=== PATIENT | male | born 1940 | race Caucasian/White ===

== ENCOUNTER 2020-08-18 16:13 | Emergency (ER) | payer MEDICARE ==
--- NOTE | 2020-08-18 16:29 | ERPHSYRPT ---
- History of Present Illness Time Seen by Provider: 08/18/20 16:29 Source: patient Exam Limitations: no limitations Physician History: This is a 79-year-old white male who has a history of hypothyroidism and hypertension as well as chronic venous stasis disease of his bilateral lower extremities. He is here because he has been unable to get his legs rewrapped the last couple days. He has an appointment tomorrow at his usual clinic to get his legs wrapped. He states that he is here because he just wants his legs wrapped to get him till tomorrow. He has no new aches or pains in the area. He has had no fevers or chills. Nothing has changed. Timing/Duration: day(s) (2) Severity: moderate Associated Symptoms: denies symptoms Allergies/Adverse Reactions: No Known Drug Allergies Allergy (Verified 08/18/20 16:28) Hx Tetanus, Diphtheria Vaccination/Date Given: No (PT UNSURE) Hx Influenza Vaccination/Date Given: No Hx Pneumococcal Vaccination/Date Given: No Travel Risk - International Travel Have you traveled outside of the country in past 3 weeks: No - Coronavirus Screening Are you exhibiting any of the following symptoms?: No Close contact with a COVID-19 positive Pt in past 14-21 Days: No - Review of Systems Constitutional: No Symptoms Eyes: No Symptoms Ears, Nose, & Throat: No Symptoms Respiratory: No Symptoms Cardiac: No Symptoms Abdominal/Gastrointestinal: No Symptoms Genitourinary Symptoms: No Symptoms Musculoskeletal: No Symptoms Skin: Other (Chronic venous stasis disease bilateral lower extremities) Neurological: No Symptoms Psychological: No Symptoms Endocrine: No Symptoms Hematologic/Lymphatic: No Symptoms Immunological/Allergic: No Symptoms All Other Systems: Reviewed and Negative - Past Medical History Pertinent Past Medical History: Yes Neurological History: No Pertinent History ENT History: No Pertinent History Cardiac History: Hypertension Respiratory History: No Pertinent History Endocrine Medical History: Hypothyroidism Musculoskeletal History: Osteoarthritis GI Medical History: No Pertinent History History: No Pertinent History Psycho-Social History: No Pertinent History Male Reproductive Disorders: No Pertinent History Other Medical History: DEPRESSION - Past Surgical History Past Surgical History: No - Social History Smoking Status: Never smoker Exposure to second hand smoke: No Drug Use: none Patient Lives Alone: No - Nursing Vital Signs Nursing Vital Signs: Initial Vital Signs Temperature 98.4 F 08/18/20 16:14 Pulse Rate 90 08/18/20 16:14 Respiratory Rate 18 08/18/20 16:14 Blood Pressure 139/70 08/18/20 16:14 O2 Sat by Pulse Oximetry 98 08/18/20 16:14 Pain Scale Pain Intensity 0 - Physical Exam General Appearance: no apparent distress, alert Eye Exam: PERRL/EOMI, eyes nml inspection Ears, Nose, Throat Exam: normal ENT inspection, moist mucous membranes Neck Exam: normal inspection, non-tender, supple, full range of motion Respiratory Exam: normal breath sounds, lungs clear, airway intact, No chest tenderness, No respiratory distress Cardiovascular Exam: regular rate/rhythm, normal heart sounds, normal peripheral pulses Gastrointestinal/Abdomen Exam: soft, normal bowel sounds, No tenderness Rectal Exam: not done Back Exam: normal inspection, normal range of motion, No CVA tenderness, No vertebral tenderness Extremity Exam: normal range of motion, pelvis stable, other (Patient has bilateral lower extremity chronic venous stasis disease. His left lower extremity seems a little more red than the right side. There is weeping from the sites bilaterally. 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, no rmal mood/affect, nml cerebellar function, nml station & gait, sensation nml Skin Exam: other (See above) Lymphatic Exam: No adenopathy SpO2 Interpretation: normal O2 Delivery: Room Air - Course Nursing assessment & vital signs reviewed: Yes - Progress Progress: unchanged Counseled pt/family regarding: diagnosis, need for follow-up - Departure Departure Disposition: Home Clinical Impression: Left leg cellulitis, Venous stasis dermatitis of both lower extremities Condition: Stable Critical Care Time: No Referrals: JERICHO BERNABE [Primary Care Provider] - Additional Instructions: keep legs elevated above level of heart. follow up with your clinic tomorrow to formally wrap your legs Prescriptions: Levofloxacin [Levaquin 500 MG Tablet] 500 mg PO DAILY #7 tablet
[2020-08-18 16:45] VITALS: BP 139/70
[2020-08-18] MEDS ORDERED: Rocephin 1000 MG INJ IM ONE (17:46)
[2020-08-18] MEDS ORDERED: Rocephin 1000 MG INJ ONE (17:52)
[2020-08-18 17:57] VITALS: PULSE 86; O2SAT 99
== END 2020-08-18 18:26 | disposition home or self-care (01) ==
LOC: ED 16:13
DX: L03.116 Cellulitis of left lower limb (principal); I87.8 Other specified disorders of veins; I87.2 Venous insufficiency (chronic) (peripheral); I10 Essential (primary) hypertension; E03.9 Hypothyroidism, unspecified
CPT/HCPCS: 96372; 99284; J0696

== ENCOUNTER 2021-01-06 19:11 | Emergency (ER) | payer MEDICARE ==
[2021-01-06 19:32] VITALS: PULSE 96; O2SAT 97
[2021-01-06 20:13] LABS: BASOPHIL % 0.4 % (0.0-0.4); Basophil (Absolute #) 0.03 (0-0.4); Eosinophil % 5.7 % (0.00-5.0); Eosinophil (Absolute #) 0.47 (0-0.5); Lymphocyte (Absolute #) 2.07 (1.0-4.6); Lymphocytes % 25.3 % (24.0-44.0); Mean Corpuscular Hemoglobin 28.7 pg (26-32); Mean Corpuscular Hgb Concent. 31.3 g/dl (32-36); Mean Platelet Volume 9.8 fl (7.5-11.0); Monocyte (Absolute #) 0.62 (0.0-1.3); Monocytes % 7.6 % (0.0-12.0); Platelet Count 236 K/mm3 (150-450); Red Blood Count 5.22 M/mm3 (4.1-5.6); Red Cell Distribution Width 14.4 % (11.5-14.0); White Blood Count 8.2 K/mm3 (4.0-10.5)
[2021-01-06 20:26] LABS: ALBUMIN 4.2 g/dL (3.5-5.0); ALKALINE PHOSPHATASE 84 U/L (38-126); BLOOD UREA NITROGEN 11 mg/dL (9-20); CHLORIDE 102 mmol/L (98-107); Calcium 9.1 mg/dL (8.4-10.2); Carbon Dioxide 27 mmol/L (22-30); EST GLOMERULAR FILTRATION RATE > 60.0 ML/MIN; Glucose 112 mg/dL (74-106); SGOT/AST 31 U/L (17-59); SGPT/ALT 22 U/L (0-50); SODIUM 140 mmol/L (137-145); Total Protein 7.5 g/dL (6.3-8.2)
[2021-01-06] MEDS ORDERED: Rocephin 1000 MG INJ IM ONE (20:28)
--- NOTE | 2021-01-06 20:28 | ERPHSYRPT ---
- History of Present Illness Time Seen by Provider: 01/06/21 19:35 Source: patient Patient Subjective Stated Complaint: pt here for left lower leg cellulitis, it is chronic for him Triage Nursing Assessment: pt alert, resp easy , face mask in , skin w/d/p. has reddness and swelling to lower left leg, Physician History: Patient is a 80-year-old white male with chronic cellulitis and stasis dermatitis of both lower extremities. He is well-known to the ER and is followed by his PCP as well. He presents tonight with his legs prewrapped and expressing a desire to be started on antibiotics. Timing/Duration: today Quality: itchy Severity: moderate Location: extremities Possible Causes: other (Stasis dermatitis chronic cellulitis) Associated Symptoms: rash Allergies/Adverse Reactions: No Known Drug Allergies Allergy (Verified 01/06/21 19:32) Hx Tetanus, Diphtheria Vaccination/Date Given: No (PT UNSURE) Hx Influenza Vaccination/Date Given: No Hx Pneumococcal Vaccination/Date Given: No Immunizations Up to Date: Yes Travel Risk - International Travel Have you traveled outside of the country in past 3 weeks: No - Coronavirus Screening Close contact with a COVID-19 positive Pt in past 14-21 Days: No - Vaccine Status Have you recieved a Covid-19 vaccination: No - Review of Systems Constitutional: No Fever, No Chills Eyes: No Symptoms Ears, Nose, & Throat: No Symptoms Respiratory: No Cough, No Dyspnea Cardiac: No Chest Pain, No Edema, No Syncope Abdominal/Gastrointestinal: No Abdominal Pain, No Nausea, No Vomiting, No Diarrhea Genitourinary Symptoms: No Dysuria Musculoskeletal: No Back Pain, No Neck Pain Skin: Cellulitis, Pruritis, Dryness, No Rash Neurological: No Dizziness, No Focal Weakness, No Sensory Changes Psychological: No Symptoms Endocrine: No Symptoms All Other Systems: Reviewed and Negative - Past Medical History Pertinent Past Medical History: Yes Neurological History: No Pertinent History ENT History: No Pertinent History Cardiac History: Hypertension, Peripheral Vascular Disease Respiratory History: No Pertinent History Endocrine Medical History: Hypothyroidism Musculoskeletal History: Osteoarthritis GI Medical History: No Pertinent History History: No Pertinent History Psycho-Social History: No Pertinent History Male Reproductive Disorders: No Pertinent History Other Medical History: 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 HX OF DEPRESSION - Past Surgical History Past Surgical History: No - Social History Smoking Status: Never smoker Exposure to second hand smoke: No Drug Use: none Patient Lives Alone: No - Nursing Vital Signs Nursing Vital Signs: Initial Vital Signs Temperature 97.2 F 01/06/21 19:28 Pulse Rate 96 H 01/06/21 19:28 Respiratory Rate 20 01/06/21 19:28 O2 Sat by Pulse Oximetry 97 01/06/21 19:28 Pain Scale Pain Intensity 0 - Physical Exam General Appearance: no apparent distress, alert Eye Exam: PERRL/EOMI, eyes nml inspection Ears, Nose, Throat Exam: normal ENT inspection, pharynx normal, moist mucous membranes Neck Exam: normal inspection, non-tender, supple, full range of motion Respiratory Exam: normal breath sounds, lungs clear, No respiratory distress Cardiovascular Exam: regular rate/rhythm, normal heart sounds Gastrointestinal/Abdomen Exam: soft, mass, No tenderness Back Exam: normal inspection, normal range of motion, No CVA tenderness, No vertebral tenderness Extremity Exam: normal range of motion, other (Both lower legs have been wrapped previously we would not remove those tonight) Neurologic Exam: alert, oriented x 3, cooperative, normal mood/affect, sensation nml, No motor deficits Skin Exam: normal color, warm, dry SpO2: 97 - Course Nursing assessment & vital signs reviewed: Yes Ordered Tests: Active Orders 24 hr Category Date Time Status BLOOD CULTURE Stat Lab 01/06/21 20:05 Received CBC W DIFF Stat Lab 01/06/21 20:00 Received CMP Stat Lab 01/06/21 20:00 Received - Progress Progress: unchanged - Departure Departure Disposition: Home Clinical Impression: Cellulitis, Venous stasis dermatitis of both lower extremities Condition: Stable Critical Care Time: No Referrals: JERICHO RODRIGUEZ [Primary Care Provider] - Prescriptions: Levofloxacin [Levaquin 500 MG Tablet] 500 mg PO DAILY #7 tablet
[2021-01-06] MEDS ORDERED: Rocephin 1000 MG INJ ONE (20:37)
[2021-01-06] MEDS ORDERED: XYLOCAINE 1% HCL 20 ML MDV IJ ONE (20:37)
== END 2021-01-06 20:59 | disposition home or self-care (01) ==
LOC: ED 19:11
DX: L03.116 Cellulitis of left lower limb (principal); L03.115 Cellulitis of right lower limb; I87.2 Venous insufficiency (chronic) (peripheral)
CPT/HCPCS: 36415; 80053; 85025; 87040; 96372; 99284; J0696

== ENCOUNTER 2021-01-15 14:20 | Emergency (ER) | payer MEDICARE ==
--- NOTE | 2021-01-15 14:40 | ERPHSYRPT ---
- History of Present Illness Time Seen by Provider: 01/15/21 14:36 Source: patient Exam Limitations: no limitations Physician History: Patient is 80-year-old male with significant past medical history of bilateral chronic venous stasis has been undergoing treatment by wound care center at [facility]. Patient started noticing more and more clear discharge from his both feet so he got concerned and he came to the emergency room. He denies any other symptoms including fever chills pain in the leg. Patient also denies any purulent discharge from the legs. Timing/Duration: week(s) Associated Symptoms: denies symptoms Allergies/Adverse Reactions: No Known Drug Allergies Allergy (Verified 01/06/21 19:32) Hx Tetanus, Diphtheria Vaccination/Date Given: No (PT UNSURE) Hx Influenza Vaccination/Date Given: No Hx Pneumococcal Vaccination/Date Given: No Travel Risk - Vaccine Status Have you recieved a Covid-19 vaccination: No - Review of Systems Constitutional: No Symptoms Eyes: No Symptoms Ears, Nose, & Throat: No Symptoms Respiratory: No Symptoms Cardiac: No Symptoms Abdominal/Gastrointestinal: No Symptoms Genitourinary Symptoms: No Symptoms Musculoskeletal: No Symptoms Skin: Cellulitis Neurological: No Symptoms Psychological: No Symptoms Endocrine: No Symptoms - Past Medical History Pertinent Past Medical History: Yes Neurological History: No Pertinent History ENT History: No Pertinent History Cardiac History: Hypertension, Peripheral Vascular Disease Respiratory History: No Pertinent History Endocrine Medical History: Hypothyroidism Musculoskeletal History: Osteoarthritis GI Medical History: No Pertinent History History: No Pertinent History Psycho-Social History: No Pertinent History Male Reproductive Disorders: No Pertinent History Other Medical History: 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 HX OF DEPRESSION - Past Surgical History Past Surgical History: No - Social History Smoking Status: Never smoker Exposure to second hand smoke: No Drug Use: none Patient Lives Alone: No - Nursing Vital Signs Nursing Vital Signs: Initial Vital Signs Temperature 99.7 F 01/15/21 14:33 Pulse Rate 101 H 01/15/21 14:33 Respiratory Rate 18 01/15/21 14:33 Blood Pressure 150/69 01/15/21 14:33 O2 Sat by Pulse Oximetry 96 01/15/21 14:33 Pain Scale Pain Intensity 4 - Physical Exam General Appearance: no apparent distress, alert Eye Exam: PERRL/EOMI, eyes nml inspection Ears, Nose, Throat Exam: normal ENT inspection, TMs normal, pharynx normal, moist mucous membranes Neck Exam: normal inspection, non-tender, supple, full range of motion Respiratory Exam: normal breath sounds, lungs clear, No respiratory distress Cardiovascular Exam: regular rate/rhythm, normal heart sounds, normal peripheral pulses Gastrointestinal/Abdomen Exam: soft, normal bowel sounds, No tenderness, No mass Back Exam: normal inspection, normal range of motion, No CVA tenderness, No vertebral tenderness Extremity Exam: normal inspection, normal range of motion, pelvis stable, inflammation, swelling, other (chronic venous stasis both lower extrimities) Neurologic Exam: alert, oriented x 3, cooperative, normal mood/affect, nml cerebellar function, nml station & gait, sensation nml, No motor deficits Skin Exam: normal color, warm, dry, No rash Lymphatic Exam: No adenopathy SpO2: 96 - Course Nursing assessment & vital signs reviewed: Yes Ordered Tests: Active Orders 24 hr Category Date Time Status Wound Care STAT Care 01/15/21 14:35 Active - Progress Progress: unchanged Progress Note: 01/15/21 14:38 Wound dressing discussed with the patient. Patient is advised to follow-up with wound care as an outpatient. Counseled pt/family regarding: diagnosis, need for follow-up - Departure Departure Disposition: Home Clinical Impression: Venous stasis dermatitis of both lower extremities Condition: Stable Critical Care Time: No Referrals: JERICHO RODRIGUEZ [Primary Care Provider] - Follow Up with PCP/3 days Instructions: Wound Care (DC) Additional Instructions: Discharge/Care Plan AWILDA RIVERA was seen on 01/15/21 in the Emergency Room. The patient was counseled regarding Diagnosis,Lab results, Imaging studies, need for follow up and when to return to the Emergency Room. Prescriptions given: Discharge Note I have spoken with the patient and/or caregivers. I have explained the patient's condition, diagnosis and treatment plan based on the information available to me at this time. I have answered the patient's and/or caregiver's questions and addressed any concerns. The patient and/or caregivers have as good understanding of the patient's diagnosis, condition and treatment plan as can be expected at this point. The vital signs have been stable. The patient's condition is stable and appropriate for discharge from the emergency department. The patient will pursue further outpatient evaluation with the primary care physician or other designated or consulting physician as outlined in the discharge instructions. The patient and/or caregivers are agreeable to this plan of care and follow-up instructions have been explained in detail. The patient and/or caregivers have received these instruction. The patient/and or caregivers are aware that any significant change in condition or worsening of symptoms should prompt an immediate return to this or the closest emergency department or call 911. AWILDA RIVERA was seen on 01/15/21 n the Emergency Room. At that time you were treated for an emergent condition, during your visit Laboratory, Radiology and/or other procedures may have been ordered. It is very important that you follow-up with your Primary Care Physician JERICHO RODRIGUEZ within the next 24-48 hours to review your Emergency Room visit and the final results of testing that was ordered. Some test results such as Urine Cultures, Blood Cultures, and other cultures if ordered will not be finalized for 24-48 hours. If you do not have a Primary Care Provider please call the medical records department at [phone] ext [phone] to obtain a copy of your results or you may sign into our patient portal to obtain these results by visiting us @ [email or web address] and completing the following steps: 1. Click on the Patient Portal link 2. Click the Patient Self Enrollment Link to complete the enrollment form and entering your 3. Once the enrollment form is completed you will receive an email with a temporary ID and password at the email address you provided. 4. Next choose a user name and password. Your user name must be at least 4 characters long and your password must be at least 4 characters long. 5. Choose a security question from the list and provide your answer to the question. If you already have signed into the Health Portal you may access your Health Care Information 22/10 by the following steps: 1. Login to our website @ [email or web address] 2. Enter your original user name and password. FAQS The [facility] Health Portal is an online tool that contains your Lab Results, Radiology Reports, Visit History, Discharge Instructions and Health Summary Lab and Radiology Results will not be available for 72 hours on the portal. The Portal is a secure site, passwords are encryted and URLs are re-written so they cannot be copied and pasted. You and authorized family members are the only ones who can access your Portal. Also there is a timeout feature that protects your information if you leave the Portal page open. If you have technical difficulty please use the Contact Us link on the page this will allow you to submit any questions you have regarding the Portal or you may contact the Medical Record Department at [phone] ext [phone].
[2021-01-15 15:05] VITALS: BP 134/62; PULSE 90; O2SAT 98
== END 2021-01-15 15:11 | disposition home or self-care (01) ==
LOC: ED 14:20
DX: I87.8 Other specified disorders of veins (principal); L30.9 Dermatitis, unspecified; I73.9 Peripheral vascular disease, unspecified
CPT/HCPCS: 99283

== ENCOUNTER 2021-03-19 17:43 | Emergency (ER) | payer MEDICARE ==
[2021-03-19] MEDS ORDERED: Sodium Chloride 0.9% 1000 ML 1,000 ML ONE (18:46)
[2021-03-19] MEDS: Sodium Chloride 0.9% 1000 ML 1,000 ML IV SCH (18:46)
[2021-03-19 19:14] LABS: INR 1.08 (0.8-3.0); PROTIME 12.7 SECONDS (9.4-12.5)
[2021-03-19 19:16] LABS: Appearance SLIGHTLY CLOUDY (CLEAR); Bilirubin NEGATIVE (NEGATIVE); Blood MODERATE Ery/ul (0-5); Glucose NEGATIVE (NEGATIVE); Ketones TRACE (NEGATIVE); Leukocyte Esterase NEGATIVE (NEGATIVE); Mucus SLIGHT /HPF (NEGATIVE); Nitrite NEGATIVE (NEGATIVE); Protein,Urine Dip 100 (Negative); RBC 0-2 /HPF (0-2); Specific Gravity 1.021 (1.005-1.025); Urobilinogen 4 mg/dL (0-1); WBC 0-2 /HPF (0-5)
[2021-03-19 19:17] LABS: Absolute Neutrophil Ct (ANC) 3.78 (1.4-6.9); Basophil (Absolute #) 0 (0-0.4); Eosinophil (Absolute #) 0 (0-0.5); Hematocrit 46.4 % (42-50); Hemoglobin 14.6 gm/dl (12.5-18.0); Lymphocyte (Absolute #) 0.91 (1.0-4.6); Lymphocytes % 17.5 % (24.0-44.0); Mean Cell Volume 89.6 fl (78-100); Mean Corpuscular Hemoglobin 28.2 pg (26-32); Mean Corpuscular Hgb Concent. 31.5 g/dl (32-36); Mean Platelet Volume 10.2 fl (7.5-11.0); Monocytes % 9.6 % (0.0-12.0); Neutrophil % 72.9 % (36.0-66.0); Platelet Count 214 K/mm3 (150-450); Red Blood Count 5.18 M/mm3 (4.1-5.6); Red Cell Distribution Width 14.8 % (11.5-14.0); White Blood Count 5.2 K/mm3 (4.0-10.5)
[2021-03-19 19:27] LABS: ALBUMIN 3.8 g/dL (3.5-5.0); ALKALINE PHOSPHATASE 75 U/L (38-126); AMYLASE 64 U/L (30-110); ANION GAP 9.9 MEQ/L (5-15); BLOOD UREA NITROGEN 14 mg/dL (9-20); CHLORIDE 98 mmol/L (98-107); Calcium 8.4 mg/dL (8.4-10.2); Carbon Dioxide 30 mmol/L (22-30); Creatinine 1 0.78 mg/dL (0.66-1.25); EST GLOMERULAR FILTRATION RATE > 60.0 ML/MIN; Glucose 101 mg/dL (74-106); LIPASE 118 U/L (23-300); Potassium 4.4 mmol/L (3.5-5.1); SGOT/AST 325 U/L (17-59); SGPT/ALT 92 U/L (0-50); SODIUM 133 mmol/L (137-145); Total Protein 6.9 g/dL (6.3-8.2)
[2021-03-19 19:33] LABS: Amphetamine,Urine NEGATIVE (NEGATIVE); Barbiturate,Urine NEGATIVE (NEGATIVE); Benzodiazepine,Urine NEGATIVE (NEGATIVE); Cocaine,Urine NEGATIVE (NEGATIVE); Methadone,Urine NEGATIVE (NEGATIVE); Opiate,Urine NEGATIVE (NEGATIVE); PCP,Urine NEGATIVE (NEGATIVE); THC,Urine NEGATIVE (NEGATIVE)
--- NOTE | 2021-03-19 20:03 | ERPHSYRPT ---
- History of Present Illness Time Seen by Provider: 03/19/21 18:35 Source: patient, family Exam Limitations: no limitations Patient Subjective Stated Complaint: Pt states that he went to get off the couch and he just slid right down to the floor with no injury and his daughter brought him here to be checked out Triage Nursing Assessment: Pt brought to the ER by his daughter, hypertensive, denies pain, denies injury, denies LOC, pulses normal, skin n/w/d, doesn't appear to be in any distress Physician History: Patient is a 80-year-old male who slipped off the couch yesterday and was able unable to get off the floor for 3 hours until some help arrived. He denies any pain or injury his daughter did send a note saying that he has been recently more confused he has been weak and a poor appetite. Occurred: yesterday Reason for Fall: slipped Injuries/Pain Location: no injury Loss of Consciousness: no loss of consciousness Severity of Pain-Max: none Severity of Pain-Current: none Associated Symptoms (Fall): denies symptoms Allergies/Adverse Reactions: No Known Drug Allergies Allergy (Verified 03/19/21 18:32) Home Medications: Furosemide 20 mg [Lasix 20 mg] 20 mg PO DAILY 03/19/21 [History] Potassium Chloride 20 meq PO DAILY 03/19/21 [History] Hx Tetanus, Diphtheria Vaccination/Date Given: No (PT UNSURE) Hx Influenza Vaccination/Date Given: No Hx Pneumococcal Vaccination/Date Given: No Travel Risk - International Travel Have you traveled outside of the country in past 3 weeks: No - Coronavirus Screening Are you exhibiting any of the following symptoms?: No Close contact with a COVID-19 positive Pt in past 14-21 Days: No - Vaccine Status Have you recieved a Covid-19 vaccination: No - Review of Systems Constitutional: No Fever, No Chills Eyes: No Symptoms Ears, Nose, & Throat: No Symptoms Respiratory: No Cough, No Dyspnea Cardiac: No Chest Pain, No Edema, No Syncope Abdominal/Gastrointestinal: No Abdominal Pain, No Nausea, No Vomiting, No Diarrhea Genitourinary Symptoms: No Dysuria Musculoskeletal: No Back Pain, No Neck Pain Skin: No Rash Neurological: No Dizziness, No Focal Weakness, No Sensory Changes Psychological: No Symptoms Endocrine: No Symptoms All Other Systems: Reviewed and Negative - Past Medical History Pertinent Past Medical History: Yes Neurological History: No Pertinent History ENT History: No Pertinent History Cardiac History: Hypertension, Peripheral Vascular Disease Respiratory History: No Pertinent History Endocrine Medical History: Hypothyroidism Musculoskeletal History: Osteoarthritis GI Medical History: No Pertinent History History: No Pertinent History Psycho-Social History: No Pertinent History Male Reproductive Disorders: No Pertinent History Other Medical History: 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 HX OF DEPRESSION - Past Surgical History Past Surgical History: No - Social History Smoking Status: Never smoker Exposure to second hand smoke: No Drug Use: none Patient Lives Alone: No - Nursing Vital Signs Nursing Vital Signs: Initial Vital Signs Temperature 99.2 F 03/19/21 18:24 Pulse Rate 88 03/19/21 18:24 Blood Pressure 146/72 03/19/21 18:24 O2 Sat by Pulse Oximetry 98 03/19/21 18:24 Pain Scale Pain Intensity 0 - [place] Coma Score Best Eye Response ([place]): (4) open spontaneously Best Verbal Response ([place]): (5) oriented Best Motor Response ([place]): (6) obeys commands [place] Total: 15 - Physical Exam General Appearance: no apparent distress, alert Head Injury: no evidence of injury Eye Exam: PERRL/EOMI ENT Exam: airway nml Neck Exam: normal inspection, No tenderness Respiratory/Chest Exam: normal breath sounds, No chest tenderness, No respiratory distress Cardiovascular Exam: normal heart sounds, regular rate/rhythm Gastrointestinal Exam: soft, No tenderness, No distention, No guarding, No ecchymosis Back Exam: normal inspection, No vertebral tenderness Extremity Exam: normal inspection, normal range of motion, pelvis stable, No deformities Neurologic Exam: alert, oriented x 3, cooperative, sensation nml, No motor deficits Skin Exam: normal color, warm, dry SpO2: 98 - Course Nursing assessment & vital signs reviewed: Yes EKG Interpreted by Me: RATE (92), Sinus Rhythm, Right [place] Deviation, NORMAL QRS, Non-specific ST Changes - CT Exams Abdomen CT Interpretation: Other (Patient refused a CT scan) Ordered Tests: Active Orders 24 hr Category Date Time Status EKG-ER Only STAT Care 03/19/21 18:32 Active IV Insertion STAT Care 03/19/21 18:32 Active ABDOMEN AND PELVIS W/0 CONTRAS [CT] Stat Exams 03/19/21 18:33 Ordered CHEST 1 VIEW (PORTABLE) Stat Exams 03/19/21 18:33 Ordered HEAD WITHOUT CONTRAST [CT] Stat Exams 03/19/21 18:35 Ordered AMYLASE Stat Lab 03/19/21 18:45 Completed BLOOD CULTURE Stat Lab 03/19/21 18:45 Received CBC W DIFF Stat Lab 03/19/21 18:45 Completed CK (IN-HOUSE) [CK-Creatinine Phosphokinase] Stat Lab 03/19/21 18:35 Received CMP Stat Lab 03/19/21 18:45 Completed CULTURE,URINE Stat Lab 03/19/21 18:58 Received LIPASE Stat Lab 03/19/21 18:45 Completed Lactic Acid Stat Lab 03/19/21 18:32 Ordered PROTIME WITH INR Stat Lab 03/19/21 18:45 Completed TROPONIN Q3H Lab 03/19/21 18:35 Received TROPONIN Q3H Lab 03/19/21 21:45 Ordered TROPONIN Q3H Lab 03/20/21 00:45 Ordered TROPONIN Q3H Lab 03/20/21 03:45 Ordered TROPONIN Q3H Lab 03/20/21 06:45 Ordered UA W/RFX UR CULTURE Stat Lab 03/19/21 18:58 Completed Urine Triage Profile Stat Lab 03/19/21 18:58 Completed Medication Summary Generic Name Dose Route Start Last Admin Trade Name Freq PRN Reason Stop Dose Admin Sodium Chloride 1,000 mls @ 100 mls/hr 03/19/21 18:45 03/19/21 18:46 Sodium Chloride 0.9% 1000 Ml IV 04/18/21 18:44 100 mls/hr .Q10H MIKE Administration Lab/Rad Data: Laboratory Result Diagrams 03/19/21 18:45 03/19/21 18:45 Laboratory Results 03/19/21 03/19/21 03/19/21 Range/Units 18:58 18:58 18:45 WBC (4.0-10.5) K/mm3 RBC (4.1-5.6) M/mm3 Hgb (12.5-18.0) gm/dl Hct (42-50) % MCV (78-100) fl MCH (26-32) pg MCHC (32-36) g/dl RDW (11.5-14.0) % Plt Count (150-450) K/mm3 MPV (7.5-11.0) fl Gran % (36.0-66.0) % Eos # (Auto) (0-0.5) Absolute Lymphs (auto) (1.0-4.6) Absolute Monos (auto) (0.0-1.3) Lymphocytes % (24.0-44.0) % Monocytes % (0.0-12.0) % Eosinophils % (0.00-5.0) % Basophils % (0.0-0.4) % Absolute Granulocytes (1.4-6.9) Basophils # (0-0.4) PT 12.7 H (9.4-12.5) SECONDS INR 1.08 (0.8-3.0) Sodium (137-145) mmol/L Potassium (3.5-5.1) mmol/L Chloride (98-107) mmol/L Carbon Dioxide (22-30) mmol/L Anion Gap (5-15) MEQ/L BUN (9-20) mg/dL Creatinine (0.66-1.25) mg/dL Estimated GFR ML/MIN Glucose (74-106) mg/dL Calcium (8.4-10.2) mg/dL Total Bilirubin (0.2-1.3) mg/dL AST (17-59) U/L ALT (0-50) U/L Alkaline Phosphatase (38-126) U/L Serum Total Protein (6.3-8.2) g/dL Albumin (3.5-5.0) g/dL Amylase (30-110) U/L Lipase (23-300) U/L Urine Color YELLOW (YELLOW) Urine Appearance SLIGHTLY CLOUDY (CLEAR) Urine pH 5.0 (5-6) Ur Specific [place] 1.021 (1.005-1.025) Urine Protein 100 (Negative) Urine Ketones TRACE (NEGATIVE) Urine Blood MODERATE (0-5) Rene/ul Urine Nitrite NEGATIVE (NEGATIVE) Urine Bilirubin NEGATIVE (NEGATIVE) Urine Urobilinogen 4 (0-1) mg/dL Ur Leukocyte Esterase NEGATIVE (NEGATIVE) Urine WBC (Auto) 0-2 (0-5) /HPF Urine RBC (Auto) 0-2 (0-2) /HPF U Epithel Cells (Auto) NONE (FEW) /HPF Urine Bacteria (Auto) NONE (NEGATIVE) /HPF Urine Mucus (Auto) SLIGHT (NEGATIVE) /HPF Urine Culture Reflexed YES (NO) Urine Glucose NEGATIVE (NEGATIVE) mg/dL Urine Opiates Level NEGATIVE (NEGATIVE) Ur Methadone NEGATIVE (NEGATIVE) Urine Barbiturates NEGATIVE (NEGATIVE) Ur Phencyclidine (PCP) NEGATIVE (NEGATIVE) Urine Amphetamine NEGATIVE (NEGATIVE) U Benzodiazepine Level NEGATIVE (NEGATIVE) Urine Cocaine NEGATIVE (NEGATIVE) Urine Marijuana (THC) NEGATIVE (NEGATIVE) 03/19/21 03/19/21 Range/Units 18:45 18:45 WBC 5.2 (4.0-10.5) K/mm3 RBC 5.18 (4.1-5.6) M/mm3 Hgb 14.6 (12.5-18.0) gm/dl Hct 46.4 (42-50) % MCV 89.6 (78-100) fl MCH 28.2 (26-32) pg MCHC 31.5 L (32-36) g/dl RDW 14.8 H (11.5-14.0) % Plt Count 214 (150-450) K/mm3 MPV 10.2 (7.5-11.0) fl Gran % 72.9 H (36.0-66.0) % Eos # (Auto) 0 (0-0.5) Absolute Lymphs (auto) 0.91 L (1.0-4.6) Absolute Monos (auto) 0.50 (0.0-1.3) Lymphocytes % 17.5 L (24.0-44.0) % Monocytes % 9.6 (0.0-12.0) % Eosinophils % 0.0 (0.00-5.0) % Basophils % 0.0 (0.0-0.4) % Absolute Granulocytes 3.78 (1.4-6.9) Basophils # 0 (0-0.4) PT (9.4-12.5) SECONDS INR (0.8-3.0) Sodium 133 L (137-145) mmol/L Potassium 4.4 (3.5-5.1) mmol/L Chloride 98 (98-107) mmol/L Carbon Dioxide 30 (22-30) mmol/L Anion Gap 9.9 (5-15) MEQ/L BUN 14 (9-20) mg/dL Creatinine 0.78 (0.66-1.25) mg/dL Estimated GFR > 60.0 ML/MIN Glucose 101 (74-106) mg/dL Calcium 8.4 (8.4-10.2) mg/dL Total Bilirubin 1.10 (0.2-1.3) mg/dL AST 325 H (17-59) U/L ALT 92 H (0-50) U/L Alkaline Phosphatase 75 (38-126) U/L Serum Total Protein 6.9 (6.3-8.2) g/dL Albumin 3.8 (3.5-5.0) g/dL Amylase 64 (30-110) U/L Lipase 118 (23-300) U/L Urine Color (YELLOW) Urine Appearance (CLEAR) Urine pH (5-6) Ur Specific [place] (1.005-1.025) Urine Protein (Negative) Urine Ketones (NEGATIVE) Urine Blood (0-5) Rene/ul Urine Nitrite (NEGATIVE) Urine Bilirubin (NEGATIVE) Urine Urobilinogen (0-1) mg/dL Ur Leukocyte Esterase (NEGATIVE) Urine WBC (Auto) (0-5) /HPF Urine RBC (Auto) (0-2) /HPF U Epithel Cells (Auto) (FEW) /HPF Urine Bacteria (Auto) (NEGATIVE) /HPF Urine Mucus (Auto) (NEGATIVE) /HPF Urine Culture Reflexed (NO) Urine Glucose (NEGATIVE) mg/dL Urine Opiates Level (NEGATIVE) Ur Methadone (NEGATIVE) Urine Barbiturates (NEGATIVE) Ur Phencyclidine (PCP) (NEGATIVE) Urine Amphetamine (NEGATIVE) U Benzodiazepine Level (NEGATIVE) Urine Cocaine (NEGATIVE) Urine Marijuana (THC) (NEGATIVE) - Progress Progress: improved - Departure Departure Disposition: Home Clinical Impression: Fall Condition: Stable Critical Care Time: No Referrals: JERICHO RODRIGUEZ [Primary Care Provider] - Follow up/PCP as directed Instructions: Preventing Falls
[2021-03-19 20:06] VITALS: BP 146/78; PULSE 78; O2SAT 97
--- NOTE | 2021-03-20 09:04 | XRAY ---
Indication: Loss of appetite. Acute mental status change. Comparison: July 25, 2014. Portable chest demonstrates new moderate diffuse bilateral air space disease without consolidation/large effusion. Heart not enlarged. Bony thorax intact again with mild osteopenia and degenerative changes.
== END 2021-03-19 20:26 | disposition home or self-care (01) ==
LOC: ED 17:43
DX: R53.1 Weakness (principal); W08.XXXA Fall from other furniture, initial encounter; Y92.009 Unspecified place in unspecified non-institutional (private) residence as the place of occurrence of the external cause; I10 Essential (primary) hypertension; I73.9 Peripheral vascular disease, unspecified; I87.8 Other specified disorders of veins
CPT/HCPCS: 36415; 71045; 80053; 80307; 81001; 82150; 82550; 83605; 83690; 84484; 85025; 85610; 87040; 87086; 93005; 99284

== ENCOUNTER 2021-03-21 18:27 | Inpatient (IN) | payer MEDICARE ==
[2021-03-21] MEDS ORDERED: TYLENOL 325 MG PO ONE (19:06)
[2021-03-21] MEDS ORDERED: TYLENOL 325 MG ONE (19:22)
[2021-03-21] MEDS: Sodium Chloride 0.9% 1000 ML 1,000 ML IV SCH (19:23)
--- NOTE | 2021-03-21 19:23 | ERPHSYRPT ---
- History of Present Illness Time Seen by Provider: 03/21/21 18:37 Source: patient Exam Limitations: no limitations Patient Subjective Stated Complaint: Pt states "I am washing my legs and I am trying to clean them.". Pt daughter stated "He is not eating much and he is fa lling." Triage Nursing Assessment: Pt presented alert and oriented X 3, skin wpd Pt lower legs are red and hot to touch. Pt has CSM X 4. Pt skin warm to touch. PT answering all questions appropriately. Physician History: 80-year-old male with multiple medical problems with bilateral lower extremity stasis ulcers, recently taken off of antibiotics presented in the ER with chief complaint of generalized weakness fatigue and tiredness. Daughter reports he refuses to eat or drink and has not been as active as usual. He is having a downhill course for the last 2 weeks which is worsening for the last couple of days. On presentation he had a fever but denies any chest pain, palpitations or shortness of breath. No abdominal pain nausea or vomiting. Daughter also reports he is getting easily confused over little things. He does have increase discharge from right leg yellow color. Denies any focal weakness. Patient is answering all questions appropriately and does not seem to be confused or altered at all. Timing/Duration: week(s), constant, gradual onset, worse Severity: moderate Modifying Factors: Improves With: nothing Associated Symptoms: fever, loss of appetite, malaise, weakness Allergies/Adverse Reactions: No Known Drug Allergies Allergy (Verified 03/19/21 18:32) Home Medications: Furosemide 20 mg [Lasix 20 mg] 20 mg PO DAILY 03/19/21 [History] Potassium Chloride 20 meq PO DAILY 03/19/21 [History] Hx Tetanus, Diphtheria Vaccination/Date Given: No (PT UNSURE) Hx Influenza Vaccination/Date Given: No Hx Pneumococcal Vaccination/Date Given: No Immunizations Up to Date: Yes Travel Risk - International Travel Have you traveled outside of the country in past 3 weeks: No - Coronavirus Screening Are you exhibiting any of the following symptoms?: No Close contact with a COVID-19 positive Pt in past 14-21 Days: No - Vaccine Status Have you recieved a Covid-19 vaccination: No - Review of Systems Constitutional: Fever, Fatigue, Weakness Eyes: No Symptoms Ears, Nose, & Throat: No Symptoms Respiratory: No Symptoms Cardiac: No Symptoms Abdominal/Gastrointestinal: No Symptoms Genitourinary Symptoms: No Symptoms Musculoskeletal: Arthralgias Skin: Rash Neurological: No Symptoms Endocrine: No Symptoms Hematologic/Lymphatic: No Symptoms Immunological/Allergic: No Symptoms - Past Medical History Pertinent Past Medical History: Yes Neurological History: No Pertinent History ENT History: No Pertinent History Cardiac History: Hypertension, Peripheral Vascular Disease Respiratory History: No Pertinent History Endocrine Medical History: Hypothyroidism Musculoskeletal History: Osteoarthritis GI Medical History: No Pertinent History History: No Pertinent History Psycho-Social History: No Pertinent History Male Reproductive Disorders: No Pertinent History Other Medical History: 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 HX OF DEPRESSION - Past Surgical History Past Surgical History: No - Social History Smoking Status: Never smoker Exposure to second hand smoke: No Drug Use: none Patient Lives Alone: No - Nursing Vital Signs Nursing Vital Signs: Initial Vital Signs Temperature 101.0 F 03/21/21 18:53 Pulse Rate 84 03/21/21 18:53 Respiratory Rate 20 03/21/21 18:53 Blood Pressure 137/72 03/21/21 18:53 O2 Sat by Pulse Oximetry 97 03/21/21 18:53 Pain Scale Pain Intensity 0 - Physical Exam General Appearance: no apparent distress, alert, anxiety Eye Exam: PERRL/EOMI, eyes nml inspection Ears, Nose, Throat Exam: normal ENT inspection, TMs normal, pharyngeal erythema Neck Exam: normal inspection, supple, full range of motion Respiratory Exam: normal breath sounds, lungs clear Cardiovascular Exam: regular rate/rhythm, normal heart sounds Gastrointestinal/Abdomen Exam: soft, normal bowel sounds, No tenderness Back Exam: normal inspection, normal range of motion, CVA tenderness Extremity Exam: other (Bilateral lower extremity venous stasis ulceration with yellowish discharge especially in the right side.) Neurologic Exam: alert, oriented x 3, cooperative, step down nurse II-XII nml as tested, sensation nml, No motor deficits Skin Exam: normal color SpO2 Interpretation: normal SpO2: 97 O2 Delivery: Room Air - Course EKG Interpreted by Me: RATE (82), Sinus Rhythm, Right [place] Deviation, NORMAL INTERVALS, Non-specific ST Changes Ordered Tests: Active Orders 24 hr Category Date Time Status IV Insertion STAT Care 03/21/21 19:06 Active CHEST 1 VIEW (PORTABLE) Stat Exams 03/21/21 19:39 Taken BLOOD CULTURE Stat Lab 03/21/21 20:10 Received CBC W DIFF Stat Lab 03/21/21 20:10 Completed CMP Stat Lab 03/21/21 20:10 Completed CULTURE,URINE Stat Lab 03/21/21 19:58 Received Lactic Acid Stat Lab 03/21/21 19:06 Completed UA W/RFX UR CULTURE Stat Lab 03/21/21 19:58 Completed Transfer Order Routine Transfer 03/21/21 Ordered Medication Summary Generic Name Dose Route Start Last Admin Trade Name Freq PRN Reason Stop Dose Admin Sodium Chloride 1,000 mls @ 100 mls/hr 03/21/21 19:15 03/21/21 19:23 Sodium Chloride 0.9% 1000 Ml IV 04/20/21 19:14 100 mls/hr .Q10H MIKE Administration Remdesivir 200 mg/ Sodium 250 mls @ 125 mls/hr 03/21/21 23:30 Chloride IV 03/22/21 01:29 ONCE ONE Discontinued Medications Generic Name Dose Route Start Last Admin Trade Name Valerie PRN Reason Stop Dose Admin Acetaminophen 975 mg 03/21/21 19:06 03/21/21 19:23 Acetaminophen 325 Mg Tablet PO 03/21/21 19:07 975 mg STAT ONE Administration Acetaminophen Confirm 03/21/21 19:22 Acetaminophen 325 Mg Tablet Administered 03/21/21 19:23 Dose 975 mg .ROUTE .STK-MED ONE Dexamethasone Sodium Phosphate 6 mg 03/21/21 23:30 03/21/21 23:34 Dexamethasone Sod Phosphate 10 Mg/Ml IV 03/21/21 23:31 6 mg STAT ONE Administration Dexamethasone Sodium Phosphate Confirm 03/21/21 23:31 Dexamethasone Sod Phosphate 10 Mg/Ml Administered 03/21/21 23:32 Dose 10 mg .ROUTE .STK-MED ONE Clindamycin HCl/Dextrose 900 mg in 50 mls @ 100 mls/hr 03/21/21 21:50 03/21/21 22:24 Clindamycin-D5w 900 Mg/50 Ml IV 03/21/21 22:19 Infused STAT STA Infusion Clindamycin HCl/Dextrose Confirm 03/21/21 21:52 Clindamycin-D5w 900 Mg/50 Ml Administered 03/21/21 21:53 Dose 900 mg in 50 mls @ ud IV .STK-MED ONE Lab/Rad Data: Laboratory Result Diagrams 03/21/21 20:10 03/21/21 20:10 Laboratory Results 03/21/21 03/21/21 03/21/21 Range/Units 22:19 20:10 20:10 WBC 5.9 (4.0-10.5) K/mm3 RBC 4.97 (4.1-5.6) M/mm3 Hgb 14.1 (12.5-18.0) gm/dl Hct 44.2 (42-50) % MCV 88.9 (78-100) fl MCH 28.4 (26-32) pg MCHC 31.9 L (32-36) g/dl RDW 14.9 H (11.5-14.0) % Plt Count 178 (150-450) K/mm3 MPV 9.9 (7.5-11.0) fl Gran % 72.7 H (36.0-66.0) % Eos # (Auto) 0 (0-0.5) Absolute Lymphs (auto) 1.21 (1.0-4.6) Absolute Monos (auto) 0.40 (0.0-1.3) Lymphocytes % 20.5 L (24.0-44.0) % Monocytes % 6.8 (0.0-12.0) % Eosinophils % 0.0 (0.00-5.0) % Basophils % 0.0 (0.0-0.4) % Absolute Granulocytes 4.29 (1.4-6.9) Basophils # 0 (0-0.4) Sodium 131 L (137-145) mmol/L Potassium 4.2 (3.5-5.1) mmol/L Chloride 96 L (98-107) mmol/L Carbon Dioxide 29 (22-30) mmol/L Anion Gap 11.3 (5-15) MEQ/L BUN 16 (9-20) mg/dL Creatinine 0.77 (0.66-1.25) mg/dL Estimated GFR > 60.0 ML/MIN Glucose 101 (74-106) mg/dL Lactic Acid (0.4-2.0) Calcium 8.0 L (8.4-10.2) mg/dL Total Bilirubin 1.20 (0.2-1.3) mg/dL AST 277 H (17-59) U/L ALT 98 H (0-50) U/L Alkaline Phosphatase 72 (38-126) U/L Serum Total Protein 6.9 (6.3-8.2) g/dL Albumin 3.5 (3.5-5.0) g/dL Urine Color (YELLOW) Urine Appearance (CLEAR) Urine pH (5-6) Ur Specific [place] (1.005-1.025) Urine Protein (Negative) Urine Ketones (NEGATIVE) Urine Blood (0-5) Rene/ul Urine Nitrite (NEGATIVE) Urine Bilirubin (NEGATIVE) Urine Urobilinogen (0-1) mg/dL Ur Leukocyte Esterase (NEGATIVE) Urine WBC (Auto) (0-5) /HPF Urine RBC (Auto) (0-2) /HPF Urine Mucus (Auto) (NEGATIVE) /HPF Urine Culture Reflexed (NO) Urine Glucose (NEGATIVE) mg/dL Influenza Type A Ag NEGATIVE (NEGATIVE) Influenza Type B Ag NEGATIVE (NEGATIVE) RSV (PCR) NEGATIVE (Negative) SARS-CoV-2 (PCR) POSITIVE A (NEGATIVE) 03/21/21 03/21/21 Range/Units 19:58 19:06 WBC (4.0-10.5) K/mm3 RBC (4.1-5.6) M/mm3 Hgb (12.5-18.0) gm/dl Hct (42-50) % MCV (78-100) fl MCH (26-32) pg MCHC (32-36) g/dl RDW (11.5-14.0) % Plt Count (150-450) K/mm3 MPV (7.5-11.0) fl Gran % (36.0-66.0) % Eos # (Auto) (0-0.5) Absolute Lymphs (auto) (1.0-4.6) Absolute Monos (auto) (0.0-1.3) Lymphocytes % (24.0-44.0) % Monocytes % (0.0-12.0) % Eosinophils % (0.00-5.0) % Basophils % (0.0-0.4) % Absolute Granulocytes (1.4-6.9) Basophils # (0-0.4) Sodium (137-145) mmol/L Potassium (3.5-5.1) mmol/L Chloride (98-107) mmol/L Carbon Dioxide (22-30) mmol/L Anion Gap (5-15) MEQ/L BUN (9-20) mg/dL Creatinine (0.66-1.25) mg/dL Estimated GFR ML/MIN Glucose (74-106) mg/dL Lactic Acid 1.2 (0.4-2.0) Calcium (8.4-10.2) mg/dL Total Bilirubin (0.2-1.3) mg/dL AST (17-59) U/L ALT (0-50) U/L Alkaline Phosphatase (38-126) U/L Serum Total Protein (6.3-8.2) g/dL Albumin (3.5-5.0) g/dL Urine Color MARIO (YELLOW) Urine Appearance SLIGHTLY CLOUDY (CLEAR) Urine pH 5.0 (5-6) Ur Specific [place] 1.019 (1.005-1.025) Urine Protein 100 (Negative) Urine Ketones SMALL (NEGATIVE) Urine Blood MODERATE (0-5) Rene/ul Urine Nitrite NEGATIVE (NEGATIVE) Urine Bilirubin NEGATIVE (NEGATIVE) Urine Urobilinogen 4 (0-1) mg/dL Ur Leukocyte Esterase NEGATIVE (NEGATIVE) Urine WBC (Auto) 3-5 (0-5) /HPF Urine RBC (Auto) NONE (0-2) /HPF Urine Mucus (Auto) SLIGHT (NEGATIVE) /HPF Urine Culture Reflexed YES (NO) Urine Glucose NEGATIVE (NEGATIVE) mg/dL Influenza Type A Ag (NEGATIVE) Influenza Type B Ag (NEGATIVE) RSV (PCR) (Negative) SARS-CoV-2 (PCR) (NEGATIVE) - Progress Progress: improved, re-examined Progress Note: 03/21/21 22:26 80-year-old is evaluated for fever, generalized weakness/decreased oral intake and some confusion. Patient is given Tylenol and fluid bolus, on reevaluation feeling better. Has normal white count, chest x-ray reviewed by me did not reveal any obvious infiltrative process. Chemistry profile showed normal lactate and improvement in liver functions as compared to 1 done 2 days ago. No UTI. I believe his fever is either viral or is coming from right leg cellulitis. Started on clindamycin. Discussed with Dr. Dietrich, reviewed history, work-up and agreed with admission. 03/22/21 00:04 Patient COVID-19 result is positive. Discussed with Dr. De La Fuente, patient has admitted. Given dose of Decadron and remdesivir as well. Discussed with : Kevin Will see patient in: hospital (observation) Counseled pt/family regarding: lab results, diagnosis, rad results - Departure Departure Disposition: Observation Clinical Impression: Lower extremity cellulitis, Venous stasis dermatitis of both lower extremities Condition: Stable Critical Care Time: No Referrals: JERICHO RODRIGUEZ [Primary Care Provider] - Follow up/PCP as directed
[2021-03-21 20:21] LABS: Absolute Neutrophil Ct (ANC) 4.29 (1.4-6.9); Basophil (Absolute #) 0 (0-0.4); Eosinophil (Absolute #) 0 (0-0.5); Hematocrit 44.2 % (42-50); Hemoglobin 14.1 gm/dl (12.5-18.0); Lymphocyte (Absolute #) 1.21 (1.0-4.6); Lymphocytes % 20.5 % (24.0-44.0); Mean Cell Volume 88.9 fl (78-100); Mean Corpuscular Hemoglobin 28.4 pg (26-32); Mean Corpuscular Hgb Concent. 31.9 g/dl (32-36); Mean Platelet Volume 9.9 fl (7.5-11.0); Monocytes % 6.8 % (0.0-12.0); Neutrophil % 72.7 % (36.0-66.0); Platelet Count 178 K/mm3 (150-450); Red Blood Count 4.97 M/mm3 (4.1-5.6); Red Cell Distribution Width 14.9 % (11.5-14.0); White Blood Count 5.9 K/mm3 (4.0-10.5)
[2021-03-21 20:36] LABS: ALBUMIN 3.5 g/dL (3.5-5.0); ALKALINE PHOSPHATASE 72 U/L (38-126); ANION GAP 11.3 MEQ/L (5-15); BLOOD UREA NITROGEN 16 mg/dL (9-20); CHLORIDE 96 mmol/L (98-107); Carbon Dioxide 29 mmol/L (22-30); Creatinine 1 0.77 mg/dL (0.66-1.25); EST GLOMERULAR FILTRATION RATE > 60.0 ML/MIN; Glucose 101 mg/dL (74-106); Potassium 4.2 mmol/L (3.5-5.1); SGOT/AST 277 U/L (17-59); SGPT/ALT 98 U/L (0-50); SODIUM 131 mmol/L (137-145); Total Protein 6.9 g/dL (6.3-8.2)
[2021-03-21 20:46] LABS: Appearance SLIGHTLY CLOUDY (CLEAR); Bilirubin NEGATIVE (NEGATIVE); Blood MODERATE Ery/ul (0-5); Glucose NEGATIVE (NEGATIVE); Ketones SMALL (NEGATIVE); Leukocyte Esterase NEGATIVE (NEGATIVE); Mucus SLIGHT /HPF (NEGATIVE); Nitrite NEGATIVE (NEGATIVE); Protein,Urine Dip 100 (Negative); Specific Gravity 1.019 (1.005-1.025); Urobilinogen 4 mg/dL (0-1)
[2021-03-21] MEDS ORDERED: CLINDAMYCIN-D5W 900 MG/50 ML*** 900 MG/50 ML BAG IV STA (21:50)
[2021-03-21] MEDS ORDERED: CLINDAMYCIN-D5W 900 MG/50 ML*** 900 MG/50 ML BAG IV ONE (21:52)
[2021-03-21 23:03] LABS: INFLUENZA A NEGATIVE (NEGATIVE); INFLUENZA B NEGATIVE (NEGATIVE); RESPIRATORY SYNCTIAL VIRUS NEGATIVE (Negative)
[2021-03-21 23:10] LABS: SARS-CoV-2 Xpert Express POSITIVE (NEGATIVE)
[2021-03-21] MEDS ORDERED: REMDESIVIR 200 MG in Sodium Chloride 0.9% 250 ML 250 ML IV ONE (23:30)
[2021-03-21] MEDS ORDERED: DECADRON 10MG INJ. IV ONE (23:30)
[2021-03-21] MEDS ORDERED: DECADRON 10MG INJ. ONE (23:31)
[2021-03-22] MEDS: Sodium Chloride 0.9% 1000 ML 1,000 ML IV SCH ×2 (05:34→14:57)
--- NOTE | 2021-03-22 08:59 | XRAY ---
Indication: Cough. Comparison: March 19, 2021. Portable chest unchanged again demonstrating moderate diffuse bilateral airspace disease without consolidation/large effusion. Heart not enlarged. No new cardiopulmonary abnormalities.
[2021-03-22] MEDS ORDERED: PROTONIX 40 MG IV IV ONE ×2 (11:23→11:34)
[2021-03-22] MEDS ORDERED: CLINDAMYCIN-D5W 600 MG/50 ML*** 600 MG/50 ML BAG IV ONE (11:24)
[2021-03-22] MEDS ORDERED: CLINDAMYCIN-D5W 600 MG/50 ML*** 600 MG/50 ML BAG IV STA (11:32)
[2021-03-22] MEDS ORDERED: PROTONIX 40 MG IV IV SCH (12:27)
[2021-03-22] MEDS ORDERED: Zofran 4 MG/2 ML VIAL IV PRN (12:27)
[2021-03-22] MEDS ORDERED: DUONEB 0.5-3 MG/3 ml Neb IH PRN (12:27)
[2021-03-22] MEDS ORDERED: TYLENOL 325 MG PO PRN (12:27)
[2021-03-22] MEDS ORDERED: Ativan 1 MG PO PRN (13:02)
[2021-03-22] MEDS ORDERED: TYLENOL EXTRA STRENGTH 500 MG PO PRN (13:02)
[2021-03-22] MEDS ORDERED: HYDROCODONE-CHLORPHEN ER SUSP PO PRN (13:02)
[2021-03-22 14:16] LABS: Hematocrit 49.1 % (42-50); Hemoglobin 15.5 gm/dl (12.5-18.0); Mean Cell Volume 88.9 fl (78-100); Mean Corpuscular Hemoglobin 28.1 pg (26-32); Mean Corpuscular Hgb Concent. 31.6 g/dl (32-36); Mean Platelet Volume 10.2 fl (7.5-11.0); Platelet Count 190 K/mm3 (150-450); Red Blood Count 5.52 M/mm3 (4.1-5.6); Red Cell Distribution Width 14.9 % (11.5-14.0); White Blood Count 7.8 K/mm3 (4.0-10.5)
[2021-03-22 14:49] LABS: ALBUMIN 3.4 g/dL (3.5-5.0); ALKALINE PHOSPHATASE 66 U/L (38-126); ANION GAP 9.5 MEQ/L (5-15); BLOOD UREA NITROGEN 17 mg/dL (9-20); CHLORIDE 103 mmol/L (98-107); Calcium 8.2 mg/dL (8.4-10.2); Carbon Dioxide 27 mmol/L (22-30); Creatinine 1 0.66 mg/dL (0.66-1.25); EST GLOMERULAR FILTRATION RATE > 60.0 ML/MIN; Glucose 99 mg/dL (74-106); NT PRO BNP 416 pg/mL (0-1800); Potassium 4.4 mmol/L (3.5-5.1); SGOT/AST 215 U/L (17-59); SGPT/ALT 91 U/L (0-50); SODIUM 135 mmol/L (137-145)
[2021-03-22] MEDS: DECADRON 10MG INJ. IV SCH (14:55)
[2021-03-22] MEDS: LASIX 20 MG PO SCH (14:55)
[2021-03-22] MEDS: Klor Con 10 MEQ PO SCH (14:55)
[2021-03-22] MEDS: OLUMIANT PO SCH (14:55)
[2021-03-22] MEDS: SYNTHROID 50 MCG PO SCH (14:55)
[2021-03-22] MEDS: ENOXAPARIN SODIUM SQ SCH (14:56)
[2021-03-22 15:25] LABS: ANION GAP 9.5 MEQ/L (5-15); BLOOD UREA NITROGEN 17 mg/dL (9-20); CHLORIDE 103 mmol/L (98-107); Calcium 8.3 mg/dL (8.4-10.2); Carbon Dioxide 29 mmol/L (22-30); Creatinine 1 0.65 mg/dL (0.66-1.25); EST GLOMERULAR FILTRATION RATE > 60.0 ML/MIN; Glucose 96 mg/dL (74-106); PREALBUMIN 7.52 mg/dL (17.6-36.0); SODIUM 138 mmol/L (137-145)
[2021-03-22] MEDS: CLINDAMYCIN-D5W 600 MG/50 ML*** 600 MG/50 ML BAG IV SCH (21:26)
[2021-03-22] MEDS: REMDESIVIR 100 MG in Sodium Chloride 0.9% 100 ML BAG 100 ML IV SCH (21:26)
[2021-03-23] MEDS: CLINDAMYCIN-D5W 600 MG/50 ML*** 600 MG/50 ML BAG IV SCH ×3 (05:50→21:01)
[2021-03-23 06:15] LABS: Absolute Neutrophil Ct (ANC) 6.11 (1.4-6.9); Basophil (Absolute #) 0 (0-0.4); Eosinophil (Absolute #) 0 (0-0.5); Hemoglobin 14.4 gm/dl (12.5-18.0); Lymphocyte (Absolute #) 1.41 (1.0-4.6); Lymphocytes % 17.5 % (24.0-44.0); Mean Cell Volume 89.8 fl (78-100); Mean Corpuscular Hemoglobin 28.1 pg (26-32); Mean Corpuscular Hgb Concent. 31.3 g/dl (32-36); Mean Platelet Volume 10.8 fl (7.5-11.0); Monocyte (Absolute #) 0.54 (0.0-1.3); Monocytes % 6.7 % (0.0-12.0); Neutrophil % 75.8 % (36.0-66.0); Platelet Count 201 K/mm3 (150-450); Red Blood Count 5.12 M/mm3 (4.1-5.6); White Blood Count 8.1 K/mm3 (4.0-10.5)
[2021-03-23 06:26] LABS: ALKALINE PHOSPHATASE 70 U/L (38-126); ANION GAP 10.1 MEQ/L (5-15); BLOOD UREA NITROGEN 16 mg/dL (9-20); CHLORIDE 100 mmol/L (98-107); Calcium 8.2 mg/dL (8.4-10.2); Carbon Dioxide 30 mmol/L (22-30); Creatinine 1 0.71 mg/dL (0.66-1.25); EST GLOMERULAR FILTRATION RATE > 60.0 ML/MIN; Glucose 100 mg/dL (74-106); Potassium 4.7 mmol/L (3.5-5.1); SGOT/AST 163 U/L (17-59); SGPT/ALT 83 U/L (0-50); SODIUM 136 mmol/L (137-145)
--- NOTE | 2021-03-23 08:00 | HP ---
AMENDED REPORT: CHIEF COMPLAINT: Aching all over, shortness of breath, feeling like he is passing out, not eating, confusion, frequent falls. HISTORY OF PRESENT ILLNESS: The patient is a 80-year-old white male who does live by himself but his daughter lives close by him and sees him daily. He said he is normally pretty active but recently he is falling over especially when he leans over to clean his feet. He does have some vascular damage to his feet. He denies any real shortness of breath. He has not been eating, drinking or active and a little more confused over the last two weeks. He denies any chest pain. He has had a fever. Confusion has been a big problem, which is new. When I talked to him, he had actually been in the emergency room overnight waiting for a bed to open. He is appropriate, pleasant and not confused as far as general conversation. He did test positive for COVID. He is a nonsmoker. He has history of peripheral edema and heart failure. He is also worried about chronic dermatitis. He has chronic stasis dermatitis of the legs whether that needs antibiotics or not. He said he has had no fever, chills or coughing. Maybe a little short of breath, he stated. His bowel movements are normal. He is not eating very much. His daughter states he is refusing to eat or drink. Not been active. He states he has had a downhill course for two weeks but worse over the last 48 hours before going to the emergency room. He is much more confused than normal. TRAVEL RISK: No out of state travel. CORONAVIRUS SCREENING: COVID vaccine: None. Close contact: Not that they know of. MEDICATIONS: Lasix 20 q.d. for edema, potassium 20 mEq q.d., KCL 20 q.d. ALLERGIES: NKDA. PAST MEDICAL HISTORY: Hypertension. Hypothyroidism. Some arthritis of knees and shoulders. Chronic stasis ulcers. Peripheral stasis dermatitis. SOCIAL HISTORY: . Daughter apparently lives with him or right next to him. REVIEW OF SYSTEMS: CONSTITUTIONAL: Fatigue, weakness. He had a fever approximately a day or two. He has just been very weak and unstable on his feet. HEENT: The patient said he can taste food. No loss of taste or sense of smell. RESPIRATORY: No shortness of breath or cough. CARDIAC: No history of myocardial infarction or heart failure. On Lasix for peripheral edema. Denies increasing shortness of breath. No chest pain. Denies heart attacks. He has had some hypertension for several years. ABDOMEN: No nausea and vomiting. He states he just does not have an appetite. He said he is not active, working so he is not hungry. ENDOCRINE: Hypothyroidism. MUSCULOSKELETAL: Arthritis of the knees, shoulders. : No problems urinating. PSYCH: No history of depression, anxiety, confusion until recently. Weak. The family said he is confused. EXTREMITIES: Legs weak. The patient has become weak and is falling which is unusual. Chronic venous stasis ulcers, recurring ulcers, none are open at the present time. He uses compressive dressings. PHYSICAL EXAMINATION: I saw him in the emergency room in the morning. He was alert, orientated, very pleasant. He talked rather rambling, a little disorientated to time. He did sleep all night in the emergency room. VITAL SIGNS: Temperature last night was 101F, pulse 80, respirations 20, blood pressure 137/72. O2 saturation on pulse ox room air 97%. GENERAL APPEARANCE: The patient appears his stated age. No distress. He is alert, pleasant and may be a little anxious. HEENT: Slightly hard of heaing. Pupils equal and reactive to light. NECK: Supple without adenopathy. CHEST: Few crackles. CVS: Regular rate. No murmurs or gallops. ABDOMEN: Soft. No masses or organomegaly. EXTREMITIES: Bilateral lower diffuse sharee-colored changes, chronic rosacea-type things or stasis dermatitis with a little bit of yellow discharge on the right side. NEUROLOGIC: He is alert, orientated at 0300 hours this morning. Just occasionally will say something that does not quite sound right. LAB DATA AND TESTS: EKG nonspecific ST-changes. Lab work: White count 5.9, hemoglobin 14. Electrolytes showed sodium slightly low at 131, potassium 4.2, calcium 8.0, total bilirubin was normal. Liver enzymes normal. ALT 98. COVID test was positive. Chest x-ray moderate diffuse bilateral airspace disease without consolidation. Heart not enlarged. Nothing new from past EKG's. Influenza tests were negative. Urine test was essentially normal. IMPRESSION: The patient is a 80 -year-old white male now with fever, confusion, unable to walk due to gait instability which is new. There may be some acute worsening of his chronic stasis. The patient tested positive. He has some venous stasis ulcers. His blood work is showing normal. He is too weak to walk without help. By history, he has been somewhat confused and not eating. PLAN: The patient was started on Clindamycin for his peripheral stasis dermatitis which does not look very bad. The patient will be started on the usual COVID medications including Remdesivir, anticoagulation, probably not the antibodies since there is no hypoxia. We will try to get him to eat and prednisone should help that. He is on some Clindamycin for his venous stasis ulcers. PROGNOSIS: His prognosis is felt to be pretty good.
[2021-03-23] MEDS: ENOXAPARIN SODIUM SQ SCH (08:57)
[2021-03-23] MEDS: OLUMIANT PO SCH (08:58)
[2021-03-23] MEDS: SYNTHROID 50 MCG PO SCH (08:58)
[2021-03-23] MEDS: LASIX 20 MG PO SCH (08:58)
[2021-03-23] MEDS: Klor Con 10 MEQ PO SCH (08:58)
[2021-03-23] MEDS: Ativan 2 MG/1 ML VIAL IV PRN ×2 (08:58→14:43)
[2021-03-23] MEDS: DECADRON 10MG INJ. IV SCH (09:45)
[2021-03-23] MEDS ORDERED: NON-FORMULARY ITEM (Potassium Chloride [Potassium Chloride] 20 MEQ Tab.Er.Prt) PO SCH (10:00)
[2021-03-23] MEDS: PROTONIX 40 MG IV IV SCH (11:38)
[2021-03-23] MEDS: Sodium Chloride 0.9% 1000 ML 1,000 ML IV SCH (18:47)
[2021-03-23] MEDS: REMDESIVIR 100 MG in Sodium Chloride 0.9% 100 ML BAG 100 ML IV SCH (22:04)
[2021-03-24] MEDS: Ativan 2 MG/1 ML VIAL IV PRN (02:45)
[2021-03-24] MEDS: CLINDAMYCIN-D5W 600 MG/50 ML*** 600 MG/50 ML BAG IV SCH ×3 (05:27→21:16)
[2021-03-24] MEDS: DECADRON 10MG INJ. IV SCH (09:49)
[2021-03-24] MEDS: OLUMIANT PO SCH (09:51)
[2021-03-24] MEDS: PROTONIX 40 MG IV IV SCH (09:51)
[2021-03-24] MEDS: Klor Con 10 MEQ PO SCH (09:51)
[2021-03-24] MEDS: SYNTHROID 50 MCG PO SCH (09:52)
[2021-03-24] MEDS: ENOXAPARIN SODIUM SQ SCH (09:52)
[2021-03-24] MEDS: LASIX 20 MG PO SCH (09:52)
--- NOTE | 2021-03-24 10:54 | XRAY ---
Indication: Covid 19 pneumonia. Comparison: March 21, 2021. Portable chest again demonstrates moderate diffuse bilateral airspace disease with minimal clearing in both mid to lower lung almaguer. Heart not enlarged. No new cardiopulmonary abnormalities.
[2021-03-24] MEDS: REMDESIVIR 100 MG in Sodium Chloride 0.9% 100 ML BAG 100 ML IV SCH (21:51)
[2021-03-25] MEDS: CLINDAMYCIN-D5W 600 MG/50 ML*** 600 MG/50 ML BAG IV SCH ×3 (05:02→22:24)
[2021-03-25] MEDS: SYNTHROID 50 MCG PO SCH (09:13)
[2021-03-25] MEDS: Klor Con 10 MEQ PO SCH (09:13)
[2021-03-25] MEDS: DECADRON 10MG INJ. IV SCH (09:13)
[2021-03-25] MEDS: PROTONIX 40 MG IV IV SCH (09:13)
[2021-03-25] MEDS: LASIX 20 MG PO SCH (09:13)
[2021-03-25] MEDS: ENOXAPARIN SODIUM SQ SCH (09:13)
[2021-03-25] MEDS: OLUMIANT PO SCH (09:13)
[2021-03-25] MEDS ORDERED: Sodium Chloride 0.9% 1000 ML 1,000 ML ONE (21:45)
[2021-03-25] MEDS ORDERED: Sodium Chloride 0.9% 1000 ML 1,000 ML IV SCH (22:15)
[2021-03-25] MEDS: REMDESIVIR 100 MG in Sodium Chloride 0.9% 100 ML BAG 100 ML IV SCH (22:55)
[2021-03-26] MEDS: CLINDAMYCIN-D5W 600 MG/50 ML*** 600 MG/50 ML BAG IV SCH ×3 (06:03→22:02)
[2021-03-26 06:49] LABS: Hematocrit 46.7 % (42-50); Mean Cell Volume 87.1 fl (78-100); Mean Corpuscular Hgb Concent. 32.1 g/dl (32-36); Mean Platelet Volume 10.8 fl (7.5-11.0); Platelet Count 267 K/mm3 (150-450); Red Blood Count 5.36 M/mm3 (4.1-5.6); Red Cell Distribution Width 14.5 % (11.5-14.0); White Blood Count 12.6 K/mm3 (4.0-10.5)
[2021-03-26 07:05] LABS: ALBUMIN 3.4 g/dL (3.5-5.0); ALKALINE PHOSPHATASE 88 U/L (38-126); ANION GAP 11.4 MEQ/L (5-15); BLOOD UREA NITROGEN 16 mg/dL (9-20); CHLORIDE 98 mmol/L (98-107); Calcium 8.4 mg/dL (8.4-10.2); Carbon Dioxide 30 mmol/L (22-30); Creatinine 1 0.76 mg/dL (0.66-1.25); EST GLOMERULAR FILTRATION RATE > 60.0 ML/MIN; Glucose 111 mg/dL (74-106); Potassium 3.8 mmol/L (3.5-5.1); SGOT/AST 68 U/L (17-59); SGPT/ALT 67 U/L (0-50); SODIUM 135 mmol/L (137-145)
[2021-03-26] MEDS: DECADRON 10MG INJ. IV SCH (09:36)
[2021-03-26] MEDS: OLUMIANT PO SCH (09:37)
[2021-03-26] MEDS: Klor Con 10 MEQ PO SCH (09:37)
[2021-03-26] MEDS: LASIX 20 MG PO SCH (09:37)
[2021-03-26] MEDS: ENOXAPARIN SODIUM SQ SCH (09:37)
[2021-03-26] MEDS: SYNTHROID 50 MCG PO SCH (09:38)
[2021-03-26] MEDS: Bactroban OINTMENT TP SCH (09:38)
[2021-03-26] MEDS: PROTONIX 40 MG IV IV SCH (09:38)
[2021-03-26] MEDS: Ativan 2 MG/1 ML VIAL IV PRN ×2 (17:49→22:02)
[2021-03-26] MEDS ORDERED: Phenergan 25 MG INJ ONE (19:45)
[2021-03-26] MEDS ORDERED: Sodium Chloride 0.9% 100 ML BAG 100 ML ONE (19:45)
[2021-03-26] MEDS ORDERED: Sodium Chloride 0.9% 500 ML 500 ML IV ONE (19:47)
[2021-03-26] MEDS: Phenergan 25 MG INJ*** 25 MG in Sodium Chloride 0.9% 100 ML BAG 100 ML IV PRN (20:00)
[2021-03-26] MEDS: Sodium Chloride 0.9% 500 ML 500 ML IV SCH (20:16)
[2021-03-26] MEDS ORDERED: Lasix 20 MG/2 ML IV ONE (21:00)
[2021-03-27] MEDS: CLINDAMYCIN-D5W 600 MG/50 ML*** 600 MG/50 ML BAG IV SCH ×3 (06:18→22:09)
[2021-03-27 07:03] LABS: Hematocrit 48.6 % (42-50); Hemoglobin 15.2 gm/dl (12.5-18.0); Mean Cell Volume 89.2 fl (78-100); Mean Corpuscular Hemoglobin 27.9 pg (26-32); Mean Corpuscular Hgb Concent. 31.3 g/dl (32-36); Mean Platelet Volume 10.7 fl (7.5-11.0); Platelet Count 256 K/mm3 (150-450); Red Blood Count 5.45 M/mm3 (4.1-5.6); Red Cell Distribution Width 14.7 % (11.5-14.0); White Blood Count 13.8 K/mm3 (4.0-10.5)
[2021-03-27 07:24] LABS: ALBUMIN 2.9 g/dL (3.5-5.0); ALKALINE PHOSPHATASE 94 U/L (38-126); ANION GAP 14.9 MEQ/L (5-15); BLOOD UREA NITROGEN 20 mg/dL (9-20); CHLORIDE 99 mmol/L (98-107); Calcium 8.2 mg/dL (8.4-10.2); Carbon Dioxide 28 mmol/L (22-30); Creatinine 1 0.64 mg/dL (0.66-1.25); EST GLOMERULAR FILTRATION RATE > 60.0 ML/MIN; Glucose 107 mg/dL (74-106); Potassium 4.2 mmol/L (3.5-5.1); SGOT/AST 55 U/L (17-59); SGPT/ALT 53 U/L (0-50); SODIUM 138 mmol/L (137-145); Total Protein 6.5 g/dL (6.3-8.2)
[2021-03-27] MEDS: Phenergan 25 MG INJ*** 25 MG in Sodium Chloride 0.9% 100 ML BAG 100 ML IV PRN ×4 (08:30→22:10)
[2021-03-27] MEDS ORDERED: ENOXAPARIN SODIUM SQ SCH (10:00)
[2021-03-27] MEDS: Klor Con 10 MEQ PO SCH (11:11)
[2021-03-27] MEDS: OLUMIANT PO SCH (11:11)
[2021-03-27] MEDS: LASIX 20 MG PO SCH (11:11)
[2021-03-27] MEDS: ENOXAPARIN SODIUM SQ SCH ×2 (11:14→11:40)
[2021-03-27] MEDS: DECADRON 10MG INJ. IV SCH (11:15)
[2021-03-27] MEDS: PROTONIX 40 MG IV IV SCH (11:15)
[2021-03-27] MEDS: SYNTHROID 50 MCG PO SCH (11:41)
--- NOTE | 2021-03-27 12:06 | PROG NOTE ---
DATE: 03/26/2021 HISTORY: The patient states he feels fine. He is going to take a little nap here at 10 o'clock. He is in no distress. He is using high flow at 80% rebreather to keep his oxygen up in the high 80's. Blood pressure is fine, not coughing. He is starting to eat a little bit better. PHYSICAL EXAMINATION: CHEST: Few crackles. CVS: Heart sounds are regular. ABDOMEN: Soft. No tenderness. EXTREMITIES: Normal. LAB DATA AND TESTS: The D-dimer is 3119. He is fairly anticoagulated. Chest x-ray showed bilateral pneumonia. White count on 03/26/2021 was 12.6. Today, his hemoglobin is normal. His D-dimer again was 3,000 today. IMPRESSION: Bilateral COVID pneumonia. No signs of heart failure. Stable but not much improved. PLAN: Continue with oxygen and all of the COVID drugs. Medicines at home are Synthroid, Lasix, potassium which he will continue those. PROGNOSIS: Fair.
--- NOTE | 2021-03-27 13:11 | XRAY ---
Indication: Covid 19 pneumonia. Comparison: March 24, 2021. Portable chest again demonstrates moderate diffuse bilateral airspace disease with new bibasilar consolidations, left greater than right. Heart not enlarged.
[2021-03-27] MEDS: Bactroban OINTMENT TP SCH (14:13)
[2021-03-27] MEDS: Ativan 2 MG/1 ML VIAL IV PRN (20:31)
[2021-03-28] MEDS: Phenergan 25 MG INJ*** 25 MG in Sodium Chloride 0.9% 100 ML BAG 100 ML IV PRN (04:31)
[2021-03-28] MEDS: CLINDAMYCIN-D5W 600 MG/50 ML*** 600 MG/50 ML BAG IV SCH ×3 (05:20→20:32)
[2021-03-28] MEDS: Ativan 2 MG/1 ML VIAL IV PRN (05:20)
[2021-03-28 08:16] LABS: A-aADO2 616; ABG POTASSIUM 3.6 (3.5-5.1); ARTERIAL BLD GAS O2 SATURATION 94.5 % (95-100); ARTERIAL BLOOD GAS BASE EXCESS 5.1 (-2.0-2.0); ARTERIAL BLOOD GAS FIO2 100 %; ARTERIAL BLOOD GAS PCO2 27 mmHg (35-45); ARTERIAL BLOOD GAS PO2 63 mmHg (75-100); CARBOXYHEMOGLOBIN 0.6 % THgb (0.0-6.9); HCO3- 25.9 (22-28); HGB O2 SAT 92.8 g/dF (94-100); Methhemoglobin 1.2 % (1.4-1.5)
[2021-03-28 08:17] LABS: ARTERIAL BLD GAS TIDAL VOLUME 550 cc; ARTERIAL BLOOD GAS VENT MODE AVAPS; ARTERIAL BLOOD GAS VENT RATE 16 /MIN; ARTERIAL BLOOD GAS pH 7.59 (7.35-7.45)
[2021-03-28 08:18] LABS: ABG SITE LEFT RADIAL
[2021-03-28] MEDS ORDERED: SUBLIMAZE 100 MCG/2 ML ONE (08:46)
[2021-03-28] MEDS ORDERED: SUBLIMAZE 100 MCG/2 ML IV PRN (08:54)
[2021-03-28] MEDS ORDERED: VERSED 5 MG/5 ML IV ONE (08:55)
[2021-03-28] MEDS ORDERED: MORPHINE SULFATE 4 MG INJ ONE (08:56)
[2021-03-28] MEDS ORDERED: Quelicin Fliptop 200 MG/10 ML IV ONE (09:00)
[2021-03-28] MEDS: Versed 50 MG/ 10 Ml MDV*** 50 MG in Sodium Chloride 0.9% 250 ML 240 ML IV PRN (09:16)
[2021-03-28] MEDS ORDERED: Nimbex 20MG/10 Ml Vial (HIGH RISK MED) IV SCH (09:20)
--- NOTE | 2021-03-28 09:32 | XRAY ---
Indication: Endotracheal and NG tube placement. Comparison: One day earlier Portable chest demonstrates new endotracheal tube tip 4 cm above antoine and new NG tube tip in antral stomach. Remaining chest again demonstrates moderate diffuse bilateral consolidating/nonconsolidating airspace disease grossly unchanged. Heart not enlarged. No new cardiopulmonary abnormalities.
[2021-03-28 10:35] LABS: A-aADO2 466; ABG HEMOGLOBIN 15.6; ABG POTASSIUM 3.6 (3.5-5.1); ABG SITE LEFT RADIAL; ARTERIAL BLD GAS O2 SATURATION 99.4 % (95-100); ARTERIAL BLD GAS TIDAL VOLUME 550 cc; ARTERIAL BLOOD GAS BASE EXCESS 3.6 (-2.0-2.0); ARTERIAL BLOOD GAS FIO2 100 %; ARTERIAL BLOOD GAS PCO2 59 mmHg (35-45); ARTERIAL BLOOD GAS PO2 173 mmHg (75-100); ARTERIAL BLOOD GAS VENT MODE A/C; ARTERIAL BLOOD GAS VENT RATE 16 /MIN; ARTERIAL BLOOD GAS pH 7.33 (7.35-7.45); CARBOXYHEMOGLOBIN 0.6 % THgb (0.0-6.9); HCO3- 31.1 (22-28); HGB O2 SAT 97.9 g/dF (94-100); Methhemoglobin 0.9 % (1.4-1.5)
[2021-03-28] MEDS: Bactroban OINTMENT TP SCH (11:59)
[2021-03-28] MEDS: ENOXAPARIN SODIUM SQ SCH (12:08)
[2021-03-28] MEDS: PROTONIX 40 MG IV IV SCH (12:08)
[2021-03-28] MEDS: DECADRON 10MG INJ. IV SCH (12:08)
--- NOTE | 2021-03-28 12:41 | PROG NOTE ---
DATE: 03/28/2021 HISTORY: Today, unfortunately his respiratory rates were going up to 60 and could not maintain his O2 saturations. He was intubated without problem about 0830 hours this morning. Presently he resting. He is paralyzed on pain medicine. His heart rate has gone down, seems to be in very peaceful state. At 0500 hours this morning his pulse was 137, respirations 36 and things just got worse. His O2 is 94 on 100% oxygen and high flow. His blood gas with pH 7.59 before his intubation pCO2 of 27, pO2 of 63. Chest x-ray from today shows tubes in the correct place and bilateral moderate diffuse airspace disease with bibasilar consolidations typical for COVID. IMPRESSION: The patient has severe bilateral COVID pneumonia, intubated. PROGNOSIS: Guarded.
[2021-03-28 13:45] LABS: Hematocrit 50.2 % (42-50); Hemoglobin 15.5 gm/dl (12.5-18.0); Mean Cell Volume 90.8 fl (78-100); Mean Corpuscular Hgb Concent. 30.9 g/dl (32-36); Mean Platelet Volume 10.6 fl (7.5-11.0); Platelet Count 299 K/mm3 (150-450); Red Blood Count 5.53 M/mm3 (4.1-5.6); Red Cell Distribution Width 15.2 % (11.5-14.0); White Blood Count 10.4 K/mm3 (4.0-10.5)
[2021-03-28 14:04] LABS: ALBUMIN 3.1 g/dL (3.5-5.0); ALKALINE PHOSPHATASE 95 U/L (38-126); ANION GAP 11.6 MEQ/L (5-15); BLOOD UREA NITROGEN 28 mg/dL (9-20); CHLORIDE 102 mmol/L (98-107); Calcium 8.3 mg/dL (8.4-10.2); Carbon Dioxide 34 mmol/L (22-30); Creatinine 1 1.02 mg/dL (0.66-1.25); EST GLOMERULAR FILTRATION RATE > 60.0 ML/MIN; Glucose 131 mg/dL (74-106); Potassium 4.1 mmol/L (3.5-5.1); SGOT/AST 39 U/L (17-59); SGPT/ALT 45 U/L (0-50); SODIUM 143 mmol/L (137-145); Total Protein 7.1 g/dL (6.3-8.2)
[2021-03-28] MEDS: Nimbex 200MG/20 Ml MDV (HIGH RISK MED)** 200 MG in Dextrose 5%/Water IV Soln. 250 ML 18... IV SCH ×2 (15:00→20:33)
[2021-03-28] MEDS: SUBLIMAZE 1000 Mcg/ 20 Ml*** 1,500 MCG in Sodium Chloride 0.9% 150 ML 120 ML IV SCH (15:01)
[2021-03-28 15:31] LABS: Lymphocytes 7 % (24-44); Monocyte 1 % (0.0-12.0); Neutrophils 92 % (36.-66.); Total Cells Counted 100
[2021-03-28 15:32] LABS: ANISOCYTOSIS 1+; Platelet Estimate NORMAL (NORMAL)
[2021-03-28] MEDS: Lubrifresh P.M. 3.5 gm Ointment OP SCH (20:35)
[2021-03-28] MEDS: PERIDEX MM SCH (20:35)
[2021-03-29] MEDS: SUBLIMAZE 1000 Mcg/ 20 Ml*** 1,500 MCG in Sodium Chloride 0.9% 150 ML 120 ML IV SCH ×2 (00:49→17:45)
[2021-03-29 05:16] LABS: A-aADO2 344; ABG HEMOGLOBIN 15.5; ARTERIAL BLD GAS O2 SATURATION 99.9 % (95-100); ARTERIAL BLD GAS TIDAL VOLUME 550 cc; ARTERIAL BLOOD GAS BASE EXCESS 5.2 (-2.0-2.0); ARTERIAL BLOOD GAS FIO2 80 %; ARTERIAL BLOOD GAS PCO2 52 mmHg (35-45); ARTERIAL BLOOD GAS PEEP 10 cmH2O; ARTERIAL BLOOD GAS PO2 161 mmHg (75-100); ARTERIAL BLOOD GAS VENT MODE AC; ARTERIAL BLOOD GAS VENT RATE 16 /MIN; ARTERIAL BLOOD GAS pH 7.39 (7.35-7.45); CARBOXYHEMOGLOBIN 0.9 % THgb (0.0-6.9); HCO3- 31.5 (22-28); HGB O2 SAT 98.1 g/dF (94-100)
[2021-03-29 05:17] LABS: ABG SITE RIGHT RADIAL; ALLEN TEST OK? YES
[2021-03-29] MEDS: CLINDAMYCIN-D5W 600 MG/50 ML*** 600 MG/50 ML BAG IV SCH (05:37)
[2021-03-29 06:21] LABS: Hematocrit 46.7 % (42-50); Hemoglobin 14.3 gm/dl (12.5-18.0); Mean Cell Volume 92.7 fl (78-100); Mean Corpuscular Hemoglobin 28.4 pg (26-32); Mean Corpuscular Hgb Concent. 30.6 g/dl (32-36); Mean Platelet Volume 10.7 fl (7.5-11.0); Platelet Count 278 K/mm3 (150-450); Red Blood Count 5.04 M/mm3 (4.1-5.6); Red Cell Distribution Width 15.4 % (11.5-14.0); White Blood Count 8.9 K/mm3 (4.0-10.5)
[2021-03-29 06:47] LABS: ALBUMIN 2.8 g/dL (3.5-5.0); ALKALINE PHOSPHATASE 81 U/L (38-126); ANION GAP 8.3 MEQ/L (5-15); BLOOD UREA NITROGEN 35 mg/dL (9-20); CHLORIDE 106 mmol/L (98-107); Calcium 8.1 mg/dL (8.4-10.2); Carbon Dioxide 31 mmol/L (22-30); Creatinine 1 0.67 mg/dL (0.66-1.25); Direct Bilirubin 0.4 mg/dL (0.0-0.4); EST GLOMERULAR FILTRATION RATE > 60.0 ML/MIN; Glucose 131 mg/dL (74-106); Potassium 4.1 mmol/L (3.5-5.1); SGOT/AST 32 U/L (17-59); SGPT/ALT 36 U/L (0-50); SODIUM 141 mmol/L (137-145); Total Protein 6.6 g/dL (6.3-8.2)
[2021-03-29] MEDS: Sodium Chloride 0.9% 1000 ML 1,000 ML IV SCH ×2 (07:19→08:49)
[2021-03-29] MEDS: Sodium Chloride 0.9% 500 ML 500 ML IV SCH (07:50)
--- NOTE | 2021-03-29 08:40 | XRAY ---
Indication: Covid 19 pneumonia. Comparison: March 28, 2021. Portable chest demonstrates NG tube withdrawal with tip now 7 cm above antoine. Stable NG tube tip in antral stomach. Lungs again demonstrates moderate diffuse bilateral airspace disease with moderate clearing, especially both lower lobes. Heart not enlarged. Remaining chest unremarkable.
[2021-03-29] MEDS: Versed 50 MG/ 10 Ml MDV*** 50 MG in Sodium Chloride 0.9% 250 ML 240 ML IV PRN (08:49)
[2021-03-29] MEDS: Bactroban OINTMENT TP SCH (09:01)
[2021-03-29] MEDS: DECADRON 10MG INJ. IV SCH (09:01)
[2021-03-29] MEDS: PERIDEX MM SCH ×2 (09:02→21:46)
[2021-03-29] MEDS: Lubrifresh P.M. 3.5 gm Ointment OP SCH ×2 (09:02→21:46)
[2021-03-29] MEDS: ENOXAPARIN SODIUM SQ SCH (09:02)
[2021-03-29] MEDS: PROTONIX 40 MG IV IV SCH (09:02)
[2021-03-29] MEDS: Nimbex 200MG/20 Ml MDV (HIGH RISK MED)** 200 MG in Dextrose 5%/Water IV Soln. 250 ML 18... IV SCH ×2 (09:09→22:28)
[2021-03-29] MEDS: LEVOFLOXACIN 750MG/150ML D5W 750 MG/150 ML BAG IV SCH (09:36)
[2021-03-30 04:42] LABS: A-aADO2 194; ABG HEMOGLOBIN 15.1; ABG POTASSIUM 4.1 (3.5-5.1); ARTERIAL BLD GAS TIDAL VOLUME 550 cc; ARTERIAL BLOOD GAS BASE EXCESS 7.8 (-2.0-2.0); ARTERIAL BLOOD GAS FIO2 60 %; ARTERIAL BLOOD GAS PCO2 49 mmHg (35-45); ARTERIAL BLOOD GAS PO2 173 mmHg (75-100); ARTERIAL BLOOD GAS VENT MODE A/C; ARTERIAL BLOOD GAS pH 7.44 (7.35-7.45); CARBOXYHEMOGLOBIN 2.8 % THgb (0.0-6.9); HCO3- 33.3 (22-28); HGB O2 SAT 95.3 g/dF (94-100)
[2021-03-30 04:43] LABS: ABG SITE RIGHT RADIAL
[2021-03-30] MEDS: Sodium Chloride 0.9% 1000 ML 1,000 ML IV SCH (05:30)
[2021-03-30 05:35] LABS: Hemoglobin 14.2 gm/dl (12.5-18.0); Mean Cell Volume 93.6 fl (78-100); Mean Corpuscular Hemoglobin 28.3 pg (26-32); Mean Corpuscular Hgb Concent. 30.2 g/dl (32-36); Platelet Count 292 K/mm3 (150-450); Red Blood Count 5.02 M/mm3 (4.1-5.6); Red Cell Distribution Width 15.4 % (11.5-14.0); White Blood Count 9.3 K/mm3 (4.0-10.5)
[2021-03-30 05:54] LABS: ALBUMIN 2.8 g/dL (3.5-5.0); ALKALINE PHOSPHATASE 83 U/L (38-126); ANION GAP 6.7 MEQ/L (5-15); BLOOD UREA NITROGEN 31 mg/dL (9-20); CHLORIDE 107 mmol/L (98-107); Calcium 8.3 mg/dL (8.4-10.2); Carbon Dioxide 32 mmol/L (22-30); Creatinine 1 0.78 mg/dL (0.66-1.25); Direct Bilirubin 0.4 mg/dL (0.0-0.4); EST GLOMERULAR FILTRATION RATE > 60.0 ML/MIN; Glucose 115 mg/dL (74-106); Potassium 4.1 mmol/L (3.5-5.1); SGOT/AST 31 U/L (17-59); SGPT/ALT 32 U/L (0-50); SODIUM 142 mmol/L (137-145); Total Protein 6.5 g/dL (6.3-8.2)
--- NOTE | 2021-03-30 08:28 | CONS ---
CONSULT DATE: 03/29/2021 HISTORY: Daren Urbano is a 80-year-old male who has been admitted with acute severe hypoxic respiratory failure. The patient is 80 years old and apparently lives by himself being helped by his daughter. He has been having some balance issues with falls in the recent past. He was also getting progressively more confused and was brought to the emergency room where he tested positive for COVID-19. The patient was being treated on medical floor where he desaturated significantly and required intubation. Since intubation yesterday, his blood gases have shown significant improvement. His FIO2 has been weaned down to 60% with a PEEP of 10. He remains on Fentanyl at 1 mcg/kg per minute, Versed at 2 mg an hour and paralytic Nimbex at 3 mcg/kg per minute. PAST MEDICAL HISTORY: Positive for history of hypertension, hypothyroidism, arthritis, chronic stasis ulcers of lower extremities. PAST SURGICAL HISTORY: No recent surgery. PERSONAL AND SOCIAL HISTORY: As above. MEDICATIONS: Home and current medications are reviewed. ALLERGIES: NKDA. PHYSICAL EXAMINATION: This is an elderly male who is intubated, sedated, chemically paralyzed. Vital signs noted. HEENT: Normocephalic. Oral exam limited. NECK: Supple. CVS: First and second heart sounds are normal, regular, rhythmic. RESPIRATORY: Shows diminished breath sounds, crackles are heard. ABDOMEN: Soft. EXTREMITIES: Trace edema is noted. : Hinojosa catheter is in place. LABORATORY DATA AND TESTS: White count 8.9, hemoglobin 14.3, hematocrit 46, PLT 278,000. D-dimer 6209. Sodium 141, potassium 4.1, chloride 106, bicarb 31, BUN 35, creatinine 0.6. The pH 7.39, pCO2 52, pO2 161 on assist control rate of 16, tidal volume 550, FIO2 80% and PEEP 10. FIO2 has been reduced down to 60%. Chest x-ray reviewed. ASSESSMENT: This is a 80-year-old male admitted with: 1) Acute severe hypoxic respiratory failure. 2) COVID-19 infection with viral pneumonia. 3) History of peripheral vascular disease. 4) Hypertension. 5) Hypothyroidism. RECOMMENDATIONS: 1) The patient's gas exchange appears to have improved since intubation. 2) Continue present therapy, will attempt to wean him down to 50% before discontinuing paralytics and reducing PEEP. 3) Current COVID guidelines are being followed by Dr. Barboza. Further recommendations pending clinical and gas exchange improvement. PROGNOSIS: Remains guarded. Thank you for allowing me to participate in the care of this patient.
--- NOTE | 2021-03-30 08:42 | XRAY ---
Indication: Covid 19 pneumonia. Comparison: One day earlier. Portable chest unchanged again demonstrating moderate diffuse bilateral airspace disease, endotracheal tube tip 7 cm above antoine, and NG tube tip in stomach. Heart not enlarged. No new cardiopulmonary abnormalities.
[2021-03-30] MEDS: Bactroban OINTMENT TP SCH (08:50)
[2021-03-30] MEDS: DECADRON 10MG INJ. IV SCH (08:51)
[2021-03-30] MEDS: ENOXAPARIN SODIUM SQ SCH (08:51)
[2021-03-30] MEDS: PROTONIX 40 MG IV IV SCH (08:51)
[2021-03-30] MEDS: Lubrifresh P.M. 3.5 gm Ointment OP SCH ×2 (08:51→21:04)
[2021-03-30] MEDS: PERIDEX MM SCH ×2 (08:51→21:04)
[2021-03-30] MEDS: Versed 50 MG/ 10 Ml MDV*** 50 MG in Sodium Chloride 0.9% 250 ML 240 ML IV PRN ×2 (09:11→23:15)
[2021-03-30] MEDS: LEVOFLOXACIN 750MG/150ML D5W 750 MG/150 ML BAG IV SCH (09:21)
[2021-03-30] MEDS: Nimbex 200MG/20 Ml MDV (HIGH RISK MED)** 200 MG in Dextrose 5%/Water IV Soln. 250 ML 18... IV SCH (11:17)
[2021-03-30] MEDS: SUBLIMAZE 1000 Mcg/ 20 Ml*** 1,500 MCG in Sodium Chloride 0.9% 150 ML 120 ML IV SCH (11:18)
--- NOTE | 2021-03-30 13:55 | PROG NOTE ---
DATE: 03/30/2021 Events noted. HISTORY: The patient remains sedated lightly paralyzed on mechanical ventilator. Significant gas exchange improvement has been noted. FIO2 reduced to 50%. Saturating 98%. PHYSICAL EXAMINATION: Vital signs noted. HEENT: Normocephalic. Oral exam limited. NECK: Supple. CVS: First and second heart sounds are normal, regular, rhythmic. RESPIRATORY: Shows diminished breath sounds, posterior crackles. ABDOMEN: Soft. EXTREMITIES: No edema is noted. LABORATORY DATA AND TESTS: Assist control 16, tidal volume of 5 and FIO2 60%, PEEP of 10. The pH is 7.44, pCO2 49, pO2 173. FIO2 was reduced down to 50%, PEEP was reduced down to 8 cm of water. Other labs reviewed. BUN 31, creatinine 0.7. White count 9.3. Chest x-ray noted. ASSESSMENT: This is a 80-year-old male admitted with: 1) Acute severe hypoxic respiratory failure with improved oxygenation. 2) COVID-19 with viral pneumonia. 3) History of hypertension. 4) Hypothyroidism. 5) Peripheral vascular disease. RECOMMENDATIONS: 1) The patient has shown significant gas exchange improvement. 2) FIO2 has been reduced to 50% with PEEP down to 8. 3) Will rest on vent today, will reduce sedation followed by CPAP, blood pressure support, weaning trial tomorrow. Discussed with respiratory therapy and nursing staff.
[2021-03-31] MEDS: SUBLIMAZE 1000 Mcg/ 20 Ml*** 1,500 MCG in Sodium Chloride 0.9% 150 ML 120 ML IV SCH (00:48)
[2021-03-31 05:01] LABS: A-aADO2 139; ABG HEMOGLOBIN 14.1; ABG POTASSIUM 3.7 (3.5-5.1); ABG SITE RIGHT BRACHIAL; ARTERIAL BLD GAS O2 SATURATION 98.4 % (95-100); ARTERIAL BLD GAS TIDAL VOLUME 550 cc; ARTERIAL BLOOD GAS BASE EXCESS 9.2 (-2.0-2.0); ARTERIAL BLOOD GAS FIO2 40 %; ARTERIAL BLOOD GAS PCO2 43 mmHg (35-45); ARTERIAL BLOOD GAS PO2 92 mmHg (75-100); ARTERIAL BLOOD GAS VENT MODE A/C; CARBOXYHEMOGLOBIN 3.9 % THgb (0.0-6.9); HCO3- 33.5 (22-28); HGB O2 SAT 93.5 g/dF (94-100); Methhemoglobin 1.1 % (1.4-1.5)
[2021-03-31 05:31] LABS: Hematocrit 45.8 % (42-50); Hemoglobin 13.5 gm/dl (12.5-18.0); Mean Cell Volume 94.4 fl (78-100); Mean Corpuscular Hemoglobin 27.8 pg (26-32); Mean Corpuscular Hgb Concent. 29.5 g/dl (32-36); Mean Platelet Volume 10.9 fl (7.5-11.0); Platelet Count 270 K/mm3 (150-450); Red Blood Count 4.85 M/mm3 (4.1-5.6); Red Cell Distribution Width 15.4 % (11.5-14.0); White Blood Count 7.5 K/mm3 (4.0-10.5)
[2021-03-31 05:59] LABS: ALBUMIN 2.7 g/dL (3.5-5.0); ALKALINE PHOSPHATASE 86 U/L (38-126); ANION GAP 6.8 MEQ/L (5-15); BLOOD UREA NITROGEN 28 mg/dL (9-20); CHLORIDE 109 mmol/L (98-107); Calcium 8.1 mg/dL (8.4-10.2); Carbon Dioxide 31 mmol/L (22-30); Creatinine 1 0.59 mg/dL (0.66-1.25); Direct Bilirubin 0.8 mg/dL (0.0-0.4); EST GLOMERULAR FILTRATION RATE > 60.0 ML/MIN; Glucose 98 mg/dL (74-106); Potassium 3.8 mmol/L (3.5-5.1); SGOT/AST 67 U/L (17-59); SGPT/ALT 45 U/L (0-50); SODIUM 144 mmol/L (137-145); Total Protein 6.4 g/dL (6.3-8.2)
--- NOTE | 2021-03-31 08:40 | XRAY ---
Indication: Covid 19 pneumonia. Comparison: One day earlier. Portable chest demonstrates diffuse bilateral airspace disease again greatest in both lung bases grossly unchanged. Heart not enlarged for AP portable technique. No new cardiopulmonary abnormalities. Stable endotracheal and NG tubes.
[2021-03-31] MEDS: DUONEB 0.5-3 MG/3 ml Neb IH PRN (10:00)
[2021-03-31] MEDS ORDERED: DUONEB 0.5-3 MG/3 ml Neb IH ONE (10:10)
[2021-03-31] MEDS: PERIDEX MM SCH (10:37)
[2021-03-31] MEDS: ENOXAPARIN SODIUM SQ SCH (10:37)
[2021-03-31] MEDS: DECADRON 10MG INJ. IV SCH (10:37)
[2021-03-31] MEDS: PROTONIX 40 MG IV IV SCH (10:37)
[2021-03-31] MEDS: LEVOFLOXACIN 750MG/150ML D5W 750 MG/150 ML BAG IV SCH (10:39)
[2021-03-31] MEDS: Lubrifresh P.M. 3.5 gm Ointment OP SCH (10:40)
[2021-03-31] MEDS: Bactroban OINTMENT TP SCH (11:10)
[2021-03-31 13:10] LABS: A-aADO2 200; ABG HEMOGLOBIN 16.1; ABG POTASSIUM 3.9 (3.5-5.1); ABG SITE LEFT RADIAL; ART BLD GAS PRESSURE SUPPORT 10; ARTERIAL BLD GAS O2 SATURATION 94.4 % (95-100); ARTERIAL BLOOD GAS BASE EXCESS 13.6 (-2.0-2.0); ARTERIAL BLOOD GAS FIO2 45 %; ARTERIAL BLOOD GAS PCO2 47 mmHg (35-45); ARTERIAL BLOOD GAS PO2 62 mmHg (75-100); ARTERIAL BLOOD GAS VENT MODE CPAP; ARTERIAL BLOOD GAS pH 7.52 (7.35-7.45); HCO3- 38.4 (22-28); HGB O2 SAT 92.5 g/dF (94-100)
[2021-03-31] MEDS: Ativan 2 MG/1 ML VIAL IV PRN (22:56)
[2021-04-01] MEDS: Sodium Chloride 0.9% 1000 ML 1,000 ML IV SCH (02:00)
[2021-04-01] MEDS: Ativan 2 MG/1 ML VIAL IV PRN ×5 (04:12→21:05)
[2021-04-01 06:48] LABS: Hematocrit 49.1 % (42-50); Hemoglobin 14.8 gm/dl (12.5-18.0); Mean Corpuscular Hgb Concent. 30.1 g/dl (32-36); Mean Platelet Volume 11.5 fl (7.5-11.0); Platelet Count 247 K/mm3 (150-450); Red Blood Count 5.28 M/mm3 (4.1-5.6); White Blood Count 9.5 K/mm3 (4.0-10.5)
[2021-04-01 07:19] LABS: ALBUMIN 2.6 g/dL (3.5-5.0); ALKALINE PHOSPHATASE 95 U/L (38-126); ANION GAP 9.5 MEQ/L (5-15); BLOOD UREA NITROGEN 16 mg/dL (9-20); CHLORIDE 111 mmol/L (98-107); Calcium 8.3 mg/dL (8.4-10.2); Carbon Dioxide 29 mmol/L (22-30); Creatinine 1 0.47 mg/dL (0.66-1.25); Direct Bilirubin 1.4 mg/dL (0.0-0.4); EST GLOMERULAR FILTRATION RATE > 60.0 ML/MIN; Glucose 106 mg/dL (74-106); SGOT/AST 81 U/L (17-59); SGPT/ALT 63 U/L (0-50); SODIUM 146 mmol/L (137-145); Total Protein 6.3 g/dL (6.3-8.2)
[2021-04-01] MEDS: Bactroban OINTMENT TP SCH (08:37)
[2021-04-01] MEDS: DECADRON 10MG INJ. IV SCH (08:37)
[2021-04-01] MEDS: LEVOFLOXACIN 750MG/150ML D5W 750 MG/150 ML BAG IV SCH (08:37)
[2021-04-01] MEDS: ENOXAPARIN SODIUM SQ SCH (08:37)
[2021-04-01] MEDS: PROTONIX 40 MG IV IV SCH (08:38)
[2021-04-01] MEDS: Phenergan 25 MG INJ*** 25 MG in Sodium Chloride 0.9% 100 ML BAG 100 ML IV PRN ×2 (10:42→17:30)
[2021-04-01 13:44] LABS: A-aADO2 399; ABG HEMOGLOBIN 14.7; ABG POTASSIUM 3.7 (3.5-5.1); ARTERIAL BLD GAS O2 SATURATION 90.7 % (95-100); ARTERIAL BLOOD GAS BASE EXCESS 10.4 (-2.0-2.0); ARTERIAL BLOOD GAS FIO2 70 %; ARTERIAL BLOOD GAS PCO2 35 mmHg (35-45); ARTERIAL BLOOD GAS PO2 56 mmHg (75-100); CARBOXYHEMOGLOBIN 1.7 % THgb (0.0-6.9); HCO3- 32.8 (22-28); HGB O2 SAT 88.2 g/dF (94-100)
[2021-04-01 13:45] LABS: ABG SITE RIGHT BRACHIAL; ARTERIAL BLOOD GAS pH 7.58 (7.35-7.45)
[2021-04-02] MEDS: Phenergan 25 MG INJ*** 25 MG in Sodium Chloride 0.9% 100 ML BAG 100 ML IV PRN (01:48)
[2021-04-02] MEDS: Ativan 2 MG/1 ML VIAL IV PRN (05:10)
[2021-04-02 07:01] LABS: Hematocrit 49.5 % (42-50); Hemoglobin 15.3 gm/dl (12.5-18.0); Mean Cell Volume 90.8 fl (78-100); Mean Corpuscular Hemoglobin 28.1 pg (26-32); Mean Corpuscular Hgb Concent. 30.9 g/dl (32-36); Mean Platelet Volume 10.2 fl (7.5-11.0); Platelet Count 277 K/mm3 (150-450); Red Blood Count 5.45 M/mm3 (4.1-5.6); Red Cell Distribution Width 15.5 % (11.5-14.0); White Blood Count 9.1 K/mm3 (4.0-10.5)
[2021-04-02 07:31] LABS: ALBUMIN 2.9 g/dL (3.5-5.0); ALKALINE PHOSPHATASE 100 U/L (38-126); BLOOD UREA NITROGEN 18 mg/dL (9-20); CHLORIDE 114 mmol/L (98-107); Calcium 8.3 mg/dL (8.4-10.2); Carbon Dioxide 27 mmol/L (22-30); Creatinine 1 0.66 mg/dL (0.66-1.25); Direct Bilirubin 1.5 mg/dL (0.0-0.4); EST GLOMERULAR FILTRATION RATE > 60.0 ML/MIN; Glucose 107 mg/dL (74-106); Potassium 3.5 mmol/L (3.5-5.1); SGOT/AST 68 U/L (17-59); SGPT/ALT 70 U/L (0-50); SODIUM 147 mmol/L (137-145)
[2021-04-02] MEDS ORDERED: Romazicon 0.5 MG/5 ML Injection IV PRN (08:54)
[2021-04-02] MEDS: Bactroban OINTMENT TP SCH (09:21)
[2021-04-02] MEDS: PROTONIX 40 MG IV IV SCH (09:21)
[2021-04-02] MEDS: ENOXAPARIN SODIUM SQ SCH (09:21)
[2021-04-02] MEDS: DECADRON 10MG INJ. IV SCH (09:21)
[2021-04-02] MEDS: LEVOFLOXACIN 750MG/150ML D5W 750 MG/150 ML BAG IV SCH (09:22)
[2021-04-02] MEDS: Ativan 20 MG/10 ML MDV*** 40 MG in D5w 100ML Mini Bag 100 ML 80 ML IV PRN (09:30)
[2021-04-02] MEDS: Sodium Chloride 0.9% 1000 ML 1,000 ML IV SCH (12:35)
[2021-04-02 12:59] LABS: A-aADO2 531; ABG POTASSIUM 3.8 (3.5-5.1); ARTERIAL BLD GAS O2 SATURATION 99.6 % (95-100); ARTERIAL BLD GAS TIDAL VOLUME 600 cc; ARTERIAL BLOOD GAS BASE EXCESS 10.5 (-2.0-2.0); ARTERIAL BLOOD GAS FIO2 100 %; ARTERIAL BLOOD GAS PCO2 41 mmHg (35-45); ARTERIAL BLOOD GAS PO2 131 mmHg (75-100); ARTERIAL BLOOD GAS VENT MODE BiPAP; ARTERIAL BLOOD GAS pH 7.53 (7.35-7.45); CARBOXYHEMOGLOBIN 0.8 % THgb (0.0-6.9); HCO3- 34.3 (22-28); HGB O2 SAT 97.7 g/dF (94-100); Methhemoglobin 1.1 % (1.4-1.5)
[2021-04-02 13:00] LABS: ABG SITE RIGHT BRACHIAL
[2021-04-02] MEDS ORDERED: SUBLIMAZE 100 MCG/2 ML IV STA (14:30)
[2021-04-02] MEDS ORDERED: Ativan 2 MG/1 ML VIAL IV STA (14:30)
[2021-04-02] MEDS ORDERED: Quelicin Fliptop 200 MG/10 ML IV STA (14:30)
[2021-04-02] MEDS ORDERED: Nimbex 20MG/10 Ml Vial (HIGH RISK MED) IV ONE (14:35)
[2021-04-02] MEDS ORDERED: Ativan 2 MG/1 ML VIAL IV ONE (14:40)
[2021-04-02] MEDS: Nimbex 200MG/20 Ml MDV (HIGH RISK MED)** 200 MG in Dextrose 5%/Water IV Soln. 250 ML 18... IV SCH (15:00)
[2021-04-02 15:18] LABS: A-aADO2 577; ABG HEMOGLOBIN 14.5; ABG POTASSIUM 3.9 (3.5-5.1); ARTERIAL BLD GAS O2 SATURATION 96.7 % (95-100); ARTERIAL BLD GAS TIDAL VOLUME 600 cc; ARTERIAL BLOOD GAS BASE EXCESS 8.6 (-2.0-2.0); ARTERIAL BLOOD GAS FIO2 100 %; ARTERIAL BLOOD GAS PCO2 46 mmHg (35-45); ARTERIAL BLOOD GAS PO2 79 mmHg (75-100); ARTERIAL BLOOD GAS VENT MODE A/C; ARTERIAL BLOOD GAS pH 7.47 (7.35-7.45); CARBOXYHEMOGLOBIN 0.7 % THgb (0.0-6.9); HCO3- 33.5 (22-28); Methhemoglobin 1.1 % (1.4-1.5)
[2021-04-02 15:19] LABS: ABG SITE RIGHT RADIAL
[2021-04-02] MEDS: SUBLIMAZE 1000 Mcg/ 20 Ml*** 1,500 MCG in Sodium Chloride 0.9% 150 ML 120 ML IV SCH (15:38)
[2021-04-02] MEDS: LEVOPHED 4 MG/4 ML 4,000 MCG in Dextrose 5%/Water IV Soln. 500 ML 500 ML IV PRN (18:00)
--- NOTE | 2021-04-02 19:34 | XRAY ---
Indication: Covid 19 pneumonia. Comparison: March 31, 2021. Portable chest again demonstrates moderate diffuse bilateral airspace disease, slightly worsened in both lower lungs. Stable NG tube tip 6 cm above antoine, NG tube tip in stomach, and multiple overlying monitoring leads. Heart not enlarged. No new cardiopulmonary abnormalities. Comment: Preliminary interpretation made by [facility]. No critical discrepancy.
[2021-04-03] MEDS: Sodium Chloride 0.9% 1000 ML 1,000 ML IV SCH (00:56)
[2021-04-03] MEDS: LEVOPHED 4 MG/4 ML 4,000 MCG in Dextrose 5%/Water IV Soln. 500 ML 500 ML IV PRN ×3 (02:46→21:24)
[2021-04-03 04:29] LABS: Hematocrit 46.1 % (42-50); Hemoglobin 13.8 gm/dl (12.5-18.0); Mean Cell Volume 94.3 fl (78-100); Mean Corpuscular Hemoglobin 28.2 pg (26-32); Mean Corpuscular Hgb Concent. 29.9 g/dl (32-36); Mean Platelet Volume 10.5 fl (7.5-11.0); Platelet Count 302 K/mm3 (150-450); Red Blood Count 4.89 M/mm3 (4.1-5.6); Red Cell Distribution Width 15.9 % (11.5-14.0); White Blood Count 10.8 K/mm3 (4.0-10.5)
[2021-04-03 04:34] LABS: A-aADO2 501; ABG HEMOGLOBIN 14.2; ABG POTASSIUM 3.6 (3.5-5.1); ARTERIAL BLD GAS O2 SATURATION 99.9 % (95-100); ARTERIAL BLD GAS TIDAL VOLUME 600 cc; ARTERIAL BLOOD GAS FIO2 100 %; ARTERIAL BLOOD GAS PCO2 42 mmHg (35-45); ARTERIAL BLOOD GAS PO2 160 mmHg (75-100); ARTERIAL BLOOD GAS VENT MODE A/C; ARTERIAL BLOOD GAS pH 7.48 (7.35-7.45); CARBOXYHEMOGLOBIN 3.8 % THgb (0.0-6.9); HCO3- 31.3 (22-28); HGB O2 SAT 94.9 g/dF (94-100); Methhemoglobin 1.2 % (1.4-1.5)
[2021-04-03 04:35] LABS: ABG SITE LEFT RADIAL
[2021-04-03 04:46] LABS: ALBUMIN 2.6 g/dL (3.5-5.0); ALKALINE PHOSPHATASE 85 U/L (38-126); ANION GAP 5.1 MEQ/L (5-15); BLOOD UREA NITROGEN 22 mg/dL (9-20); CHLORIDE 112 mmol/L (98-107); Carbon Dioxide 31 mmol/L (22-30); Creatinine 1 0.76 mg/dL (0.66-1.25); Direct Bilirubin 0.9 mg/dL (0.0-0.4); EST GLOMERULAR FILTRATION RATE > 60.0 ML/MIN; Glucose 144 mg/dL (74-106); Potassium 3.6 mmol/L (3.5-5.1); SGOT/AST 44 U/L (17-59); SGPT/ALT 49 U/L (0-50); SODIUM 145 mmol/L (137-145); Total Protein 6.4 g/dL (6.3-8.2)
[2021-04-03] MEDS: PROTONIX 40 MG IV IV SCH (09:33)
[2021-04-03] MEDS: Bactroban OINTMENT TP SCH (09:33)
[2021-04-03] MEDS: ENOXAPARIN SODIUM SQ SCH (09:33)
[2021-04-03] MEDS: LEVOFLOXACIN 750MG/150ML D5W 750 MG/150 ML BAG IV SCH (09:33)
[2021-04-03] MEDS: DECADRON 10MG INJ. IV SCH (09:34)
[2021-04-03] MEDS: Ativan 20 MG/10 ML MDV*** 40 MG in D5w 100ML Mini Bag 100 ML 80 ML IV PRN (11:20)
--- NOTE | 2021-04-03 13:01 | PROG NOTE ---
DATE: 04/02/2021 HISTORY: The patient is on BiPAP. His O2 dropped into the 60's and we had to put the BiPAP on with mask. It was kind of touch and go whether we would have to intubate him but now he is holding O2 at 90% in BiPAP. He has minimal response to pain. He does get agitated and pulls at the mask. Using Ativan and Phenergan infusions to control that activity and I will probably switch him over to Ativan drip. PHYSICAL EXAMINATION: CHEST: Crackles bilateral. CVS: Tachycardic 120. LAB DATA AND TESTS: His hemoglobin is 15, white count 9. D-dimer is elevated to 2200. Creatinine 0.47. Electrolytes: Sodium 147, potassium 4, calcium a little bit low at 8.3. Chest x-ray yesterday showed diffuse bilateral airspace disease grossly unchanged. No new cardiopulmonary abnormalities. IMPRESSION: The patient has severe COVID pneumonia probably needs to be placed on the ventilator during the day. At least 50% chance, as he has gotten worse since he was switched off. However, he did stay off the vent for a good 48 hours. He is 80 years old. PROGNOSIS: Guarded.
[2021-04-03] MEDS: SUBLIMAZE 1000 Mcg/ 20 Ml*** 1,500 MCG in Sodium Chloride 0.9% 150 ML 120 ML IV SCH (22:53)
[2021-04-03] MEDS: Nimbex 200MG/20 Ml MDV (HIGH RISK MED)** 200 MG in Dextrose 5%/Water IV Soln. 250 ML 18... IV SCH (22:53)
[2021-04-04] MEDS: LEVOPHED 4 MG/4 ML 4,000 MCG in Dextrose 5%/Water IV Soln. 500 ML 500 ML IV PRN ×2 (05:18→14:06)
[2021-04-04] MEDS: DECADRON 10MG INJ. IV SCH (09:01)
[2021-04-04] MEDS: PROTONIX 40 MG IV IV SCH (09:01)
[2021-04-04] MEDS: Sodium Chloride 0.9% 1000 ML 1,000 ML IV SCH (09:02)
[2021-04-04] MEDS: ENOXAPARIN SODIUM SQ SCH (09:02)
[2021-04-04] MEDS: Bactroban OINTMENT TP SCH (09:02)
[2021-04-04] MEDS: LEVOFLOXACIN 750MG/150ML D5W 750 MG/150 ML BAG IV SCH (09:04)
[2021-04-04 09:53] LABS: A-aADO2 268; ABG POTASSIUM 3.8 (3.5-5.1); ARTERIAL BLD GAS TIDAL VOLUME 600 cc; ARTERIAL BLOOD GAS BASE EXCESS 11.2 (-2.0-2.0); ARTERIAL BLOOD GAS FIO2 60 %; ARTERIAL BLOOD GAS PCO2 42 mmHg (35-45); ARTERIAL BLOOD GAS PO2 107 mmHg (75-100); ARTERIAL BLOOD GAS VENT MODE A/C; ARTERIAL BLOOD GAS pH 7.53 (7.35-7.45); CARBOXYHEMOGLOBIN 1.9 % THgb (0.0-6.9); HCO3- 35.1 (22-28); HGB O2 SAT 96.6 g/dF (94-100); Methhemoglobin 1.6 % (1.4-1.5)
[2021-04-04 09:54] LABS: ABG SITE RIGHT BRACHIAL; ARTERIAL BLOOD GAS VENT RATE 18 /MIN
[2021-04-04] MEDS ORDERED: CHLORHEXIDINE GLUCONATE MM SCH (10:00)
--- NOTE | 2021-04-04 10:37 | PROG NOTE ---
DATE: 04/03/2021 HISTORY: Daren Urbano is a 80-year-old male admitted with acute severe hypoxic respiratory failure. The patient was intubated initially and did show clinical improvement and was able to come off of mechanical ventilator. However over the weekend, his hypoxemia got worse leading to re-intubation. He is back on mechanical ventilator, sedated, clinically paralyzed. He remains on 100% FIO2 with PEEP of 8, rate of 16. He is on Levophed currently at 8 mcg. PHYSICAL EXAMINATION: His heart rate is 70, blood pressure 114/76. Saturating 100%. HEENT: Normocephalic. Pupils are sluggishly reactive. ET tube and OG tube are in place. NECK: Supple. CVS: First and second heart sounds are normal, regular, rhythmic. RESPIRATORY: Shows diminished breath sounds. Crackles are heard. ABDOMEN: Soft. EXTREMITIES: No significant edema is noted. LABORATORY DATA AND TESTS: D-dimer is 4963. White count 10.8, hemoglobin 13.8, hematocrit 46, PLT 202,000. The pH 7.48, pCO2 of 42 and pO2 of 160. Chest x-ray noted. ASSESSMENT: This is a 80-year-old male admitted with: 1) Recurrent severe hypoxic respiratory failure. 2) COVID-19 infection. 3) Viral pneumonitis. 4) History of peripheral vascular disease. 5) Hypertension. RECOMMENDATIONS: 1) Continue mechanical ventilation. 2) The patient's gas exchange remains marginal. I advised respiratory therapy to reduce FIO2 keeping saturations at or above 92%. 3) Continue pressors. Hypertension appears likely from intravascular volume changes from positive pressure ventilation. 4) May need nutritional support. 5) Continue other supportive care. The patient's condition remains critical and the prognosis remains guarded to poor given age and recurrent respiratory failure.
[2021-04-04] MEDS: PERIDEX MM SCH ×2 (10:49→23:26)
[2021-04-04] MEDS: Lasix 20 MG/2 ML IV SCH (10:49)
[2021-04-04] MEDS: Lubrifresh P.M. 3.5 gm Ointment OP SCH ×2 (10:50→23:27)
[2021-04-04] MEDS ORDERED: HUMALOG SQ PRN (17:51)
[2021-04-04] MEDS: Ativan 20 MG/10 ML MDV*** 40 MG in D5w 100ML Mini Bag 100 ML 80 ML IV PRN (21:17)
[2021-04-05] MEDS: LEVOPHED 4 MG/4 ML 4,000 MCG in Dextrose 5%/Water IV Soln. 500 ML 500 ML IV PRN ×2 (00:18→11:24)
[2021-04-05 04:32] LABS: A-aADO2 266; ABG HEMOGLOBIN 14.6; ABG POTASSIUM 3.3 (3.5-5.1); ABG SITE RIGHT RADIAL; ALLEN TEST OK? YES; ARTERIAL BLD GAS O2 SATURATION 98.7 % (95-100); ARTERIAL BLD GAS TIDAL VOLUME 600 cc; ARTERIAL BLOOD GAS BASE EXCESS 11.8 (-2.0-2.0); ARTERIAL BLOOD GAS FIO2 60 %; ARTERIAL BLOOD GAS PCO2 47 mmHg (35-45); ARTERIAL BLOOD GAS PEEP 8 cmH2O; ARTERIAL BLOOD GAS PO2 103 mmHg (75-100); ARTERIAL BLOOD GAS VENT MODE AC; ARTERIAL BLOOD GAS VENT RATE 18 /MIN; CARBOXYHEMOGLOBIN 0.9 % THgb (0.0-6.9); HCO3- 36.7 (22-28); Methhemoglobin 0.8 % (1.4-1.5)
[2021-04-05] MEDS: Sodium Chloride 0.9% 1000 ML 1,000 ML IV SCH (05:25)
[2021-04-05 05:40] LABS: Hemoglobin 12.8 gm/dl (12.5-18.0); Mean Cell Volume 93.7 fl (78-100); Mean Corpuscular Hemoglobin 27.9 pg (26-32); Mean Corpuscular Hgb Concent. 29.8 g/dl (32-36); Mean Platelet Volume 10.9 fl (7.5-11.0); Platelet Count 244 K/mm3 (150-450); Red Blood Count 4.59 M/mm3 (4.1-5.6); Red Cell Distribution Width 15.4 % (11.5-14.0); White Blood Count 10.8 K/mm3 (4.0-10.5)
[2021-04-05 06:59] LABS: ALBUMIN 2.5 g/dL (3.5-5.0); ALKALINE PHOSPHATASE 108 U/L (38-126); ANION GAP 7.5 MEQ/L (5-15); BLOOD UREA NITROGEN 16 mg/dL (9-20); CHLORIDE 102 mmol/L (98-107); Calcium 7.6 mg/dL (8.4-10.2); Carbon Dioxide 32 mmol/L (22-30); EST GLOMERULAR FILTRATION RATE > 60.0 ML/MIN; Glucose 126 mg/dL (74-106); NT PRO BNP 171 pg/mL (0-1800); Potassium 3.3 mmol/L (3.5-5.1); SGOT/AST 56 U/L (17-59); SGPT/ALT 46 U/L (0-50); SODIUM 138 mmol/L (137-145); Total Protein 6.2 g/dL (6.3-8.2)
[2021-04-05] MEDS: Nimbex 200MG/20 Ml MDV (HIGH RISK MED)** 200 MG in Dextrose 5%/Water IV Soln. 250 ML 18... IV SCH (07:29)
--- NOTE | 2021-04-05 08:40 | XRAY ---
Indication: Covid 19 pneumonia on ventilator. Comparison: April 02, 2021. Portable chest again demonstrates moderate diffuse bilateral airspace disease, appearing more consolidated in left lung base. Heart not enlarged. Stable endotracheal tube, NG tube, and multiple overlying monitoring leads.
[2021-04-05] MEDS: PERIDEX MM SCH ×2 (09:09→20:41)
[2021-04-05] MEDS: PROTONIX 40 MG IV IV SCH (09:10)
[2021-04-05] MEDS: Lasix 20 MG/2 ML IV SCH (09:10)
[2021-04-05] MEDS: Bactroban OINTMENT TP SCH (09:10)
[2021-04-05] MEDS: ENOXAPARIN SODIUM SQ SCH (09:10)
[2021-04-05] MEDS: SODIUM CHLORIDE 0.9% W/ 40 mEq KCL 1000ML 1,000 ML IV SCH (09:10)
[2021-04-05] MEDS: DECADRON 10MG INJ. IV SCH (09:10)
[2021-04-05] MEDS: Lubrifresh P.M. 3.5 gm Ointment OP SCH ×2 (09:11→20:41)
[2021-04-05] MEDS: LEVOFLOXACIN 750MG/150ML D5W 750 MG/150 ML BAG IV SCH (09:12)
[2021-04-05] MEDS: SUBLIMAZE 1000 Mcg/ 20 Ml*** 1,500 MCG in Sodium Chloride 0.9% 150 ML 120 ML IV SCH (12:04)
[2021-04-05] MEDS: Ativan 20 MG/10 ML MDV*** 40 MG in D5w 100ML Mini Bag 100 ML 80 ML IV PRN (20:40)
[2021-04-06 05:29] LABS: A-aADO2 251; ABG HEMOGLOBIN 13.2; ABG POTASSIUM 3.4 (3.5-5.1); ABG SITE LEFT RADIAL; ARTERIAL BLD GAS O2 SATURATION 99.5 % (95-100); ARTERIAL BLD GAS TIDAL VOLUME 600 cc; ARTERIAL BLOOD GAS FIO2 60 %; ARTERIAL BLOOD GAS PCO2 37 mmHg (35-45); ARTERIAL BLOOD GAS PO2 131 mmHg (75-100); ARTERIAL BLOOD GAS VENT MODE A/C; ARTERIAL BLOOD GAS pH 7.58 (7.35-7.45); CARBOXYHEMOGLOBIN 5.3 % THgb (0.0-6.9); HCO3- 34.7 (22-28); HGB O2 SAT 93.3 g/dF (94-100); Methhemoglobin 0.9 % (1.4-1.5)
[2021-04-06 05:32] LABS: Hematocrit 41.8 % (42-50); Hemoglobin 12.5 gm/dl (12.5-18.0); Mean Cell Volume 93.3 fl (78-100); Mean Corpuscular Hemoglobin 27.9 pg (26-32); Mean Corpuscular Hgb Concent. 29.9 g/dl (32-36); Platelet Count 191 K/mm3 (150-450); Red Blood Count 4.48 M/mm3 (4.1-5.6); Red Cell Distribution Width 15.3 % (11.5-14.0); White Blood Count 9.8 K/mm3 (4.0-10.5)
[2021-04-06 05:57] LABS: ALBUMIN 2.2 g/dL (3.5-5.0); ALKALINE PHOSPHATASE 119 U/L (38-126); ANION GAP 4.3 MEQ/L (5-15); BLOOD UREA NITROGEN 20 mg/dL (9-20); CHLORIDE 101 mmol/L (98-107); Calcium 7.5 mg/dL (8.4-10.2); Carbon Dioxide 34 mmol/L (22-30); Creatinine 1 0.53 mg/dL (0.66-1.25); EST GLOMERULAR FILTRATION RATE > 60.0 ML/MIN; Glucose 119 mg/dL (74-106); Potassium 3.6 mmol/L (3.5-5.1); SGOT/AST 44 U/L (17-59); SGPT/ALT 42 U/L (0-50); SODIUM 135 mmol/L (137-145); Total Protein 5.6 g/dL (6.3-8.2)
[2021-04-06] MEDS: Ativan 20 MG/10 ML MDV*** 40 MG in D5w 100ML Mini Bag 100 ML 80 ML IV PRN ×2 (06:26→14:30)
[2021-04-06] MEDS ORDERED: Sodium Chloride 3 ML UD NEBULES IH ONE (07:42)
--- NOTE | 2021-04-06 08:32 | PROG NOTE ---
DATE: 04/05/2021 Events noted. Chart reviewed. HISTORY: The patient remains on mechanical ventilator at 3 liters, still lightly paralyzed on Levophed currently at 4 mcg. FIO2 with improvement so reduced to 60%, PEEP remains at 8. He is afebrile. Heart rate is 110, blood pressure 124/70 on 4 mcg of Levophed saturating 98%. PHYSICAL EXAMINATION: HEENT: Normocephalic. Oral exam limited. ET and OG tube are in place. NECK: Supple. CVS: First and second heart sounds with mild tachycardia. RESPIRATORY: Shows diminished breath sounds. ABDOMEN: Soft. EXTREMITIES: Trace edema is noted. LABORATORY DATA AND TESTS: Labs reviewed. BUN 16, creatinine 0.6, potassium 3.3. The pH 7.50, pCO2 of 47 and pO2 of 103. White count 10.8, hemoglobin 12.8, hematocrit 43 and PLT count 244,000. D-dimer is 4846. Chest x-ray noted. ASSESSMENT: This is a 80-year-old male admitted with: 1) Recurrent hypoxic respiratory failure. 2) COVID-19 infection with viral pneumonia. 3) Hypotension likely intravascular volume changes on pressors. RECOMMENDATIONS: 1) The patient has shown gradual clinical improvement. 2) Will discontinue paralytics to minimize post-paralytic complications. 3) Tolerating tube feeds. 4) Continue pressors. 5) Reduce FIO2. Respiratory rate may be reduced by two breaths as well. 6) Will possibly attempt CPAP plus pressure support weaning trials tomorrow. My concern is the patient's overall strength and whether he will be able to sustain adequate vented effort upon extubation, 7) Will continue other supportive care. Discussed with nursing staff.
--- NOTE | 2021-04-06 08:43 | XRAY ---
Indication: Covid 19 pneumonia on ventilator. Comparison: One day earlier. Portable chest again demonstrates moderate diffuse consolidating/nonconsolidating bilateral airspace disease, worsened in the right lung base. Heart not enlarged. Stable endotracheal tube and NG tube.
[2021-04-06] MEDS: DECADRON 10MG INJ. IV SCH (09:05)
[2021-04-06] MEDS: Lasix 20 MG/2 ML IV SCH (09:05)
[2021-04-06] MEDS: PERIDEX MM SCH ×2 (09:06→21:19)
[2021-04-06] MEDS: ENOXAPARIN SODIUM SQ SCH (09:06)
[2021-04-06] MEDS: Lubrifresh P.M. 3.5 gm Ointment OP SCH ×2 (09:06→21:18)
[2021-04-06] MEDS: LEVOFLOXACIN 750MG/150ML D5W 750 MG/150 ML BAG IV SCH (09:06)
[2021-04-06] MEDS: Bactroban OINTMENT TP SCH (09:06)
[2021-04-06] MEDS: PROTONIX 40 MG IV IV SCH (09:06)
[2021-04-06 10:36] LABS: Lymphocytes 18 % (24-44); Monocyte 3 % (0.0-12.0); Neutrophils 79 % (36.-66.); Total Cells Counted 100
[2021-04-06 10:37] LABS: Platelet Estimate NORMAL (NORMAL)
[2021-04-06] MEDS: SUBLIMAZE 1000 Mcg/ 20 Ml*** 1,500 MCG in Sodium Chloride 0.9% 150 ML 120 ML IV SCH ×3 (12:00→13:21)
[2021-04-06] MEDS: LEVOPHED 4 MG/4 ML 4,000 MCG in Dextrose 5%/Water IV Soln. 500 ML 500 ML IV PRN ×2 (12:51→19:45)
[2021-04-06] MEDS: Nimbex 200MG/20 Ml MDV (HIGH RISK MED)** 200 MG in Dextrose 5%/Water IV Soln. 250 ML 18... IV SCH (13:28)
--- NOTE | 2021-04-06 13:57 | PROG NOTE ---
DATE: 04/06/2021 Events noted. HISTORY: The patient is lightly sedated off paralytics, remains on mechanical ventilation. PHYSICAL EXAMINATION: Vital signs noted. Heart rate is 90, blood pressure 124/70. Saturating 98%. HEENT: Normocephalic. Oral exam limited. Edentulous. ET and OT tube are in place. NECK: Supple. CVS: First and second heart sounds are normal, regular, rhythmic. RESPIRATORY: Shows diminished breath sounds. ABDOMEN: Soft. EXTREMITIES: Lower extremities show chronic dermatitis changes. LABORATORY DATA AND TESTS: White count 9.8, hemoglobin 12.5, hemoglobin 41.8 and PLT 191,000. D-dimer 6445. Sodium 132, potassium 3.6, chloride 101, bicarb 34, glucose 119, BUN 20, creatinine 0.5. ABG reviewed. Chest x-ray noted. ASSESSMENT: This is a 80-year-old male admitted with: 1) Recurrent acute hypoxic respiratory failure. 2) COVID-19 status post treatment. 3) General debilitation. 4) Peripheral vascular disease. RECOMMENDATIONS: 1) The patient has shown clinical improvement. 2) He was switched to CPAP plus pressure support during rounds. He seems to be tolerating this well. 3) Discussed with Dr. Barboza who in turn is communicating with family regarding their choice attempt to extubation versus trach and PEG. The patient has shown clinical improvement. However, his general debilitation remains that of concern and I believe, if extubated, he may do well for the first day or two but with overall poor strength and difficulty in swallowing he is likely to develop worsening tachypnea leading to another round of intubation which certainly is something that can be avoided chosen route of trach and PEG. Dr. Barboza is in agreement. We will await family decision regarding the same. Continue other supportive care in the meantime.
[2021-04-06] MEDS: SODIUM CHLORIDE 0.9% W/ 40 mEq KCL 1000ML 1,000 ML IV SCH ×2 (21:20→21:22)
[2021-04-07] MEDS: Ativan 20 MG/10 ML MDV*** 40 MG in D5w 100ML Mini Bag 100 ML 80 ML IV PRN ×3 (00:13→20:39)
[2021-04-07 05:55] LABS: A-aADO2 187; ABG HEMOGLOBIN 12.6; ABG POTASSIUM 3.7 (3.5-5.1); ABG SITE LEFT RADIAL; ALLEN TEST OK? YES; ARTERIAL BLD GAS O2 SATURATION 98.7 % (95-100); ARTERIAL BLOOD GAS BASE EXCESS 11.8 (-2.0-2.0); ARTERIAL BLOOD GAS FIO2 55 %; ARTERIAL BLOOD GAS PCO2 43 mmHg (35-45); ARTERIAL BLOOD GAS PO2 151 mmHg (75-100); ARTERIAL BLOOD GAS VENT MODE CPAP; ARTERIAL BLOOD GAS pH 7.53 (7.35-7.45); HCO3- 35.9 (22-28); HGB O2 SAT 93.9 g/dF (94-100); Methhemoglobin 0.9 % (1.4-1.5)
[2021-04-07] MEDS: LEVOPHED 4 MG/4 ML 4,000 MCG in Dextrose 5%/Water IV Soln. 500 ML 500 ML IV PRN ×2 (06:20→23:47)
[2021-04-07 07:01] LABS: Hematocrit 41.3 % (42-50); Hemoglobin 12.3 gm/dl (12.5-18.0); Mean Cell Volume 93.9 fl (78-100); Mean Corpuscular Hgb Concent. 29.8 g/dl (32-36); Mean Platelet Volume 11.2 fl (7.5-11.0); Platelet Count 200 K/mm3 (150-450); Red Cell Distribution Width 15.4 % (11.5-14.0); White Blood Count 9.5 K/mm3 (4.0-10.5)
[2021-04-07 07:32] LABS: ALBUMIN 2.4 g/dL (3.5-5.0); ALKALINE PHOSPHATASE 114 U/L (38-126); ANION GAP 6.4 MEQ/L (5-15); BLOOD UREA NITROGEN 19 mg/dL (9-20); CHLORIDE 99 mmol/L (98-107); Calcium 7.4 mg/dL (8.4-10.2); Carbon Dioxide 33 mmol/L (22-30); EST GLOMERULAR FILTRATION RATE > 60.0 ML/MIN; Glucose 127 mg/dL (74-106); NT PRO BNP 159 pg/mL (0-1800); Potassium 3.7 mmol/L (3.5-5.1); SGOT/AST 43 U/L (17-59); SGPT/ALT 40 U/L (0-50); SODIUM 135 mmol/L (137-145)
[2021-04-07 08:27] LABS: BAND 6 % (0.0-2.0); Eosinophil 2 % (0.00-3.0); Lymphocytes 6 % (24-44); Monocyte 4 % (0.0-12.0); Neutrophils 82 % (36.-66.); Total Cells Counted 100
[2021-04-07 08:29] LABS: ANISOCYTOSIS 1+; Poikilocytosis 1+
[2021-04-07 08:30] LABS: Absolute Neutrophil Ct (ANC) 8.33 (1.4-6.9)
[2021-04-07] MEDS: SODIUM CHLORIDE 0.9% W/ 40 mEq KCL 1000ML 1,000 ML IV SCH ×2 (08:42→21:08)
[2021-04-07] MEDS: SUBLIMAZE 1000 Mcg/ 20 Ml*** 1,500 MCG in Sodium Chloride 0.9% 150 ML 120 ML IV SCH ×2 (08:42→11:15)
[2021-04-07] MEDS: ENOXAPARIN SODIUM SQ SCH (09:02)
[2021-04-07] MEDS: DECADRON 10MG INJ. IV SCH (09:02)
[2021-04-07] MEDS: Lasix 20 MG/2 ML IV SCH (09:02)
[2021-04-07] MEDS: PROTONIX 40 MG IV IV SCH (09:02)
[2021-04-07] MEDS: PERIDEX MM SCH ×2 (09:03→21:09)
[2021-04-07] MEDS: Bactroban OINTMENT TP SCH (09:03)
[2021-04-07] MEDS: Lubrifresh P.M. 3.5 gm Ointment OP SCH ×2 (09:03→21:09)
[2021-04-07] MEDS: LEVOFLOXACIN 750MG/150ML D5W 750 MG/150 ML BAG IV SCH (09:04)
--- NOTE | 2021-04-07 09:28 | XRAY ---
Indication: Covid 19 pneumonia on ventilator. Comparison: One day earlier. Portable chest unchanged again demonstrating moderate diffuse bilateral consolidating/nonconsolidating air space disease, NG tube, and endotracheal tube. Heart not enlarged. No new cardiopulmonary abnormalities.
[2021-04-08] MEDS: DUONEB 0.5-3 MG/3 ml Neb IH PRN (05:25)
[2021-04-08] MEDS: Ativan 20 MG/10 ML MDV*** 40 MG in D5w 100ML Mini Bag 100 ML 80 ML IV PRN ×3 (05:37→21:32)
[2021-04-08 05:48] LABS: A-aADO2 258; ABG HEMOGLOBIN 14.9; ABG POTASSIUM 4.3 (3.5-5.1); ABG SITE RIGHT RADIAL; ALLEN TEST OK? YES; ARTERIAL BLD GAS O2 SATURATION 94.7 % (95-100); ARTERIAL BLD GAS TIDAL VOLUME 600 cc; ARTERIAL BLOOD GAS BASE EXCESS 12.3 (-2.0-2.0); ARTERIAL BLOOD GAS FIO2 55 %; ARTERIAL BLOOD GAS PCO2 54 mmHg (35-45); ARTERIAL BLOOD GAS PEEP 6 cmH2O; ARTERIAL BLOOD GAS PO2 67 mmHg (75-100); ARTERIAL BLOOD GAS VENT MODE AC; ARTERIAL BLOOD GAS VENT RATE 14 /MIN; ARTERIAL BLOOD GAS pH 7.46 (7.35-7.45); CARBOXYHEMOGLOBIN 0.8 % THgb (0.0-6.9); HCO3- 38.4 (22-28); HGB O2 SAT 92.7 g/dF (94-100); Methhemoglobin 1.3 % (1.4-1.5)
[2021-04-08 06:26] LABS: Hematocrit 44.9 % (42-50); Hemoglobin 13.4 gm/dl (12.5-18.0); Mean Cell Volume 93.9 fl (78-100); Mean Corpuscular Hgb Concent. 29.8 g/dl (32-36); Mean Platelet Volume 10.7 fl (7.5-11.0); Platelet Count 200 K/mm3 (150-450); Red Blood Count 4.78 M/mm3 (4.1-5.6); Red Cell Distribution Width 15.6 % (11.5-14.0); White Blood Count 11.8 K/mm3 (4.0-10.5)
[2021-04-08 06:38] LABS: ALBUMIN 2.7 g/dL (3.5-5.0); ALKALINE PHOSPHATASE 136 U/L (38-126); ANION GAP 7.5 MEQ/L (5-15); BLOOD UREA NITROGEN 17 mg/dL (9-20); CHLORIDE 97 mmol/L (98-107); Calcium 7.7 mg/dL (8.4-10.2); Carbon Dioxide 35 mmol/L (22-30); Creatinine 1 0.56 mg/dL (0.66-1.25); EST GLOMERULAR FILTRATION RATE > 60.0 ML/MIN; Glucose 120 mg/dL (74-106); SGOT/AST 40 U/L (17-59); SGPT/ALT 46 U/L (0-50); SODIUM 135 mmol/L (137-145); Total Protein 6.7 g/dL (6.3-8.2)
--- NOTE | 2021-04-08 08:00 | XRAY ---
Indication: Covid 19 pneumonia on ventilator. Comparison: One day earlier. Portable chest again demonstrates moderate diffuse bilateral airspace disease, slightly improved in both lung bases. Heart not enlarged. No new cardiopulmonary abnormalities. Stable NG tube and endotracheal tube. Comment: Preliminary interpretation by [facility]. No critical discrepancy.
[2021-04-08] MEDS: SUBLIMAZE 1000 Mcg/ 20 Ml*** 1,500 MCG in Sodium Chloride 0.9% 150 ML 120 ML IV SCH (08:44)
[2021-04-08] MEDS: Lasix 20 MG/2 ML IV SCH (09:02)
[2021-04-08] MEDS: PERIDEX MM SCH ×2 (09:02→20:56)
[2021-04-08] MEDS: ENOXAPARIN SODIUM SQ SCH (09:02)
[2021-04-08] MEDS: DECADRON 10MG INJ. IV SCH (09:02)
[2021-04-08] MEDS: Lubrifresh P.M. 3.5 gm Ointment OP SCH ×2 (09:02→20:56)
[2021-04-08] MEDS: PROTONIX 40 MG IV IV SCH (09:02)
[2021-04-08] MEDS: Bactroban OINTMENT TP SCH (09:21)
[2021-04-08 12:11] LABS: ANISOCYTOSIS 1+; Eosinophil 2 % (0.00-3.0); Lymphocytes 16 % (24-44); Monocyte 1 % (0.0-12.0); Neutrophils 81 % (36.-66.); Platelet Estimate NORMAL (NORMAL); Total Cells Counted 100; Toxic Granulation 1+
[2021-04-08] MEDS: LEVOPHED 4 MG/4 ML 4,000 MCG in Dextrose 5%/Water IV Soln. 500 ML 500 ML IV PRN (12:43)
[2021-04-08] MEDS: SODIUM CHLORIDE 0.9% W/ 40 mEq KCL 1000ML 1,000 ML IV SCH (23:30)
[2021-04-09] MEDS: SUBLIMAZE 1000 Mcg/ 20 Ml*** 1,500 MCG in Sodium Chloride 0.9% 150 ML 120 ML IV SCH ×2 (02:27→18:18)
[2021-04-09] MEDS: LEVOPHED 4 MG/4 ML 4,000 MCG in Dextrose 5%/Water IV Soln. 500 ML 500 ML IV PRN ×2 (02:29→15:31)
[2021-04-09 05:02] LABS: A-aADO2 214; ABG HEMOGLOBIN 14.7; ABG POTASSIUM 4.3 (3.5-5.1); ARTERIAL BLOOD GAS BASE EXCESS 13.3 (-2.0-2.0); ARTERIAL BLOOD GAS FIO2 55 %; ARTERIAL BLOOD GAS PCO2 48 mmHg (35-45); ARTERIAL BLOOD GAS PO2 118 mmHg (75-100); ARTERIAL BLOOD GAS pH 7.51 (7.35-7.45); CARBOXYHEMOGLOBIN 0.7 % THgb (0.0-6.9); HCO3- 38.3 (22-28); HGB O2 SAT 97.3 g/dF (94-100)
[2021-04-09] MEDS ORDERED: Sodium Chloride 0.9% 100 ML BAG 100 ML ONE (05:02)
[2021-04-09 05:03] LABS: ABG SITE RIGHT RADIAL; ALLEN TEST OK? YES; ARTERIAL BLD GAS TIDAL VOLUME 600 cc; ARTERIAL BLOOD GAS PEEP 6 cmH2O; ARTERIAL BLOOD GAS VENT MODE AC; ARTERIAL BLOOD GAS VENT RATE 14 /MIN
[2021-04-09] MEDS: Ativan 20 MG/10 ML MDV*** 40 MG in D5w 100ML Mini Bag 100 ML 80 ML IV PRN ×2 (05:11→16:13)
[2021-04-09 06:18] LABS: Hematocrit 41.5 % (42-50); Hemoglobin 12.3 gm/dl (12.5-18.0); Mean Cell Volume 93.5 fl (78-100); Mean Corpuscular Hemoglobin 27.7 pg (26-32); Mean Corpuscular Hgb Concent. 29.6 g/dl (32-36); Mean Platelet Volume 11.1 fl (7.5-11.0); Platelet Count 240 K/mm3 (150-450); Red Blood Count 4.44 M/mm3 (4.1-5.6); Red Cell Distribution Width 15.3 % (11.5-14.0); White Blood Count 12.5 K/mm3 (4.0-10.5)
[2021-04-09 06:33] LABS: ALBUMIN 2.5 g/dL (3.5-5.0); ALKALINE PHOSPHATASE 116 U/L (38-126); ANION GAP 5.4 MEQ/L (5-15); BLOOD UREA NITROGEN 19 mg/dL (9-20); CHLORIDE 98 mmol/L (98-107); Calcium 7.6 mg/dL (8.4-10.2); Carbon Dioxide 35 mmol/L (22-30); Creatinine 1 0.47 mg/dL (0.66-1.25); EST GLOMERULAR FILTRATION RATE > 60.0 ML/MIN; Glucose 117 mg/dL (74-106); Potassium 4.1 mmol/L (3.5-5.1); SGOT/AST 34 U/L (17-59); SGPT/ALT 40 U/L (0-50); SODIUM 133 mmol/L (137-145); Total Protein 6.2 g/dL (6.3-8.2)
--- NOTE | 2021-04-09 07:40 | XRAY ---
Indication: Covid 19 pneumonia on ventilator. Comparison: One day earlier. Portable chest again demonstrates moderate diffuse bilateral airspace disease with worsening bibasilar consolidations, left greater than right. Heart not enlarged. Stable NG tube and endotracheal tube.
[2021-04-09] MEDS: ENOXAPARIN SODIUM SQ SCH (09:06)
[2021-04-09] MEDS: PROTONIX 40 MG IV IV SCH (09:06)
[2021-04-09] MEDS: PERIDEX MM SCH ×2 (09:06→21:30)
[2021-04-09] MEDS: SODIUM CHLORIDE 0.9% W/ 40 mEq KCL 1000ML 1,000 ML IV SCH (09:07)
[2021-04-09] MEDS: DECADRON 10MG INJ. IV SCH (09:07)
[2021-04-09] MEDS: Lasix 20 MG/2 ML IV SCH (09:07)
[2021-04-09] MEDS: Bactroban OINTMENT TP SCH (09:07)
[2021-04-09] MEDS: Lubrifresh P.M. 3.5 gm Ointment OP SCH ×2 (09:07→21:29)
[2021-04-09 10:06] LABS: ANISOCYTOSIS 1+; Lymphocytes 15 % (24-44); Monocyte 2 % (0.0-12.0); Neutrophils 83 % (36.-66.); Platelet Estimate NORMAL (NORMAL); Total Cells Counted 100; Toxic Granulation 1+
[2021-04-09 11:02] LABS: A-aADO2 187; ABG HEMOGLOBIN 14.1; ABG POTASSIUM 4.2 (3.5-5.1); ARTERIAL BLD GAS O2 SATURATION 99.1 % (95-100); ARTERIAL BLOOD GAS BASE EXCESS 14.6 (-2.0-2.0); ARTERIAL BLOOD GAS FIO2 55 %; ARTERIAL BLOOD GAS PCO2 43 mmHg (35-45); ARTERIAL BLOOD GAS PO2 151 mmHg (75-100); CARBOXYHEMOGLOBIN 0.7 % THgb (0.0-6.9); HCO3- 38.5 (22-28); HGB O2 SAT 97.2 g/dF (94-100); Methhemoglobin 1.2 % (1.4-1.5)
[2021-04-09 11:03] LABS: ARTERIAL BLOOD GAS pH 7.56 (7.35-7.45)
[2021-04-09 11:04] LABS: ABG SITE LEFT RADIAL; ALLEN TEST OK? YES
[2021-04-09] MEDS ORDERED: FEVERALL 650 MG PR PRN (11:37)
[2021-04-09] MEDS ORDERED: PHARMACY DOSING REQUEST MC ONE (11:42)
[2021-04-09] MEDS: Merrem 1 GM 1 G in Sodium Chloride 100ML MINI-BAG PLUS 100 ML IV SCH ×2 (13:38→21:30)
[2021-04-10 05:29] LABS: A-aADO2 188; ABG HEMOGLOBIN 13.3; ABG POTASSIUM 4.4 (3.5-5.1); ARTERIAL BLD GAS O2 SATURATION 99.1 % (95-100); ARTERIAL BLD GAS TIDAL VOLUME 600 cc; ARTERIAL BLOOD GAS BASE EXCESS 12.4 (-2.0-2.0); ARTERIAL BLOOD GAS FIO2 55 %; ARTERIAL BLOOD GAS PCO2 40 mmHg (35-45); ARTERIAL BLOOD GAS PO2 154 mmHg (75-100); ARTERIAL BLOOD GAS VENT MODE A/C; CARBOXYHEMOGLOBIN 0.7 % THgb (0.0-6.9); HCO3- 35.8 (22-28); HGB O2 SAT 97.3 g/dF (94-100); Methhemoglobin 1.1 % (1.4-1.5)
[2021-04-10 05:31] LABS: ABG SITE RIGHT BRACHIAL; ARTERIAL BLOOD GAS VENT RATE 14 /MIN; ARTERIAL BLOOD GAS pH 7.56 (7.35-7.45)
[2021-04-10 05:39] LABS: Hematocrit 42.5 % (42-50); Hemoglobin 12.7 gm/dl (12.5-18.0); Mean Cell Volume 92.8 fl (78-100); Mean Corpuscular Hemoglobin 27.7 pg (26-32); Mean Corpuscular Hgb Concent. 29.9 g/dl (32-36); Mean Platelet Volume 11.4 fl (7.5-11.0); Platelet Count 261 K/mm3 (150-450); Red Blood Count 4.58 M/mm3 (4.1-5.6); Red Cell Distribution Width 15.6 % (11.5-14.0); White Blood Count 13.7 K/mm3 (4.0-10.5)
[2021-04-10] MEDS: Merrem 1 GM 1 G in Sodium Chloride 100ML MINI-BAG PLUS 100 ML IV SCH ×3 (06:27→21:07)
[2021-04-10] MEDS: LEVOPHED 4 MG/4 ML 4,000 MCG in Dextrose 5%/Water IV Soln. 500 ML 500 ML IV PRN ×2 (06:33→17:02)
[2021-04-10 07:53] LABS: Eosinophil 3 % (0.00-3.0); Lymphocytes 13 % (24-44); Monocyte 5 % (0.0-12.0); Neutrophils 79 % (36.-66.); Total Cells Counted 100
[2021-04-10 07:54] LABS: Platelet Estimate NORMAL (NORMAL)
--- NOTE | 2021-04-10 08:08 | XRAY ---
Indication: Covid 19 pneumonia. Comparison: One day earlier. Portable chest again demonstrates moderate diffuse bilateral consolidating/nonconsolidated airspace disease with minimal clearing left lung base. Heart not enlarged. No new cardiopulmonary abnormalities. Stable NG tube, endotracheal tube, and overlying monitoring leads.
--- NOTE | 2021-04-10 08:09 | PROG NOTE ---
DATE: 04/09/2021 HISTORY: This is . The patient has been on a vent here for the last week. He was actually intubated. Taken off of the vent for two days and then we had to revent him about a week ago. He came in with COVID pneumonia bilateral without any vaccines. For several days he actually hung on pretty good and then suddenly crashed and was not able to keep his O2 up and his CO2 crashed and he was intubated. He was paralyzed, given pain medicine and medicine to make him rest. He has had no pain. He is on a mechanical ventilator now with 3 liters. He has been on Novafed for most of his stay on the ventilator. We tried to take him off several times and his blood pressure crashes. LAB DATA AND TESTS: His last creatinine was like 0.6, potassium 2.3. White count today is 12, hemoglobin 12. He has been getting some feeding through a G-tube down his throat. Today, his glucose 117, creatinine 0.47, sodium 133. His D-dimer is 4070 and he is fully anticoagulated. His blood gas today is 7.51, pCO2 of 48, pO2 of 118. IMPRESSION: The patient is stable with lung failure from bilateral COVID pneumonia. He has some mild dementia but not severe. He has not talked and he was very confused before we had to intubate him. He is on antibiotics I believe also. We are looking at putting in a tracheostomy at the first of the week, today is Saturday. PROGNOSIS: Guarded.
[2021-04-10] MEDS: PROTONIX 40 MG IV IV SCH (10:03)
[2021-04-10] MEDS: Lasix 20 MG/2 ML IV SCH (10:03)
[2021-04-10] MEDS: DECADRON 10MG INJ. IV SCH (10:03)
[2021-04-10] MEDS: ENOXAPARIN SODIUM SQ SCH (10:03)
[2021-04-10] MEDS: Bactroban OINTMENT TP SCH (10:04)
[2021-04-10] MEDS: Lubrifresh P.M. 3.5 gm Ointment OP SCH ×2 (10:04→21:07)
[2021-04-10] MEDS: PERIDEX MM SCH ×2 (10:05→21:06)
[2021-04-10 10:17] LABS: ANION GAP 7.6 MEQ/L (5-15); Potassium 4.3 mmol/L (3.5-5.1)
[2021-04-10] MEDS: Ativan 20 MG/10 ML MDV*** 40 MG in D5w 100ML Mini Bag 100 ML 80 ML IV PRN ×2 (11:04→21:39)
[2021-04-10] MEDS: SODIUM CHLORIDE 0.9% W/ 40 mEq KCL 1000ML 1,000 ML IV SCH (15:23)
[2021-04-10] MEDS: SUBLIMAZE 1000 Mcg/ 20 Ml*** 1,500 MCG in Sodium Chloride 0.9% 150 ML 120 ML IV SCH (18:43)
[2021-04-11] MEDS: LEVOPHED 4 MG/4 ML 4,000 MCG in Dextrose 5%/Water IV Soln. 500 ML 500 ML IV PRN ×4 (00:12→22:04)
[2021-04-11 04:46] LABS: A-aADO2 238; ABG HEMOGLOBIN 13.2; ARTERIAL BLD GAS O2 SATURATION 98.6 % (95-100); ARTERIAL BLD GAS TIDAL VOLUME 600 cc; ARTERIAL BLOOD GAS BASE EXCESS 10.7 (-2.0-2.0); ARTERIAL BLOOD GAS FIO2 55 %; ARTERIAL BLOOD GAS PCO2 40 mmHg (35-45); ARTERIAL BLOOD GAS PO2 104 mmHg (75-100); ARTERIAL BLOOD GAS VENT MODE A/C; ARTERIAL BLOOD GAS pH 7.54 (7.35-7.45); CARBOXYHEMOGLOBIN 5.2 % THgb (0.0-6.9); HCO3- 34.2 (22-28); HGB O2 SAT 92.6 g/dF (94-100); Methhemoglobin 0.8 % (1.4-1.5)
[2021-04-11 04:47] LABS: ABG SITE LEFT RADIAL; ALLEN TEST OK? YES
[2021-04-11 05:28] LABS: Hematocrit 41.7 % (42-50); Hemoglobin 12.5 gm/dl (12.5-18.0); Mean Cell Volume 92.5 fl (78-100); Mean Corpuscular Hemoglobin 27.7 pg (26-32); Platelet Count 287 K/mm3 (150-450); Red Blood Count 4.51 M/mm3 (4.1-5.6); Red Cell Distribution Width 15.4 % (11.5-14.0); White Blood Count 15.1 K/mm3 (4.0-10.5)
[2021-04-11] MEDS: Merrem 1 GM 1 G in Sodium Chloride 100ML MINI-BAG PLUS 100 ML IV SCH ×2 (05:47→14:20)
[2021-04-11] MEDS: Ativan 20 MG/10 ML MDV*** 40 MG in D5w 100ML Mini Bag 100 ML 80 ML IV PRN ×2 (07:17→16:40)
[2021-04-11] MEDS: SUBLIMAZE 1000 Mcg/ 20 Ml*** 1,500 MCG in Sodium Chloride 0.9% 150 ML 120 ML IV SCH ×2 (08:17→16:40)
--- NOTE | 2021-04-11 09:04 | XRAY ---
Indication: Covid 19 pneumonia. Comparison: One day earlier. Portable chest grossly unchanged again demonstrating diffuse bilateral consolidating/nonconsolidating airspace disease with NG tube and endotracheal tube unchanged in position. Heart not enlarged. No new cardiopulmonary abnormalities.
[2021-04-11] MEDS: ENOXAPARIN SODIUM SQ SCH (09:30)
[2021-04-11] MEDS: DECADRON 10MG INJ. IV SCH (09:30)
[2021-04-11] MEDS: Bactroban OINTMENT TP SCH (09:30)
[2021-04-11] MEDS: Lasix 20 MG/2 ML IV SCH (09:30)
[2021-04-11] MEDS: SODIUM CHLORIDE 0.9% W/ 40 mEq KCL 1000ML 1,000 ML IV SCH ×2 (09:30→13:15)
[2021-04-11] MEDS: PROTONIX 40 MG IV IV SCH (09:30)
[2021-04-11] MEDS: Lubrifresh P.M. 3.5 gm Ointment OP SCH ×2 (09:31→20:50)
[2021-04-11] MEDS: PERIDEX MM SCH ×2 (09:31→20:49)
[2021-04-11] MEDS ORDERED: Sodium Chloride 0.9% 500 ML 500 ML IV ONE (16:24)
[2021-04-12] MEDS: Merrem 1 GM 1 G in Sodium Chloride 100ML MINI-BAG PLUS 100 ML IV SCH ×4 (00:40→21:22)
[2021-04-12] MEDS: Ativan 20 MG/10 ML MDV*** 40 MG in D5w 100ML Mini Bag 100 ML 80 ML IV PRN ×2 (02:56→12:23)
[2021-04-12 04:52] LABS: A-aADO2 173; ABG HEMOGLOBIN 12.9; ABG POTASSIUM 3.8 (3.5-5.1); ABG SITE RIGHT RADIAL; ARTERIAL BLD GAS O2 SATURATION 98.4 % (95-100); ARTERIAL BLD GAS TIDAL VOLUME 600 cc; ARTERIAL BLOOD GAS BASE EXCESS 10.6 (-2.0-2.0); ARTERIAL BLOOD GAS FIO2 55 %; ARTERIAL BLOOD GAS PCO2 48 mmHg (35-45); ARTERIAL BLOOD GAS PO2 159 mmHg (75-100); ARTERIAL BLOOD GAS VENT MODE A/C; ARTERIAL BLOOD GAS pH 7.48 (7.35-7.45); CARBOXYHEMOGLOBIN 2.7 % THgb (0.0-6.9); HCO3- 35.7 (22-28); HGB O2 SAT 94.3 g/dF (94-100); Methhemoglobin 1.5 % (1.4-1.5)
[2021-04-12 05:17] LABS: ALBUMIN 2.3 g/dL (3.5-5.0); ALKALINE PHOSPHATASE 104 U/L (38-126); ANION GAP 5.2 MEQ/L (5-15); BLOOD UREA NITROGEN 16 mg/dL (9-20); CHLORIDE 97 mmol/L (98-107); Calcium 7.7 mg/dL (8.4-10.2); Carbon Dioxide 35 mmol/L (22-30); Creatinine 1 0.45 mg/dL (0.66-1.25); EST GLOMERULAR FILTRATION RATE > 60.0 ML/MIN; Glucose 147 mg/dL (74-106); Potassium 3.9 mmol/L (3.5-5.1); SGOT/AST 24 U/L (17-59); SGPT/ALT 29 U/L (0-50); SODIUM 133 mmol/L (137-145); Total Protein 5.7 g/dL (6.3-8.2)
[2021-04-12 05:42] LABS: Hematocrit 40.6 % (42-50); Hemoglobin 12.3 gm/dl (12.5-18.0); Mean Cell Volume 92.9 fl (78-100); Mean Corpuscular Hemoglobin 28.1 pg (26-32); Mean Corpuscular Hgb Concent. 30.3 g/dl (32-36); Mean Platelet Volume 10.9 fl (7.5-11.0); Platelet Count 284 K/mm3 (150-450); Red Blood Count 4.37 M/mm3 (4.1-5.6); Red Cell Distribution Width 15.6 % (11.5-14.0); White Blood Count 13.6 K/mm3 (4.0-10.5)
--- NOTE | 2021-04-12 07:47 | ECHO ---
Transthoracic echocardiographic examination and color Doppler was done on 04/11/2021. INDICATION: History of cardiomyopathy. IMPRESSION: 1) NO DEFINITE REGIONAL WALL MOTION ABNORMALITY. ESTIMATED GLOBAL LEFT VENTRICULAR EJECTION FRACTION BETWEEN 50 TO 55%. 2) TRACE TRICUSPID REGURGITATION. RIGHT VENTRICULAR SYSTOLIC PRESSURE OF 29 MM OF MERCURY. 3) TRACE AORTIC REGURGITATION. The left ventricle is visualized and demonstrated no definite regional wall motion abnormality. Estimated global left ventricular ejection fraction between 50 to 55%. The left ventricular thickness is normal. The mitral valve is seen and this opens adequately. No significant mitral regurgitation is seen. Left atrium is normal. The aortic valve opens adequately. There is no significant gradient across the left ventricular outflow tract. There is trace aortic regurgitation. The right side chambers appears to be normal. There is trace tricuspid regurgitation. The right ventricular systolic pressure of 29 mm of Mercury.
--- NOTE | 2021-04-12 08:57 | XRAY ---
Indication: Covid 19 pneumonia. Comparison: One day earlier. Portable chest again demonstrates moderate diffuse bilateral consolidating/nonconsolidating airspace disease grossly unchanged. Heart and mediastinal structures within normal limits. Stable NG and endotracheal tubes. No new abnormalities.
[2021-04-12] MEDS: SODIUM CHLORIDE 0.9% W/ 40 mEq KCL 1000ML 1,000 ML IV SCH ×2 (08:59→09:04)
[2021-04-12] MEDS: SUBLIMAZE 1000 Mcg/ 20 Ml*** 1,500 MCG in Sodium Chloride 0.9% 150 ML 120 ML IV SCH ×2 (08:59→12:24)
[2021-04-12] MEDS: Bactroban OINTMENT TP SCH (09:04)
[2021-04-12] MEDS: PROTONIX 40 MG IV IV SCH (09:04)
[2021-04-12] MEDS: DECADRON 10MG INJ. IV SCH (09:04)
[2021-04-12] MEDS: ENOXAPARIN SODIUM SQ SCH (09:04)
[2021-04-12] MEDS: Lubrifresh P.M. 3.5 gm Ointment OP SCH ×2 (09:05→21:22)
[2021-04-12] MEDS: PERIDEX MM SCH ×2 (09:05→21:22)
[2021-04-12] MEDS: LEVOPHED 4 MG/4 ML 4,000 MCG in Dextrose 5%/Water IV Soln. 500 ML 500 ML IV PRN ×2 (12:24→12:27)
[2021-04-13 04:55] LABS: A-aADO2 120; ABG HEMOGLOBIN 12.9; ABG POTASSIUM 4.5 (3.5-5.1); ARTERIAL BLD GAS O2 SATURATION 99.3 % (95-100); ARTERIAL BLOOD GAS BASE EXCESS 12.8 (-2.0-2.0); ARTERIAL BLOOD GAS FIO2 40 %; ARTERIAL BLOOD GAS PCO2 43 mmHg (35-45); ARTERIAL BLOOD GAS PO2 111 mmHg (75-100); ARTERIAL BLOOD GAS pH 7.54 (7.35-7.45); CARBOXYHEMOGLOBIN 4.5 % THgb (0.0-6.9); HCO3- 36.8 (22-28); HGB O2 SAT 93.7 g/dF (94-100); Methhemoglobin 1.2 % (1.4-1.5)
[2021-04-13 04:56] LABS: ABG SITE RIGHT RADIAL; ALLEN TEST OK? YES; ART BLD GAS PRESSURE SUPPORT 20; ARTERIAL BLOOD GAS PEEP 8 cmH2O; ARTERIAL BLOOD GAS VENT MODE CPAP
[2021-04-13] MEDS: Merrem 1 GM 1 G in Sodium Chloride 100ML MINI-BAG PLUS 100 ML IV SCH ×3 (06:18→21:25)
[2021-04-13 06:47] LABS: ALBUMIN 2.4 g/dL (3.5-5.0); ALKALINE PHOSPHATASE 110 U/L (38-126); ANION GAP 9.8 MEQ/L (5-15); BLOOD UREA NITROGEN 21 mg/dL (9-20); CHLORIDE 96 mmol/L (98-107); Carbon Dioxide 33 mmol/L (22-30); Creatinine 1 0.35 mg/dL (0.66-1.25); EST GLOMERULAR FILTRATION RATE > 60.0 ML/MIN; Glucose 90 mg/dL (74-106); Potassium 4.9 mmol/L (3.5-5.1); SGOT/AST 36 U/L (17-59); SGPT/ALT 34 U/L (0-50); SODIUM 134 mmol/L (137-145)
--- NOTE | 2021-04-13 07:53 | PROG NOTE ---
Events noted. Chart reviewed. DATE: 04/12/2021 HISTORY: The patient remains on mechanical ventilator, tolerating CPAP plus pressure support while appears weak. Medications reviewed. PHYSICAL EXAMINATION: Vital signs reviewed. HEENT: Normocephalic. Oral exam limited. ET and OT tube are in place. NECK: Supple. CVS: First and second heart sounds are normal, regular, rhythmic. RESPIRATORY: Shows diminished breath sounds. No rhonchi or crackles are heard. ABDOMEN: Soft. EXTREMITIES: No edema is noted. LABORATORY DATA AND TESTS: Labs reviewed. ASSESSMENT: This is a 80-year-old male admitted with: 1) Recurrent respiratory failure. 2) COVID-19 with viral pneumonia. 3) Severe debilitation. 4) Peripheral vascular disease. RECOMMENDATIONS: The patient has been scheduled for trach and PEG placement on Saturday morning. In the meantime, we will continue weaning trials with CPAP plus pressure support during day. It will be much easier to wean him off of mechanical ventilation and continue with nutrition as well as aggressive pulmonary toilet once and trach and PEG has been placed. Discussed with nursing staff. Will continue to follow.
[2021-04-13] MEDS: ENOXAPARIN SODIUM SQ SCH (08:12)
[2021-04-13] MEDS: SODIUM CHLORIDE 0.9% W/ 40 mEq KCL 1000ML 1,000 ML IV SCH (08:12)
[2021-04-13] MEDS: PERIDEX MM SCH ×2 (08:12→21:23)
[2021-04-13] MEDS: Ativan 20 MG/10 ML MDV*** 40 MG in D5w 100ML Mini Bag 100 ML 80 ML IV PRN (08:12)
[2021-04-13] MEDS: PROTONIX 40 MG IV IV SCH (08:13)
[2021-04-13] MEDS: Bactroban OINTMENT TP SCH (08:13)
[2021-04-13] MEDS: Lubrifresh P.M. 3.5 gm Ointment OP SCH ×2 (08:13→21:24)
[2021-04-13] MEDS: DECADRON 10MG INJ. IV SCH (08:13)
[2021-04-13] MEDS: SUBLIMAZE 1000 Mcg/ 20 Ml*** 1,500 MCG in Sodium Chloride 0.9% 150 ML 120 ML IV SCH (08:26)
--- NOTE | 2021-04-13 09:07 | XRAY ---
Indication: Covid 19 pneumonia on ventilator. Comparison: One day earlier. Portable chest unchanged again with moderate diffuse bilateral airspace disease. Remaining heart, endotracheal tube, and NG tube also stable. No new cardiopulmonary abnormalities.
[2021-04-13 09:24] LABS: Hematocrit 39.5 % (42-50); Hemoglobin 11.9 gm/dl (12.5-18.0); Mean Cell Volume 92.7 fl (78-100); Mean Corpuscular Hemoglobin 27.9 pg (26-32); Mean Corpuscular Hgb Concent. 30.1 g/dl (32-36); Mean Platelet Volume 10.8 fl (7.5-11.0); Platelet Count 279 K/mm3 (150-450); Red Blood Count 4.26 M/mm3 (4.1-5.6); Red Cell Distribution Width 15.5 % (11.5-14.0); White Blood Count 12.1 K/mm3 (4.0-10.5)
[2021-04-13] MEDS ORDERED: Versed 50 MG/ 10 Ml MDV*** 50 MG in Sodium Chloride 0.9% 250 ML 240 ML IV PRN (17:00)
[2021-04-13] MEDS ORDERED: Ativan 20 MG/10 ML MDV*** 40 MG in D5w 100ML Mini Bag 100 ML 80 ML IV PRN (17:00)
[2021-04-13] MEDS: LEVOPHED 4 MG/4 ML 4,000 MCG in Dextrose 5%/Water IV Soln. 500 ML 500 ML IV PRN (21:23)
[2021-04-14] MEDS: Ativan 20 MG/10 ML MDV*** 40 MG in D5w 100ML Mini Bag 100 ML 80 ML IV PRN (05:29)
[2021-04-14 05:45] LABS: A-aADO2 96; ABG HEMOGLOBIN 13.5; ABG POTASSIUM 4.2 (3.5-5.1); ART BLD GAS PRESSURE SUPPORT 20; ARTERIAL BLD GAS O2 SATURATION 98.8 % (95-100); ARTERIAL BLOOD GAS BASE EXCESS 11.2 (-2.0-2.0); ARTERIAL BLOOD GAS FIO2 40 %; ARTERIAL BLOOD GAS PCO2 36 mmHg (35-45); ARTERIAL BLOOD GAS PO2 144 mmHg (75-100); ARTERIAL BLOOD GAS VENT MODE CPAP; ARTERIAL BLOOD GAS pH 7.58 (7.35-7.45); CARBOXYHEMOGLOBIN 5.1 % THgb (0.0-6.9); HCO3- 33.8 (22-28); HGB O2 SAT 92.8 g/dF (94-100)
[2021-04-14 05:46] LABS: ABG SITE RIGHT RADIAL; ALLEN TEST OK? NO
[2021-04-14 05:53] LABS: Hematocrit 42.3 % (42-50); Mean Corpuscular Hemoglobin 28.3 pg (26-32); Mean Corpuscular Hgb Concent. 30.7 g/dl (32-36); Mean Platelet Volume 10.5 fl (7.5-11.0); Platelet Count 329 K/mm3 (150-450); Red Cell Distribution Width 15.6 % (11.5-14.0)
[2021-04-14] MEDS ORDERED: Sodium Chloride 0.9% 1000 ML 1,000 ML IV SCH (06:00)
[2021-04-14] MEDS ORDERED: CEFAZOLIN 2 GM-D5W BAG** 2 GM/50 ML ML IV SCH (06:00)
[2021-04-14] MEDS: Merrem 1 GM 1 G in Sodium Chloride 100ML MINI-BAG PLUS 100 ML IV SCH ×3 (06:53→21:26)
[2021-04-14 06:57] LABS: ALBUMIN 2.5 g/dL (3.5-5.0); ALKALINE PHOSPHATASE 129 U/L (38-126); BLOOD UREA NITROGEN 17 mg/dL (9-20); CHLORIDE 95 mmol/L (98-107); Calcium 7.9 mg/dL (8.4-10.2); Carbon Dioxide 34 mmol/L (22-30); Creatinine 1 0.44 mg/dL (0.66-1.25); EST GLOMERULAR FILTRATION RATE > 60.0 ML/MIN; Glucose 90 mg/dL (74-106); Potassium 4.4 mmol/L (3.5-5.1); SGOT/AST 33 U/L (17-59); SGPT/ALT 36 U/L (0-50); SODIUM 132 mmol/L (137-145)
[2021-04-14] MEDS: PROTONIX 40 MG IV IV SCH (07:48)
[2021-04-14] MEDS: DECADRON 10MG INJ. IV SCH (07:48)
[2021-04-14] MEDS: Bactroban OINTMENT TP SCH (07:54)
[2021-04-14] MEDS: PERIDEX MM SCH ×2 (07:54→21:26)
[2021-04-14] MEDS: Lubrifresh P.M. 3.5 gm Ointment OP SCH ×2 (07:54→21:27)
--- NOTE | 2021-04-14 07:58 | PROG NOTE ---
DATE: 04/13/2021 HISTORY: The patient is a 80-year-old male admitted with recurrent respiratory failure from COVID-19. The patient has been tolerating CPAP plus pressure support of 20 well, remains on low dose pressors. He is arousable. PHYSICAL EXAMINATION: Vital signs noted. HEENT: Normocephalic. Oral exam limited. ET tube and OG tube are in place. NECK: Supple. CVS: First and second heart sounds are normal, regular, rhythmic. RESPIRATORY: Shows diminished breath sounds, crackles are heard. ABDOMEN: Soft. LABORATORY DATA AND TESTS: Labs reviewed. The pH 7.54, pCO2 of 43, pO2 of 111 on CPAP mode with PEEP of 8 and pressure support of 20. ASSESSMENT: This is a 80-year-old man admitted with: 1) Recurrent respiratory failure with hypoxemia. 2) Status post COVID-19 infection with viral pneumonia. 3) General debilitation. RECOMMENDATIONS: 1) The patient has been tolerating CPAP well. 2) Will await trach and PEG which have been scheduled for tomorrow morning. Post-trach I believe the patient can easily be weaned to trach collar. 3) Wean pressors. 4) Continue other supportive care. Will also benefit from PEG for nutritional support. Further recommendations awaiting clinical improvement particularly in the next few days. Discussed with Dr. Barboza.
[2021-04-14] MEDS ORDERED: XYLOCAINE 1% HCL 20 ML MDV ONE (08:06)
[2021-04-14] MEDS ORDERED: Versed 2 MG/2 ML Injection ONE (08:33)
[2021-04-14] MEDS ORDERED: Zemuron 100 MG/10 ML ONE ×3 (08:33→09:49)
[2021-04-14] MEDS: SUBLIMAZE 1000 Mcg/ 20 Ml*** 1,500 MCG in Sodium Chloride 0.9% 150 ML 120 ML IV SCH (08:35)
--- NOTE | 2021-04-14 08:43 | XRAY ---
Indication: Covid 19 pneumonia. Comparison: April 13, 2021. Portable chest continues to demonstrate moderate diffuse bilateral airspace disease unchanged. Heart not enlarged. No new cardiopulmonary abnormalities. Stable endotracheal and NG tube in good position.
[2021-04-14 08:52] LABS: PROTIME 11.8 SECONDS (9.4-12.5)
--- NOTE | 2021-04-14 08:53 | PCM.CONS ---
History of Present Illness - Reason for Consult Chief Complaint: COVID 19, CELLULITIS Requesting Provider: BRITT MANN Consulting Provider: ABEL ILRIANO MD History of Present Illness: hx per chart review, d/w primary and RN 80yo covid pna reintubated. failing to complete wean. trach/peg requested. daughter wants to continue with agressive care and trach/peg. currently tolerating CPAP at days, vent at night. but felt unable to complete wean. "CHIEF COMPLAINT: Aching all over, shortness of breath, feeling like he is passing out, not eating, confusion, frequent falls. HISTORY OF PRESENT ILLNESS: The patient is a 80-year-old white male who does live by himself but his daughter lives close by him and sees him daily. He said he is normally pretty active but recently he is falling over especially when he leans over to clean his feet. He does have some vascular damage to his feet. He denies any real shortness of breath. He has not been eating, drinking or active and a little more confused over the last two weeks. He denies any chest pain. He has had a fever. Confusion has been a big problem, which is new. When I talked to him, he had actually been in the emergency room overnight waiting for a bed to open. He is appropriate, pleasant and not confused as far as general conversation. He did test positive for COVID. He is a nonsmoker. He has history of peripheral edema and heart failure. He is also worried about chronic dermatitis. He has chronic stasis dermatitis of the legs whether that needs antibiotics or not. He said he has had no fever, chills or coughing. Maybe a little short of breath, he stated. His bowel movements are normal. He is not eating very much. His daughter states he is refusing to eat or drink. Not been active. He states he has had a downhill course for two weeks but worse over the last 48 hours before going to the emergency room. He is much more confused than normal. TRAVEL RISK: No out of state travel. CORONAVIRUS SCREENING: COVID vaccine: None. Close contact: Not that they know of. MEDICATIONS: Lasix 20 q.d. for edema, potassium 20 mEq q.d., KCL 20 q.d. ALLERGIES: NKDA. PAST MEDICAL HISTORY: Hypertension. Hypothyroidism. Some arthritis of knees and shoulders. Chronic stasis ulcers. Peripheral stasis dermatitis. SOCIAL HISTORY: . Daughter apparently lives with him or right next to him. " Medications & Allergies Home Medications: Home Medication List Levothyroxine Sodium 50 Mcg [Synthroid 50 Mcg] 50 mcg PO DAILY #30 tablet 06/25/15 [Rx Confirmed 03/22/21] Furosemide 20 mg [Lasix 20 mg] 20 mg PO DAILY 03/19/21 [History Confirmed 03/22/21] Potassium Chloride 20 meq PO DAILY 03/19/21 [History Confirmed 03/22/21] Allergies/Adverse Reactions: Allergies Allergy/AdvReac Type Severity Reaction Status Date / Time No Known Drug Allergies Allergy Verified 03/22/21 12:39 - Past Medical History Past Medical History: Yes Neurological History: No Pertinent History ENT History: No Pertinent History Cardiac History: Hypertension, Peripheral Vascular Disease Respiratory History: No Pertinent History Endocrine Medical History: Hypothyroidism Musculoskelatal History: Osteoarthritis GI Medical History: No Pertinent History History: No Pertinent History Pyscho-Social History: No Pertinent History Male Reproductive Disorders: No Pertinent History Comment: 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 HX OF DEPRESSION - Past Surgical History Past Surgical History: No - Social History Smoking Status: Never smoker Exposure to second hand smoke: No Alcohol: None Drug Use: none - Physical Exam Vital Signs: Vital Signs - 24 hr Temp Pulse Resp BP Pulse Ox 04/14/21 07:30 98.7 F 82 18 146/67 99 04/14/21 06:00 98.7 F 82 18 146/67 99 04/14/21 04:38 98.1 F 72 18 140/62 95 04/14/21 03:33 97.8 F 62 132/61 96 04/14/21 03:19 18 04/14/21 03:00 63 18 143/63 96 04/14/21 02:00 67 18 139/61 98 04/14/21 01:00 66 18 127/60 04/14/21 00:00 98 F 64 18 143/71 04/13/21 23:00 64 119/56 04/13/21 22:00 60 18 121/62 04/13/21 21:00 64 18 118/62 98 04/13/21 20:00 97.8 F 59 L 17 122/68 98 04/13/21 18:58 53 L 17 108/56 98 04/13/21 18:45 53 L 12 99 04/13/21 18:00 51 L 17 104/55 97 04/13/21 16:46 65 13 119/68 98 04/13/21 16:00 18 04/13/21 15:53 62 128/57 96 04/13/21 14:41 57 L 17 98 04/13/21 14:00 57 L 17 101/54 98 04/13/21 12:42 57 L 16 104/55 98 04/13/21 12:00 99 F 58 L 17 103/55 98 04/13/21 11:43 21 04/13/21 10:53 65 17 109/50 97 04/13/21 10:07 78 19 97 04/13/21 10:00 97.7 F 70 18 87/61 98 04/13/21 09:00 70 18 100/61 98 General Appearance: no apparent distress Additional Findings: 04/14/21 08:52 nad comfortable intub sed Results - Labs Lab/Micro Results: Lab Results-Last 24 Hours 04/13/21 04/14/21 04/14/21 Range/Units 08:35 05:25 05:30 WBC 12.1 H 14.0 H (4.0-10.5) K/mm3 RBC 4.26 4.60 (4.1-5.6) M/mm3 Hgb 11.9 L 13.0 (12.5-18.0) gm/dl Hct 39.5 L 42.3 (42-50) % MCV 92.7 92.0 (78-100) fl MCH 27.9 28.3 (26-32) pg MCHC 30.1 L 30.7 L (32-36) g/dl RDW 15.5 H 15.6 H (11.5-14.0) % Plt Count 279 329 (150-450) K/mm3 MPV 10.8 10.5 (7.5-11.0) fl D-Dimer (215-500) ng/mL Puncture Site RIGHT RADIAL pCO2 36 (35-45) mmHg pO2 144 H* (75-100) mmHg Base Excess 11.2 H (-2.0-2.0) O2 Saturation 92.8 L (94-100) g/dF ABG pH 7.58 H* (7.35-7.45) ABG HCO3 33.8 H* (22-28) ABG O2 Sat (Measured) 98.8 (95-100) % Rigoberto Test NO A-a Gradient 96 a/A Ratio 0.60 Hemoglobin 13.5 Carboxyhemoglobin 5.1 (0.0-6.9) % THgb Methemoglobin 1.0 L (1.4-1.5) % Potassium 4.2 (3.5-5.1) Temperature 37.0 C POC O2 Flow Rate 40 % Vent Mode CPAP PEEP 8.0 cmH2O Pressure Support 20 Sodium (137-145) mmol/L Chloride (98-107) mmol/L Carbon Dioxide (22-30) mmol/L Anion Gap (5-15) MEQ/L BUN (9-20) mg/dL Creatinine (0.66-1.25) mg/dL Estimated GFR ML/MIN Glucose (74-106) mg/dL Calcium (8.4-10.2) mg/dL Total Bilirubin (0.2-1.3) mg/dL AST (17-59) U/L ALT (0-50) U/L Alkaline Phosphatase (38-126) U/L Serum Total Protein (6.3-8.2) g/dL Albumin (3.5-5.0) g/dL 04/14/21 04/14/21 Range/Units 05:30 05:30 WBC (4.0-10.5) K/mm3 RBC (4.1-5.6) M/mm3 Hgb (12.5-18.0) gm/dl Hct (42-50) % MCV (78-100) fl MCH (26-32) pg MCHC (32-36) g/dl RDW (11.5-14.0) % Plt Count (150-450) K/mm3 MPV (7.5-11.0) fl D-Dimer 3258 H* (215-500) ng/mL Puncture Site pCO2 (35-45) mmHg pO2 (75-100) mmHg Base Excess (-2.0-2.0) O2 Saturation (94-100) g/dF ABG pH (7.35-7.45) ABG HCO3 (22-28) ABG O2 Sat (Measured) (95-100) % Rigoberto Test A-a Gradient a/A Ratio Hemoglobin Carboxyhemoglobin (0.0-6.9) % THgb Methemoglobin (1.4-1.5) % Potassium 4.4 (3.5-5.1) Temperature C POC O2 Flow Rate % Vent Mode PEEP cmH2O Pressure Support Sodium 132 L (137-145) mmol/L Chloride 95 L (98-107) mmol/L Carbon Dioxide 34 H (22-30) mmol/L Anion Gap 7.0 (5-15) MEQ/L BUN 17 (9-20) mg/dL Creatinine 0.44 L (0.66-1.25) mg/dL Estimated GFR > 60.0 ML/MIN Glucose 90 (74-106) mg/dL Calcium 7.9 L (8.4-10.2) mg/dL Total Bilirubin 0.80 (0.2-1.3) mg/dL AST 33 (17-59) U/L ALT 36 (0-50) U/L Alkaline Phosphatase 129 H (38-126) U/L Serum Total Protein 6.0 L (6.3-8.2) g/dL Albumin 2.5 L (3.5-5.0) g/dL Microbiology 04/09/21 12:34 Urine Culture - Final Urine, Indwelling Catheter Kocuria Rosea 04/09/21 11:30 Blood Culture Gram Stain - Final Blood Blood Culture - Preliminary Coagulase Negative Staph. Possible Contaminant. Clinical judgement required. NO FURTHER WORKUP WILL BE PERFORMED UNLESS PHYSICIAN REQUESTED WITHIN THE NEXT 72 HOURS 04/09/21 13:55 Blood Culture - Preliminary Blood NO GROWTH TO DATE 03/21/21 20:10 Blood Culture Gram Stain - Final Blood Not Reportable Blood Culture - Final NO GROWTH 03/21/21 20:10 Blood Culture Gram Stain - Final Blood Not Reportable Blood Culture - Final NO GROWTH 03/21/21 19:58 Urine Culture - Final Clean Catch Midstream <10K NORMAL SKIN MYRNA PROBABLE SKIN CONTAMINANT - Radiology Impressions Radiology Exams & Impressions: Radiology Procedures Category Date Time Status CHEST 1 VIEW (PORTABLE) Routine Exams 04/13/21 07:00 Completed CHEST 1 VIEW (PORTABLE) Routine Exams 04/14/21 05:55 Completed Assessment/Plan (1) Ventilator dependence Current Visit: Yes Status: Acute Assessment & Plan: to trach/peg today. Code(s): Z99.11 - DEPENDENCE ON RESPIRATOR [VENTILATOR] STATUS
[2021-04-14 08:55] LABS: PTT 26.9 SECONDS (25.1-36.5)
--- NOTE | 2021-04-14 13:16 | OP ---
SURGERY DATE/TIME: 04/14/2021 0857 PREOPERATIVE DIAGNOSIS: Ventilator dependent respiratory failure. POSTOPERATIVE DIAGNOSIS: Ventilator dependent respiratory failure. PROCEDURES: 1) Percutaneous endoscopic gastroscopy tube insertion. 2) Open tracheostomy. SURGEON: Shantanu Bustamante M.D. ANESTHESIA: General. ESTIMATED BLOOD LOSS: 20. PATIENT CONDITION: Stable. COMPLICATIONS: None. SPECIMEN: None. HISTORY: The patient is a 80-year-old male admitted with pneumonia. He did get extubated once and got re-intubated. He failed to wean and primary is recommending tracheostomy and PEG. The daughter wants to continue with aggressive care. The patient is on just CPAP during the day but needing the vent at night. He is unable to get extubated and the daughter does want to proceed with trach/PEG. FINDINGS: Good indentation, good trans-illumination. Bumper at 2 cm. A 7 mm inner diameter Shiley placed. DESCRIPTION OF PROCEDURE: The patient was brought to operating room. He was already intubated. General anesthesia induced. He is positioned. Time out performed. Gastroscope inserted through the mouth advanced to the stomach. The stomach is distended. There is good indentation, good trans-illumination. The needle inserted. Wire snared brought out the mouth. PEG is attached and brought through the abdomen. Bumper is at 2 cm. The gastroscope inserted and advanced to the stomach. It is in appropriate position in the stomach. The patient is then routinely positioned, prepped and draped for the tracheostomy. Time out is performed. A horizontal collar incision is made, carried down and platysma divided. Strap muscle . The trachea is cleared off. The patient is the preoxygenated and then tracheotomy placed around the ring. A trap door incision is made and the 7 inner diameter Shiley is placed. There is good end tidal CO2. There is good volume. The cuff is holding air. The patient never desaturated. Surgicel is placed in the wound. PEG ties are applied. The patient tolerated the procedure well. Taken directly back to his room in stable condition.
[2021-04-14] MEDS: NOREPINEPHRINE 8 MG/250 ML-D5W 8 MG/250 ML PLAST..BAG IV PRN (15:37)
[2021-04-14] MEDS: SODIUM CHLORIDE 0.9% W/ 40 mEq KCL 1000ML 1,000 ML IV SCH (17:37)
[2021-04-15] MEDS: SUBLIMAZE 1000 Mcg/ 20 Ml*** 1,500 MCG in Sodium Chloride 0.9% 150 ML 120 ML IV SCH ×2 (03:03→18:01)
[2021-04-15] MEDS: Ativan 20 MG/10 ML MDV*** 40 MG in D5w 100ML Mini Bag 100 ML 80 ML IV PRN ×2 (03:18→20:11)
[2021-04-15] MEDS ORDERED: PEROXIDE 3% ONE (06:01)
[2021-04-15 06:15] LABS: Hematocrit 43.8 % (42-50); Hemoglobin 13.4 gm/dl (12.5-18.0); Mean Cell Volume 92.2 fl (78-100); Mean Corpuscular Hemoglobin 28.2 pg (26-32); Mean Corpuscular Hgb Concent. 30.6 g/dl (32-36); Mean Platelet Volume 10.1 fl (7.5-11.0); Platelet Count 331 K/mm3 (150-450); Red Blood Count 4.75 M/mm3 (4.1-5.6); White Blood Count 12.1 K/mm3 (4.0-10.5)
[2021-04-15] MEDS: Merrem 1 GM 1 G in Sodium Chloride 100ML MINI-BAG PLUS 100 ML IV SCH (06:29)
[2021-04-15 08:29] LABS: A-aADO2 223; ABG HEMOGLOBIN 13.7; ABG POTASSIUM 4.1 (3.5-5.1); ABG SITE LEFT RADIAL; ARTERIAL BLD GAS O2 SATURATION 97.8 % (95-100); ARTERIAL BLOOD GAS BASE EXCESS 12.1 (-2.0-2.0); ARTERIAL BLOOD GAS FIO2 50 %; ARTERIAL BLOOD GAS PCO2 46 mmHg (35-45); ARTERIAL BLOOD GAS PO2 76 mmHg (75-100); ARTERIAL BLOOD GAS pH 7.51 (7.35-7.45); CARBOXYHEMOGLOBIN 1.2 % THgb (0.0-6.9); HCO3- 36.7 (22-28); HGB O2 SAT 95.6 g/dF (94-100)
[2021-04-15] MEDS: NOREPINEPHRINE 8 MG/250 ML-D5W 8 MG/250 ML PLAST..BAG IV PRN (08:52)
[2021-04-15] MEDS: PERIDEX MM SCH ×2 (09:26→21:13)
[2021-04-15] MEDS: PROTONIX 40 MG IV IV SCH (09:27)
[2021-04-15] MEDS: DECADRON 10MG INJ. IV SCH (09:27)
[2021-04-15] MEDS: Lubrifresh P.M. 3.5 gm Ointment OP SCH ×2 (09:28→21:13)
[2021-04-15] MEDS: Bactroban OINTMENT TP SCH (09:28)
[2021-04-15] MEDS: ENOXAPARIN SODIUM SQ SCH (09:31)
[2021-04-15] MEDS: REGLAN SOLUTION 5 MG/5 ML PEG SCH ×2 (12:15→18:01)
[2021-04-15] MEDS: SODIUM CHLORIDE 0.9% W/ 40 mEq KCL 1000ML 1,000 ML IV SCH (18:03)
--- NOTE | 2021-04-15 19:06 | XRAY ---
Indication: Covid 19 pneumonia. Comparison: One day earlier Portable chest again demonstrates moderate diffuse bilateral airspace disease with increasing left base consolidation. Heart not enlarged. Endotracheal tube replaced with tracheostomy. NG tube removed.
[2021-04-16] MEDS: REGLAN SOLUTION 5 MG/5 ML PEG SCH ×5 (00:17→23:50)
[2021-04-16] MEDS: NOREPINEPHRINE 8 MG/250 ML-D5W 8 MG/250 ML PLAST..BAG IV PRN ×2 (02:18→19:49)
[2021-04-16 07:04] LABS: Hematocrit 44.5 % (42-50); Hemoglobin 13.7 gm/dl (12.5-18.0); Mean Cell Volume 92.5 fl (78-100); Mean Corpuscular Hemoglobin 28.5 pg (26-32); Mean Corpuscular Hgb Concent. 30.8 g/dl (32-36); Mean Platelet Volume 10.1 fl (7.5-11.0); Platelet Count 315 K/mm3 (150-450); Red Blood Count 4.81 M/mm3 (4.1-5.6); Red Cell Distribution Width 15.8 % (11.5-14.0)
[2021-04-16 07:39] LABS: ALBUMIN 2.8 g/dL (3.5-5.0); ALKALINE PHOSPHATASE 119 U/L (38-126); ANION GAP 6.3 MEQ/L (5-15); BLOOD UREA NITROGEN 13 mg/dL (9-20); CHLORIDE 96 mmol/L (98-107); Carbon Dioxide 38 mmol/L (22-30); Creatinine 1 0.39 mg/dL (0.66-1.25); EST GLOMERULAR FILTRATION RATE > 60.0 ML/MIN; Glucose 108 mg/dL (74-106); Potassium 4.2 mmol/L (3.5-5.1); SGOT/AST 35 U/L (17-59); SGPT/ALT 32 U/L (0-50); SODIUM 135 mmol/L (137-145); Total Protein 6.4 g/dL (6.3-8.2)
--- NOTE | 2021-04-16 08:29 | XRAY ---
Indication: Covert 19 pneumonia. Comparison: One day earlier. Portable chest grossly unchanged again demonstrating diffuse bilateral consolidating/nonconsolidating airspace disease with tracheostomy cannula. Heart not enlarged. No new cardiopulmonary abnormalities.
[2021-04-16] MEDS: PERIDEX MM SCH ×2 (09:03→22:21)
[2021-04-16] MEDS: DECADRON 10MG INJ. IV SCH (09:03)
[2021-04-16] MEDS: PROTONIX 40 MG IV IV SCH (09:03)
[2021-04-16] MEDS: Bactroban OINTMENT TP SCH (09:03)
[2021-04-16] MEDS: ENOXAPARIN SODIUM SQ SCH (09:04)
[2021-04-16] MEDS: Lubrifresh P.M. 3.5 gm Ointment OP SCH ×2 (09:05→22:22)
[2021-04-16] MEDS: SODIUM CHLORIDE 0.9% W/ 40 mEq KCL 1000ML 1,000 ML IV SCH (09:15)
[2021-04-16] MEDS: SUBLIMAZE 1000 Mcg/ 20 Ml*** 1,500 MCG in Sodium Chloride 0.9% 150 ML 120 ML IV SCH (12:47)
[2021-04-16] MEDS: Ativan 20 MG/10 ML MDV*** 40 MG in D5w 100ML Mini Bag 100 ML 80 ML IV PRN (16:19)
[2021-04-17] MEDS: SODIUM CHLORIDE 0.9% W/ 40 mEq KCL 1000ML 1,000 ML IV SCH ×2 (01:50→18:38)
[2021-04-17] MEDS: SUBLIMAZE 1000 Mcg/ 20 Ml*** 1,500 MCG in Sodium Chloride 0.9% 150 ML 120 ML IV SCH ×2 (03:38→21:45)
[2021-04-17] MEDS: REGLAN SOLUTION 5 MG/5 ML PEG SCH ×3 (06:01→18:40)
--- NOTE | 2021-04-17 08:40 | XRAY ---
Indication: Covid 19 pneumonia. Comparison: One day earlier. Portable chest again demonstrates tracheostomy cannula and moderate diffuse bilateral consolidating/nonconsolidating airspace disease with minimal clearing left lung base. Heart not enlarged. No new cardiopulmonary abnormalities.
[2021-04-17 09:03] LABS: Hematocrit 42.4 % (42-50); Hemoglobin 12.9 gm/dl (12.5-18.0); Mean Corpuscular Hemoglobin 28.3 pg (26-32); Mean Corpuscular Hgb Concent. 30.4 g/dl (32-36); Mean Platelet Volume 10.7 fl (7.5-11.0); Platelet Count 334 K/mm3 (150-450); Red Blood Count 4.56 M/mm3 (4.1-5.6); Red Cell Distribution Width 15.7 % (11.5-14.0); White Blood Count 13.3 K/mm3 (4.0-10.5)
[2021-04-17 09:17] LABS: ALBUMIN 2.8 g/dL (3.5-5.0); ALKALINE PHOSPHATASE 117 U/L (38-126); ANION GAP 5.9 MEQ/L (5-15); BLOOD UREA NITROGEN 14 mg/dL (9-20); CHLORIDE 96 mmol/L (98-107); Carbon Dioxide 35 mmol/L (22-30); EST GLOMERULAR FILTRATION RATE > 60.0 ML/MIN; Glucose 118 mg/dL (74-106); Potassium 4.3 mmol/L (3.5-5.1); SGOT/AST 29 U/L (17-59); SGPT/ALT 32 U/L (0-50); SODIUM 133 mmol/L (137-145); Total Protein 6.6 g/dL (6.3-8.2)
[2021-04-17] MEDS: DECADRON 10MG INJ. IV SCH (09:51)
[2021-04-17] MEDS: PERIDEX MM SCH ×2 (09:51→21:45)
[2021-04-17] MEDS: ENOXAPARIN SODIUM SQ SCH (09:51)
[2021-04-17] MEDS: PROTONIX 40 MG IV IV SCH (09:51)
[2021-04-17] MEDS: Lubrifresh P.M. 3.5 gm Ointment OP SCH ×2 (09:51→21:45)
[2021-04-17] MEDS: Bactroban OINTMENT TP SCH (09:52)
--- NOTE | 2021-04-17 10:11 | PROG NOTE ---
Events noted. DATE: 04/14/2021 HISTORY: The patient remains on mechanical ventilator. Underwent tracheostomy and PEG placement earlier this morning. Currently on CPAP tolerating this well. He was also initiated on tube feeds. PHYSICAL EXAMINATION: Temperature is 98.8F, heart rate 77, blood pressure 146/72. Saturating 98%. HEENT: Normocephalic. Oral exam limited. NECK: Supple. CVS: First and second heart sounds are normal, regular, rhythmic. RESPIRATORY: Shows diminished breath sounds. Rhonchi or crackles are heard. ABDOMEN: Soft. : Hinojosa catheter is in place. EXTREMITIES: Trace edema is noted. LABORATORY DATA AND TESTS: Labs reviewed. Sodium 132, albumin 2.5. ASSESSMENT: This is a 80-year-old male admitted with: 1) Recurrent hypoxic respiratory failure with improve oxygenation. 2) Status post COVID-19 infection with viral pneumonia. 3) General debilitation. 4) Respiratory alkalosis on CPAP. RECOMMENDATIONS: 1) Continue weaning trials of CPAP with pressure support. 2) May rest on AC (assist/control) at night, will likely get him to [facility] collar tomorrow. 3) Tolerating tube feeds. 4) Continue other supportive care. Further recommendations pending clinical improvement. I will be available as needed.
[2021-04-17] MEDS: Ativan 20 MG/10 ML MDV*** 40 MG in D5w 100ML Mini Bag 100 ML 80 ML IV PRN (11:59)
[2021-04-18] MEDS: REGLAN SOLUTION 5 MG/5 ML PEG SCH ×4 (00:15→17:03)
[2021-04-18] MEDS: NOREPINEPHRINE 8 MG/250 ML-D5W 8 MG/250 ML PLAST..BAG IV PRN (03:17)
[2021-04-18] MEDS: SODIUM CHLORIDE 0.9% W/ 40 mEq KCL 1000ML 1,000 ML IV SCH (07:24)
[2021-04-18] MEDS: PROTONIX 40 MG IV IV SCH (07:35)
[2021-04-18] MEDS: DECADRON 10MG INJ. IV SCH (07:35)
[2021-04-18] MEDS: ENOXAPARIN SODIUM SQ SCH (07:35)
[2021-04-18] MEDS: Bactroban OINTMENT TP SCH (07:36)
[2021-04-18] MEDS: PERIDEX MM SCH ×2 (07:36→21:55)
[2021-04-18] MEDS: Lubrifresh P.M. 3.5 gm Ointment OP SCH (07:36)
--- NOTE | 2021-04-18 08:57 | PROG NOTE ---
DATE: 04/17/2021 HISTORY: The patient is a vent patient. He was admitted on 03/23/2021. He now has a tracheostomy in. He has a feeding tube which is working better. He has 20 or 30 cc residual the most. Of course he is paralyzed. He seems to be totally unresponsive except to touch and eyes. An echo of the heart was normal. Chest x-ray on 04/16/2021 showed diffuse pneumonia improved. There is really nothing new and nothing to explain the situation. D-dimer is still 3900. He is on pressor still. We have not been able to wean him off of epinephrine drip. We have repetitively tried. He is paralyzed and on a Fentanyl drip. He has had several antibiotics while the stay here for secondary infections. He has remained afebrile. He is in no distress, color is good. He had CMP today which was really completely normal. Continues to be unable to wean him off of his norepinephrine so we cannot really plan to send him any place at this time. Question will be if he has really got COVID anymore he has been here so long. PHYSICAL EXAMINATION: CHEST: Few rales bilateral. CVS: No murmurs or gallops. ABDOMEN: Flat. G-tube placement is good. EXTREMITIES: No edema. No bed sores. IMPRESSION: The patient has: 1) COVID pneumonia. 2) COVID respiratory failure.
[2021-04-18] MEDS ORDERED: PHENERGAN 25 MG PO PRN (09:23)
[2021-04-18] MEDS: Duragesic 50MCG Patch TD SCH (09:33)
[2021-04-18] MEDS: Protonix 40MG Tablet PO SCH (09:34)
[2021-04-18] MEDS: Ativan 1 MG PO PRN ×3 (09:35→20:03)
--- NOTE | 2021-04-18 13:13 | PCM.NOTE ---
Date and Time: 04/18/21 1310 Subjective Assessment: very hypoxic, awaiting for termite technician care facility. - Review of Systems Constitutional: No Fever, No Chills Eyes: No Symptoms Ears, Nose, & Throat: No Symptoms Respiratory: Orthopnea, Short Of Breath, Wheezing, No Cough Cardiac: No Chest Pain, No Edema, No Syncope Abdominal/Gastrointestinal: No Abdominal Pain, No Nausea, No Vomiting, No Adriana rrhea Genitourinary Symptoms: No Dysuria Musculoskeletal: No Back Pain, No Neck Pain Skin: No Rash Neurological: No Dizziness, No Focal Weakness, No Sensory Changes Psychological: No Symptoms Endocrine: No Symptoms Hematologic/Lymphatic: No Symptoms Immunological/Allergic: No Symptoms Objective Exam General Appearance: no apparent distress, alert Neurologic Exam: alert, oriented x 3, cooperative, normal mood/affect, nml cerebellar function, sensation nml, No motor deficits Skin Exam: normal color, warm, dry Eye Exam: PERRL, EOMI, eyes nml inspection Ears, Nose, Throat Exam: normal ENT inspection, pharynx normal, moist mucous membranes Neck Exam: normal inspection, non-tender, supple, full range of motion Respiratory Exam: diminished breath sounds, crackles/rales, rhonchi, wheezing, No respiratory distress Cardiovascular Exam: regular rate/rhythm, normal heart sounds Gastrointestinal/Abdomen Exam: soft, No tenderness, No mass Extremity Exam: normal inspection, normal range of motion Back Exam: normal inspection, normal range of motion, No CVA tenderness, No vertebral tenderness Male Genitalia Exam: deferred Rectal Exam: deferred OBJECTIVE DATA Vital Signs: Vital Signs - 24 hr Temp Pulse Resp BP Pulse Ox 04/18/21 11:55 97.9 F 117 H 24 132/69 97 04/18/21 10:00 117 H 24 97 04/18/21 09:03 113 H 24 97 04/18/21 09:00 120 H 24 97 04/18/21 08:00 119 H 24 153/79 04/18/21 07:42 119 H 24 04/18/21 07:00 109 H 24 04/18/21 06:00 15 04/18/21 05:31 77 15 127/56 97 04/18/21 05:00 73 16 117/57 97 04/18/21 04:00 69 18 118/81 98 04/18/21 02:59 81 20 115/51 98 04/18/21 02:00 68 20 98/45 100 04/18/21 01:00 70 16 104/51 99 04/18/21 00:00 69 12 04/17/21 23:55 74 12 119/67 99 04/17/21 23:00 56 L 12 100/58 99 04/17/21 22:00 12 04/17/21 21:51 57 L 16 111/63 98 04/17/21 21:00 50 L 12 99 04/17/21 20:00 61 16 78/47 97 04/17/21 19:07 70 17 97 04/17/21 19:00 64 12 97 04/17/21 17:53 76 122/63 04/17/21 17:42 75 20 96/49 98 04/17/21 17:00 98.6 F 85 20 89/49 97 04/17/21 16:00 79 20 04/17/21 15:56 79 20 94/55 96 04/17/21 15:00 90 20 114/75 98 04/17/21 14:00 87 20 141/56 96 Pain Assessment - Last Documented Pain Intensity 1 Pain Scale Used 0-10 Pain Scale Intake and Output: Intake & Output 04/16/21 04/17/21 04/18/21 04/19/21 11:59 11:59 11:59 11:59 Intake Total 0 2747 2393 Output Total 3325 2950 2450 Balance -3325 -203 -57 Weight 83.7 kg 83.8 kg 83.9 kg Radiology Exams: Radiology Procedures Category Date Time Status CHEST 1 VIEW (PORTABLE) DAILY Exams 04/17/21 06:00 Completed Multi-Disciplinary Progress Notes: Multi-Disciplinary Progress Notes 04/18/21 12:00 Case Management Note by Elsa Kendall FROM [facility] PHONED, REQUESTED UPDATED CLINICALS BE FAXED, DONE AT THIS TIME. THIS NURSE PHONED AND TALKED TO POA, DAUGHTER, JOAAN ABOUT NEXT STEPS FOR PATIENT FOR LONGER TERM CARE AVAILABLE WITH TRACH. DISCUSSED [facility] FACILITY IN [place] LOOKING TO BE CLOSEST APPROPRIATE FACILITY AT THIS TIME. PT STATES SHE IS UPSET ABOUT THE DISTANCE, BUT DOES UNDERSTAND AND WANTS HER FATHER TO RECEIVE THE BEST CARE FOR HIM. WILL CONTINUE TO WORK WITH [facility], AND KEEP ANIVAL UPDATED WITH POC. Initialized on 04/18/21 12:00 - END OF NOTE 01/17/22 15:38 Case Management Note by Elsa Kendall PHONED [facility], [facility], SPOKE WITH COMMERCIAL CARPENTER, STATES SHE CLOS ED PREVIOUS REFERRAL CASE, WILL OPEN A NEW CASE AND HAVE A LIAISON PHONE US BACK SOON POSSIBLE TO DISCUSS POSSIBLE ADMISSION, BUT BEDS ARE EXTREMELY LIMITED AT THIS TIME. PH[facility]ED [facility] [place] IN, SPOKE WITH CASE MANAGEMENT, DISCUSSED PATIENT AND POSSIBLE REFERRAL. WAS TOLD BY THEM THAT [facility] CANNOT TRANSFER TO [facility] FAC[facility]IES D/T CMS RULES. WILL DISCUSS WITH [employer] REPRESENTATIVE TO LOOK INTO THIS, IF SO WILL NEED TO TRY AGAIN INTO TRANSFERRING TO HIGHER LEVEL OF HOSPITAL CARE, OR TO [facility], WHICH CLOSEST ONE SHE KNOWS OF IS [facility]. [facility] LIAISON PHONED THIS NURSE BACK. DISCUSSED WITH HER THAT WE ARE CR[facility]ICAL ACCESS, IF SHE KNEW ANYTHING ABOUT CMS RULE FOR NO TRANSFER TO [facility] FACILITY. SHE STATES SHE WILL MAKE SOME PHONE CALLS WITHIN HER COMPANY AND PHONE ME BACK LILO. Initialized on 04/17/21 15:38 - END OF NOTE Assessment/Plan (1) Acute COVID-19 Current Visit: Yes Status: Acute Code(s): U07.1 - COVID-19 (2) Ventilator dependence Current Visit: Yes Status: Acute Code(s): Z99.11 - DEPENDENCE ON RESPIRATOR [VENTILATOR] STATUS
[2021-04-19] MEDS: REGLAN SOLUTION 5 MG/5 ML PEG SCH ×4 (00:07→17:20)
[2021-04-19] MEDS: Ativan 1 MG PO PRN (05:25)
[2021-04-19] MEDS: Protonix 40MG Tablet PO SCH ×2 (09:21→13:25)
[2021-04-19] MEDS: DELTASONE 20 MG PO SCH (09:21)
[2021-04-19] MEDS: ENOXAPARIN SODIUM SQ SCH (09:21)
[2021-04-19] MEDS: PERIDEX MM SCH ×2 (09:21→22:40)
[2021-04-19] MEDS: Bactroban OINTMENT TP SCH (09:37)
[2021-04-19] MEDS: Pepcid 20 MG PO SCH ×2 (13:26→22:40)
--- NOTE | 2021-04-19 14:03 | PCM.NOTE ---
Date and Time: 04/19/21 1401 Subjective Assessment: poor mental status - Review of Systems Constitutional: No Fever, No Chills Eyes: No Symptoms Ears, Nose, & Throat: No Symptoms Respiratory: Orthopnea, No Cough, No Short Of Breath Cardiac: No Chest Pain, No Edema, No Syncope Abdominal/Gastrointestinal: No Abdominal Pain, No Nausea, No Vomiting, No Diarrhea Genitourinary Symptoms: No Dysuria Musculoskeletal: No Back Pain, No Neck Pain Skin: No Rash Neurological: No Dizziness, No Focal Weakness, No Sensory Changes Psychological: No Symptoms Endocrine: No Symptoms Hematologic/Lymphatic: No Symptoms Immunological/Allergic: No Symptoms Objective Exam General Appearance: mild distress Neurologic Exam: disoriented Skin Exam: normal color Eye Exam: PERRL Ears, Nose, Throat Exam: normal ENT inspection Neck Exam: normal inspection Respiratory Exam: diminished breath sounds Cardiovascular Exam: regular rate/rhythm Gastrointestinal/Abdomen Exam: soft Extremity Exam: normal inspection OBJECTIVE DATA Vital Signs: Vital Signs - 24 hr Temp Pulse Resp BP Pulse Ox 04/19/21 12:00 98.1 F 92 H 31 H 116/57 93 L 04/19/21 10:00 90 26 H 105/54 93 L 04/19/21 08:00 100 H 28 H 110/53 92 L 04/19/21 07:50 93 H 24 93 L 04/19/21 06:00 91 H 30 H 129/52 91 L 04/19/21 04:00 96 H 28 H 117/53 93 L 04/19/21 02:00 96 H 23 102/49 93 L 04/19/21 00:00 98.2 F 93 H 24 125/65 92 L 04/18/21 23:00 89 24 131/62 94 L 04/18/21 22:00 87 24 104/47 93 L 04/18/21 20:00 98.1 F 88 24 112/46 96 04/18/21 19:00 89 24 96 04/18/21 17:56 91 H 21 96 04/18/21 15:49 101 H 21 97/51 94 L Pain Assessment - Last Documented Pain Intensity 1 Pain Scale Used 0-10 Pain Scale Intake and Output: Intake & Output 04/17/21 04/18/21 04/19/21 04/20/21 11:59 11:59 11:59 11:59 Intake Total 2747 0943 856 Output Total 8147 3150 1550 Balance -203 -57 -694 Weight 83.8 kg 83.9 kg Multi-Disciplinary Progress Notes: Multi-Disciplinary Progress Notes 04/19/21 10:19 Case Management Note by Monae Fisher Addendum entered by Monae Fisher 04/19/21 10:20: ATTEMPTED TO REACH DAUGHTER TO DISCUSS WITH HER- NO ANSWER Original Note: [facility]- THEY WILL BE IN TO ASSES PATIENT LATER THIS AFTERNOON Initialized on 04/19/21 10:19 - END OF NOTE 04/19/21 09:26 Case Management Note by Monae Fisher CALLED TO CHECK ON REFERRAL SENT TO [facility] - lm Initialized on 04/19/21 09:26 - END OF NOTE 04/18/21 15:30 (created 04/18/21 18:55) Case Management Note by Monae Fisher [facility] CALLED BACK- THEY HAVE CLARIFIED AND REPORT [facility] HAS GUIDELINES THAT [facility] LIKE [facility] CANNOT TRANSFER TO LTACH FACILITIES. Initialized on 04/18/21 18:55 - END OF NOTE 04/18/21 14:52 Case Management Note by Elsa Kendall Addendum entered by Elsa Kendall RN 04/18/21 15:01: REFERRAL PAPERWORK ALSO SENT TO [facility] IN [place], SPOKE WITH JEFF. STATES SHE WILL FOLLOW UP WITH ANY INFORMATION SHE RECEIVES. Original Note: SPOKE WITH [facility], QUESTIONING ICU STATUS FOR 3 DAYS. CONFIRMED WITH THEM. MAY BE ABLE TO ACCEPT AND TAKE PATIENT LATER THIS EVENING. ALSO SPOKE WITH DR ANNE ABOUT [facility] VS. SNF THAT CAN ACCEPT TRACH PATIENTS. HE STATES IF [facility] CANNOT ACCEPT OK TO TRANSFER SO SNF, [facility] CAN ACCEPT PATIENT FIRST FOR TRANSFER. Initialized on 04/18/21 14:52 - END OF NOTE 04/18/21 14:03 Nutrition Note by Magnolia Pham F/duy Note: TF con't; currently running @ 30cc/hour. Pt with 30cc of residual yesterday. Waiting for transfer to long-term facility. neg fluid balance. Labs 04/17= Na 133, Cr 0.30, glu 118, alb 2.8. Feeding @ 30cc/hour meeting 60% of kcals and 69% of protein needs. Recommend to con't increasing rate to better meet pts needs. Will con't to monitor and f/u prn. AURELIA Samano Initialized on 04/18/21 14:03 - END OF NOTE Assessment/Plan (1) Acute COVID-19 Current Visit: Yes Status: Acute Code(s): U07.1 - COVID-19 (2) Ventilator dependence Current Visit: Yes Status: Acute Code(s): Z99.11 - DEPENDENCE ON RESPIRATOR [VENTILATOR] STATUS
[2021-04-20] MEDS: REGLAN SOLUTION 5 MG/5 ML PEG SCH ×4 (00:22→17:23)
[2021-04-20] MEDS: DELTASONE 20 MG PO SCH (08:56)
[2021-04-20] MEDS: PERIDEX MM SCH ×2 (08:56→21:31)
[2021-04-20] MEDS: ENOXAPARIN SODIUM SQ SCH (08:56)
[2021-04-20] MEDS: Pepcid 20 MG PO SCH ×2 (08:56→21:31)
--- NOTE | 2021-04-20 08:56 | PROG NOTE ---
Events noted. Chart reviewed. DATE: 04/19/2021 HISTORY: The patient is status post tracheostomy tolerating trach collar well. Currently on 30% FIO2, saturating 96%. He is being evaluated for long-term care placement. PHYSICAL EXAMINATION: Vital signs noted. HEENT: Normocephalic. Oral exam limited. NECK: Tracheostomy is in place. CVS: First and second heart sounds are normal, regular, rhythmic. RESPIRATORY: Shows diminished breath sounds. Rhonchi heard. ABDOMEN: Soft. EXTREMITIES: Trace edema is noted. LABORATORY DATA AND TESTS: Labs reviewed. ASSESSMENT: This is a 80-year-old male with: 1) Chronic hypoxic respiratory failure. 2) COVID-19 with viral pneumonia. 3) Severe debilitation. 4) Peripheral vascular disease. RECOMMENDATIONS: 1) The patient is stable from pulmonary standpoint. 2) Continue pulmonary toilet. 3) He is on tube feeds tolerating at 30 cc/hour. 4) Encephalopathy appears metabolic. The patient is being evaluated by [facility] for transfer. I will be available in future if needed.
[2021-04-20] MEDS: Bactroban OINTMENT TP SCH (08:57)
--- NOTE | 2021-04-20 17:08 | PCM.NOTE ---
Date and Time: 04/20/211706 Subjective Assessment: doing ok - Review of Systems Constitutional: No Fever, No Chills Eyes: No Symptoms Ears, Nose, & Throat: No Symptoms Respiratory: No Cough, No Short Of Breath Cardiac: No Chest Pain, No Edema, No Syncope Abdominal/Gastrointestinal: No Abdominal Pain, No Nausea, No Vomiting, No Diarrhea Genitourinary Symptoms: No Dysuria Musculoskeletal: No Back Pain, No Neck Pain Skin: No Rash Neurological: No Dizziness, No Focal Weakness, No Sensory Changes Psychological: No Symptoms Endocrine: No Symptoms Hematologic/Lymphatic: No Symptoms Immunological/Allergic: No Symptoms Objective Exam General Appearance: no apparent distress, alert Neurologic Exam: alert, oriented x 3, cooperative, normal mood/affect, nml cerebellar function, sensation nml, No motor deficits Skin Exam: normal color, warm, dry Eye Exam: PERRL, EOMI, eyes nml inspection Ears, Nose, Throat Exam: normal ENT inspection, pharynx normal, moist mucous membranes Neck Exam: normal inspection, non-tender, supple, full range of motion Respiratory Exam: normal breath sounds, lungs clear, No respiratory distress Cardiovascular Exam: regular rate/rhythm, normal heart sounds Gastrointestinal/Abdomen Exam: soft, No tenderness, No mass Extremity Exam: normal inspection, normal range of motion Back Exam: normal inspection, normal range of motion, No CVA tenderness, No vertebral tenderness Male Genitalia Exam: deferred Rectal Exam: deferred OBJECTIVE DATA Vital Signs: Vital Signs - 24 hr Temp Pulse Resp BP Pulse Ox 04/20/21 16:00 99.5 F 85 27 H 96/57 97 04/20/21 14:00 85 24 123/54 98 04/20/21 12:00 99.7 F 90 30 H 138/73 96 04/20/21 10:00 85 17 98/51 95 04/20/21 08:31 87 28 H 96 04/20/21 08:00 96.7 F 92 H 26 H 103/67 96 04/20/21 06:00 90 24 102/54 98 04/20/21 04:00 98.1 F 91 H 25 H 117/55 94 L 04/20/21 02:00 84 36 H 128/66 96 04/20/21 00:35 95 04/20/21 00:00 86 23 118/50 97 04/19/21 22:00 98.0 F 90 31 H 122/55 92 L 04/19/21 20:10 90 24 95 04/19/21 20:00 98.0 F 94 H 28 H 126/73 95 04/19/21 18:00 91 H 24 121/57 97 Pain Assessment - Last Documented Pain Intensity 1 Pain Scale Used 0-10 Pain Scale Intake and Output: Intake & Output 04/18/21 04/19/21 04/20/21 04/21/21 11:59 11:59 11:59 11:59 Intake Total 2393 856 839 Output Total 2450 1550 1650 Balance -57 -694 -811 Weight 83.9 kg 79.2 kg 81.4 kg Multi-Disciplinary Progress Notes: Multi-Disciplinary Progress Notes 04/20/21 13:03 Case Management Note by Monae Fisher [place] [facility] HAS ACCEPTED PATIENT- THEY CAN TAKE HIM ON SATURDAY (WILL NOT HAVE A BED UNTIL THEN). TO CALL REPORT [phone]. ED STATED THEY HAVE TALKED WITH DAUGHTER AND SHE IS AGRREABLE TO PLAN FOR TRANSFER THERE Initialized on 04/20/21 13:03 - END OF NOTE Assessment/Plan (1) Acute COVID-19 Current Visit: Yes Status: Acute Assessment & Plan: awaiting placement Code(s): U07.1 - COVID-19 (2) Ventilator dependence Current Visit: Yes Status: Acute Code(s): Z99.11 - DEPENDENCE ON RESPIRATOR [VENTILATOR] STATUS
[2021-04-21] MEDS: REGLAN SOLUTION 5 MG/5 ML PEG SCH ×5 (00:07→23:05)
[2021-04-21] MEDS: DELTASONE 20 MG PO SCH (09:14)
[2021-04-21] MEDS: Pepcid 20 MG PO SCH ×2 (09:14→22:44)
[2021-04-21] MEDS: PERIDEX MM SCH ×2 (09:14→22:44)
[2021-04-21] MEDS: ENOXAPARIN SODIUM SQ SCH (09:15)
[2021-04-21] MEDS: Bactroban OINTMENT TP SCH (10:20)
[2021-04-21] MEDS: Duragesic 50MCG Patch TD SCH (10:58)
--- NOTE | 2021-04-21 17:36 | PCM.NOTE ---
Date and Time: 04/21/21 3727 Subjective Assessment: no significant change - Review of Systems Constitutional: No Fever, No Chills Eyes: No Symptoms Ears, Nose, & Throat: No Symptoms Respiratory: No Cough, No Short Of Breath Cardiac: No Chest Pain, No Edema, No Syncope Abdominal/Gastrointestinal: No Abdominal Pain, No Nausea, No Vomiting, No Diarrhea Genitourinary Symptoms: No Dysuria Musculoskeletal: No Back Pain, No Neck Pain Skin: No Rash Neurological: Lethargy, No Dizziness, No Focal Weakness, No Sensory Changes Psychological: No Symptoms Endocrine: No Symptoms Hematologic/Lymphatic: No Symptoms Immunological/Allergic: No Symptoms Objective Exam General Appearance: no apparent distress, alert Neurologic Exam: disoriented, confusion, aphasia, No alert, No normal mood/affect, No motor deficits Skin Exam: normal color, warm, dry Eye Exam: PERRL, EOMI, eyes nml inspection Ears, Nose, Throat Exam: normal ENT inspection, pharynx normal, moist mucous membranes Neck Exam: normal inspection, non-tender, supple, full range of motion Respiratory Exam: normal breath sounds, lungs clear, No respiratory distress Cardiovascular Exam: regular rate/rhythm, normal heart sounds Gastrointestinal/Abdomen Exam: soft, No tenderness, No mass Extremity Exam: normal inspection, normal range of motion Back Exam: normal inspection, normal range of motion, No CVA tenderness, No vertebral tenderness Male Genitalia Exam: deferred Rectal Exam: deferred OBJECTIVE DATA Vital Signs: Vital Signs - 24 hr Temp Pulse Resp BP Pulse Ox 04/21/21 17:13 24 04/21/21 16:00 24 04/21/21 14:00 100 H 24 95 04/21/21 12:00 98.4 F 90 26 H 126/78 95 04/21/21 11:32 28 H 04/21/21 10:00 94 H 30 H 95 04/21/21 08:00 98.2 F 96 H 26 H 121/70 97 04/21/21 06:00 94 H 29 H 125/65 97 04/21/21 04:00 98.2 F 96 H 27 H 96 04/21/21 02:00 97 H 28 H 128/74 97 04/21/21 00:00 92 H 25 H 130/62 97 04/20/21 21:53 85 16 126/75 96 04/20/21 20:00 98.1 F 92 H 24 126/77 95 04/20/21 18:45 85 20 96 04/20/21 18:00 85 26 H 114/65 95 Pain Assessment - Last Documented Pain Intensity 0 Pain Scale Used [facility] Intake and Output: Intake & Output 04/19/21 04/20/21 04/21/21 04/22/21 11:59 11:59 11:59 11:59 Intake Total 856 839 926 Output Total 1550 1650 1100 Balance -694 -811 -174 Weight 79.2 kg 81.4 kg 80.9 kg Multi-Disciplinary Progress Notes: Multi-Disciplinary Progress Notes 04/21/21 13:18 Case Management Note by Monae Fisher UPDATED CLINICALS FAXED TO [facility] PER THEIR REQUEST Initialized on 04/21/21 13:18 - END OF NOTE 04/21/21 09:03 Case Management Note by Monae Fisher S/W DAUGHTER 04/20/21 AFTERNOON- UPDATED THAT [facility] HAS ACCEPTED PATIENT AND WE WILL PLAN TO TRANSFER HIM THERE ON SATURDAY. SHE VERIFIED UNDERSTANDING Initialized on 04/21/21 09:03 - END OF NOTE 04/20/21 20:07 Respiratory Note by Stacey Devine 1845 PT SUCTIONED AND LAVAGED OF [place] THICK YELLOW MUCUS Initialized on 04/20/21 20:07 - END OF NOTE Assessment/Plan (1) Ventilator dependence Current Visit: Yes Status: Acute Assessment & Plan: Chief Complaint Diagnosis COVID 19, CELLULITIS Allergies Allergy/AdvReac Type Severity Reaction Status Date / Time No Known Drug Allergies Allergy Verified 03/22/21 12:39 Vital Signs (Last 24 hours) Temp Pulse Resp BP Pulse Ox 04/21/21 17:13 24 04/21/21 16:00 24 04/21/21 14:00 100 H 24 95 04/21/21 12:00 98.4 F 90 26 H 126/78 95 04/21/21 11:32 28 H 04/21/21 10:00 94 H 30 H 95 04/21/21 08:00 98.2 F 96 H 26 H 121/70 97 04/21/21 06:00 94 H 29 H 125/65 97 04/21/21 04:00 98.2 F 96 H 27 H 96 04/21/21 02:00 97 H 28 H 128/74 97 04/21/21 00:00 92 H 25 H 130/62 97 04/20/21 21:53 85 16 126/75 96 04/20/21 20:00 98.1 F 92 H 24 126/77 95 04/20/21 18:45 85 20 96 04/20/21 18:00 85 26 H 114/65 95 Current Medications Generic Name Dose Route Start Last Admin Trade Name Freq PRN Reason Stop Dose Admin Acetaminophen 650 mg 04/09/21 11:37 04/09/21 12:00 Acetaminophen 650 Mg Supp.Rect SD 05/09/21 11:36 650 mg Q4H PRN PRN Administration PAIN AND/OR FEVER Albuterol/Ipratropium 3 ml 03/31/21 10:47 04/08/21 05:25 Ipratropium/Albuterol Sulfate 3 Ml Ampul.Neb IH 04/30/21 10:46 3 ml Q4HPRN PRN Administration SHORTNESS OF BREATH/WHEEZING Chlorhexidine Gluconate 15 ml 04/04/21 10:45 04/21/21 09:14 Chlorhexidine Gluconate 15 Ml Mouthwash MM 05/04/21 10:44 15 ml BID MIKE Administration Enoxaparin Sodium 90 mg 04/15/21 10:00 04/21/21 09:15 Enoxaparin Sodium 100 Mg/Ml Syringe SQ 05/15/21 09:59 90 mg DAILY MIKE Administration Famotidine 20 mg 04/19/21 14:00 04/21/21 09:14 Famotidine 20 Mg Tablet PO 05/19/21 13:59 20 mg BID MIKE Administration Fentanyl 50 mcg 04/18/21 10:00 04/21/21 10:58 Duragesic 50mcg Patch TD 04/23/21 09:59 50 mcg Q72H MIKE Administration Lorazepam 1 - 2 mg 04/18/21 09:21 04/19/21 05:25 Lorazepam 1 Mg Tablet PO 05/18/21 09:20 2 mg Q4H/PRN PRN Administration ANXIETY Metoclopramide HCl 10 mg 04/15/21 12:00 04/21/21 17:15 Metoclopramide Hcl 5 Mg/5 Ml Oral Solution PEG 05/15/21 11:59 10 mg Q6HT MIKE Administration Mupirocin 1 gm 03/26/21 10:00 04/21/21 10:20 Mupirocin 22 Gm Tube Ointment TP 04/25/21 09:59 1 gm DAILY MIKE Administration Prednisone 40 mg 04/19/21 10:00 04/21/21 09:14 Prednisone 20 Mg Tablet PO 05/19/21 09:59 40 mg DAILY MIKE Administration Promethazine HCl 25 mg 04/18/21 09:23 04/18/21 09:37 Promethazine Hcl 25 Mg Tablet PO 05/18/21 09:22 25 mg Q6H/PRN PRN Administration NAUSEA Discontinued Medications Generic Name Dose Route Start Last Admin Trade Name Freq PRN Reason Stop Dose Admin Acetaminophen 975 mg 03/21/21 19:06 03/21/21 19:23 Acetaminophen 325 Mg Tablet PO 03/21/21 19:07 975 mg STAT ONE Administration Acetaminophen Confirm 03/21/21 19:22 Acetaminophen 325 Mg Tablet Administered 03/21/21 19:23 Dose 975 mg .ROUTE .STK-MED ONE Acetaminophen 650 mg 03/22/21 12:27 Acetaminophen 325 Mg Tablet PO 04/21/21 12:26 Q4H PRN PRN PAIN AND/OR FEVER Acetaminophen 500 - 1,000 mg 03/22/21 13:02 03/25/21 08:03 Acetaminophen 500 Mg Tablet PO 04/21/21 13:01 500 mg Q4H PRN PRN Administration Temp > 100.4 Orally Albuterol/Ipratropium 3 ml 03/22/21 12:27 Ipratropium/Albuterol Sulfate 3 Ml Ampul.Neb IH 04/21/21 12:26 Q4HPRN PRN SHORTNESS OF BREATH/WHEEZING Albuterol/Ipratropium Confirm 03/31/21 10:10 Ipratropium/Albuterol Sulfate 3 Ml Ampul.Neb Administered 03/31/21 10:11 Dose 3 ml IH .STK-MED ONE Artificial Tears 1 gm 03/28/21 22:00 03/31/21 10:40 Lanolin/Min Oil/Petrolat Wht 3.5 Gm Tube OP 04/27/21 21:59 1 gm BID MIKE Administration Artificial Tears 1 gm 04/04/21 10:00 04/18/21 07:36 Lanolin/Min Oil/Petrolat Wht 3.5 Gm Tube OP 05/04/21 09:59 1 gm BID MIKE Administration Baricitinib 4 mg 03/22/21 14:00 03/27/21 11:11 Baricitinib 2 Mg Tablet PO 04/04/21 10:01 Not Given DAILY [facility] Chlorhexidine Gluconate 15 ml 03/28/21 22:00 03/31/21 10:37 Chlorhexidine Gluconate 15 Ml Mouthwash MM 04/27/21 21:59 15 ml BID MIKE Administration Chlorphenir/Hydrocodone Polistirex 5 ml 03/22/21 13:02 Hydrocodone/Chlorphen P-Stirex 1 Ml Alexus.Er.12h PO 04/21/21 13:01 [id number] PRN COUGH Cisatracurium Besylate 14 mg 03/28/21 09:20 Cisatracurium 20 Mg/10 Ml Vial IV 03/28/21 13:00 1XONLY [facility] Cisatracurium Besylate 16 mg 04/02/21 14:35 04/02/21 14:35 Cisatracurium 20 Mg/10 Ml Vial IV 04/02/21 14:36 16 mg STAT ONE Administration Dexamethasone Sodium Phosphate 6 mg 03/21/21 23:30 03/21/21 23:34 Dexamethasone Sod Phosphate 10 Mg/Ml IV 03/21/21 23:31 6 mg STAT ONE Administration Dexamethasone Sodium Phosphate Confirm 03/21/21 23:31 Dexamethasone Sod Phosphate 10 Mg/Ml Administered 03/21/21 23:32 Dose 10 mg .ROUTE .STK-MED ONE Dexamethasone Sodium Phosphate 8 mg 03/22/21 14:00 04/18/21 07:35 Dexamethasone Sod Phosphate 10 Mg/Ml IV 04/21/21 13:59 8 mg DAILY MIKE Administration Enoxaparin Sodium 40 mg 03/22/21 14:00 03/27/21 11:40 Enoxaparin Sodium 40 Mg/0.4 Ml Syringe SQ 04/21/21 13:59 Not Given DAILY [facility] Enoxaparin Sodium 90 mg 03/27/21 11:00 04/13/21 08:12 Enoxaparin Sodium 100 Mg/Ml Syringe SQ 04/26/21 10:59 90 mg DAILY MIKE Administration Fentanyl Citrate Confirm 03/28/21 08:46 Fentanyl Citrate 100 Mcg/2 Ml* Vial Administered 03/28/21 08:47 Dose 100 mcg .ROUTE .STK-MED ONE Fentanyl Citrate 80 mcg 04/02/21 14:30 04/02/21 14:30 Fentanyl Citrate 100 Mcg/2 Ml* Vial IV 04/02/21 14:31 80 mcg STAT STA Administration Flumazenil 0.2 mg 04/02/21 08:54 Flumazenil 0.5 Mg/5 Ml Vial IV 05/02/21 08:53 .Q1-2 MINUTES PRN PRN EXCESSIVE SEDATION Furosemide 20 mg 03/22/21 15:00 03/27/21 11:11 Furosemide 20 Mg Tablet PO 04/21/21 14:59 Not Given DAILY MIKE Furosemide 20 mg 03/26/21 21:00 03/26/21 21:02 Furosemide 20 Mg/Vial IV 03/26/21 21:01 20 mg ONCE ONE Administration Furosemide 20 mg 04/04/21 10:45 04/11/21 09:30 Furosemide 20 Mg/Vial IV 05/04/21 10:44 20 mg DAILY MIKE Administration Hydrogen Peroxide Confirm 04/15/21 06:01 Hydrogen Peroxide 237 Ml Solution Administered 04/15/21 06:02 Dose 237 ml .ROUTE .STK-MED ONE Sodium Chloride 1,000 mls @ 100 mls/hr 03/21/21 19:15 03/22/21 05:34 Sodium Chloride 0.9% 1000 Ml IV 04/20/21 19:14 100 mls/hr .Q10H MIKE Administration Clindamycin HCl/Dextrose 900 mg in 50 mls @ 100 mls/hr 03/21/21 21:50 03/21/21 22:24 Clindamycin-D5w 900 Mg/50 Ml IV 03/21/21 22:19 Infused STAT STA Infusion Clindamycin HCl/Dextrose Confirm 03/21/21 21:52 Clindamycin-D5w 900 Mg/50 Ml Administered 03/21/21 21:53 Dose 900 mg in 50 mls @ ud IV .STK-MED ONE Remdesivir 200 mg/ Sodium 250 mls @ 125 mls/hr 03/21/21 23:30 03/22/21 00:14 Chloride IV 03/22/21 01:29 125 mls/hr ONCE ONE Administration Clindamycin HCl/Dextrose Confirm 03/22/21 11:24 Clindamycin-D5w 600 Mg/50 Ml Administered 03/22/21 11:25 Dose 600 mg in 50 mls @ ud IV .STK-MED ONE Clindamycin HCl/Dextrose 600 mg in 50 mls @ 100 mls/hr 03/22/21 11:32 03/22/21 11:36 Clindamycin-D5w 600 Mg/50 Ml IV 03/22/21 12:01 100 mls/hr STAT STA 100 mls/hr Administration Clindamycin HCl/Dextrose 600 mg in 50 mls @ 100 mls/hr 03/22/21 22:00 03/29/21 05:37 Clindamycin-D5w 600 Mg/50 Ml IV 04/21/21 21:59 100 mls/hr Q8HT MIKE Administration Sodium Chloride 1,000 mls @ 30 mls/hr 03/22/21 13:15 03/23/21 18:47 Sodium Chloride 0.9% 1000 Ml IV 04/21/21 13:14 Not Given .Q24H MIKE Remdesivir 100 mg/ Sodium 100 mls @ 100 mls/hr 03/22/21 22:00 03/25/21 22:55 Chloride IV 03/25/21 22:59 100 mls/hr Q24H MIKE Administration Sodium Chloride Confirm 03/25/21 21:45 Sodium Chloride 0.9% 1000 Ml Administered 03/25/21 21:46 Dose 1,000 mls @ ud .ROUTE .STK-MED ONE Sodium Chloride 1,000 mls @ 0 mls/hr 03/25/21 22:15 Sodium Chloride 0.9% 1000 Ml IV 04/24/21 22:14 .Q0M MIKE Wide Open Promethazine HCl 25 mg/ Sodium 101 mls @ 200 mls/hr 03/26/21 19:33 04/02/21 01:48 Chloride IV 04/25/21 19:32 200 mls/hr Q4H PRN PRN Administration UNCONTROLLED NAUSEA Sodium Chloride Confirm 03/26/21 19:45 Sodium Chloride 0.9% 100 Ml Bag Administered 03/26/21 19:46 Dose 100 mls @ ud .ROUTE .STK-MED ONE Sodium Chloride Confirm 03/26/21 19:47 Sodium Chloride 0.9% 500 Ml Administered 03/26/21 19:48 Dose 500 mls @ ud IV .STK-MED ONE Sodium Chloride 500 mls @ 50 mls/hr 03/26/21 20:15 03/29/21 07:50 Sodium Chloride 0.9% 500 Ml IV 04/25/21 20:14 Not Given .Q10H MIKE Sodium Chloride 1,000 mls @ 25 mls/hr 03/27/21 09:00 04/05/21 05:25 Sodium Chloride 0.9% 1000 Ml IV 04/26/21 08:59 25 mls/hr .Q24H MIKE Administration Cisatracurium Besylate 200 mg/ 200 mls @ 15.768 mls/hr 03/28/21 09:15 03/30/21 12:19 Dextrose IV 04/27/21 09:14 Infused .[id number] MIKE Titration Protocol 3 MCG/KG/MIN Fentanyl Citrate 1,500 mcg/ 150 mls @ 8.76 mls/hr 03/28/21 09:15 03/31/21 00:48 Sodium Chloride IV 04/02/21 09:14 1 mcg/kg/hr .Q17H8M MIKE 8.76 mls/hr Administration Protocol 1 MCG/KG/HR Midazolam HCl 50 mg/ Sodium 250 mls @ 20 mls/hr 03/28/21 08:55 03/31/21 01:15 Chloride IV 04/27/21 08:54 2 mg/hr .[id number] PRN 10 mls/hr SEDATION Titration Protocol Levofloxacin/Dextrose 750 mg in 150 mls @ 100 mls/hr 03/29/21 10:00 04/07/21 09:04 Levofloxacin 750mg/150ml D5w IV 04/28/21 09:59 100 mls/hr Q24H10 MIKE Administration Lorazepam 40 mg/ Dextrose 100 mls @ 0 mls/hr 04/02/21 09:00 04/17/21 11:59 IV 05/02/21 08:59 5 mls/hr .Q0M PRN 5 mls/hr sedation/relaxation Administration Protocol Titrate Cisatracurium Besylate 200 mg/ 200 mls @ 5.07 mls/hr 04/02/21 14:30 04/06/21 13:28 Dextrose IV 05/02/21 14:29 Not Given .Q24H MIKE Protocol 1 MCG/KG/MIN Fentanyl Citrate 1,500 mcg/ 150 mls @ 4.225 mls/hr 04/02/21 14:30 04/17/21 21:45 Sodium Chloride IV 04/21/21 14:29 1 mcg/kg/hr .Q24H MIKE 8.45 mls/hr Administration Protocol 0.5 MCG/KG/HR Norepinephrine 4,000 mcg/ 504 mls @ 60 mls/hr 04/02/21 18:00 04/14/21 06:56 Dextrose IV 05/02/21 17:59 4 mcg/min .Q8H24M PRN 30.24 mls/hr SEVERE HYPOTENSION Titration Protocol Potassium Chloride/Sodium Chloride 1,000 mls @ 60 mls/hr 04/05/21 09:00 04/18/21 07:24 Sodium Chloride 0.9% W/ 40 Meq Kcl 1000ml IV 05/05/21 08:59 Not Given .[id number] MIKE Sodium Chloride Confirm 04/09/21 05:02 Sodium Chloride 0.9% 100 Ml Bag Administered 04/09/21 05:03 Dose 100 mls @ ud .ROUTE .STK-MED ONE Meropenem 1 g/ Sodium Chloride 100 mls @ 200 mls/hr 04/09/21 14:00 04/15/21 06:29 IV 04/15/21 13:59 200 mls/hr Q8HT MIKE Administration Sodium Chloride 500 mls @ 500 mls/hr 04/11/21 16:24 04/11/21 16:28 Sodium Chloride 0.9% 500 Ml IV 04/11/21 17:23 500 mls/hr .Q1H ONE Administration Sodium Chloride 1,000 mls @ 50 mls/hr 04/14/21 06:00 04/14/21 07:48 Sodium Chloride 0.9% 1000 Ml IV 04/15/21 01:59 50 mls/hr .Q20H MIKE Administration Cefazolin Sodium/Dextrose 2 gm in 50 mls @ 100 mls/hr 04/14/21 06:00 04/14/21 08:36 Cefazolin 2 Gm-D5w Bag IV 04/14/21 18:00 100 mls/hr ONCALLTOOR MIKE Administration Norepinephrine/Dextrose 8 mg in 250 mls @ 15 mls/hr 04/14/21 15:09 04/18/21 06:15 Norepinephrine 8 Mg/250 Ml-D5w IV 05/14/21 15:08 0 mcg/min .[id number] PRN 0 mls/hr HYPOTENSION Titration Protocol 8 MCG/MIN Insulin Human Lispro 0 unit 04/04/21 17:51 Insulin Lispro 1 Unit SQ 05/04/21 17:50 UD PRN HYPERGLYCEMIA Levothyroxine Sodium 50 mcg 03/22/21 15:00 03/27/21 11:41 Levothyroxine Sodium 50 Mcg Tablet PO 04/21/21 14:59 Not Given DAILY MIKE Lidocaine HCl Confirm 04/14/21 08:06 Lidocaine Hcl 1% 20 Ml Mdv 20 Ml Ml Administered 04/14/21 08:07 Dose 1 ml .ROUTE .STK-MED ONE Lorazepam 1 mg 03/22/21 13:02 03/26/21 17:49 Lorazepam 2 Mg/1 Ml 2 Mg Vial IV 04/21/21 13:01 1 mg Q4H PRN PRN Administration Anxiety/Sleep Lorazepam 1 mg 03/22/21 13:02 Lorazepam 1 Mg Tablet PO 04/21/21 13:01 Q4H PRN PRN Anxiety/Sleep Lorazepam 2 mg 03/26/21 19:36 04/02/21 05:10 Lorazepam 2 Mg/1 Ml 2 Mg Vial IV 04/20/21 13:01 2 mg Q4H PRN PRN Administration Anxiety/Sleep Lorazepam 2 mg 04/02/21 14:30 04/02/21 14:30 Lorazepam 2 Mg/1 Ml 2 Mg Vial IV 04/02/21 14:31 2 mg STAT STA Administration Lorazepam 2 mg 04/02/21 14:40 04/02/21 14:40 Lorazepam 2 Mg/1 Ml 2 Mg Vial IV 04/02/21 14:41 2 mg STAT ONE Administration Midazolam HCl 6 mg 03/28/21 08:55 03/28/21 09:01 Midazolam Hcl 5 Mg/5 Ml Vial IV 03/28/21 08:56 6 mg STAT ONE Administration Midazolam HCl Confirm 04/14/21 08:33 Midazolam Hcl 2 Mg/2 Ml Vial Administered 04/14/21 08:34 Dose 2 mg .ROUTE .STK-MED ONE Morphine Sulfate Confirm 03/28/21 08:56 Morphine Sulfate 4 Mg/Ml Injection Administered 03/28/21 08:57 Dose 4 mg .ROUTE .STK-MED ONE Non-Formulary Medication 1 each 04/09/21 11:42 04/09/21 12:02 Pharmacy Dosing Request 04/09/21 11:43 1 each STAT ONE Administration Ondansetron HCl 4 mg 03/22/21 12:27 Ondansetron Hcl 4 Mg/2 Ml Vial IV 04/21/21 12:26 Q6H PRN PRN NAUSEA/VOMITING Pantoprazole Sodium Confirm 03/22/21 11:23 Pantoprazole 40 Mg Vial Administered 03/22/21 11:24 Dose 40 mg IV .STK-MED ONE Pantoprazole Sodium 40 mg 03/22/21 11:34 03/22/21 11:36 Pantoprazole 40 Mg Vial IV 03/22/21 11:35 40 mg STAT ONE Administration Pantoprazole Sodium 40 mg 03/22/21 12:27 03/22/21 13:49 Pantoprazole 40 Mg Vial IV 04/21/21 12:26 Not Given Q24H10 MIKE Pantoprazole Sodium 40 mg 03/23/21 11:30 04/18/21 07:35 Pantoprazole 40 Mg Vial IV 04/22/21 11:29 40 mg Q24H10 MIKE Administration Pantoprazole Sodium 40 mg 04/18/21 10:00 04/19/21 13:25 Protonix (Pantoprazole) 40 Mg Tablet PO 05/18/21 09:59 Not Given DAILY MIKE Potassium Chloride 20 meq 03/22/21 15:00 03/27/21 11:11 Potassium Chloride 10 Meq Tablet PO 04/21/21 14:59 Not Given DAILY MIKE Promethazine HCl Confirm 03/26/21 19:45 Promethazine Hcl 25 Mg/Ml Vial Administered 03/26/21 19:46 Dose 25 mg .ROUTE .STK-MED ONE Rocuronium [place] Confirm 04/14/21 08:33 Rocuronium [place] 100 Mg/10ml Vial Administered 04/14/21 08:34 Dose 40 mg .ROUTE .STK-MED ONE Rocuronium [place] Confirm 04/14/21 09:27 Rocuronium [place] 100 Mg/10ml Vial Administered 04/14/21 09:28 Dose 10 mg .ROUTE .STK-MED ONE Rocuronium [place] Confirm 04/14/21 09:49 Rocuronium [place] 100 Mg/10ml Vial Administered 04/14/21 09:50 Dose 10 mg .ROUTE .STK-MED ONE Sodium Chloride Confirm 04/06/21 07:42 Sodium Cl For Inhalation 3 Ml Ud Nebule Administered 04/06/21 07:43 Dose 15 ml IH .STK-MED ONE Succinylcholine Chloride 140 mg 03/28/21 09:00 03/28/21 09:06 Succinylcholine Chloride 200mg/10 Ml Vial IV 03/28/21 09:01 140 mg STAT ONE Administration Succinylcholine Chloride 120 mg 04/02/21 14:30 04/02/21 14:30 Succinylcholine Chloride 200mg/10 Ml Vial IV 04/02/21 14:31 120 mg STAT STA Administration Intake & Output (Last 24 hours) 04/19/21 04/20/21 04/21/21 04/22/21 11:59 11:59 11:59 11:59 Intake Total 856 839 926 Output Total 1550 1650 1100 Balance -694 -811 -174 Weight 79.2 kg 81.4 kg 80.9 kg Patient Care Notes (Last 24 hours) 04/21/21 13:18 Case Management Note by Monae Fisher UPDATED CLINICALS [facility]XED TO [facility] PER THEIR REQUEST Initialized on 04/21/21 13:18 - END OF NOTE 04/21/21 09:03 Case Management Note by Monae Fisher S/W DAUGHTER 04/20/21 AFTERNOON- UPDATED THAT [facility] HAS ACCEPTED PATIENT AND WE WILL PLAN TO TRANSFER HIM THERE ON SATURDAY. SHE VERIFIED UNDERSTANDING Initialized on 04/21/21 09:03 - END OF NOTE 04/20/21 20:07 Respiratory Note by Stacey Devine 3947 PT SUCTIONED AND LAVAGED OF [place] THICK YELLOW MUCUS Initialized on 04/20/21 20:07 - END OF NOTE Awaiting [facility] placement Code(s): Z99.11 - DEPENDENCE ON RESPIRATOR [VENTILATOR] STATUS (2) Acute COVID-19 Current Visit: Yes Status: Acute Code(s): U07.1 - COVID-19
[2021-04-22] MEDS: REGLAN SOLUTION 5 MG/5 ML PEG SCH ×4 (05:49→23:01)
[2021-04-22 06:17] LABS: Hematocrit 43.5 % (42-50); Hemoglobin 13.7 gm/dl (12.5-18.0); Mean Cell Volume 89.1 fl (78-100); Mean Corpuscular Hemoglobin 28.1 pg (26-32); Mean Corpuscular Hgb Concent. 31.5 g/dl (32-36); Mean Platelet Volume 9.9 fl (7.5-11.0); Platelet Count 290 K/mm3 (150-450); Red Blood Count 4.88 M/mm3 (4.1-5.6); Red Cell Distribution Width 15.7 % (11.5-14.0)
[2021-04-22 06:47] LABS: ALBUMIN 3.1 g/dL (3.5-5.0); ALKALINE PHOSPHATASE 147 U/L (38-126); BLOOD UREA NITROGEN 17 mg/dL (9-20); CHLORIDE 99 mmol/L (98-107); Calcium 8.6 mg/dL (8.4-10.2); Carbon Dioxide 32 mmol/L (22-30); Creatinine 1 0.44 mg/dL (0.66-1.25); EST GLOMERULAR FILTRATION RATE > 60.0 ML/MIN; Glucose 118 mg/dL (74-106); Potassium 3.9 mmol/L (3.5-5.1); SGOT/AST 37 U/L (17-59); SGPT/ALT 46 U/L (0-50); SODIUM 136 mmol/L (137-145)
--- NOTE | 2021-04-22 07:27 | XRAY ---
Indication: Follow-up Covid 19. Comparison: April 17, 2021. Portable chest again demonstrates moderate diffuse bilateral consolidating/nonconsolidating airspace disease with interval increasing left base consolidation. Heart not enlarged with stable tracheostomy cannula. No new cardiopulmonary abnormalities.
[2021-04-22] MEDS: ENOXAPARIN SODIUM SQ SCH (09:31)
[2021-04-22] MEDS: PERIDEX MM SCH ×2 (09:32→22:59)
[2021-04-22] MEDS: Pepcid 20 MG PO SCH ×2 (09:32→22:59)
[2021-04-22] MEDS: DELTASONE 20 MG PO SCH (09:32)
[2021-04-22] MEDS: Bactroban OINTMENT TP SCH (09:48)
[2021-04-22] MEDS: Ativan 1 MG PO PRN ×2 (11:36→22:59)
[2021-04-22] MEDS ORDERED: COLACE Liquid 50 MG/5 ML PO SCH (14:00)
[2021-04-23] MEDS: REGLAN SOLUTION 5 MG/5 ML PEG SCH ×3 (05:36→18:35)
[2021-04-23] MEDS: Pepcid 20 MG PO SCH ×2 (10:10→21:28)
[2021-04-23] MEDS: DELTASONE 20 MG PO SCH (10:10)
[2021-04-23] MEDS: PERIDEX MM SCH ×2 (10:10→21:28)
[2021-04-23] MEDS: ENOXAPARIN SODIUM SQ SCH (10:11)
[2021-04-23] MEDS: Bactroban OINTMENT TP SCH (10:15)
[2021-04-24] MEDS: REGLAN SOLUTION 5 MG/5 ML PEG SCH ×2 (00:06→05:46)
[2021-04-24 07:38] VITALS: BP 122/67
[2021-04-24 08:06] VITALS: PULSE 91
[2021-04-24] MEDS: Ativan 1 MG PO PRN (08:11)
[2021-04-24] MEDS: DELTASONE 20 MG PO SCH (08:11)
[2021-04-24] MEDS: ENOXAPARIN SODIUM SQ SCH (08:11)
[2021-04-24] MEDS: Bactroban OINTMENT TP SCH (08:11)
[2021-04-24] MEDS: Pepcid 20 MG PO SCH (08:11)
[2021-04-24] MEDS: PERIDEX MM SCH (08:12)
[2021-04-24 08:32] VITALS: O2SAT 94
[2021-04-24] MEDS ORDERED: Duragesic 50MCG Patch TD SCH (10:00)
--- NOTE | 2021-04-24 10:59 | DS ---
ADMISSION DIAGNOSIS: COVID pneumonia. DISCHARGE DIAGNOSES: 1) COVID PNEUMONIA. 2) RESPIRATORY ARREST. 3) COVID ENCEPHALITIS. 4) HYPOTENSION FROM COVID. PROCEDURES: The patient was intubated several weeks after admission actually. We did a G-tube insertion and also a trach on 04/14/2021. HOSPITAL COURSE: We actually tried to extubate him a week after first intubation and he looked better and he failed that miserably. Unfortunately even after we weaned him off his [employer] drugs, the most he says is "ouch". He does move his arms and legs. Skin care is pretty good accept to two tiny decubs, a centimeter at the most, stage II one on his buttocks. He has got his trach and oxygen at 100%, keeps his O2 saturations above 95%. He has had no hypoxia in the last week. Really he has been stable for quite a while. He has got his gastrostomy tube working. He is transferred to [facility]. During his stay he was treated with steroids and Remdesivir. He was kept anticoagulated. Otherwise intubated with Ativan, paralytic and Fentanyl. Presently, he just has a Fentanyl patch. PROGNOSIS: Guarded.
== END 2021-04-24 09:30 | DRG 177 ==
LOC: ED 18:27 → MED SURG 03-22 11:59 → OBSVTOIN 03-23 07:33 → MED SURG 03-28 09:20
PROVIDERS: ADMIT Family Medicine; ATTEND Family Medicine
PROC: 0DH63UZ Insertion of Feeding Device into Stomach, Percutaneous Approach (ICD-10-PCS; principal; 2021-04-14)
DX: U07.1 COVID-19 (principal); J12.82 Pneumonia due to coronavirus disease 2019; J96.01 Acute respiratory failure with hypoxia; A85.8 Other specified viral encephalitis; Z99.11 Dependence on respirator [ventilator] status; I95.9 Hypotension, unspecified; R41.0 Disorientation, unspecified; I10 Essential (primary) hypertension; E03.9 Hypothyroidism, unspecified; I73.9 Peripheral vascular disease, unspecified; Z91.81 History of falling; Z79.899 Other long term (current) drug therapy; Z79.01 Long term (current) use of anticoagulants; Z20.828 Contact with and (suspected) exposure to other viral communicable diseases
CPT/HCPCS: 0241U; 31500; 31600; 36000; 36415; 36600; 43246; 71045; 80048; 80051; 80053; 81001; 82248; 82375; 82803; 82947; 83605; 83880; 84134; 84145; 85025; 85027; 85379; 85610; 85730; 87040; 87077; 87086; 93268; 93306; 94002; 94003; 94640; 94762; 94799; 96374; 99284; G0378; 94770; 99100; J0330; J0690; J1100; J1650; J1940; J1956; J2060; J2250; J2270; J2550; J3010; A9270-GY

== ENCOUNTER 2021-06-21 11:07 | Inpatient (IN) | payer MEDICARE ==
--- NOTE | 2021-06-21 12:02 | XRAY ---
Indication: Acute mental status change. Confusion. Continuously hiccuping. Multiple contiguous axial images obtained through the head without contrast. Comparison: None Age-appropriate global atrophy and minimal periventricular degenerative micro-ischemia bilaterally. No acute intracranial hemorrhage, abnormal extra-axial fluid collection, or mass effect. Fourth ventricle is midline without hydrocephalus. Bony calvarium intact. Tiny fluid leveling both sphenoid sinus. Remaining visualized paranasal sinuses and mastoid air cells are clear. Impression: Nonacute senile brain. Minimal paranasal sinus disease.
--- NOTE | 2021-06-21 12:14 | ERPHSYRPT ---
- History of Present Illness Time Seen by Provider: 06/21/21 11:25 Source: patient Exam Limitations: no limitations Patient Subjective Stated Complaint: [facility] and has had hiccups for 24 hours and they also state that he has an even more altered mental status Triage Nursing Assessment: Pt brought to the ER by EMS, tachycardic, does not answer questions, only moves when we touch him, pulses normal, skin n/w/d, making a sound that appears to be a hiccup, lungs clear, doesn't appear to be in any distress Physician History: Patient is a 80-year-old male presents to our ED via EMS from an [facility] for evaluation of altered mental status. senior care observed that patient has been experiencing hiccups over the past 24 hours. Per report patient is usually more interactive. Upon arrival patient was lying in bed with minimal interaction. No acute distress. No fever. Patient was observed to have urinary retention. Per report patient had a Hinojosa catheter upon arrival to [facility]. The catheter was removed. We inserted a catheter in our ED and obtained a 600 cc of urine. Urinary retention is possible. Timing/Duration: yesterday Severity: moderate Modifying Factors: Improves With: nothing Associated Symptoms: No nausea, No vomiting, No shortness of breath, No cough, No fever, No syncope, No seizure Allergies/Adverse Reactions: No Known Drug Allergies Allergy (Verified 06/21/21 11:36) Home Medications: Lorazepam 1 mg [Ativan 1 MG] 2 mg PO Q4H/PRN PRN 06/21/21 [History] Polyethylene Glycol 3350 17 gm [Miralax Powder 17GM PACKET] 17 gm PO DAILY 06/21/21 [History] Quetiapine Fumarate 25 mg [Seroquel 25 MG] 25 mg PO BID 06/21/21 [History] Hx Tetanus, Diphtheria Vaccination/Date Given: No (PT UNSURE) Hx Influenza Vaccination/Date Given: No Hx Pneumococcal Vaccination/Date Given: No Travel Risk - International Travel Have you traveled outside of the country in past 3 weeks: No - Coronavirus Screening Are you exhibiting any of the following symptoms?: No Close contact with a COVID-19 positive Pt in past 14-21 Days: No - Vaccine Status Have you recieved a Covid-19 vaccination: No - Review of Systems All Other Systems: Unable due to condition - Past Medical History Pertinent Past Medical History: Yes Neurological History: No Pertinent History ENT History: No Pertinent History Cardiac History: Hypertension, Peripheral Vascular Disease Respiratory History: No Pertinent History Endocrine Medical History: Hypothyroidism Musculoskeletal History: Osteoarthritis GI Medical History: No Pertinent History History: No Pertinent History Psycho-Social History: No Pertinent History Male Reproductive Disorders: No Pertinent History Other Medical History: 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 HX OF DEPRESSION - Past Surgical History Past Surgical History: No Other Surgical History: unknown - Social History Smoking Status: Never smoker Exposure to second hand smoke: No Drug Use: none Patient Lives Alone: No - Nursing Vital Signs Nursing Vital Signs: Initial Vital Signs Temperature 97.9 F 06/21/21 11:12 Pulse Rate 105 H 06/21/21 11:12 Blood Pressure 123/72 06/21/21 11:12 O2 Sat by Pulse Oximetry 96 06/21/21 11:12 Pain Scale Pain Intensity 0 - Physical Exam General Appearance: no apparent distress, alert, other (Residual fluid in oropharynx) Eye Exam: PERRL/EOMI, eyes nml inspection Ears, Nose, Throat Exam: normal ENT inspection, TMs normal, pharynx normal, moist mucous membranes Neck Exam: normal inspection, non-tender, supple, full range of motion Respiratory Exam: normal breath sounds, lungs clear, No respiratory distress Cardiovascular Exam: regular rate/rhythm, normal heart sounds, normal peripheral pulses Gastrointestinal/Abdomen Exam: soft, normal bowel sounds, other (Intact PEG tube), No tenderness, No mass Back Exam: normal inspection, normal range of motion, No CVA tenderness, No vertebral tenderness Extremity Exam: normal inspection, normal range of motion, pelvis stable Neurologic Exam: alert, oriented x 3, cooperative, normal mood/affect, nml cerebellar function, nml station & gait, sensation nml, No motor deficits Skin Exam: normal color, warm, dry, No rash Lymphatic Exam: No adenopathy SpO2: 96 - Course Nursing assessment & vital signs reviewed: Yes EKG Interpreted by Me: RATE (104), Sinus Tach, NORMAL AXIS, NORMAL INTERVALS - Radiology Exams Chest X-ray Interpretation: Teleradiologist Report (Normal cardiac silhouette. Clear lung [place]. Bony degenerative changes with osteopenia. Bony thorax otherwise intact.) - CT Exams Head CT Interpretation: Tele-radiologist Report (Appropriate brain atrophy. Microischemia bilaterally. No acute hemorrhage. Intact calvarium. Nonacute senile brain. Minimal paranasal sinus disease) Ordered Tests: Active Orders 24 hr Category Date Time Status Supervisor Floor Assembly STAT Care 06/21/21 11:16 Active EKG-ER Only STAT Care 06/21/21 11:15 Active Hinojosa [Catheter-[place] Hinojosa] STAT Care 06/21/21 13:29 Active IV Insertion STAT Care 06/21/21 11:15 Active Pulse Oximetry (ED) STAT Care 06/21/21 11:15 Active CHEST 1 VIEW (PORTABLE) Stat Exams 06/21/21 12:16 Completed HEAD WITHOUT CONTRAST [CT] Stat Exams 06/21/21 11:17 Completed CBC W DIFF Stat Lab 06/21/21 12:15 Completed CMP Stat Lab 06/21/21 12:15 Completed Manual Differential NC Stat Lab 06/21/21 12:15 Completed TROPONIN Q3H Lab 06/21/21 12:15 Completed TROPONIN Q3H Lab 06/21/21 14:30 Ordered TROPONIN Q3H Lab 06/21/21 17:30 Ordered TROPONIN Q3H Lab 06/21/21 20:30 Ordered TROPONIN Q3H Lab 06/21/21 23:30 Ordered TSH [TSH, 3RD Generation] Stat Lab 06/21/21 12:15 Received Medication Summary Generic Name Dose Route Start Last Admin Trade Name Freq PRN Reason Stop Dose Admin Sodium Chloride 1,000 mls @ 100 mls/hr 06/21/21 12:15 06/21/21 12:17 Sodium Chloride 0.9% 1000 Ml IV 07/21/21 12:14 100 mls/hr .Q10H MIKE Administration Ceftriaxone Sodium/Dextrose 1 g in 50 mls @ 100 mls/hr 06/22/21 10:00 Rocephin 1 Gm-D5w 50 Ml Bag IV 06/25/21 09:59 Q24H10 MIKE Clindamycin HCl/Dextrose 900 mg in 50 mls @ 100 mls/hr 06/21/21 13:31 Clindamycin-D5w 900 Mg/50 Ml IV 06/21/21 14:00 STAT STA Discontinued Medications Generic Name Dose Route Start Last Admin Trade Name Freq PRN Reason Stop Dose Admin Pantoprazole Sodium 40 mg 06/21/21 13:29 Pantoprazole 40 Mg Vial IV 06/21/21 13:30 STAT ONE Lab/Rad Data: Laboratory Result Diagrams 06/21/21 12:15 06/21/21 12:15 Laboratory Results 06/21/21 06/21/21 06/21/21 Range/Units 12:49 12:15 12:15 WBC (4.0-10.5) K/mm3 RBC (4.1-5.6) M/mm3 Hgb (12.5-18.0) gm/dl Hct (42-50) % MCV (78-100) fl MCH (26-32) pg MCHC (32-36) g/dl RDW (11.5-14.0) % Plt Count (150-450) K/mm3 MPV (7.5-11.0) fl Sodium 138 (137-145) mmol/L Potassium 4.6 (3.5-5.1) mmol/L Chloride 101 (98-107) mmol/L Carbon Dioxide 25 (22-30) mmol/L Anion Gap 16.0 H (5-15) MEQ/L BUN 53 H (9-20) mg/dL Creatinine 2.37 H (0.66-1.25) mg/dL Estimated GFR 28.3 ML/MIN Glucose 100 (74-106) mg/dL Calcium 8.4 (8.4-10.2) mg/dL Total Bilirubin 1.00 (0.2-1.3) mg/dL AST 19 (17-59) U/L ALT 18 (0-50) U/L Alkaline Phosphatase 92 (38-126) U/L Ammonia < 9 L (9-30) umol/L Troponin I 0.013 (0.000-0.034) ng/mL Serum Total Protein 6.4 (6.3-8.2) g/dL Albumin 2.7 L (3.5-5.0) g/dL Urinalys Dipstick Clnc Urine Color (YELLOW) Urine Appearance (CLEAR) Urine pH (5-6) Ur Specific [place] (1.005-1.025) POC Urine Protein Conf (Negative) Urine Ketones (NEGATIVE) Urine Nitrite (NEGATIVE) Urine Bilirubin (NEGATIVE) Urine Urobilinogen (0-1) mg/dL Urine Leukocytes (NEGATIVE) Urine WBC (Auto) (0-5) /HPF Urine RBC (Auto) (0-2) /HPF Urine RBC (0-5) Rene/ul Urine Glucose (NEGATIVE) mg/dL 06/21/21 06/21/21 Range/Units 12:15 11:36 WBC 13.5 H (4.0-10.5) K/mm3 RBC 4.15 (4.1-5.6) M/mm3 Hgb 11.6 L (12.5-18.0) gm/dl Hct 38.0 L (42-50) % MCV 91.6 (78-100) fl MCH 28.0 (26-32) pg MCHC 30.5 L (32-36) g/dl RDW 16.7 H (11.5-14.0) % Plt Count 305 (150-450) K/mm3 MPV 9.6 (7.5-11.0) fl Sodium (137-145) mmol/L Potassium (3.5-5.1) mmol/L Chloride (98-107) mmol/L Carbon Dioxide (22-30) mmol/L Anion Gap (5-15) MEQ/L BUN (9-20) mg/dL Creatinine (0.66-1.25) mg/dL Estimated GFR ML/MIN Glucose (74-106) mg/dL Calcium (8.4-10.2) mg/dL Total Bilirubin (0.2-1.3) mg/dL AST (17-59) U/L ALT (0-50) U/L Alkaline Phosphatase (38-126) U/L Ammonia (9-30) umol/L Troponin I (0.000-0.034) ng/mL Serum Total Protein (6.3-8.2) g/dL Albumin (3.5-5.0) g/dL Urinalys Dipstick Clnc MAIN LAB Urine Color YELLOW (YELLOW) Urine Appearance CLEAR (CLEAR) Urine pH 5.5 (5-6) Ur Specific [place] <=1.005 (1.005-1.025) POC Urine Protein Conf NEGATIVE (Negative) Urine Ketones NEGATIVE (NEGATIVE) Urine Nitrite NEGATIVE (NEGATIVE) Urine Bilirubin NEGATIVE (NEGATIVE) Urine Urobilinogen 0.2 (0-1) mg/dL Urine Leukocytes NEGATIVE (NEGATIVE) Urine WBC (Auto) 3-5 (0-5) /HPF Urine RBC (Auto) 0-2 (0-2) /HPF Urine RBC TRACE-INTACT (0-5) Rene/ul Urine Glucose NEGATIVE (NEGATIVE) mg/dL - Progress Progress: improved Progress Note: 06/21/21 13:[address] Sousa our on-call doctor for the day who advises administering IV Rocephin and clindamycin to cover for possible aspiration pneumonia. Chest x-ray negative at this time. Patient will also receive a dose of Protonix for hiccups. We will insert a Hinojosa catheter for urinary retention. Discussed with : Gianna - Departure Departure Disposition: Observation Clinical Impression: Altered mental status, Urinary retention, Hiccups, Leukocytosis (leucocytosis), Normocytic anemia, Acute renal injury, Hypoalbuminemia, Paranasal sinus disease Condition: Stable Critical Care Time: No Referrals: ENVIVE,ENVIVE [Primary Care Provider] - Follow up/PCP as directed
[2021-06-21] MEDS ORDERED: Sodium Chloride 0.9% 1000 ML 1,000 ML IV SCH (12:15)
[2021-06-21] MEDS ORDERED: Sodium Chloride 0.9% 1000 ML 1,000 ML ONE (12:16)
[2021-06-21 12:26] LABS: Hemoglobin 11.6 gm/dl (12.5-18.0); Mean Cell Volume 91.6 fl (78-100); Mean Corpuscular Hgb Concent. 30.5 g/dl (32-36); Mean Platelet Volume 9.6 fl (7.5-11.0); Platelet Count 305 K/mm3 (150-450); Red Blood Count 4.15 M/mm3 (4.1-5.6); Red Cell Distribution Width 16.7 % (11.5-14.0); White Blood Count 13.5 K/mm3 (4.0-10.5)
[2021-06-21 12:37] LABS: Appearance CLEAR (CLEAR); Bilirubin NEGATIVE (NEGATIVE); Glucose NEGATIVE (NEGATIVE); Ketones NEGATIVE (NEGATIVE); RBC 0-2 /HPF (0-2)
[2021-06-21 12:38] LABS: Dipstick done @ ? MAIN LAB; Nitrite NEGATIVE (NEGATIVE); Ph 5.5 (5-6); Protein,Urine Dip NEGATIVE (Negative); RBC TRACE-INTACT Ery/ul (0-5); Specific Gravity <=1.005 (1.005-1.025); Urobilinogen 0.2 mg/dL (0-1)
[2021-06-21 12:38] LABS: ALBUMIN 2.7 g/dL (3.5-5.0); Calcium 8.4 mg/dL (8.4-10.2); Creatinine 1 2.37 mg/dL (0.66-1.25); EST GLOMERULAR FILTRATION RATE 28.3 ML/MIN; Potassium 4.6 mmol/L (3.5-5.1); Total Protein 6.4 g/dL (6.3-8.2)
--- NOTE | 2021-06-21 12:40 | XRAY ---
Indication: Pneumonia. Comparison: April 22, 2021. Portable chest improved and is now clear with tracheostomy cannula removal. Heart not enlarged. Bony thorax intact again with mild osteopenia and degenerative changes. No acute cardiopulmonary abnormalities.
[2021-06-21] MEDS ORDERED: PROTONIX 40 MG IV IV ONE ×2 (13:29→13:40)
[2021-06-21] MEDS ORDERED: CLINDAMYCIN-D5W 900 MG/50 ML*** 900 MG/50 ML BAG IV STA (13:31)
[2021-06-21] MEDS ORDERED: CLINDAMYCIN-D5W 900 MG/50 ML*** 900 MG/50 ML BAG IV ONE (13:41)
[2021-06-21 14:20] LABS: INFLUENZA A NEGATIVE (NEGATIVE); INFLUENZA B NEGATIVE (NEGATIVE); RESPIRATORY SYNCTIAL VIRUS NEGATIVE (Negative); SARS-CoV-2 Xpert Express NEGATIVE (NEGATIVE)
[2021-06-21] MEDS ORDERED: Zofran 4 MG/2 ML VIAL IV PRN (14:57)
[2021-06-21] MEDS: Sodium Chloride 0.9% 1000 ML 1,000 ML IV SCH ×2 (15:24→21:59)
[2021-06-21] MEDS: ROCEPHIN 1 Gm-D5w 50 ml Bag** 1 G/50 ML IVPB IV SCH (15:31)
[2021-06-21 15:58] LABS: ANISOCYTOSIS 1+; Eosinophil 2 % (0.00-3.0); Lymphocytes 16 % (24-44); Neutrophils 82 % (36.-66.); Platelet Estimate NORMAL (NORMAL); Total Cells Counted 100; Toxic Granulation 1+
[2021-06-21] MEDS ORDERED: FEVERALL 650 MG RC PRN (16:38)
[2021-06-21] MEDS ORDERED: DUONEB 0.5-3 MG/3 ml Neb IH PRN (16:38)
[2021-06-21] MEDS: Seroquel 25 MG G-TUBE SCH (20:59)
[2021-06-21] MEDS: Pepcid 20 MG G-TUBE SCH (20:59)
[2021-06-21] MEDS: Ativan 1 MG G-TUBE PRN (21:08)
[2021-06-21] MEDS: CLINDAMYCIN-D5W 600 MG/50 ML*** 600 MG/50 ML BAG IV SCH (21:18)
[2021-06-22] MEDS: Ativan 1 MG G-TUBE PRN ×6 (02:12→23:34)
[2021-06-22] MEDS: CLINDAMYCIN-D5W 600 MG/50 ML*** 600 MG/50 ML BAG IV SCH ×3 (05:03→21:22)
[2021-06-22 05:17] LABS: Hematocrit 37.9 % (42-50); Hemoglobin 11.3 gm/dl (12.5-18.0); Mean Cell Volume 93.1 fl (78-100); Mean Corpuscular Hemoglobin 27.8 pg (26-32); Mean Corpuscular Hgb Concent. 29.8 g/dl (32-36); Mean Platelet Volume 9.4 fl (7.5-11.0); Platelet Count 303 K/mm3 (150-450); Red Blood Count 4.07 M/mm3 (4.1-5.6); Red Cell Distribution Width 16.6 % (11.5-14.0); White Blood Count 11.5 K/mm3 (4.0-10.5)
[2021-06-22 05:38] LABS: ALBUMIN 2.8 g/dL (3.5-5.0); ANION GAP 12.3 MEQ/L (5-15); BILIRUBIN,TOTAL 0.7 mg/dL (0.2-1.3); Calcium 8.5 mg/dL (8.4-10.2); Creatinine 1 1.56 mg/dL (0.66-1.25); EST GLOMERULAR FILTRATION RATE 45.9 ML/MIN; Potassium 3.6 mmol/L (3.5-5.1); Total Protein 6.6 g/dL (6.3-8.2)
[2021-06-22 06:39] LABS: Eosinophil 1 % (0.00-3.0); Lymphocytes 7 % (24-44); Monocyte 4 % (0.0-12.0); Neutrophils 88 % (36.-66.); Total Cells Counted 100
[2021-06-22 06:40] LABS: ANISOCYTOSIS 1+; Platelet Estimate NORMAL (NORMAL)
[2021-06-22] MEDS: Sodium Chloride 0.9% 1000 ML 1,000 ML IV SCH ×3 (08:50→20:46)
[2021-06-22] MEDS: Seroquel 25 MG G-TUBE SCH ×2 (09:06→21:22)
[2021-06-22] MEDS: PROTONIX 40 MG IV IV SCH (09:06)
[2021-06-22] MEDS: ROCEPHIN 1 Gm-D5w 50 ml Bag** 1 G/50 ML IVPB IV SCH (09:06)
[2021-06-22] MEDS: Miralax Powder 17GM PACKET G-TUBE SCH (09:07)
[2021-06-22] MEDS: Pepcid 20 MG G-TUBE SCH ×2 (09:07→21:22)
[2021-06-22] MEDS ORDERED: ROCEPHIN 1 Gm-D5w 50 ml Bag** 1 G/50 ML IVPB IV SCH (10:00)
[2021-06-22 15:49] LABS: ANION GAP 12.8 MEQ/L (5-15); Calcium 8.1 mg/dL (8.4-10.2); Creatinine 1 1.24 mg/dL (0.66-1.25); EST GLOMERULAR FILTRATION RATE 59.8 ML/MIN; Potassium 3.4 mmol/L (3.5-5.1)
[2021-06-23] MEDS: Ativan 1 MG G-TUBE PRN ×3 (03:34→16:04)
[2021-06-23] MEDS: Sodium Chloride 0.9% 1000 ML 1,000 ML IV SCH (04:15)
[2021-06-23] MEDS: CLINDAMYCIN-D5W 600 MG/50 ML*** 600 MG/50 ML BAG IV SCH ×3 (05:03→22:12)
[2021-06-23 10:04] LABS: BLOOD UREA NITROGEN 18 mg/dL (9-20); CHLORIDE 121 mmol/L (98-107); Carbon Dioxide 26 mmol/L (22-30); Creatinine 1 1.05 mg/dL (0.66-1.25); EST GLOMERULAR FILTRATION RATE > 60.0 ML/MIN; Glucose 99 mg/dL (74-106); Potassium 3.4 mmol/L (3.5-5.1)
[2021-06-23 10:09] LABS: SODIUM 155 mmol/L (137-145)
[2021-06-23] MEDS: Pepcid 20 MG G-TUBE SCH ×2 (10:29→22:06)
[2021-06-23] MEDS: Seroquel 25 MG G-TUBE SCH ×2 (10:29→22:06)
[2021-06-23] MEDS: PROTONIX 40 MG IV IV SCH (10:30)
[2021-06-23] MEDS: ROCEPHIN 1 Gm-D5w 50 ml Bag** 1 G/50 ML IVPB IV SCH (10:30)
[2021-06-23] MEDS: Miralax Powder 17GM PACKET G-TUBE SCH (10:30)
[2021-06-23] MEDS: Dextrose 5%/Water IV Soln. 1000 ML 1,000 ML IV SCH ×2 (11:12→22:11)
[2021-06-23] MEDS ORDERED: Zyprexa Zydis 5 MG PO SCH (12:00)
[2021-06-24] MEDS: Ativan 1 MG G-TUBE PRN ×2 (02:32→07:43)
[2021-06-24] MEDS: CLINDAMYCIN-D5W 600 MG/50 ML*** 600 MG/50 ML BAG IV SCH ×2 (06:55→13:39)
[2021-06-24] MEDS ORDERED: Zyprexa Zydis 5 MG PO PRN (08:53)
[2021-06-24 08:54] LABS: ANION GAP 13.7 MEQ/L (5-15); BLOOD UREA NITROGEN 13 mg/dL (9-20); CHLORIDE 115 mmol/L (98-107); Calcium 7.8 mg/dL (8.4-10.2); Carbon Dioxide 21 mmol/L (22-30); Creatinine 1 0.86 mg/dL (0.66-1.25); EST GLOMERULAR FILTRATION RATE > 60.0 ML/MIN; Glucose 106 mg/dL (74-106); Potassium 3.7 mmol/L (3.5-5.1); SODIUM 145 mmol/L (137-145)
[2021-06-24] MEDS ORDERED: Zyprexa Zydis 5 MG PO ONE (09:00)
[2021-06-24] MEDS: Miralax Powder 17GM PACKET G-TUBE SCH (09:40)
[2021-06-24] MEDS: PROTONIX 40 MG IV IV SCH (09:58)
[2021-06-24] MEDS: ROCEPHIN 1 Gm-D5w 50 ml Bag** 1 G/50 ML IVPB IV SCH (10:01)
[2021-06-24] MEDS: Seroquel 25 MG G-TUBE SCH ×2 (11:00→21:45)
[2021-06-24] MEDS: Pepcid 20 MG G-TUBE SCH ×2 (11:00→21:45)
[2021-06-24] MEDS: Dextrose 5%/Water IV Soln. 1000 ML 1,000 ML IV SCH (12:32)
[2021-06-24] MEDS ORDERED: Zyprexa Zydis 5 MG G-TUBE PRN (15:07)
[2021-06-24] MEDS: Ativan 2 MG/1 ML VIAL IV PRN (19:44)
[2021-06-25] MEDS: Dextrose 5%/Water IV Soln. 1000 ML 1,000 ML IV SCH (00:24)
[2021-06-25] MEDS: Ativan 2 MG/1 ML VIAL IV PRN ×2 (03:54→17:59)
[2021-06-25 05:09] LABS: Hematocrit 44.7 % (42-50); Hemoglobin 13.2 gm/dl (12.5-18.0); Mean Cell Volume 93.5 fl (78-100); Mean Corpuscular Hemoglobin 27.6 pg (26-32); Mean Corpuscular Hgb Concent. 29.5 g/dl (32-36); Mean Platelet Volume 9.4 fl (7.5-11.0); Platelet Count 240 K/mm3 (150-450); Red Blood Count 4.78 M/mm3 (4.1-5.6); Red Cell Distribution Width 16.8 % (11.5-14.0); White Blood Count 17.7 K/mm3 (4.0-10.5)
[2021-06-25 07:31] LABS: ANION GAP 11.7 MEQ/L (5-15); BLOOD UREA NITROGEN 16 mg/dL (9-20); CHLORIDE 114 mmol/L (98-107); Calcium 7.6 mg/dL (8.4-10.2); Carbon Dioxide 22 mmol/L (22-30); Creatinine 1 0.87 mg/dL (0.66-1.25); EST GLOMERULAR FILTRATION RATE > 60.0 ML/MIN; Glucose 102 mg/dL (74-106); Potassium 3.6 mmol/L (3.5-5.1); SODIUM 144 mmol/L (137-145)
[2021-06-25] MEDS ORDERED: PHARMACY DOSING REQUEST MC ONE (09:37)
[2021-06-25] MEDS: Merrem 1 GM 1 G in Sodium Chloride 100ML MINI-BAG PLUS 100 ML IV SCH ×2 (10:47→17:06)
[2021-06-25] MEDS: Miralax Powder 17GM PACKET G-TUBE SCH (10:47)
[2021-06-25] MEDS: PROTONIX 40 MG IV IV SCH (10:50)
[2021-06-25] MEDS: Seroquel 25 MG G-TUBE SCH ×2 (10:51→21:31)
[2021-06-25] MEDS: Pepcid 20 MG G-TUBE SCH ×2 (10:51→21:30)
[2021-06-25] MEDS: Zyprexa Zydis 5 MG G-TUBE SCH (10:51)
[2021-06-25] MEDS: ENOXAPARIN SODIUM SQ SCH (17:06)
--- NOTE | 2021-06-25 18:15 | XRAY ---
Indication: Aspiration pneumonia. Comparison: June 21, 2021. Portable chest demonstrates new moderate diffuse patchy airspace disease without consolidation/large effusion. Heart not enlarged. Bony thorax intact. Comment: Preliminary interpretation made by [facility]. No critical discrepancy.
[2021-06-26] MEDS: Merrem 1 GM 1 G in Sodium Chloride 100ML MINI-BAG PLUS 100 ML IV SCH ×3 (01:21→17:01)
[2021-06-26] MEDS: Ativan 2 MG/1 ML VIAL IV PRN ×3 (01:58→13:05)
[2021-06-26 05:55] LABS: Absolute Neutrophil Ct (ANC) 8.94 (1.4-6.9); Basophil (Absolute #) 0.03 (0-0.4); Eosinophil % 4.7 % (0.00-5.0); Eosinophil (Absolute #) 0.61 (0-0.5); Hematocrit 42.7 % (42-50); Hemoglobin 12.6 gm/dl (12.5-18.0); Lymphocyte (Absolute #) 2.55 (1.0-4.6); Lymphocytes % 19.8 % (24.0-44.0); Mean Cell Volume 92.6 fl (78-100); Mean Corpuscular Hemoglobin 27.3 pg (26-32); Mean Corpuscular Hgb Concent. 29.5 g/dl (32-36); Mean Platelet Volume 9.8 fl (7.5-11.0); Monocyte (Absolute #) 0.75 (0.0-1.3); Monocytes % 5.8 % (0.0-12.0); Neutrophil % 69.5 % (36.0-66.0); Platelet Count 271 K/mm3 (150-450); Red Blood Count 4.61 M/mm3 (4.1-5.6); Red Cell Distribution Width 16.8 % (11.5-14.0); White Blood Count 12.9 K/mm3 (4.0-10.5)
[2021-06-26 06:17] LABS: ALBUMIN 2.8 g/dL (3.5-5.0); ALKALINE PHOSPHATASE 69 U/L (38-126); ANION GAP 8.8 MEQ/L (5-15); BLOOD UREA NITROGEN 17 mg/dL (9-20); CHLORIDE 113 mmol/L (98-107); Carbon Dioxide 30 mmol/L (22-30); Creatinine 1 0.86 mg/dL (0.66-1.25); EST GLOMERULAR FILTRATION RATE > 60.0 ML/MIN; Glucose 104 mg/dL (74-106); Potassium 3.1 mmol/L (3.5-5.1); SGOT/AST 36 U/L (17-59); SGPT/ALT 16 U/L (0-50); SODIUM 149 mmol/L (137-145); Total Protein 6.8 g/dL (6.3-8.2)
[2021-06-26] MEDS: Seroquel 25 MG G-TUBE SCH ×2 (09:19→22:21)
[2021-06-26] MEDS: PROTONIX 40 MG IV IV SCH (09:19)
[2021-06-26] MEDS: Pepcid 20 MG G-TUBE SCH ×2 (09:19→22:21)
[2021-06-26] MEDS: ENOXAPARIN SODIUM SQ SCH (09:19)
[2021-06-26] MEDS: Zyprexa Zydis 5 MG G-TUBE SCH (09:20)
[2021-06-26] MEDS: Miralax Powder 17GM PACKET G-TUBE SCH (09:20)
--- NOTE | 2021-06-26 13:04 | PCM.NOTE ---
Date and Time: 06/26/21 1259 Subjective Assessment: Pt is having some yelling and agitation on ativan; is geting it IV but previously got per PEG tube and was doing better, per staff. Continues to have izaguirre. - Review of Systems All Other Systems: Unable due to condition Objective Exam General Appearance: no apparent distress, other (sleeping intially; wakes to voice) Neurologic Exam: other (He is awake, seems to look directly at people at times, has some words but they are slurred and hard to understand.) Skin Exam: warm, dry, No rash Eye Exam: No scleral icterus Neck Exam: normal inspection Respiratory Exam: lungs clear, diminished breath sounds, rhonchi (scattered), No crackles/rales, No wheezing Cardiovascular Exam: regular rate/rhythm, normal heart sounds, No murmur Gastrointestinal/Abdomen Exam: soft, normal bowel sounds, No tenderness, No distention, No mass, No guarding, No rebound Extremity Exam: No pedal edema, No swelling Back Exam: normal inspection, No rash OBJECTIVE DATA Vital Signs: Vital Signs - 24 hr Temp Pulse Resp BP Pulse Ox 06/26/21 11:44 98.1 F 104 H 16 131/66 94 L 06/26/21 07:53 98.3 F 101 H 16 99/66 94 L 06/26/21 07:22 104 H 20 96 06/25/21 23:45 98.6 F 110 H 18 110/68 95 06/25/21 19:55 107 H 16 96 06/25/21 19:16 98.9 F 106 H 17 120/76 06/25/21 16:00 98.2 F 90 18 92/51 92 L Pain Assessment - Last Documented Pain Intensity 0 Intake and Output: Intake & Output 06/24/21 06/25/21 06/26/21 06/27/21 11:59 11:59 11:59 11:59 Intake Total 2659 3409 898 Output Total 2200 2800 3300 Balance 459 609 -2402 Lab Results: Lab Results-Last 24 Hours 06/26/21 06/26/21 Range/Units 05:51 05:51 WBC 12.9 H (4.0-10.5) K/mm3 RBC 4.61 (4.1-5.6) M/mm3 Hgb 12.6 (12.5-18.0) gm/dl Hct 42.7 (42-50) % MCV 92.6 (78-100) fl MCH 27.3 (26-32) pg MCHC 29.5 L (32-36) g/dl RDW 16.8 H (11.5-14.0) % Plt Count 271 (150-450) K/mm3 MPV 9.8 (7.5-11.0) fl Gran % 69.5 H (36.0-66.0) % Eos # (Auto) 0.61 H (0-0.5) Absolute Lymphs (auto) 2.55 (1.0-4.6) Absolute Monos (auto) 0.75 (0.0-1.3) Lymphocytes % 19.8 L (24.0-44.0) % Monocytes % 5.8 (0.0-12.0) % Eosinophils % 4.7 (0.00-5.0) % Basophils % 0.2 (0.0-0.4) % Absolute Granulocytes 8.94 H (1.4-6.9) Basophils # 0.03 (0-0.4) Sodium 149 H (137-145) mmol/L Potassium 3.1 L (3.5-5.1) mmol/L Chloride 113 H (98-107) mmol/L Carbon Dioxide 30 (22-30) mmol/L Anion Gap 8.8 (5-15) MEQ/L BUN 17 (9-20) mg/dL Creatinine 0.86 (0.66-1.25) mg/dL Estimated GFR > 60.0 ML/MIN Glucose 104 (74-106) mg/dL Calcium 8.0 L (8.4-10.2) mg/dL Total Bilirubin 0.50 (0.2-1.3) mg/dL AST 36 (17-59) U/L ALT 16 (0-50) U/L Alkaline Phosphatase 69 (38-126) U/L Serum Total Protein 6.8 (6.3-8.2) g/dL Albumin 2.8 L (3.5-5.0) g/dL Radiology Exams: Radiology Procedures Category Date Time Status Portable Chest [CHEST 1 VIEW (PORTABLE)] Urgent Exams 06/25/21 09:37 Completed Multi-Disciplinary Progress Notes: Multi-Disciplinary Progress Notes 06/25/21 20:51 Nutrition Note by Magnolia Pham Note wanting pt on continuous feed. Recommend Jevity 1.2@ goal rate of 65ml/hour to provide approximately 1872 kcals and 85 gms protein. Pt remains NPO. Labs alb 2.8, Na wnl, BUN wnl. Will con't to monitor and f/u prn. T.AURELIA Pham Initialized on 06/25/21 20:51 - END OF NOTE Assessment/Plan (1) Aspiration pneumonia Current Visit: Yes Status: Acute Qualifiers: Aspiration pneumonia type: unspecified Laterality: bilateral Lung location: unspecified part of lung Qualified Code(s): J69.0 - Pneumonitis due to inhalation of food and vomit Assessment & Plan: On day #2 merrem. Code(s): J69.0 - PNEUMONITIS DUE TO INHALATION OF FOOD AND VOMIT (2) Hypokalemia Current Visit: Yes Status: Acute Assessment & Plan: Will give K+ via PEG tube. Code(s): E87.6 - HYPOKALEMIA (3) Hypernatremia Current Visit: Yes Status: Acute Assessment & Plan: May need more free water via PEG. recheck in a.m. Code(s): E87.0 - HYPEROSMOLALITY AND HYPERNATREMIA (4) Dementia Current Visit: Yes Status: Chronic Code(s): F03.90 - UNSPECIFIED DEMENTIA WITHOUT BEHAVIORAL DISTURBANCE (5) Altered mental status Current Visit: Yes Status: Chronic Code(s): R41.82 - ALTERED MENTAL STATUS, UNSPECIFIED (6) Urinary retention Current Visit: Yes Status: Chronic Code(s): R33.9 - RETENTION OF URINE, UNSPECIFIED
[2021-06-26] MEDS: Ativan 1 MG PEG PRN ×2 (16:46→22:22)
[2021-06-26] MEDS: Klor Con 10 MEQ PO SCH ×2 (16:46→22:21)
[2021-06-26] MEDS ORDERED: Klor Con 10 MEQ PO SCH (22:00)
[2021-06-27] MEDS: Merrem 1 GM 1 G in Sodium Chloride 100ML MINI-BAG PLUS 100 ML IV SCH ×3 (01:39→18:23)
[2021-06-27] MEDS: Ativan 1 MG PEG PRN ×2 (03:02→08:13)
[2021-06-27 04:41] LABS: Hematocrit 38.5 % (42-50); Hemoglobin 11.2 gm/dl (12.5-18.0); Mean Cell Volume 93.9 fl (78-100); Mean Corpuscular Hemoglobin 27.3 pg (26-32); Mean Corpuscular Hgb Concent. 29.1 g/dl (32-36); Mean Platelet Volume 9.8 fl (7.5-11.0); Platelet Count 263 K/mm3 (150-450); Red Cell Distribution Width 16.8 % (11.5-14.0); White Blood Count 11.8 K/mm3 (4.0-10.5)
[2021-06-27 05:20] LABS: ANION GAP 10.4 MEQ/L (5-15); BLOOD UREA NITROGEN 18 mg/dL (9-20); CHLORIDE 118 mmol/L (98-107); Calcium 8.1 mg/dL (8.4-10.2); Carbon Dioxide 27 mmol/L (22-30); Creatinine 1 0.83 mg/dL (0.66-1.25); EST GLOMERULAR FILTRATION RATE > 60.0 ML/MIN; Glucose 127 mg/dL (74-106); MAGNESIUM 2.5 mg/dL (1.6-2.3)
[2021-06-27 05:27] LABS: Potassium 3.9 mmol/L (3.5-5.1); SODIUM 151 mmol/L (137-145)
[2021-06-27 05:39] LABS: Eosinophil 7 % (0.00-3.0); Lymphocytes 29 % (24-44); Neutrophils 64 % (36.-66.); Platelet Estimate NORMAL (NORMAL); Total Cells Counted 100
[2021-06-27 05:40] LABS: Macrocytosis 1+
[2021-06-27] MEDS: Dextrose 5%/Water IV Soln. 1000 ML 1,000 ML IV SCH ×2 (06:40→17:25)
--- NOTE | 2021-06-27 08:47 | XRAY ---
Indication: Tachypnea. Comparison: June 25, 2021. Portable apical lordotic chest demonstrates minimally worsening diffuse bilateral patchy airspace disease again without consolidation/large effusion. Heart not enlarged. No new cardiopulmonary abnormalities.
--- NOTE | 2021-06-27 09:05 | PCM.NOTE ---
Date and Time: 06/27/21901 Subjective Assessment: Pt is clinically unchanged - yells out at various times, is never oriented. Receiving Gtube feeds - Review of Systems All Other Systems: Unable due to condition Objective Exam General Appearance: no apparent distress, other (awake) Neurologic Exam: other (stares into space, responds to verbal stimuli with unintelligible sounds. Spontaneously makes sounds as well.) Skin Exam: warm, dry, No rash Ears, Nose, Throat Exam: other (lips are dry) Neck Exam: normal inspection Respiratory Exam: diminished breath sounds (good air exchange), other (transmitted upper airway sounds), No crackles/rales, No rhonchi, No wheezing Cardiovascular Exam: regular rate/rhythm, normal heart sounds, No murmur Gastrointestinal/Abdomen Exam: soft, No normal bowel sounds (hypoactive but present) Extremity Exam: No pedal edema, No swelling OBJECTIVE DATA Vital Signs: Vital Signs - 24 hr Temp Pulse Resp BP Pulse Ox 06/27/21 07:36 98.9 F 104 H 18 115/86 96 06/27/21 06:47 93 L 06/27/21 04:00 99.6 F 111 H 20 112/63 96 06/27/21 00:00 99.8 F 127 H 28 H 133/82 06/26/21 20:00 98.4 F 122 H 20 142/78 94 L 06/26/21 19:30 109 H 24 98 06/26/21 16:00 97.7 F 94 H 16 124/63 94 L 06/26/21 11:44 98.1 F 104 H 16 131/66 94 L Pain Assessment - Last Documented Pain Intensity 0 Intake and Output: Intake & Output 06/24/21 06/25/21 06/26/21 06/27/21 11:59 11:59 11:59 11:59 Intake Total 2659 3409 898 1875 Output Total 2200 2800 3300 1950 Balance 236 643 -1284 -62 Lab Results: Lab Results-Last 24 Hours 06/27/21 06/27/21 Range/Units 04:35 04:35 WBC 11.8 H (4.0-10.5) K/mm3 RBC 4.10 (4.1-5.6) M/mm3 Hgb 11.2 L (12.5-18.0) gm/dl Hct 38.5 L (42-50) % MCV 93.9 (78-100) fl MCH 27.3 (26-32) pg MCHC 29.1 L (32-36) g/dl RDW 16.8 H (11.5-14.0) % Plt Count 263 (150-450) K/mm3 MPV 9.8 (7.5-11.0) fl Segmented Neutrophils 64 (36.-66.) % Lymphocytes (Manual) 29 (24-44) % Eosinophils (Manual) 7 H (0.00-3.0) % Platelet Estimate NORMAL (NORMAL) RBC Morphology ABNORMAL Macrocytosis 1+ Sodium 151 H* (137-145) mmol/L Potassium 3.9 D (3.5-5.1) mmol/L Chloride 118 H (98-107) mmol/L Carbon Dioxide 27 (22-30) mmol/L Anion Gap 10.4 (5-15) MEQ/L BUN 18 (9-20) mg/dL Creatinine 0.83 (0.66-1.25) mg/dL Estimated GFR > 60.0 ML/MIN Glucose 127 H (74-106) mg/dL Calcium 8.1 L (8.4-10.2) mg/dL Magnesium 2.5 H (1.6-2.3) mg/dL Radiology Exams: Radiology Procedures Category Date Time Status CHEST 1 VIEW (PORTABLE) Urgent Exams 06/27/21 06:20 Completed Portable Chest [CHEST 1 VIEW (PORTABLE)] Urgent Exams 06/25/21 09:37 Completed Multi-Disciplinary Progress Notes: Multi-Disciplinary Progress Notes 06/26/21 14:45 (created 06/26/21 16:16) Case Management Note by Monae Fisher PRIMARY RN NOTIFIED THAT PATIENT WILL BE RETURNING BACK TO [facility] AT TIME OF DC. [facility] HAS REQUESTED THAT THE DAUGHTER SIGN PAPERWORK PRIOR TO PATIENT ACTUALLY RETURNING THEY ARE CONCERNED SHE WON'T SIGN HIS PAPERS. DAUGHTER IS CURRENTLY WORKING ON GETTING THAT TAKEN CARE OF. PRIMARY RN AWARE Initialized on 06/26/21 16:16 - END OF NOTE 06/26/21 14:38 Case Management Note by Monae Fisher [facility] UNABLE TO TAKE PATIENT THEY DO NOT CURRENTLY HAVE ANY BEDS. HE HAS PLACED ON THE WAIT LIST. NOTIFIED DAUGHTER- ALSO NOTIFIED HER OF WHO [facility] STATED THEIR TOP COMPETITORS ARE ([employer] AND EVIE CROSSING). THIS BACKUP ADMINISTRATIVE COORDINATOR OFFERED SEVERAL TIMES TO SEND ADDITIONAL REFERRALS OUT. DAUGHTER STATES UNTIL SHE IS ABLE TO RESEARCH WHERE ELSE SHE WOULD LIKE FOR HIM TO GO SHE WOULD LIKE FOR HIM TO RETURN TO [facility]. SHE ALSO WANTS TO MAKE SURE THAT HIS FINANCIAL SITUATION WILL NOT BE HURT BY CHANGING FACILITIES AGAIN. JOANA KEPT MENTIONING "60 DAY CERTIFICATION" SHE IS UNSURE WHAT THIS IS AND UNSURE HOW IT WOULD AFFECT PAYMENT IF HE TRANSFERS BEFORE THAT TIME PERIOD. SHE STATED "THEY STARTED THIS MESS THEY CAN FINISH IT". CALLED TC AT [facility]- LEFT MESSAGE Initialized on 06/26/21 14:38 - END OF NOTE 06/26/21 13:00 Case Management Note by oMnae Fisher S/W JEFF AT [facility]- SHE AGAIN REPORTS PATIENT CAN COME BACK TO THEIR FACILITY WITHOUT ANY TROUBLE. S/W SELINA BERNARD- SHE WAS NOTIFIED SINCE THE LAST TIME WE HAD SPOKE [facility] HAS NOW STATED THEY WILL TAKE PATIENT BACK. SHE VERIFIED UNDERSTANDING. SHE STATED SHE IS LOOKING INTO [facility] SHE HAS A FAMILY MEMBER THAT WORKS THERE BUT HAS NOT BEEN ABLE TO MAKE ANY PHONE CALLS TO CHECK ON THAT. SHE IS AGREEABLE FOR PATIENT TO GO TO [facility] UNTIL SHE IS ABLE TO DECIDE IF SHE WOULD LIKE PATIENT TO GO [facility] OR A DIFFERENT FACILITY. I THEN RECIEVED A FRANTIC CALL FROM JOANA AGAIN STATING THAT SHE JUST GOT OFF THE PHONE WITH LAKISHA AT [facility] AND SHE STATED THAT PATIENT NEEDS TO GO TO [facility] INSTEAD OF BACK TO THEM. DAUGHTER FRANTIC SHE FEELS THAT AGAIN [facility] IS REFUSING TO TAKE PATIENT BACK I CALLED TC AT [facility]- SHE REPORTS THAT DAUGHTER CAME THIS WEEKEND AND REMOVED ALL OF PATIENT'S BELONGINGS AND STATED HE WAS NOT COMING BACK. I STATED I FELT LIKE THIS WAS D/T THE LAST THING SHE KNEW WAS THAT [facility] HAD REFUSED TO TAKE HIM BACK. TC STATED DAUGHTER KEEPS STATING ON THE PHONE THAT SHE DOES NOT WANT HIM BACK AT [facility] AND SHE IS THREATENING TO [facility] THEM AND STAFF MEMBERS. I NOTIFIED HER THAT WHAT I WAS TOLD BY JOANA WAS THAT UNTIL SHE COULD LOOK FURTHER INTO [facility] SHE WOULD LIKE PATIENT TO RETURN TO [facility] IN THE MEAN TIME. TC NOTED THEY ARE AFRAID DAUGHTER WILL NOT SIGN THEIR ADMISSION PAPERS SHE HAS KEPT REPORTEDLY SAYING SHE DOES NOT WANT HIM AT THEIR FACILITY. I CALLED JOANA- I ASKED HER IF SHE WOULD LIKE FOR ME TO GO [place] AND START THE REFERRAL FOR [facility] NOW [facility] D/T ONGOING ISSUES. SHE AGREED. SHE STATED IF [facility] WILL TAKE THE PATIENT SHE WOULD PREFER FOR HIM TO GO THERE. HOWEVER IF [facility] DECLINES PATIENT SHE WOULD LIKE PATIENT TO RETURN TO [facility] UNTIL SHE CAN DECIDE WHERE ELSE SHE WOULD LIKE FOR HIM TO GO SHE CANNOT CARE FOR HIM AT HOME. Initialized on 06/26/21 13:00 - END OF NOTE 06/26/21 12:35 Case Management Note by Monae Fisher LATE ENTRY FOR 06/23/21@2100 06/23/21@1900DELL FROM [facility] CONTACTED THIS BACKUP ADMINISTRATIVE COORDINATOR- STATED THAT THEIR [facility] HAS DENIED PATIENT. [facility] WILL NO LONGER BE ABLE TO CARE FOR PATIENT EITHER. AT THIS TIME [facility] WILL NOT TAKE PATIENT BACK. SHE STATED [facility] DID NOT FEEL PATIENT WAS STABLE FOR DC TO THEIR FACILITIES. NOTIFIED DELL THAT OUR DOCTOR WILL LIKELY APPROVE PATIENT FOR DC THIS WEEKEND WHEN HIS SODIUM HAS STABILIZED. SHE VERIFIED UNDERSTANDING AND STATED PATIENT COULD NOT RETURN TO THEIR FACILITY. WHEN QUESTIONED HOW THEY CAN NOT TAKE THEIR OWN PATIENT BACK AFTER A DOCTOR NOTED THEY ARE STABLE- DELL NOTED THAT [facility] HAD ALREADY BEEN DCD FROM THEIR FACILITY. I NOTIFIED DELL THAT CASE MANAGEMENT WOULD CONTACT [facility] AND THE LOCATED WITHIN [facility] ON SATURDAY THEY CAN NOT LEGALLY DO THAT. SHE VERIFIED UNDERSTANDING @1929-THIS NURSE THEN CALLED BACKUP ADMINISTRATIVE COORDINATOR Catie JUAREZ TO DISCUSS CASE @1934- I NOTIFIED PATIENT'S DAUGHTER JOANA THAT [facility] IS CURRENTLY REFUSING TO ALLOW PATIENT TO RETURN TO THEIR FACILITY THEY FEEL HE IS TOO MUCH CARE FOR THEIR FACILITY. NOTIFIED THAT CURRENTLY WE WILL PLAN TO KEEP PATIENT AT OUR FACILITY UNTIL SATURDAY WHEN WE CAN FOLLOW THE [employer] TO ADDRESS THE ISSUE. SHE VERIFIED UNDERSTANDING. @1949- [facility] FROM [facility] CALL[facility]- SHE STATED SHE HAS TALKED TO TC AND THEIR [employer] CHAIN OF COMMAND AND THEY WILL TAKE PATIENT BACK TO THEIR [place] FACILITY. THEY RECOGNIZE THAT THEY CAN NOT REFUSE TO TAKE PATIENT BACK. SHE REPORTS IF THEY ARE NOT ABLE TO APPROPRIATELY TO CARE FOR PATIENT THEY WILL WORK WITH THE DAUGHTER TO GET HIM TRANSFERRED5 TO A DIFFERENT FACILITY. @2004- S/W Catie JUAREZ- UPDATED ON SITUATION. WILL WAIT UNTIL SATURDAY TO SEND PATIENT BACK TO [facility] TO BE THERE ARE NO FURTHER PROBLEMS SINCE NOW WE ARE INTO THE WEEKEND AND ADMINISTRATIVE STAFF WILL NOT BE PRESENT. WILL WAIT TO UPDATE DAUGHTER AGAIN UNTIL WE KNOW FOR SURE THE PLAN ON SATURDAY. Initialized on 06/26/21 12:35 - END OF NOTE Assessment/Plan (1) Aspiration pneumonia Current Visit: Yes Status: Acute Qualifiers: Aspiration pneumonia type: unspecified Laterality: bilateral Lung location: unspecified part of lung Qualified Code(s): J69.0 - Pneumonitis due to inhalation of food and vomit Assessment & Plan: on meropenem day #3. He was more tachypneic and tachycardic at times yesterday, so I repeated the CXR ,w hich showed minimal worsening. Added duonebs. Code(s): J69.0 - PNEUMONITIS DUE TO INHALATION OF FOOD AND VOMIT (2) Hypokalemia Current Visit: Yes Status: Acute Code(s): E87.6 - HYPOKALEMIA (3) Hypernatremia Current Visit: Yes Status: Acute Assessment & Plan: Worse today, so I started pt on D5W. recheck at 11:30 a.m. Code(s): E87.0 - HYPEROSMOLALITY AND HYPERNATREMIA (4) Dementia Current Visit: Yes Status: Chronic Code(s): F03.90 - UNSPECIFIED DEMENTIA WITHOUT BEHAVIORAL DISTURBANCE (5) Altered mental status Current Visit: Yes Status: Chronic Qualifiers: Altered mental status type: unspecified Qualified Code(s): R41.82 - Altered mental status, unspecified Code(s): R41.82 - ALTERED MENTAL STATUS, UNSPECIFIED (6) Urinary retention Current Visit: Yes Status: Chronic Code(s): R33.9 - RETENTION OF URINE, UNSPECIFIED
[2021-06-27] MEDS: PROTONIX 40 MG IV IV SCH (10:16)
[2021-06-27] MEDS: Pepcid 20 MG G-TUBE SCH ×2 (10:18→21:34)
[2021-06-27] MEDS: Klor Con 10 MEQ PO SCH ×2 (10:18→21:34)
[2021-06-27] MEDS: Zyprexa Zydis 5 MG G-TUBE SCH (10:18)
[2021-06-27] MEDS: Seroquel 25 MG G-TUBE SCH ×2 (10:19→21:34)
[2021-06-27] MEDS: Miralax Powder 17GM PACKET G-TUBE SCH (10:19)
[2021-06-27] MEDS: ENOXAPARIN SODIUM SQ SCH (10:25)
[2021-06-27 11:39] LABS: ANION GAP 10.1 MEQ/L (5-15); BLOOD UREA NITROGEN 17 mg/dL (9-20); CHLORIDE 117 mmol/L (98-107); Carbon Dioxide 27 mmol/L (22-30); Creatinine 1 0.85 mg/dL (0.66-1.25); EST GLOMERULAR FILTRATION RATE > 60.0 ML/MIN; Glucose 140 mg/dL (74-106); Potassium 4.2 mmol/L (3.5-5.1)
[2021-06-27 11:52] LABS: SODIUM 150 mmol/L (137-145)
[2021-06-27] MEDS: DUONEB 0.5-3 MG/3 ml Neb IH SCH ×2 (13:16→19:50)
[2021-06-27 18:31] LABS: ANION GAP 10.8 MEQ/L (5-15); BLOOD UREA NITROGEN 16 mg/dL (9-20); CHLORIDE 115 mmol/L (98-107); Carbon Dioxide 27 mmol/L (22-30); Creatinine 1 0.82 mg/dL (0.66-1.25); EST GLOMERULAR FILTRATION RATE > 60.0 ML/MIN; Glucose 115 mg/dL (74-106); Potassium 4.4 mmol/L (3.5-5.1); SODIUM 149 mmol/L (137-145)
[2021-06-28] MEDS: Ativan 1 MG PEG PRN ×2 (02:01→14:32)
[2021-06-28] MEDS: Merrem 1 GM 1 G in Sodium Chloride 100ML MINI-BAG PLUS 100 ML IV SCH ×3 (02:05→17:00)
[2021-06-28] MEDS: DUONEB 0.5-3 MG/3 ml Neb IH SCH ×4 (05:45→19:02)
[2021-06-28] MEDS ORDERED: PHARMACY DOSING REQUIRED: VANCOMYCIN IV STA (08:39)
--- NOTE | 2021-06-28 08:46 | PCM.NOTE ---
Date and Time: 06/28/21 0840 Subjective Assessment: Required ativan x 1 last night (lost IV and was agitated when it was being replaced). Temp to 100.7 in the past 24 hours. - Review of Systems All Other Systems: Unable due to condition Objective Exam General Appearance: other (awake, but does not respond to stimuli in a purposeful manner) Skin Exam: warm, dry, No rash Eye Exam: No scleral icterus Ears, Nose, Throat Exam: dry mucous membranes, other (mouth breathing) Respiratory Exam: diminished breath sounds (good air exchange), rhonchi (scattered, v transmitted upper airway sounds), No crackles/rales, No wheezing Cardiovascular Exam: regular rate/rhythm, normal heart sounds, No murmur Gastrointestinal/Abdomen Exam: soft, other (g-tube site without erythema or exudate), No normal bowel sounds (hypoactive but present) Extremity Exam: No pedal edema, No swelling OBJECTIVE DATA Vital Signs: Vital Signs - 24 hr Temp Pulse Resp BP Pulse Ox 06/28/21 07:59 97.8 F 97 H 24 143/58 92 L 06/28/21 06:55 96 H 26 H 92 L 06/28/21 04:09 99.7 F 113 H 24 120/59 93 L 06/27/21 23:45 100.7 F 115 H 22 111/57 94 L 06/27/21 19:50 112 H 24 94 L 06/27/21 19:12 99.2 F 112 H 24 106/59 94 L 06/27/21 15:44 98.9 F 110 H 18 109/58 95 06/27/21 13:32 108 H 26 H 91 L 06/27/21 12:00 98.6 F 106 H 20 106/62 96 06/27/21 09:21 108 H 24 96 Pain Assessment - Last Documented Pain Intensity 0 Intake and Output: Intake & Output 06/25/21 06/26/21 06/27/21 06/28/21 11:59 11:59 11:59 11:59 Intake Total 3409 898 1875 2536 Output Total 2800 3300 1950 1750 Balance 452 -1439 -81 424 Lab Results: Lab Results-Last 24 Hours 06/27/21 06/27/21 Range/Units 10:56 18:15 Sodium 150 H* 149 H (137-145) mmol/L Potassium 4.2 4.4 (3.5-5.1) mmol/L Chloride 117 H 115 H (98-107) mmol/L Carbon Dioxide 27 27 (22-30) mmol/L Anion Gap 10.1 10.8 (5-15) MEQ/L BUN 17 16 (9-20) mg/dL Creatinine 0.85 0.82 (0.66-1.25) mg/dL Estimated GFR > 60.0 > 60.0 ML/MIN Glucose 140 H 115 H (74-106) mg/dL Calcium 8.0 L 8.0 L (8.4-10.2) mg/dL Radiology Exams: Radiology Procedures Category Date Time Status CHEST 1 VIEW (PORTABLE) Urgent Exams 06/27/21 06:20 Completed Multi-Disciplinary Progress Notes: Multi-Disciplinary Progress Notes 06/27/21 09:34 Case Management Note by Monae Fisher REVIEWED CHART- CURRENT PLAN FOR DC- PATIENT TO RETURN TO [facility]IA [facility]BULANCE AT TIME OF DC Initialized on 06/27/21 09:34 - END OF NOTE Assessment/Plan (1) Aspiration pneumonia Current Visit: Yes Status: Acute Qualifiers: Aspiration pneumonia type: unspecified Laterality: bilateral Lung location: unspecified part of lung Qualified Code(s): J69.0 - Pneumonitis due to inhalation of food and vomit Assessment & Plan: on meropenem day #4. Added IV vancomycin, as he did have elevated temp last night. Added nebs yesterday. Could be atelectasis. Will repeat CXR. Added lactobacillus. Code(s): J69.0 - PNEUMONITIS DUE TO INHALATION OF FOOD AND VOMIT (2) Hypernatremia Current Visit: Yes Status: Acute Assessment & Plan: Persistent during this hospitalization. Asked RN to increase water flushes from 60 q6h to q3h. Stopped IV fluids; recheck Na at 6 pm today and in the morning. He must be able to maintain on the PEG tube in order to return to [place]. Code(s): E87.0 - HYPEROSMOLALITY AND HYPERNATREMIA (3) Dementia Current Visit: Yes Status: Chronic Qualifiers: Dementia type: unspecified type Dementia behavioral disturbance: with behavioral disturbance Qualified Code(s): F03.91 - Unspecified dementia with behavioral disturbance Code(s): F03.90 - UNSPECIFIED DEMENTIA WITHOUT BEHAVIORAL DISTURBANCE (4) Altered mental status Current Visit: Yes Status: Chronic Qualifiers: Altered mental status type: unspecified Qualified Code(s): R41.82 - Altered mental status, unspecified Code(s): R41.82 - ALTERED MENTAL STATUS, UNSPECIFIED (5) Urinary retention Current Visit: Yes Status: Chronic Code(s): R33.9 - RETENTION OF URINE, UNSPECIFIED
[2021-06-28] MEDS: Zyprexa Zydis 5 MG G-TUBE SCH (08:59)
[2021-06-28] MEDS: Miralax Powder 17GM PACKET G-TUBE SCH (08:59)
[2021-06-28] MEDS: Seroquel 25 MG G-TUBE SCH ×2 (08:59→21:32)
[2021-06-28] MEDS: ENOXAPARIN SODIUM SQ SCH (08:59)
[2021-06-28] MEDS: PROTONIX 40 MG IV IV SCH (08:59)
[2021-06-28] MEDS: Acidophilus TABLET PEG SCH ×3 (08:59→21:32)
[2021-06-28] MEDS: Klor Con 10 MEQ PO SCH ×2 (08:59→21:32)
[2021-06-28] MEDS: Pepcid 20 MG G-TUBE SCH ×2 (08:59→21:32)
--- NOTE | 2021-06-28 09:21 | XRAY ---
Indication: Fever. Aspiration pneumonia. Comparison: One day earlier. Portable chest again demonstrates diffuse bilateral patchy airspace disease, minimally worsened in the left upper lung. No consolidation/large effusion. Heart not enlarged. No new cardiopulmonary abnormalities.
[2021-06-28] MEDS: VANCOCIN 500 MG VIAL*** 500 MG in Sodium Chloride 100ML MINI-BAG PLUS 100 ML IV SCH ×2 (10:53→17:56)
[2021-06-28 20:01] LABS: ANION GAP 12.6 MEQ/L (5-15); BLOOD UREA NITROGEN 21 mg/dL (9-20); CHLORIDE 114 mmol/L (98-107); Calcium 7.8 mg/dL (8.4-10.2); Carbon Dioxide 25 mmol/L (22-30); Creatinine 1 0.84 mg/dL (0.66-1.25); EST GLOMERULAR FILTRATION RATE > 60.0 ML/MIN; Glucose 118 mg/dL (74-106); Potassium 4.9 mmol/L (3.5-5.1); SODIUM 146 mmol/L (137-145)
[2021-06-29] MEDS: DUONEB 0.5-3 MG/3 ml Neb IH SCH ×4 (00:35→19:23)
[2021-06-29] MEDS: Ativan 1 MG PEG PRN ×3 (01:18→15:33)
[2021-06-29] MEDS: Merrem 1 GM 1 G in Sodium Chloride 100ML MINI-BAG PLUS 100 ML IV SCH ×3 (02:40→17:34)
[2021-06-29] MEDS: VANCOCIN 500 MG VIAL*** 500 MG in Sodium Chloride 100ML MINI-BAG PLUS 100 ML IV SCH ×3 (03:18→18:19)
--- NOTE | 2021-06-29 08:50 | PCM.NOTE ---
Date and Time: 06/29/21 0845 Subjective Assessment: Today pt is alert. Speech is mostly garbled and he is very hard to understand, but he does greet me and tells me he's in [facility]. He know the year is "20--" (can't understand him fully). Denies pain. - Review of Systems All Other Systems: Unable due to condition Objective Exam General Appearance: no apparent distress, alert Neurologic Exam: cooperative, other (basically oriented) Skin Exam: warm, dry, No rash Ears, Nose, Throat Exam: dry mucous membranes Neck Exam: normal inspection Respiratory Exam: diminished breath sounds (good air exchange), No crackles/rales, No rhonchi, No wheezing Cardiovascular Exam: regular rate/rhythm, normal heart sounds, No murmur Gastrointestinal/Abdomen Exam: soft, normal bowel sounds, other (gtube present, with abdominal binder protecting it), No tenderness, No distention, No mass, No guarding, No rebound Extremity Exam: No pedal edema, No swelling OBJECTIVE DATA Vital Signs: Vital Signs - 24 hr Temp Pulse Resp BP Pulse Ox 06/29/21 07:44 98.5 F 105 H 18 118/74 94 L 06/29/21 07:34 105 H 20 95 06/29/21 04:05 99.4 F 106 H 22 128/67 93 L 06/29/21 00:35 101 H 26 H 94 L 06/28/21 23:56 98.6 F 109 H 20 101/58 94 L 06/28/21 20:00 100.2 F 116 H 24 113/70 95 06/28/21 19:17 111 H 22 90 L 06/28/21 16:00 99.1 F 112 H 22 101/59 90 L 06/28/21 12:51 116 H 24 91 L 06/28/21 12:00 99.3 F 113 H 22 135/65 94 L Pain Assessment - Last Documented Pain Intensity 0 Intake and Output: Intake & Output 06/26/21 06/27/21 06/28/21 06/29/21 11:59 11:59 11:59 11:59 Intake Total 898 1875 2536 1477 Output Total 3300 1950 1750 1825 Balance -0746 -83 886 -677 Lab Results: Lab Results-Last 24 Hours 06/28/21 Range/Units 19:46 Sodium 146 H (137-145) mmol/L Potassium 4.9 (3.5-5.1) mmol/L Chloride 114 H (98-107) mmol/L Carbon Dioxide 25 (22-30) mmol/L Anion Gap 12.6 (5-15) MEQ/L BUN 21 H (9-20) mg/dL Creatinine 0.84 (0.66-1.25) mg/dL Estimated GFR > 60.0 ML/MIN Glucose 118 H (74-106) mg/dL Calcium 7.8 L (8.4-10.2) mg/dL Radiology Exams: Radiology Procedures Category Date Time Status CHEST 1 VIEW (PORTABLE) Urgent Exams 06/28/21 08:44 Completed Multi-Disciplinary Progress Notes: Multi-Disciplinary Progress Notes 06/28/21 10:39 Case Management Note by Monae Fisher REVIEWED CHART- NO CHANGE IN DC PLANS AT THIS TIME. PATIENT TO RETURN TO [facility] AT TIME OF DC Initialized on 06/28/21 10:39 - END OF NOTE Assessment/Plan (1) Aspiration pneumonia Current Visit: Yes Status: Acute Qualifiers: Aspiration pneumonia type: unspecified Laterality: bilateral Lung location: unspecified part of lung Qualified Code(s): J69.0 - Pneumonitis due to inhalation of food and vomit Assessment & Plan: Added vancomycin yesterday due to fever the previous night. Now vancomycin day #2 and merrem day #5. His CXR was minimally worsened yesterday. It is thought that initially his bolus feeds may have led to the aspiration. His HOB is always elevated now. He is NPO. Checking WBC this morning. Clinically he is better this morning. May be able to discharge to custodial tomorrow. Code(s): J69.0 - PNEUMONITIS DUE TO INHALATION OF FOOD AND VOMIT (2) Hypernatremia Current Visit: Yes Status: Acute Assessment & Plan: Was improved yesterday afternoon after doubling the frequency of his flushes per Gtube. rechecking this morning. Code(s): E87.0 - HYPEROSMOLALITY AND HYPERNATREMIA (3) Dementia Current Visit: Yes Status: Chronic Qualifiers: Dementia type: unspecified type Dementia behavioral disturbance: with behavioral disturbance Qualified Code(s): F03.91 - Unspecified dementia with behavioral disturbance Code(s): F03.90 - UNSPECIFIED DEMENTIA WITHOUT BEHAVIORAL DISTURBANCE (4) Altered mental status Current Visit: Yes Status: Resolved Qualifiers: Altered mental status type: unspecified Qualified Code(s): R41.82 - Altered mental status, unspecified Code(s): R41.82 - ALTERED MENTAL STATUS, UNSPECIFIED (5) Urinary retention Current Visit: Yes Status: Chronic Code(s): R33.9 - RETENTION OF URINE, UNSPECIFIED
[2021-06-29 09:00] LABS: Hematocrit 39.6 % (42-50); Hemoglobin 11.5 gm/dl (12.5-18.0); Mean Cell Volume 94.5 fl (78-100); Mean Corpuscular Hemoglobin 27.4 pg (26-32); Mean Platelet Volume 10.7 fl (7.5-11.0); Platelet Count 261 K/mm3 (150-450); Red Blood Count 4.19 M/mm3 (4.1-5.6); Red Cell Distribution Width 16.9 % (11.5-14.0); White Blood Count 14.1 K/mm3 (4.0-10.5)
[2021-06-29] MEDS: Pepcid 20 MG G-TUBE SCH ×2 (09:02→22:12)
[2021-06-29] MEDS: Seroquel 25 MG G-TUBE SCH ×2 (09:02→22:12)
[2021-06-29] MEDS: Zyprexa Zydis 5 MG G-TUBE SCH (09:02)
[2021-06-29] MEDS: Klor Con 10 MEQ PO SCH ×2 (09:02→22:30)
[2021-06-29] MEDS: Acidophilus TABLET PEG SCH ×3 (09:02→22:12)
[2021-06-29 09:38] LABS: ANION GAP 12.8 MEQ/L (5-15); BLOOD UREA NITROGEN 21 mg/dL (9-20); CHLORIDE 116 mmol/L (98-107); Carbon Dioxide 24 mmol/L (22-30); Creatinine 1 0.77 mg/dL (0.66-1.25); EST GLOMERULAR FILTRATION RATE > 60.0 ML/MIN; Glucose 108 mg/dL (74-106); Potassium 5.1 mmol/L (3.5-5.1); SODIUM 147 mmol/L (137-145)
[2021-06-29] MEDS: ENOXAPARIN SODIUM SQ SCH (10:23)
[2021-06-29] MEDS: PROTONIX 40 MG IV IV SCH (10:23)
[2021-06-29] MEDS ORDERED: TROUGH DRUG LEVELS IJ ONE (10:30)
[2021-06-29] MEDS: Miralax Powder 17GM PACKET G-TUBE SCH (10:38)
[2021-06-30] MEDS: DUONEB 0.5-3 MG/3 ml Neb IH SCH ×4 (01:54→18:52)
[2021-06-30] MEDS: Merrem 1 GM 1 G in Sodium Chloride 100ML MINI-BAG PLUS 100 ML IV SCH ×3 (03:23→17:09)
[2021-06-30] MEDS: VANCOCIN 500 MG VIAL*** 500 MG in Sodium Chloride 100ML MINI-BAG PLUS 100 ML IV SCH ×3 (03:59→21:04)
[2021-06-30] MEDS: Ativan 1 MG PEG PRN ×3 (06:32→17:15)
[2021-06-30 07:34] LABS: Absolute Neutrophil Ct (ANC) 8.28 (1.4-6.9); Basophil (Absolute #) 0.04 (0-0.4); Eosinophil % 6.4 % (0.00-5.0); Eosinophil (Absolute #) 0.77 (0-0.5); Hematocrit 39.5 % (42-50); Hemoglobin 11.4 gm/dl (12.5-18.0); Lymphocyte (Absolute #) 2.34 (1.0-4.6); Lymphocytes % 19.4 % (24.0-44.0); Mean Cell Volume 95.6 fl (78-100); Mean Corpuscular Hemoglobin 27.6 pg (26-32); Mean Corpuscular Hgb Concent. 28.9 g/dl (32-36); Mean Platelet Volume 11.4 fl (7.5-11.0); Monocyte (Absolute #) 0.66 (0.0-1.3); Monocytes % 5.5 % (0.0-12.0); Neutrophil % 68.4 % (36.0-66.0); Platelet Count 261 K/mm3 (150-450); Red Blood Count 4.13 M/mm3 (4.1-5.6); Red Cell Distribution Width 17.1 % (11.5-14.0); White Blood Count 12.1 K/mm3 (4.0-10.5)
[2021-06-30 07:51] LABS: BLOOD UREA NITROGEN 22 mg/dL (9-20); CHLORIDE 117 mmol/L (98-107); Calcium 8.1 mg/dL (8.4-10.2); Carbon Dioxide 26 mmol/L (22-30); Creatinine 1 0.73 mg/dL (0.66-1.25); EST GLOMERULAR FILTRATION RATE > 60.0 ML/MIN; Glucose 115 mg/dL (74-106); Potassium 4.2 mmol/L (3.5-5.1)
[2021-06-30 08:22] LABS: Lymphocytes 17 % (24-44); Neutrophils 67 % (36.-66.); Total Cells Counted 100
[2021-06-30 08:24] LABS: Eosinophil 7 % (0.00-3.0); Monocyte 9 % (0.0-12.0); Platelet Estimate NORMAL (NORMAL); Polychromasia 1+
[2021-06-30 08:25] LABS: ANISOCYTOSIS 1+; SODIUM 150 mmol/L (137-145)
--- NOTE | 2021-06-30 08:45 | PCM.NOTE ---
Date and Time: 06/30/21 0843 Subjective Assessment: patient agitated and fighting me, won't let me listen to his lungs. unable to understand his speech but he is alert. per staff breath sounds are coarse Objective Exam General Appearance: mild distress Neurologic Exam: alert, No cooperative Respiratory Exam: rhonchi Cardiovascular Exam: regular rate/rhythm, normal heart sounds Gastrointestinal/Abdomen Exam: soft, No tenderness, No mass OBJECTIVE DATA Vital Signs: Vital Signs - 24 hr Temp Pulse Resp BP Pulse Ox 06/30/21 08:00 97.8 F 93 H 20 91/65 97 06/30/21 07:17 76 20 97 06/30/21 04:20 97.8 F 95 H 19 99/57 94 L 06/30/21 01:55 98 H 20 92 L 06/29/21 23:34 98.4 F 97 H 22 117/58 93 L 06/29/21 19:39 99.0 F 101 H 21 93/57 94 L 06/29/21 19:23 102 H 22 94 L 06/29/21 16:24 116 H 18 95 06/29/21 16:00 98.5 F 116 H 18 154/72 95 06/29/21 12:00 98.9 F 106 H 18 111/56 94 L Pain Assessment - Last Documented Pain Intensity 0 Intake and Output: Intake & Output 06/27/21 06/28/21 06/29/21 06/30/21 11:59 11:59 11:59 11:59 Intake Total 1875 2536 1477 2067 Output Total 4534 1750 1825 1850 Balance -75 786 -348 217 Lab Results: Lab Results-Last 24 Hours 06/29/21 06/29/21 06/29/21 Range/Units 08:55 08:55 10:25 WBC 14.1 H (4.0-10.5) K/mm3 RBC 4.19 (4.1-5.6) M/mm3 Hgb 11.5 L (12.5-18.0) gm/dl Hct 39.6 L (42-50) % MCV 94.5 (78-100) fl MCH 27.4 (26-32) pg MCHC 29.0 L (32-36) g/dl RDW 16.9 H (11.5-14.0) % Plt Count 261 (150-450) K/mm3 MPV 10.7 (7.5-11.0) fl Gran % (36.0-66.0) % Eos # (Auto) (0-0.5) Absolute Lymphs (auto) (1.0-4.6) Absolute Monos (auto) (0.0-1.3) Lymphocytes % (24.0-44.0) % Monocytes % (0.0-12.0) % Eosinophils % (0.00-5.0) % Basophils % (0.0-0.4) % Absolute Granulocytes (1.4-6.9) Segmented Neutrophils (36.-66.) % Lymphocytes (Manual) (24-44) % Monocytes (Manual) (0.0-12.0) % Eosinophils (Manual) (0.00-3.0) % Basophils # (0-0.4) Platelet Estimate (NORMAL) RBC Morphology Polychromasia Anisocytosis Sodium 147 H (137-145) mmol/L Potassium 5.1 (3.5-5.1) mmol/L Chloride 116 H (98-107) mmol/L Carbon Dioxide 24 (22-30) mmol/L Anion Gap 12.8 (5-15) MEQ/L BUN 21 H (9-20) mg/dL Creatinine 0.77 (0.66-1.25) mg/dL Estimated GFR > 60.0 ML/MIN Glucose 108 H (74-106) mg/dL Calcium 8.0 L (8.4-10.2) mg/dL Vancomycin Trough 12.30 (10-20) ug/mL 06/30/21 06/30/21 Range/Units 07:20 07:20 WBC 12.1 H (4.0-10.5) K/mm3 RBC 4.13 (4.1-5.6) M/mm3 Hgb 11.4 L (12.5-18.0) gm/dl Hct 39.5 L (42-50) % MCV 95.6 (78-100) fl MCH 27.6 (26-32) pg MCHC 28.9 L (32-36) g/dl RDW 17.1 H (11.5-14.0) % Plt Count 261 (150-450) K/mm3 MPV 11.4 H (7.5-11.0) fl Gran % 68.4 H (36.0-66.0) % Eos # (Auto) 0.77 H (0-0.5) Absolute Lymphs (auto) 2.34 (1.0-4.6) Absolute Monos (auto) 0.66 (0.0-1.3) Lymphocytes % 19.4 L (24.0-44.0) % Monocytes % 5.5 (0.0-12.0) % Eosinophils % 6.4 H (0.00-5.0) % Basophils % 0.3 (0.0-0.4) % Absolute Granulocytes 8.28 H (1.4-6.9) Segmented Neutrophils 67 H (36.-66.) % Lymphocytes (Manual) 17 L (24-44) % Monocytes (Manual) 9 (0.0-12.0) % Eosinophils (Manual) 7 H (0.00-3.0) % Basophils # 0.04 (0-0.4) Platelet Estimate NORMAL (NORMAL) RBC Morphology ABNORMAL Polychromasia 1+ Anisocytosis 1+ Sodium 150 H* (137-145) mmol/L Potassium 4.2 (3.5-5.1) mmol/L Chloride 117 H (98-107) mmol/L Carbon Dioxide 26 (22-30) mmol/L Anion Gap 11.0 (5-15) MEQ/L BUN 22 H (9-20) mg/dL Creatinine 0.73 (0.66-1.25) mg/dL Estimated GFR > 60.0 ML/MIN Glucose 115 H (74-106) mg/dL Calcium 8.1 L (8.4-10.2) mg/dL Vancomycin Trough (10-20) ug/mL Radiology Exams: Radiology Procedures Category Date Time Status CHEST 1 VIEW (PORTABLE) Urgent Exams 06/28/21 08:44 Completed Multi-Disciplinary Progress Notes: Multi-Disciplinary Progress Notes 06/29/21 10:31 Case Management Note by Monae Fisher FROM [facility] CALLED FOR UPDATE. NO CHANGE IN DC PLANS. PATIENT TO RETURN TO [facility] AT TIME OF DC Initialized on 06/29/21 10:31 - END OF NOTE Assessment/Plan (1) Aspiration pneumonia Current Visit: Yes Status: Acute Qualifiers: Aspiration pneumonia type: unspecified Laterality: bilateral Lung location: unspecified part of lung Qualified Code(s): J69.0 - Pneumonitis due to inhalation of food and vomit Assessment & Plan: on vanc and meropenem, wbc improved and seems to be improving clinically to some degree Code(s): J69.0 - PNEUMONITIS DUE TO INHALATION OF FOOD AND VOMIT (2) Hypernatremia Current Visit: Yes Status: Acute Assessment & Plan: adding hypotonic fluids at 50ml/hr today, will repeat bmp tomorrow. back to ecf when sodium normalized most likely Code(s): E87.0 - HYPEROSMOLALITY AND HYPERNATREMIA
[2021-06-30] MEDS: Dextrose 5%-1/4NS IV Soln. 1000 ML 1,000 ML IV SCH (09:44)
[2021-06-30] MEDS: Acidophilus TABLET PEG SCH ×3 (09:48→22:17)
[2021-06-30] MEDS: ENOXAPARIN SODIUM SQ SCH (09:50)
[2021-06-30] MEDS: Pepcid 20 MG G-TUBE SCH ×2 (09:50→22:16)
[2021-06-30] MEDS: Zyprexa Zydis 5 MG G-TUBE SCH (09:50)
[2021-06-30] MEDS: Seroquel 25 MG G-TUBE SCH ×2 (09:50→22:16)
[2021-06-30] MEDS: Miralax Powder 17GM PACKET G-TUBE SCH (09:51)
[2021-06-30] MEDS: PROTONIX 40 MG IV IV SCH (09:51)
[2021-06-30] MEDS: Klor Con 10 MEQ PO SCH ×2 (10:27→22:16)
[2021-07-01] MEDS: Ativan 1 MG PEG PRN ×2 (00:45→22:03)
[2021-07-01] MEDS: DUONEB 0.5-3 MG/3 ml Neb IH SCH ×4 (00:50→19:25)
[2021-07-01] MEDS: Merrem 1 GM 1 G in Sodium Chloride 100ML MINI-BAG PLUS 100 ML IV SCH (01:55)
[2021-07-01] MEDS: VANCOCIN 500 MG VIAL*** 500 MG in Sodium Chloride 100ML MINI-BAG PLUS 100 ML IV SCH ×3 (03:37→18:27)
[2021-07-01 06:33] LABS: ANION GAP 12.8 MEQ/L (5-15); BLOOD UREA NITROGEN 19 mg/dL (9-20); CHLORIDE 117 mmol/L (98-107); Carbon Dioxide 24 mmol/L (22-30); Creatinine 1 0.67 mg/dL (0.66-1.25); EST GLOMERULAR FILTRATION RATE > 60.0 ML/MIN; Glucose 116 mg/dL (74-106); Potassium 4.2 mmol/L (3.5-5.1); SODIUM 149 mmol/L (137-145)
[2021-07-01 07:05] LABS: Hematocrit 37.7 % (42-50); Hemoglobin 11.1 gm/dl (12.5-18.0); Mean Cell Volume 94.5 fl (78-100); Mean Corpuscular Hemoglobin 27.8 pg (26-32); Mean Corpuscular Hgb Concent. 29.4 g/dl (32-36); Mean Platelet Volume 10.7 fl (7.5-11.0); Platelet Count 298 K/mm3 (150-450); Red Blood Count 3.99 M/mm3 (4.1-5.6); Red Cell Distribution Width 16.8 % (11.5-14.0); White Blood Count 12.6 K/mm3 (4.0-10.5)
[2021-07-01 09:07] LABS: Eosinophil 2 % (0.00-3.0); Lymphocytes 12 % (24-44); Monocyte 2 % (0.0-12.0); Neutrophils 84 % (36.-66.); Platelet Estimate NORMAL (NORMAL); Total Cells Counted 100; Toxic Granulation 1+
[2021-07-01 09:08] LABS: ANISOCYTOSIS 1+
--- NOTE | 2021-07-01 09:58 | PCM.NOTE ---
Date and Time: 07/01/2156 Subjective Assessment: still c/o cough - Review of Systems Constitutional: No Fever, No Chills Eyes: No Symptoms Ears, Nose, & Throat: No Symptoms Respiratory: No Cough, No Short Of Breath Cardiac: No Chest Pain, No Edema, No Syncope Abdominal/Gastrointestinal: No Abdominal Pain, No Nausea, No Vomiting, No Diarrhea Genitourinary Symptoms: No Dysuria Musculoskeletal: No Back Pain, No Neck Pain Skin: No Rash Neurological: No Dizziness, No Focal Weakness, No Sensory Changes Psychological: No Symptoms Endocrine: No Symptoms Hematologic/Lymphatic: No Symptoms Immunological/Allergic: No Symptoms Objective Exam General Appearance: no apparent distress, alert Neurologic Exam: alert, oriented x 3, cooperative, normal mood/affect, nml cerebellar function, sensation nml, No motor deficits Skin Exam: normal color, warm, dry Eye Exam: PERRL, EOMI, eyes nml inspection Ears, Nose, Throat Exam: normal ENT inspection, pharynx normal, moist mucous membranes Neck Exam: normal inspection, non-tender, supple, full range of motion Respiratory Exam: diminished breath sounds, crackles/rales, rhonchi, wheezing, No respiratory distress Cardiovascular Exam: regular rate/rhythm, normal heart sounds Gastrointestinal/Abdomen Exam: soft, No tenderness, No mass Extremity Exam: normal inspection, normal range of motion Back Exam: normal inspection, normal range of motion, No CVA tenderness, No vertebral tenderness Male Genitalia Exam: deferred Rectal Exam: deferred OBJECTIVE DATA Vital Signs: Vital Signs - 24 hr Temp Pulse Resp BP Pulse Ox 07/01/21 08:00 97.5 F 110 H 22 105/54 96 07/01/21 07:17 96 07/01/21 05:00 100.5 F 112 H 22 122/88 94 L 07/01/21 01:05 104 H 22 96 07/01/21 01:00 98.7 F 104 H 22 103/58 96 06/30/21 21:07 98.1 F 112 H 18 128/71 90 L 06/30/21 18:52 109 H 20 91 L 06/30/21 16:00 18 130/76 94 L 06/30/21 14:00 84 20 94 L 06/30/21 12:00 98.9 F 99 H 20 87/55 94 L Pain Assessment - Last Documented Pain Intensity 0 Intake and Output: Intake & Output 06/28/21 06/29/21 06/30/21 07/01/21 11:59 11:59 11:59 11:59 Intake Total 2536 1477 2067 3592 Output Total 1750 1825 1850 3300 Balance 786 -348 217 292 Lab Results: Lab Results-Last 24 Hours 07/01/21 07/01/21 Range/Units 05:30 05:30 WBC 12.6 H (4.0-10.5) K/mm3 RBC 3.99 L (4.1-5.6) M/mm3 Hgb 11.1 L (12.5-18.0) gm/dl Hct 37.7 L (42-50) % MCV 94.5 (78-100) fl MCH 27.8 (26-32) pg MCHC 29.4 L (32-36) g/dl RDW 16.8 H (11.5-14.0) % Plt Count 298 (150-450) K/mm3 MPV 10.7 (7.5-11.0) fl Segmented Neutrophils 84 H (36.-66.) % Lymphocytes (Manual) 12 L (24-44) % Monocytes (Manual) 2 (0.0-12.0) % Eosinophils (Manual) 2 (0.00-3.0) % Toxic Granulation 1+ Platelet Estimate NORMAL (NORMAL) RBC Morphology ABNORMAL Anisocytosis 1+ Sodium 149 H (137-145) mmol/L Potassium 4.2 (3.5-5.1) mmol/L Chloride 117 H (98-107) mmol/L Carbon Dioxide 24 (22-30) mmol/L Anion Gap 12.8 (5-15) MEQ/L BUN 19 (9-20) mg/dL Creatinine 0.67 (0.66-1.25) mg/dL Estimated GFR > 60.0 ML/MIN Glucose 116 H (74-106) mg/dL Calcium 8.0 L (8.4-10.2) mg/dL Multi-Disciplinary Progress Notes: Multi-Disciplinary Progress Notes 06/30/21 15:18 Nutrition Note by Magnolia Pham F/u Note: Note TF of jevity 1.2 @ 65mls/hour con't. Pt appears to be tolerating feeding. Note pt agitated. Labs 06/30= Na 150, BUN 22, glu 115, hgb 11.4, hct 39.5, +fluid balance 217mls. Note pt to d/c possibly tomorrow. Will con't to monitor and f/u prn. AURELIA Samano Initialized on 06/30/21 15:18 - END OF NOTE Assessment/Plan (1) Aspiration pneumonia Current Visit: Yes Status: Acute Qualifiers: Aspiration pneumonia type: unspecified Laterality: bilateral Lung location: unspecified part of lung Qualified Code(s): J69.0 - Pneumonitis due to inhalation of food and vomit Code(s): J69.0 - PNEUMONITIS DUE TO INHALATION OF FOOD AND VOMIT (2) Hiccups Current Visit: Yes Status: Acute Code(s): R06.6 - HICCOUGH (3) Hypernatremia Current Visit: Yes Status: Acute Code(s): E87.0 - HYPEROSMOLALITY AND HYPERNATREMIA (4) Hypoalbuminemia Current Visit: Yes Status: Acute Code(s): E88.09 - OTH DISORDERS OF PLASMA- PROTEIN METABOLISM, NEC (5) Hypokalemia Current Visit: Yes Status: Acute Code(s): E87.6 - HYPOKALEMIA
[2021-07-01] MEDS: Acidophilus TABLET PEG SCH ×3 (10:01→22:03)
[2021-07-01] MEDS: Klor Con 10 MEQ PO SCH ×2 (10:01→22:03)
[2021-07-01] MEDS: ENOXAPARIN SODIUM SQ SCH (10:01)
[2021-07-01] MEDS: Pepcid 20 MG G-TUBE SCH ×2 (10:01→22:03)
[2021-07-01] MEDS: Miralax Powder 17GM PACKET G-TUBE SCH (10:01)
[2021-07-01] MEDS: Dextrose 5%-1/4NS IV Soln. 1000 ML 1,000 ML IV SCH (10:01)
[2021-07-01] MEDS: Seroquel 25 MG G-TUBE SCH ×2 (10:01→22:03)
[2021-07-01] MEDS: PROTONIX 40 MG IV IV SCH (10:01)
[2021-07-01] MEDS: Zyprexa Zydis 5 MG G-TUBE SCH (10:02)
[2021-07-02] MEDS: DUONEB 0.5-3 MG/3 ml Neb IH SCH ×2 (01:03→07:12)
[2021-07-02] MEDS: VANCOCIN 500 MG VIAL*** 500 MG in Sodium Chloride 100ML MINI-BAG PLUS 100 ML IV SCH ×2 (03:03→11:21)
[2021-07-02 07:27] VITALS: PULSE 112; O2SAT 95
--- NOTE | 2021-07-02 08:43 | PCM.NOTE ---
Date and Time: 07/02/21840 Subjective Assessment: Patient is still confused - Review of Systems Constitutional: No Fever, No Chills Eyes: No Symptoms Ears, Nose, & Throat: No Symptoms Respiratory: Cough, Wheezing, No Short Of Breath Cardiac: No Chest Pain, No Edema, No Syncope Abdominal/Gastrointestinal: No Abdominal Pain, No Nausea, No Vomiting, No Diarrhea Genitourinary Symptoms: No Dysuria Musculoskeletal: No Back Pain, No Neck Pain Skin: No Rash Neurological: No Dizziness, No Focal Weakness, No Sensory Changes Psychological: No Symptoms Endocrine: No Symptoms Hematologic/Lymphatic: No Symptoms Immunological/Allergic: No Symptoms Objective Exam General Appearance: no apparent distress, alert Neurologic Exam: alert, oriented x 3, cooperative, normal mood/affect, nml cerebellar function, sensation nml, No motor deficits Skin Exam: normal color, warm, dry Eye Exam: PERRL, EOMI, eyes nml inspection Ears, Nose, Throat Exam: normal ENT inspection, pharynx normal, moist mucous membranes Neck Exam: normal inspection, non-tender, supple, full range of motion Respiratory Exam: crackles/rales, rhonchi, wheezing, No respiratory distress Cardiovascular Exam: regular rate/rhythm, normal heart sounds Gastrointestinal/Abdomen Exam: soft, No tenderness, No mass Extremity Exam: normal inspection, normal range of motion Back Exam: normal inspection, normal range of motion, No CVA tenderness, No vertebral tenderness Male Genitalia Exam: deferred Rectal Exam: deferred OBJECTIVE DATA Vital Signs: Vital Signs - 24 hr Temp Pulse Resp BP Pulse Ox 07/02/21 07:12 112 H 21 95 07/02/21 05:00 98.0 F 113 H 24 119/57 92 L 07/02/21 01:03 113 H 21 98 07/02/21 01:00 97.7 F 115 H 24 135/65 94 L 07/01/21 21:00 100.2 F 115 H 24 126/75 94 L 07/01/21 19:25 114 H 24 92 L 07/01/21 16:00 97.5 F 76 19 117/60 96 07/01/21 14:28 100 H 18 95 07/01/21 12:00 97.1 F 106 H 19 115/55 95 Pain Assessment - Last Documented Pain Intensity 0 Intake and Output: Intake & Output 06/29/21 06/30/21 07/01/2107/02/22 11:59 11:59 11:59 11:59 Intake Total 1477 5437 3082 1755 Output Total 1827 5490 3300 1900 Balance -348 217 292 -145 Lab Results: Lab Results-Last 24 Hours 07/01/21 Range/Units 05:30 Segmented Neutrophils 84 H (36.-66.) % Lymphocytes (Manual) 12 L (24-44) % Monocytes (Manual) 2 (0.0-12.0) % Eosinophils (Manual) 2 (0.00-3.0) % Toxic Granulation 1+ Platelet Estimate NORMAL (NORMAL) RBC Morphology ABNORMAL Anisocytosis 1+ Assessment/Plan (1) Aspiration pneumonia Current Visit: Yes Status: Acute Qualifiers: Aspiration pneumonia type: unspecified Laterality: bilateral Lung location: unspecified part of lung Qualified Code(s): J69.0 - Pneumonitis due to inhalation of food and vomit Assessment & Plan: Chief Complaint Diagnosis HYPONATREMIA, ROBBI, AMS, Urinary retention Allergies Allergy/AdvReac Type Severity Reaction Status Date / Time No Known Drug Allergies Allergy Verified 06/21/21 11:36 Vital Signs (Last 24 hours) Temp Pulse Resp BP Pulse Ox 07/02/21 07:12 112 H 21 95 07/02/21 05:00 98.0 F 113 H 24 119/57 92 L 07/02/21 01:03 113 H 21 98 07/02/21 01:00 97.7 F 115 H 24 135/65 94 L 07/01/21 21:00 100.2 F 115 H 24 126/75 94 L 07/01/21 19:25 114 H 24 92 L 07/01/21 16:00 97.5 F 76 19 117/60 96 07/01/21 14:28 100 H 18 95 07/01/21 12:00 97.1 F 106 H 19 115/55 95 Home Medications Medication Instructions Recorded Confirmed Last Taken Type Acetaminophen [Acephen] 650 mg RC Q4HPRN PRN 06/21/21 06/21/21 Unknown History Famotidine 20 mg [Pepcid 20 20 mg G-TUBE BID 06/21/21 06/21/21 Unknown History MG] Lorazepam 1 mg [Ativan 1 MG] 2 mg G-TUBE Q4H/PRN PRN 06/21/21 06/21/21 Unknown History Polyethylene Glycol 3350 17 gm 17 gm G-TUBE DAILY 06/21/21 06/21/21 Unknown History [Miralax Powder 17GM PACKET] Quetiapine Fumarate 25 mg 25 mg G-TUBE BID 06/21/21 06/21/21 Unknown History [Seroquel 25 MG] Amox Tr/Potass Clav. 875 mg 875 mg PO BID 10 Days #20 tablet 06/22/21 Unknown Rx [Augmentin 875-125 Tablet] clindamycin HCL [Clindamycin HCl] 300 mg PO TID 10 Days #30 06/22/21 Unknown Rx Current Medications Generic Name Dose Route Start Last Admin Trade Name Freq PRN Reason Stop Dose Admin Acetaminophen 650 mg 06/21/21 16:38 06/28/21 02:11 Acetaminophen 650 Mg Supp.Rect RC 07/21/21 16:37 650 mg Q4HPRN PRN Administration FEVER Albuterol/Ipratropium 3 ml 06/21/21 16:38 06/27/21 09:18 Ipratropium/Albuterol Sulfate 3 Ml Ampul.Neb 07/21/21 16:37 3 ml Q4HPRN PRN Administration SHORTNESS OF BREATH/WHEEZING Albuterol/Ipratropium 3 ml 06/27/21 13:00 07/02/21 07:12 Ipratropium/Albuterol Sulfate 3 Ml Ampul.Neb 07/27/21 12:59 3 ml Q6HRT MIKE Administration Device 1 07/02/21 10:30 Therapuetic Drug Level Monitor Each IJ 07/02/21 10:31 1XONLY ONE Enoxaparin Sodium 40 mg 06/25/21 16:00 07/01/21 10:01 Enoxaparin Sodium 40 Mg/0.4 Ml Syringe SQ 07/25/21 15:59 40 mg DAILY MIKE Administration Famotidine 20 mg 06/21/21 22:00 07/01/21 22:03 Famotidine 20 Mg Tablet G-TUBE 07/21/21 21:59 20 mg BID MIKE Administration Vancomycin HCl 500 mg/ Sodium 100 mls @ 100 mls/hr 06/28/21 11:00 07/02/21 03:03 Chloride IV 07/28/21 10:59 100 mls/hr Q8H MIKE Administration Dextrose/Sodium Chloride 1,000 mls @ 50 mls/hr 06/30/21 09:00 07/01/21 10:01 Dextrose 5%-1/4ns Iv Soln. 1000 Ml IV 07/30/21 08:59 50 mls/hr .Q20H MIKE Administration Lactobacillus Acidophilus 1 tab 06/28/21 10:00 07/01/21 22:03 Lactobacillus Acidophilus 1 Tab Tablet PEG 07/28/21 09:59 1 tab TID MIKE Administration Lorazepam 2 mg 06/26/21 13:08 07/01/21 22:03 Lorazepam 1 Mg Tablet PEG 07/26/21 13:07 2 mg Q4HPRN PRN Administration INSOMNIA Olanzapine 10 mg 06/25/21 10:00 07/01/21 10:02 Olanzapine 5 Mg/Tab Orally Disintegrating G-TUBE 07/25/21 09:59 10 mg DAILY MIKE Administration Olanzapine 10 mg 06/24/21 15:07 06/26/21 22:23 Olanzapine 5 Mg/Tab Orally Disintegrating G-TUBE 07/24/21 15:06 10 mg PRN PRN Administration FOR AGITATION/PSYCHOSIS Ondansetron HCl 4 mg 06/21/21 14:57 06/24/21 01:00 Ondansetron Hcl 4 Mg/2 Ml Vial IV 07/21/21 14:56 4 mg Q6H PRN PRN Administration NAUSEA/VOMITING Pantoprazole Sodium 40 mg 06/22/21 10:00 07/01/21 10:01 Pantoprazole 40 Mg Vial IV 07/22/21 09:59 40 mg Q24H10 MIKE Administration Polyethylene Glycol 17 gm 06/22/21 10:00 07/01/21 10:01 Polyethylene Glycol 3350 17 Gm Packet G-TUBE 07/22/21 09:59 17 gm DAILY MIKE Administration Potassium Chloride 10 meq 06/26/21 17:00 07/01/21 22:03 Potassium Chloride 10 Meq Tablet PO 07/26/21 16:59 10 meq BID MIKE Administration Quetiapine Fumarate 25 mg 06/21/21 22:00 07/01/21 22:03 Quetiapine Fumarate 25 Mg Tablet G-TUBE 07/21/21 21:59 25 mg BID MIKE Administration Discontinued Medications Generic Name Dose Route Start Last Admin Trade Name Freq PRN Reason Stop Dose Admin Device 1 06/29/21 10:30 06/29/21 10:38 Therapuetic Drug Level Monitor Each IJ 06/29/21 10:31 Not Given 1XONLY ONE Sodium Chloride 1,000 mls @ 100 mls/hr 06/21/21 12:15 06/21/21 12:17 Sodium Chloride 0.9% 1000 Ml IV 07/21/21 12:14 100 mls/hr .Q10H MIKE Administration Ceftriaxone Sodium/Dextrose 1 g in 50 mls @ 100 mls/hr 06/22/21 10:00 Rocephin 1 Gm-D5w 50 Ml Bag IV 06/25/21 09:59 Q24H10 MIKE Clindamycin HCl/Dextrose 900 mg in 50 mls @ 100 mls/hr 06/21/21 13:31 06/21/21 13:42 Clindamycin-D5w 900 Mg/50 Ml IV 06/21/21 14:00 100 mls/hr STAT STA 100 mls/hr Administration Clindamycin HCl/Dextrose Confirm 06/21/21 13:41 Clindamycin-D5w 900 Mg/50 Ml Administered 06/21/21 13:42 Dose 900 mg in 50 mls @ ud IV .STK-MED ONE Sodium Chloride Confirm 06/21/21 12:16 Sodium Chloride 0.9% 1000 Ml Administered 06/21/21 12:17 Dose 1,000 mls @ ud .ROUTE .STK-MED ONE Sodium Chloride 1,000 mls @ 150 mls/hr 06/21/21 14:57 06/23/21 04:15 Sodium Chloride 0.9% 1000 Ml IV 07/21/21 14:56 150 mls/hr .Q6H40M MIKE Administration Ceftriaxone Sodium/Dextrose 1 g in 50 mls @ 100 mls/hr 06/21/21 15:30 06/24/21 10:01 Rocephin 1 Gm-D5w 50 Ml Bag IV 06/25/21 15:29 100 mls/hr Q24H10 MIKE Administration Clindamycin HCl/Dextrose 600 mg in 50 mls @ 100 mls/hr 06/21/21 22:00 06/24/21 13:39 Clindamycin-D5w 600 Mg/50 Ml IV 07/21/21 21:59 100 mls/hr Q8HT MIKE Administration Dextrose 1,000 mls @ 50 mls/hr 06/23/21 11:00 06/25/21 00:24 Dextrose 5%/Water Iv Soln. 1000 Ml IV 07/23/21 10:59 Not Given .Q20H MIKE Meropenem 1 g/ Sodium Chloride 100 mls @ 200 mls/hr 06/25/21 10:00 07/01/21 01:55 IV 07/01/21 09:59 200 mls/hr Q8H MIKE Administration Dextrose 1,000 mls @ 100 mls/hr 06/27/21 06:30 06/27/21 17:25 Dextrose 5%/Water Iv Soln. 1000 Ml IV 07/27/21 06:29 100 mls/hr .Q10H MIKE Administration Lorazepam 2 mg 06/21/21 16:38 06/24/21 07:43 Lorazepam 1 Mg Tablet G-TUBE 07/21/21 16:37 2 mg Q4H/PRN PRN Administration ANXIETY Lorazepam 1 mg 06/24/21 08:56 06/26/21 13:05 Lorazepam 2 Mg/1 Ml 2 Mg Vial IV 07/24/21 08:55 1 mg Q6H PRN PRN Administration AGITATION Non-Formulary Medication 1 each 06/25/21 09:37 06/25/21 10:47 Pharmacy Dosing Request MC 06/25/21 09:38 Not Given STAT ONE Non-Formulary Medication 1 each 06/28/21 08:39 06/28/21 09:33 Pharmacy Dose Request: Vancomycin 1 Each IV 06/28/21 08:40 1 each STAT STA Administration Olanzapine 5 mg 06/23/21 12:00 06/23/21 13:46 Olanzapine 5 Mg/Tab Orally Disintegrating PO 07/23/21 11:59 5 mg DAILY MIKE Administration Olanzapine 10 mg 06/24/21 09:00 06/24/21 09:08 Olanzapine 5 Mg/Tab Orally Disintegrating PO 06/24/21 09:01 10 mg NOW ONE Administration Olanzapine 10 mg 06/24/21 08:53 Olanzapine 5 Mg/Tab Orally Disintegrating PO 07/24/21 08:52 1100 PRN IF NEEDED FOR AGITATION Pantoprazole Sodium 40 mg 06/21/21 13:29 06/21/21 13:42 Pantoprazole 40 Mg Vial IV 06/21/21 13:30 40 mg STAT ONE Administration Pantoprazole Sodium Confirm 06/21/21 13:40 Pantoprazole 40 Mg Vial Administered 06/21/21 13:41 Dose 40 mg IV .STK-MED ONE Potassium Chloride 10 meq 06/26/21 22:00 Potassium Chloride 10 Meq Tablet PO 07/26/21 21:59 BID MIKE Intake & Output (Last 24 hours) 06/29/21 06/30/21 07/01/21 07/02/21 11:59 11:59 11:59 11:59 Intake Total 1477 2067 3592 1755 Output Total 1825 1850 3300 1900 Balance -348 217 292 -145 Laboratory Results (Last 24 hours) 07/01/21 05:30 Segmented Neutrophils 84 H Lymphocytes (Manual) 12 L Monocytes (Manual) 2 Eosinophils (Manual) 2 Toxic Granulation 1+ Platelet Estimate NORMAL RBC Morphology ABNORMAL Anisocytosis 1+ Orders (Last 24 hours) Category Date Time Status CBC W DIFF Routine Lab 07/02/21 07:12 Ordered CMP Routine Lab 07/02/21 07:13 Ordered Vancomycin, Trough Urgent Lab 07/02/21 10:30 Ordered Therapuetic Drug Level Monitor [Trough Drug Levels] Med 07/02/21 10:30 Once 1 IJ 1XONLY ONE Code(s): J69.0 - PNEUMONITIS DUE TO INHALATION OF FOOD AND VOMIT (2) Hiccups Current Visit: Yes Status: Acute Code(s): R06.6 - HICCOUGH (3) Hypernatremia Current Visit: Yes Status: Acute Code(s): E87.0 - HYPEROSMOLALITY AND HYPERNATREMIA (4) Hypoalbuminemia Current Visit: Yes Status: Acute Code(s): E88.09 - OTH DISORDERS OF PLASMA- PROTEIN METABOLISM, NEC (5) Hypokalemia Current Visit: Yes Status: Acute Code(s): E87.6 - HYPOKALEMIA
[2021-07-02] MEDS: Dextrose 5%-1/4NS IV Soln. 1000 ML 1,000 ML IV SCH (09:14)
[2021-07-02] MEDS: Miralax Powder 17GM PACKET G-TUBE SCH (09:14)
[2021-07-02] MEDS: ENOXAPARIN SODIUM SQ SCH (09:14)
[2021-07-02] MEDS: PROTONIX 40 MG IV IV SCH (09:14)
[2021-07-02] MEDS: Seroquel 25 MG G-TUBE SCH (09:14)
[2021-07-02] MEDS: Pepcid 20 MG G-TUBE SCH (09:14)
[2021-07-02] MEDS: Acidophilus TABLET PEG SCH (09:14)
[2021-07-02] MEDS: Zyprexa Zydis 5 MG G-TUBE SCH (09:14)
[2021-07-02] MEDS: Klor Con 10 MEQ PO SCH (09:14)
[2021-07-02 10:27] VITALS: BP 123/68
[2021-07-02] MEDS ORDERED: TROUGH DRUG LEVELS IJ ONE (10:30)
[2021-07-02 10:34] LABS: Hematocrit 37.2 % (42-50); Hemoglobin 10.8 gm/dl (12.5-18.0); Mean Cell Volume 94.9 fl (78-100); Mean Corpuscular Hemoglobin 27.6 pg (26-32); Mean Platelet Volume 10.8 fl (7.5-11.0); Platelet Count 301 K/mm3 (150-450); Red Blood Count 3.92 M/mm3 (4.1-5.6); Red Cell Distribution Width 16.9 % (11.5-14.0); White Blood Count 12.4 K/mm3 (4.0-10.5)
[2021-07-02 10:49] LABS: ALBUMIN 2.5 g/dL (3.5-5.0); ALKALINE PHOSPHATASE 109 U/L (38-126); ANION GAP 10.9 MEQ/L (5-15); BLOOD UREA NITROGEN 21 mg/dL (9-20); CHLORIDE 116 mmol/L (98-107); Calcium 8.1 mg/dL (8.4-10.2); Carbon Dioxide 25 mmol/L (22-30); EST GLOMERULAR FILTRATION RATE > 60.0 ML/MIN; Glucose 121 mg/dL (74-106); Potassium 4.5 mmol/L (3.5-5.1); SGOT/AST 64 U/L (17-59); SGPT/ALT 57 U/L (0-50); SODIUM 148 mmol/L (137-145); Total Protein 6.4 g/dL (6.3-8.2)
--- NOTE | 2021-07-02 11:02 | PCM.DS ---
Discharge Summary Date of Admission: 06/23/21 09:45 Admitting Physician: AWILDA CRUZ Primary Care Provider: ENVIVE Allergies Allergies No Known Drug Allergies Allergy (Verified 06/21/21 11:36) Hospital Summary - Hospital Course Hospital Course: Chief Complaint Diagnosis HYPONATREMIA, ROBBI, AMS, Urinary retention Allergies Allergy/AdvReac Type Severity Reaction Status Date / Time No Known Drug Allergies Allergy Verified 06/21/21 11:36 Vital Signs (Last 24 hours) Temp Pulse Resp BP Pulse Ox 07/02/21 08:00 97.8 F 112 H 21 123/68 95 07/02/21 07:12 112 H 21 95 07/02/21 05:00 98.0 F 113 H 24 119/57 92 L 07/02/21 01:03 113 H 21 98 07/02/21 01:00 97.7 F 115 H 24 135/65 94 L 07/01/21 21:00 100.2 F 115 H 24 126/75 94 L 07/01/21 19:25 114 H 24 92 L 07/01/21 16:00 97.5 F 76 19 117/60 96 07/01/21 14:28 100 H 18 95 07/01/21 12:00 97.1 F 106 H 19 115/55 95 Home Medications Medication Instructions Recorded Confirmed Last Taken Type Acetaminophen [Acephen] 650 mg RC Q4HPRN PRN 06/21/21 06/21/21 Unknown History Famotidine 20 mg [Pepcid 20 20 mg G-TUBE BID 06/21/21 06/21/21 Unknown History MG] Lorazepam 1 mg [Ativan 1 MG] 2 mg G-TUBE Q4H/PRN PRN 06/21/21 06/21/21 Unknown History Polyethylene Glycol 3350 17 gm 17 gm G-TUBE DAILY 06/21/21 06/21/21 Unknown History [Miralax Powder 17GM PACKET] Quetiapine Fumarate 25 mg 25 mg G-TUBE BID 06/21/21 06/21/21 Unknown History [Seroquel 25 MG] Amox Tr/Potass Clav. 875 mg 875 mg PO BID 10 Days #20 tablet 06/22/21 Unknown Rx [Augmentin 875-125 Tablet] clindamycin HCL [Clindamycin HCl] 300 mg PO TID 10 Days #30 06/22/21 Unknown Rx Current Medications Generic Name Dose Route Start Last Admin Trade Name Freq PRN Reason Stop Dose Admin Acetaminophen 650 mg 06/21/21 16:38 06/28/21 02:11 Acetaminophen 650 Mg Supp.Rect RC 07/21/21 16:37 650 mg Q4HPRN PRN Administration FEVER Albuterol/Ipratropium 3 ml 06/21/21 16:38 06/27/21 09:18 Ipratropium/Albuterol Sulfate 3 [facility] 07/21/21 16:37 3 ml Q4HPRN PRN Administration SHORTNESS OF BREATH/WHEEZING Albuterol/Ipratropium 3 ml 06/27/21 13:00 07/02/21 07:12 Ipratropium/Albuterol Sulfate 3 Ml Ampul.[facility] 07/27/21 12:59 3 ml Q6HRT MIKE Administration Enoxaparin Sodium 40 mg 06/25/21 16:00 07/02/21 09:14 Enoxaparin Sodium 40 Mg/0.4 Ml Syringe SQ 07/25/21 15:59 40 mg DAILY MIKE Administration Famotidine 20 mg 06/21/21 22:00 07/02/21 09:14 Famotidine 20 Mg Tablet G-TUBE 07/21/21 21:59 20 mg BID MIKE Administration Vancomycin HCl 500 mg/ Sodium 100 mls @ 100 mls/hr 06/28/21 11:00 07/02/21 03:03 Chloride IV 07/28/21 10:59 100 mls/hr Q8H MIKE Administration Dextrose/Sodium Chloride 1,000 mls @ 50 mls/hr 06/30/21 09:00 07/02/21 09:14 Dextrose 5%-1/4ns Iv Soln. 1000 Ml IV 07/30/21 08:59 50 mls/hr .Q20H MIKE Administration Lactobacillus Acidophilus 1 tab 06/28/21 10:00 07/02/21 09:14 Lactobacillus Acidophilus 1 Tab Tablet PEG 07/28/21 09:59 1 tab TID MIKE Administration Lorazepam 2 mg 06/26/21 13:08 07/01/21 22:03 Lorazepam 1 Mg Tablet PEG 07/26/21 13:07 2 mg Q4HPRN PRN Administration INSOMNIA Olanzapine 10 mg 06/25/21 10:00 07/02/21 09:14 Olanzapine 5 Mg/Tab Orally Disintegrating G-TUBE 07/25/21 09:59 10 mg DAILY MIKE Administration Olanzapine 10 mg 06/24/21 15:07 06/26/21 22:23 Olanzapine 5 Mg/Tab Orally Disintegrating G-TUBE 07/24/21 15:06 10 mg PRN PRN Administration FOR AGITATION/PSYCHOSIS Ondansetron HCl 4 mg 06/21/21 14:57 06/24/21 01:00 Ondansetron Hcl 4 Mg/2 Ml Vial IV 07/21/21 14:56 4 mg Q6H PRN PRN Administration NAUSEA/VOMITING Pantoprazole Sodium 40 mg 06/22/21 10:00 07/02/21 09:14 Pantoprazole 40 Mg Vial IV 07/22/21 09:59 40 mg Q24H10 MIKE Administration Polyethylene Glycol 17 gm 06/22/21 10:00 07/02/21 09:14 Polyethylene Glycol 3350 17 Gm Packet G-TUBE 07/22/21 09:59 17 gm DAILY MIKE Administration Potassium Chloride 10 meq 06/26/21 17:00 07/02/21 09:14 Potassium Chloride 10 Meq Tablet PO 07/26/21 16:59 10 meq BID MIKE Administration Quetiapine Fumarate 25 mg 06/21/21 22:00 07/02/21 09:14 Quetiapine Fumarate 25 Mg Tablet G-TUBE 07/21/21 21:59 25 mg BID MIKE Administration Discontinued Medications Generic Name Dose Route Start Last Admin Trade Name Freq PRN Reason Stop Dose Admin Device 1 06/29/21 10:30 06/29/21 10:38 Therapuetic Drug Level Monitor Each IJ 06/29/21 10:31 Not Given 1XONLY ONE Device 1 07/02/21 10:30 Therapuetic Drug Level Monitor Each IJ 07/02/21 10:31 1XONLY ONE Sodium Chloride 1,000 mls @ 100 mls/hr 06/21/21 12:15 06/21/21 12:17 Sodium Chloride 0.9% 1000 Ml IV 07/21/21 12:14 100 mls/hr .Q10H MIKE Administration Ceftriaxone Sodium/Dextrose 1 g in 50 mls @ 100 mls/hr 06/22/21 10:00 Rocephin 1 Gm-D5w 50 Ml Bag IV 06/25/21 09:59 Q24H10 MIKE Clindamycin HCl/Dextrose 900 mg in 50 mls @ 100 mls/hr 06/21/21 13:31 13:42 Clindamycin-D5w 900 Mg/50 Ml IV 06/21/21 14:00 100 mls/hr STAT STA 100 mls/hr Administration Clindamycin HCl/Dextrose Confirm 06/21/21 13:41 Clindamycin-D5w 900 Mg/50 Ml Administered 06/21/21 13:42 Dose 900 mg in 50 mls @ ud IV .STK-MED ONE Sodium Chloride Confirm 06/21/21 12:16 Sodium Chloride 0.9% 1000 Ml Administered 06/21/21 12:17 Dose 1,000 mls @ ud .ROUTE .STK-MED ONE Sodium Chloride 1,000 mls @ 150 mls/hr 06/21/21 14:57 06/23/21 04:15 Sodium Chloride 0.9% 1000 Ml IV 07/21/21 14:56 150 mls/hr .Q6H40M MIKE Administration Ceftriaxone Sodium/Dextrose 1 g in 50 mls @ 100 mls/hr 06/21/21 15:30 06/24/21 10:01 Rocephin 1 Gm-D5w 50 Ml Bag IV 06/25/21 15:29 100 mls/hr Q24H10 MIKE Administration Clindamycin HCl/Dextrose 600 mg in 50 mls @ 100 mls/hr 06/21/21 22:00 06/24/21 13:39 Clindamycin-D5w 600 Mg/50 Ml IV 07/21/21 21:59 100 mls/hr Q8HT MIKE Administration Dextrose 1,000 mls @ 50 mls/hr 06/23/21 11:00 06/25/21 00:24 Dextrose 5%/Water Iv Soln. 1000 Ml IV 07/23/21 10:59 Not Given .Q20H MIKE Meropenem 1 g/ Sodium Chloride 100 mls @ 200 mls/hr 06/25/21 10:00 07/01/21 01:55 IV 07/01/21 09:59 200 mls/hr Q8H MIKE Administration Dextrose 1,000 mls @ 100 mls/hr 06/27/21 06:30 06/27/21 17:25 Dextrose 5%/Water Iv Soln. 1000 Ml IV 07/27/21 06:29 100 mls/hr .Q10H MIKE Administration Lorazepam 2 mg 06/21/21 16:38 06/24/21 07:43 Lorazepam 1 Mg Tablet G-TUBE 07/21/21 16:37 2 mg Q4H/PRN PRN Administration ANXIETY Lorazepam 1 mg 06/24/21 08:56 06/26/21 13:05 Lorazepam 2 Mg/1 Ml 2 Mg Vial IV 07/24/21 08:55 1 mg Q6H PRN PRN Administration AGITATION Non-Formulary Medication 1 each 06/25/21 09:37 06/25/21 10:47 Pharmacy Dosing Request MC 06/25/21 09:38 Not Given STAT ONE Non-Formulary Medication 1 each 06/28/21 08:39 06/28/21 09:33 Pharmacy Dose Request: Vancomycin 1 Each IV 06/28/21 08:40 1 each STAT STA Administration Olanzapine 5 mg 06/23/21 12:00 06/23/21 13:46 Olanzapine 5 Mg/Tab Orally Disintegrating PO 07/23/21 11:59 5 mg DAILY MIKE Administration Olanzapine 10 mg 06/24/21 09:00 06/24/21 09:08 Olanzapine 5 Mg/Tab Orally Disintegrating PO 06/24/21 09:01 10 mg NOW ONE Administration Olanzapine 10 mg 06/24/21 08:53 Olanzapine 5 Mg/Tab Orally Disintegrating PO 07/24/21 08:52 1100 PRN IF NEEDED FOR AGITATION Pantoprazole Sodium 40 mg 06/21/21 13:29 06/21/21 13:42 Pantoprazole 40 Mg Vial IV 06/21/21 13:30 40 mg STAT ONE Administration Pantoprazole Sodium Confirm 06/21/21 13:40 Pantoprazole 40 Mg Vial Administered 06/21/21 13:41 Dose 40 mg IV .STK-MED ONE Potassium Chloride 10 meq 06/26/21 22:00 Potassium Chloride 10 Meq Tablet PO 07/26/21 21:59 BID MIKE Intake & Output (Last 24 hours) 06/29/21 06/30/21 07/01/21 07/02/21 11:59 11:59 11:59 11:59 Intake Total 1477 2067 3592 1755 Output Total 1825 1850 3300 1900 Balance -348 217 292 -145 Laboratory Results (Last 24 hours) 07/02/21 07/02/21 10:25 07:12 WBC 12.4 H RBC 3.92 L Hgb 10.8 L Hct 37.2 L MCV 94.9 MCH 27.6 MCHC 29.0 L RDW 16.9 H Plt Count 301 MPV 10.8 Sodium 148 H Potassium 4.5 Chloride 116 H Carbon Dioxide 25 Anion Gap 10.9 BUN 21 H Creatinine 0.70 Estimated GFR > 60.0 Glucose 121 H Calcium 8.1 L Total Bilirubin 0.70 AST 64 H ALT 57 H Alkaline Phosphatase 109 Serum Total Protein 6.4 Albumin 2.5 L Orders (Last 24 hours) Category Date Time Status CBC W DIFF Routine Lab 07/02/21 07:12 Completed CMP Routine Lab 07/02/21 10:25 Completed Manual Differential NC Routine Lab 07/02/21 07:12 Completed Vancomycin, Trough Urgent Lab 07/02/21 10:25 Received Therapuetic Drug Level Monitor [Trough Drug Levels] Med 07/02/21 10:30 Discontinued 1 IJ 1XONLY ONE - Vitals & Intake/Output Vital Signs: Vital Signs Temperature 97.8 F 07/02/21 08:00 Pulse Rate 112 H 07/02/21 08:00 Respiratory Rate 21 07/02/21 08:00 Blood Pressure 123/68 07/02/21 08:00 O2 Sat by Pulse Oximetry 95 07/02/21 08:00 Intake & Output: Intake & Output 06/29/21 06/30/21 07/01/21 07/02/21 11:59 11:59 11:59 11:59 Intake Total 1477 2067 3592 1755 Output Total 1825 1850 3300 1900 Balance -348 217 292 -145 - Lab Result Diagrams: 07/02/21 07:12 07/02/21 10:25 Lab Results-Last 24 Hrs: Lab Results-Last 24 Hours 07/02/21 07/02/21 Range/Units 07:12 10:25 WBC 12.4 H (4.0-10.5) K/mm3 RBC 3.92 L (4.1-5.6) M/mm3 Hgb 10.8 L (12.5-18.0) gm/dl Hct 37.2 L (42-50) % MCV 94.9 (78-100) fl MCH 27.6 (26-32) pg MCHC 29.0 L (32-36) g/dl RDW 16.9 H (11.5-14.0) % Plt Count 301 (150-450) K/mm3 MPV 10.8 (7.5-11.0) fl Sodium 148 H (137-145) mmol/L Potassium 4.5 (3.5-5.1) mmol/L Chloride 116 H (98-107) mmol/L Carbon Dioxide 25 (22-30) mmol/L Anion Gap 10.9 (5-15) MEQ/L BUN 21 H (9-20) mg/dL Creatinine 0.70 (0.66-1.25) mg/dL Estimated GFR > 60.0 ML/MIN Glucose 121 H (74-106) mg/dL Calcium 8.1 L (8.4-10.2) mg/dL Total Bilirubin 0.70 (0.2-1.3) mg/dL AST 64 H (17-59) U/L ALT 57 H (0-50) U/L Alkaline Phosphatase 109 (38-126) U/L Serum Total Protein 6.4 (6.3-8.2) g/dL Albumin 2.5 L (3.5-5.0) g/dL - Procedures and Test Procedures and Tests throughout Hospitalization: Therapy Orders & Screens 06/21/21 18:58 Respiratory Therapy Assessment DAILY Comment: Diagnosis: ROBBI, AMS, Urinary retention 06/23/21 14:42 Speech Therapy Eval & Treat [ST Eval & Treat ( Order)] .as ordered Comment: Physician Instructions: Reason For Exam: swallow eval Evaluate: Yes Treat: Yes Reason for Eval: swallow evaluation. patient has a peg tube Diagnosis: HYPONATREMIA, ROBBI, AMS, Urinary retention Discharge Exam General Appearance: no apparent distress, alert Neurologic Exam: alert, oriented x 3, cooperative, normal mood/affect, nml cerebellar function, sensation nml, No motor deficits Eye Exam: PERRL, EOMI, eyes nml inspection Ears, Nose, Throat Exam: normal ENT inspection, pharynx normal, moist mucous membranes Neck Exam: normal inspection, non-tender, supple, full range of motion Respiratory Exam: normal breath sounds, lungs clear, No respiratory distress Cardiovascular Exam: regular rate/rhythm, normal heart sounds Gastrointestinal/Abdomen Exam: soft, No tenderness, No mass Male Genitalia Exam: deferred Rectal Exam: deferred Back Exam: normal inspection, normal range of motion, No CVA tenderness, No vertebral tenderness Extremity Exam: normal inspection, normal range of motion Skin Exam: normal color, warm, dry Final Diagnosis/Problem List - Final Discharge Diagnosis/Problem (1) Aspiration pneumonia Current Visit: Yes Status: Resolved Code(s): J69.0 - PNEUMONITIS DUE TO INHALATION OF FOOD AND VOMIT (2) Hiccups Current Visit: Yes Status: Resolved Code(s): R06.6 - HICCOUGH (3) Hypernatremia Current Visit: Yes Status: Resolved Code(s): E87.0 - HYPEROSMOLALITY AND HYP ERNATREMIA (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 875 mg [Augmentin 875-125 Tablet] 875 mg PO BID 10 Days #20 tablet clindamycin HCL [Clindamycin HCl] 300 mg PO TID 10 Days #30 Continue Albuterol/Ipratropium 3ml Neb* [DUONEB 0.5-3 MG/3 ml Neb] 3 ml IH Q4HPRN PRN PRN Reason: Shortness Of Breath/Wheezing Polyethylene Glycol 3350 17 gm [Miralax Powder 17GM PACKET] 17 gm G-TUBE DAILY Quetiapine Fumarate 25 mg [Seroquel 25 MG] 25 mg G-TUBE BID Lorazepam 1 mg [Ativan 1 MG] 2 mg G-TUBE Q4H/PRN PRN PRN Reason: Anxiety Acetaminophen [Acephen] 650 mg RC Q4HPRN PRN PRN Reason: Fever Famotidine 20 mg [Pepcid 20 MG] 20 mg G-TUBE BID Additional Instructions: ENVIVE SENIOR CARE ORDERS: -RESUME PREVIOUS SENIOR CARE ORDERS -NPO -ROUTINE PEG CARE -ROUTINE [facility] [facility] -TUBE FEEDINGS-JEVITY 1.5@65CC/HR -SEE ATTACHED MEDICATION LIST FOR MEDICATION ORDERS. Follow up with: ROCAEL LIRIANO [ACTIVE STAFF] - 06/29/21 3:00 pm (strange office-r/t positive hem ocult)
[2021-07-02 12:33] LABS: Eosinophil 3 % (0.00-3.0); Lymphocytes 18 % (24-44); Neutrophils 79 % (36.-66.); Total Cells Counted 100
[2021-07-02 12:34] LABS: ANISOCYTOSIS 1+; Platelet Estimate NORMAL (NORMAL); Polychromasia 1+
== END 2021-07-02 11:51 | DRG 178 ==
LOC: ED 11:07 → MED SURG 14:53 → OBSVTOIN 06-23 09:45
PROVIDERS: ADMIT Family Medicine; ATTEND Family Medicine
DX: J69.0 Pneumonitis due to inhalation of food and vomit (principal); E87.0 Hyperosmolality and hypernatremia; R06.6 Hiccough; E88.09 Other disorders of plasma-protein metabolism, not elsewhere classified; E87.6 Hypokalemia; F03.90 Unspecified dementia, unspecified severity, without behavioral disturbance, psychotic disturbance, mood disturbance, and anxiety; R33.9 Retention of urine, unspecified; R41.82 Altered mental status, unspecified; I10 Essential (primary) hypertension; Z79.899 Other long term (current) drug therapy; Z20.828 Contact with and (suspected) exposure to other viral communicable diseases
CPT/HCPCS: 0241U; 36000; 36415; 51702; 70450; 71045; 80048; 80053; 80202; 81001; 82140; 83735; 83880; 84443; 84484; 85025; 85027; 93005; 93041; 93268; 94640; 94760; 96365; 96374; 99285; J0696; J1650; J2060; J2405; J3370; L0625; A9270-GY; G0378

== ENCOUNTER 2021-07-02 16:35 | Emergency (ER) | payer MEDICARE ==
[2021-07-02] MEDS ORDERED: Sodium Chloride 0.9% 1000 ML 1,000 ML IV SCH (16:45)
[2021-07-02] MEDS ORDERED: Sodium Chloride 0.9% 1000 ML 1,000 ML ONE (17:08)
[2021-07-02 17:19] LABS: Hematocrit 37.2 % (42-50); Hemoglobin 10.8 gm/dl (12.5-18.0); Mean Cell Volume 95.1 fl (78-100); Mean Corpuscular Hemoglobin 27.6 pg (26-32); Mean Platelet Volume 10.6 fl (7.5-11.0); Platelet Count 296 K/mm3 (150-450); Red Blood Count 3.91 M/mm3 (4.1-5.6); Red Cell Distribution Width 16.8 % (11.5-14.0); White Blood Count 12.6 K/mm3 (4.0-10.5)
[2021-07-02 17:27] LABS: INR 1.14 (0.8-3.0); PROTIME 13.4 SECONDS (9.4-12.5)
--- NOTE | 2021-07-02 17:27 | ERPHSYRPT ---
- History of Present Illness Time Seen by Provider: 07/02/21 16:45 Source: EMS Exam Limitations: clinical condition Patient Subjective Stated Complaint: Pt was d/c from [facility] today and [place] sent him back to the hospital stating that he was having SOB, medics stated [facility] to the [facility] they found pt laying flat on his back and was trying to cough something up, nurse stated that his oxygen was in the 80's, medics stated that once they sat him up and he could cough up what was in his throat his oxygen returned to the 90's Triage Nursing Assessment: Pt brought to the ER via EMS, tachycardic, moist cough, pt is wearing oxygen but is breathing through the mouth, lungs sound coarse, has a izaguirre inserted, has a feeding tube Physician History: Patient is a 80-year-old white male who has been discharged from the hospital earlier today. This patient did have Covid in March 2021 since that time his had a rather up-and-down course. He was admitted on 06/21/2021 with hiccups for 24 hours and an altered mental status. He was also found to be hyponatremic have urinary retention acute respiratory insufficiency on 06/21/2021 he was discharged on 06/23/2021 readmitted then and and discharged again today. He has been staying at [facility]. Today they called the ambulance because he was coughing his O2 sats were in the 80s and he sounded very congested and rattly. EMS reports that once they got there they set him up he began to cough and produced a large amount of sputum his O2 sat then eduardo to the 90s. He continues to have altered mental status. Timing/Duration: today, worse Cough Quality/Degree: productive cough, sputum Possible Cause: chronic episodes Modifying Factors: Improves With: coughing, lying down, oxygen Associated Symptoms: cough Allergies/Adverse Reactions: No Known Drug Allergies Allergy (Verified 06/21/21 11:36) Home Medications: Acetaminophen [Acephen] 650 mg RC Q4HPRN PRN 06/21/21 [History] Famotidine 20 mg [Pepcid 20 MG] 20 mg G-TUBE BID 06/21/21 [History] Lorazepam 1 mg [Ativan 1 MG] 2 mg G-TUBE Q4H/PRN PRN 06/21/21 [History] Polyethylene Glycol 3350 17 gm [Miralax Powder 17GM PACKET] 17 gm G-TUBE DAILY 06/21/21 [History] Quetiapine Fumarate 25 mg [Seroquel 25 MG] 25 mg G-TUBE BID 06/21/21 [History] Hx Tetanus, Diphtheria Vaccination/Date Given: No (PT UNSURE) Hx Influenza Vaccination/Date Given: No Hx Pneumococcal Vaccination/Date Given: No Travel Risk - International Travel Have you traveled outside of the country in past 3 weeks: No - Coronavirus Screening Are you exhibiting any of the following symptoms?: No Close contact with a COVID-19 positive Pt in past 14-21 Days: No - Vaccine Status Have you recieved a Covid-19 vaccination: No - Review of Systems Constitutional: No Fever, No Chills Eyes: No Symptoms Ears, Nose, & Throat: No Symptoms Respiratory: No Cough, No Dyspnea Cardiac: No Chest Pain, No Edema, No Syncope Abdominal/Gastrointestinal: No Abdominal Pain, No Nausea, No Vomiting, No Diarrhea Genitourinary Symptoms: No Dysuria Musculoskeletal: No Back Pain, No Neck Pain Skin: No Rash Neurological: No Dizziness, No Focal Weakness, No Sensory Changes Psychological: Other (He has a altered mental status) Endocrine: No Symptoms All Other Systems: Reviewed and Negative - Past Medical History Pertinent Past Medical History: Yes Neurological History: No Pertinent History ENT History: No Pertinent History Cardiac History: Hypertension, Peripheral Vascular Disease Respiratory History: No Pertinent History Endocrine Medical History: Hypothyroidism Musculoskeletal History: Osteoarthritis GI Medical History: No Pertinent History History: No Pertinent History Psycho-Social History: No Pertinent History Male Reproductive Disorders: No Pertinent History Other Medical History: 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 HX OF DEPRESSION - Past Surgical History Past Surgical History: No Other Surgical History: unknown - Social History Smoking Status: Former smoker Exposure to second hand smoke: No Drug Use: none Patient Lives Alone: No - Nursing Vital Signs Nursing Vital Signs: Initial Vital Signs Temperature 99.4 F 07/02/21 16:38 Pulse Rate 114 H 07/02/21 16:38 Respiratory Rate 38 H 07/02/21 16:38 Blood Pressure 103/73 07/02/21 16:38 O2 Sat by Pulse Oximetry 91 L 07/02/21 16:38 Pain Scale Pain Intensity 4 - Physical Exam General Appearance: moderate distress, lethargy, cachetic, thin Eye Exam: PERRL/EOMI, eyes nml inspection Ears, Nose, Throat Exam: normal ENT inspection, TMs normal, pharynx normal, mo ist mucous membranes Neck Exam: non-tender, supple, full range of motion, other (Tracheostomy scar) Respiratory Exam: crackles/rales, rhonchi Cardiovascular Exam: tachycardia Gastrointestinal/Abdomen Exam: soft, No tenderness Back Exam: normal inspection, No CVA tenderness, No vertebral tenderness Extremity Exam: normal inspection, normal range of motion Neurologic Exam: disoriented, confusion, motor weakness, dysarthria Skin Exam: normal color, warm, dry, No rash Lymphatic Exam: No adenopathy SpO2 Interpretation: hypoxic, O2 applied SpO2: 94 O2 Delivery: Nasal Cannula - Course Nursing assessment & vital signs reviewed: Yes EKG Interpreted by Me: Sinus Tach, Right [place] Deviation, Non-specific ST Changes - Radiology Exams Chest X-ray Interpretation: Interpreted by me, Other (Compared to x-ray taken few days ago the left chest x-ray appears somewhat better the right chest is minimally changed. Still has some opacities) Ordered Tests: Active Orders 24 hr Category Date Time Status EKG-ER Only STAT Care 07/02/21 16:38 Active IV Insertion STAT Care 07/02/21 16:38 Active Oxygen-ED Only Nasal Cannula 3 lpm Care 07/02/21 16:38 Active CHEST 1 VIEW (PORTABLE) Stat Exams 07/02/21 16:59 Taken BLOOD CULTURE Stat Lab 07/02/21 17:15 Received BNP [NT PRO BNP] Stat Lab 07/02/21 17:15 Completed CBC W DIFF Stat Lab 07/02/21 17:15 Completed CMP Stat Lab 07/02/21 17:15 Completed CULTURE,SPUTUM Stat Lab 07/02/21 16:57 Ordered CULTURE,URINE Stat Lab 07/02/21 16:57 Received Lactic Acid Stat Lab 07/02/21 16:38 Completed Manual Differential NC Stat Lab 07/02/21 17:15 Completed PROCALCITONIN Stat Lab 07/02/21 17:15 Completed PROTIME WITH INR Stat Lab 07/02/21 17:15 Completed TROPONIN Q3H Lab 07/02/21 17:25 Received TROPONIN Q3H Lab 07/02/21 19:45 Ordered TROPONIN Q3H Lab 07/02/21 22:45 Ordered Medication Summary Generic Name Dose Route Start Last Admin Trade Name Valerie PRN Reason Stop Dose Admin Sodium Chloride 1,000 mls @ 100 mls/hr 07/02/21 16:45 07/02/21 17:09 Sodium Chloride 0.9% 1000 Ml IV 08/01/21 16:44 100 mls/hr .Q10H MIKE Administration Lab/Rad Data: Laboratory Result Diagrams 07/02/21 17:15 07/02/21 17:15 Laboratory Results 07/02/21 07/02/21 07/02/21 Range/Units 17:21 17:15 17:15 WBC (4.0-10.5) K/mm3 RBC (4.1-5.6) M/mm3 Hgb (12.5-18.0) gm/dl Hct (42-50) % MCV (78-100) fl MCH (26-32) pg MCHC (32-36) g/dl RDW (11.5-14.0) % Plt Count (150-450) K/mm3 MPV (7.5-11.0) fl PT (9.4-12.5) SECONDS INR (0.8-3.0) Sodium (137-145) mmol/L Potassium (3.5-5.1) mmol/L Chloride (98-107) mmol/L Carbon Dioxide (22-30) mmol/L Anion Gap (5-15) MEQ/L BUN (9-20) mg/dL Creatinine (0.66-1.25) mg/dL Estimated GFR ML/MIN Glucose (74-106) mg/dL Lactic Acid (0.4-2.0) Calcium (8.4-10.2) mg/dL Total Bilirubin (0.2-1.3) mg/dL AST (17-59) U/L ALT (0-50) U/L Alkaline Phosphatase (38-126) U/L NT-Pro-B Natriuret Pep 548 (0-1800) pg/mL Serum Total Protein (6.3-8.2) g/dL Albumin (3.5-5.0) g/dL Procalcitonin 0.402 H (0.030-0.080) ng/mL Urinalys Dipstick Clnc Urine Color Urine Appearance Urine pH Ur Specific [place] Urine Protein POC Urine Protein Conf (Negative) Urine Ketones Urine Blood Urine Nitrite Urine Bilirubin Urine Urobilinogen Ur Leukocyte Esterase Urine Leukocytes (NEGATIVE) Urine WBC (Auto) (0-5) /HPF Urine RBC (Auto) (0-2) /HPF U Hyaline Cast (Auto) (0-2) /LPF U Epithel Cells (Auto) (FEW) /HPF Urine Bacteria (Auto) (NEGATIVE) /HPF Urine RBC (0-5) Rene/ul U Non-Squamous Epi Cells Unidentified Crystals (NEGATIVE) /HPF Granular Casts (Auto) (NEGATIVE) /LPF Urine Mucus (Auto) (NEGATIVE) /HPF Ur Culture Indicated? Urine Culture Reflexed Urine Glucose (NEGATIVE) mg/dL Influenza Type A Ag NEGATIVE (NEGATIVE) Influenza Type B Ag NEGATIVE (NEGATIVE) RSV (PCR) NEGATIVE (Negative) SARS-CoV-2 (PCR) NEGATIVE (NEGATIVE) 07/02/21 07/02/21 07/02/21 Range/Units 17:15 17:15 17:15 WBC 12.6 H (4.0-10.5) K/mm3 RBC 3.91 L (4.1-5.6) M/mm3 Hgb 10.8 L (12.5-18.0) gm/dl Hct 37.2 L (42-50) % MCV 95.1 (78-100) fl MCH 27.6 (26-32) pg MCHC 29.0 L (32-36) g/dl RDW 16.8 H (11.5-14.0) % Plt Count 296 (150-450) K/mm3 MPV 10.6 (7.5-11.0) fl PT 13.4 H (9.4-12.5) SECONDS INR 1.14 (0.8-3.0) Sodium 148 H (137-145) mmol/L Potassium 4.3 (3.5-5.1) mmol/L Chloride 114 H (98-107) mmol/L Carbon Dioxide 27 (22-30) mmol/L Anion Gap 11.4 (5-15) MEQ/L BUN 21 H (9-20) mg/dL Creatinine 0.82 (0.66-1.25) mg/dL Estimated GFR > 60.0 ML/MIN Glucose 104 (74-106) mg/dL Lactic Acid (0.4-2.0) Calcium 8.2 L (8.4-10.2) mg/dL Total Bilirubin 0.80 (0.2-1.3) mg/dL AST 67 H (17-59) U/L ALT 61 H (0-50) U/L Alkaline Phosphatase 112 (38-126) U/L NT-Pro-B Natriuret Pep (0-1800) pg/mL Serum Total Protein 6.6 (6.3-8.2) g/dL Albumin 2.6 L (3.5-5.0) g/dL Procalcitonin (0.030-0.080) ng/mL Urinalys Dipstick Clnc Urine Color Urine Appearance Urine pH Ur Specific [place] Urine Protein POC Urine Protein Conf (Negative) Urine Ketones Urine Blood Urine Nitrite Urine Bilirubin Urine Urobilinogen Ur Leukocyte Esterase Urine Leukocytes (NEGATIVE) Urine WBC (Auto) (0-5) /HPF Urine RBC (Auto) (0-2) /HPF U Hyaline Cast (Auto) (0-2) /LPF U Epithel Cells (Auto) (FEW) /HPF Urine Bacteria (Auto) (NEGATIVE) /HPF Urine RBC (0-5) Rene/ul U Non-Squamous Epi Cells Unidentified Crystals (NEGATIVE) /HPF Granular Casts (Auto) (NEGATIVE) /LPF Urine Mucus (Auto) (NEGATIVE) /HPF Ur Culture Indicated? Urine Culture Reflexed Urine Glucose (NEGATIVE) mg/dL Influenza Type A Ag (NEGATIVE) Influenza Type B Ag (NEGATIVE) RSV (PCR) (Negative) SARS-CoV-2 (PCR) (NEGATIVE) 07/02/21 07/02/21 Range/Units 16:57 16:38 WBC (4.0-10.5) K/mm3 RBC (4.1-5.6) M/mm3 Hgb (12.5-18.0) gm/dl Hct (42-50) % MCV (78-100) fl MCH (26-32) pg MCHC (32-36) g/dl RDW (11.5-14.0) % Plt Count (150-450) K/mm3 MPV (7.5-11.0) fl PT (9.4-12.5) SECONDS INR (0.8-3.0) Sodium (137-145) mmol/L Potassium (3.5-5.1) mmol/L Chloride (98-107) mmol/L Carbon Dioxide (22-30) mmol/L Anion Gap (5-15) MEQ/L BUN (9-20) mg/dL Creatinine (0.66-1.25) mg/dL Estimated GFR ML/MIN Glucose (74-106) mg/dL Lactic Acid 2.1 H (0.4-2.0) Calcium (8.4-10.2) mg/dL Total Bilirubin (0.2-1.3) mg/dL AST (17-59) U/L ALT (0-50) U/L Alkaline Phosphatase (38-126) U/L NT-Pro-B Natriuret Pep (0-1800) pg/mL Serum Total Protein (6.3-8.2) g/dL Albumin (3.5-5.0) g/dL Procalcitonin (0.030-0.080) ng/mL Urinalys Dipstick Clnc MAIN LAB Urine Color Cancelled Urine Appearance Cancelled Urine pH Cancelled Ur Specific [place] Cancelled Urine Protein Cancelled POC Urine Protein Conf 100 (Negative) Urine Ketones Cancelled Urine Blood Cancelled Urine Nitrite Cancelled Urine Bilirubin Cancelled Urine Urobilinogen Cancelled Ur Leukocyte Esterase Cancelled Urine Leukocytes TRACE (NEGATIVE) Urine WBC (Auto) 16-25 (0-5) /HPF Urine RBC (Auto) 26-50 (0-2) /HPF U Hyaline Cast (Auto) 3-5 (0-2) /LPF U Epithel Cells (Auto) NONE (FEW) /HPF Urine Bacteria (Auto) RARE (NEGATIVE) /HPF Urine RBC SMALL (0-5) Rene/ul U Non-Squamous Epi Cells Cancelled Unidentified Crystals 2-5 (NEGATIVE) /HPF Granular Casts (Auto) 10-25 (NEGATIVE) /LPF Urine Mucus (Auto) SLIGHT (NEGATIVE) /HPF Ur Culture Indicated? ORDERED SEPARATELY Urine Culture Reflexed Cancelled Urine Glucose NEGATIVE (NEGATIVE) mg/dL Influenza Type A Ag (NEGATIVE) Influenza Type B Ag (NEGATIVE) RSV (PCR) (Negative) SARS-CoV-2 (PCR) (NEGATIVE) - Progress Progress: improved Air Movement: good Progress Note: 07/02/21 18:22 After a thorough work-up in the ER the case was discussed with Dr. Darlene mclean who felt that [facility] and [facility]. Blood Culture(s) Obtained: Yes Antibiotics given: No Discussed with DrBertrand: Mone - Departure Departure Disposition: Home Clinical Impression: UTI (urinary tract infection), COPD (chronic obstructive pulmonary disease) Condition: Stable Critical Care Time: No Referrals: ENVIVE,ENVIVE [Primary Care Provider] - Follow up/PCP as directed Instructions: Chronic Obstructive Pulmonary Disease
[2021-07-02 17:48] LABS: ALBUMIN 2.6 g/dL (3.5-5.0); ALKALINE PHOSPHATASE 112 U/L (38-126); ANION GAP 11.4 MEQ/L (5-15); BLOOD UREA NITROGEN 21 mg/dL (9-20); CHLORIDE 114 mmol/L (98-107); Calcium 8.2 mg/dL (8.4-10.2); Carbon Dioxide 27 mmol/L (22-30); Creatinine 1 0.82 mg/dL (0.66-1.25); EST GLOMERULAR FILTRATION RATE > 60.0 ML/MIN; Glucose 104 mg/dL (74-106); Potassium 4.3 mmol/L (3.5-5.1); SGOT/AST 67 U/L (17-59); SGPT/ALT 61 U/L (0-50); SODIUM 148 mmol/L (137-145); Total Protein 6.6 g/dL (6.3-8.2)
[2021-07-02 17:54] LABS: Appearance CLOUDY (CLEAR); Bilirubin NEGATIVE (NEGATIVE); Glucose NEGATIVE (NEGATIVE); Ketones NEGATIVE (NEGATIVE)
[2021-07-02 17:55] LABS: Dipstick done @ ? MAIN LAB; Nitrite NEGATIVE (NEGATIVE); Protein,Urine Dip 100 (Negative); RBC SMALL Ery/ul (0-5); Urobilinogen 0.2 mg/dL (0-1)
[2021-07-02 17:57] LABS: Bacteria RARE /HPF (NEGATIVE); Mucus SLIGHT /HPF (NEGATIVE); RBC 26-50 /HPF (0-2)
[2021-07-02 18:00] LABS: INFLUENZA A NEGATIVE (NEGATIVE); INFLUENZA B NEGATIVE (NEGATIVE); RESPIRATORY SYNCTIAL VIRUS NEGATIVE (Negative); SARS-CoV-2 Xpert Express NEGATIVE (NEGATIVE)
[2021-07-02 18:01] LABS: Urine Cultured Indicated? ORDERED SEPARATELY
[2021-07-02 18:14] VITALS: BP 99/64; PULSE 120
[2021-07-02 18:25] VITALS: O2SAT 94
[2021-07-02 19:54] LABS: BAND 3 % (0.0-2.0); Eosinophil 3 % (0.00-3.0); Lymphocytes 30 % (24-44); Monocyte 4 % (0.0-12.0); Neutrophils 60 % (36.-66.); Platelet Estimate NORMAL (NORMAL); Total Cells Counted 100
--- NOTE | 2021-07-03 08:38 | XRAY ---
Indication: Cough. Pneumonia. Comparison: June 28, 2021. Portable apical lordotic chest demonstrates mild clearing of previous bilateral patchy airspace disease with mild residual. Again no consolidation/large effusion. Heart not enlarged. No new cardiopulmonary abnormalities.
== END 2021-07-02 19:02 ==
LOC: ED 16:35
DX: N39.0 Urinary tract infection, site not specified (principal); J44.9 Chronic obstructive pulmonary disease, unspecified; R05.9 Cough, unspecified; R41.82 Altered mental status, unspecified; Z86.16 Personal history of COVID-19; I10 Essential (primary) hypertension; Z79.899 Other long term (current) drug therapy; I73.9 Peripheral vascular disease, unspecified
CPT/HCPCS: 0241U; 36000; 36415; 71045; 80053; 81015; 83605; 83880; 84145; 84484; 85025; 85610; 87040; 87086; 93005; 99284

== ENCOUNTER 2021-09-20 12:43 | Emergency (ER) | payer MEDICARE ==
[2021-09-20] MEDS ORDERED: Sodium Chloride 0.9% 1000 ML 1,000 ML IV SCH (13:00)
[2021-09-20 13:18] LABS: Absolute Neutrophil Ct (ANC) 11.96 x10^3/uL (1.4-6.9); Eosinophil % 0.1 % (0.00-5.0); Eosinophil (Absolute #) 0.02 x10^3/uL (0-0.5); Hematocrit 46.6 % (42-50); Hemoglobin 13.4 g/dL (12.5-18.0); Lymphocyte (Absolute #) 2.36 x10^3/uL (1.0-4.6); Lymphocytes % 15.1 % (24.0-44.0); Mean Cell Volume 93.8 fL (78-100); Mean Corpuscular Hgb Concent. 28.8 g/dL (32-36); Monocyte (Absolute #) 1.09 x10^3/uL (0.0-1.3); Neutrophil % 76.8 % (36.0-66.0); Platelet Count 344 x10^3/uL (150-450); Red Blood Count 4.97 x10^6/uL (4.1-5.6); Red Cell Distribution Width 15.9 % (11.5-14.0); White Blood Count 15.6 x10^3/uL (4.0-10.5)
[2021-09-20 13:29] LABS: ALBUMIN 3.6 g/dL (3.5-5.0); ANION GAP 13.9 MEQ/L (5-15); BILIRUBIN,TOTAL 1.1 mg/dL (0.2-1.3); Calcium 10.1 mg/dL (8.4-10.2); Creatinine 1 1.28 mg/dL (0.66-1.25); EST GLOMERULAR FILTRATION RATE 57.6 ML/MIN; Potassium 5.4 mmol/L (3.5-5.1); Total Protein 8.4 g/dL (6.3-8.2)
--- NOTE | 2021-09-20 13:58 | XRAY ---
Indication: Abdomen pain. Acute mental status change. Multiple contiguous axial images obtained through the abdomen and pelvis without contrast. Comparison: None Study is degraded by respiration artifact throughout. Also beam artifact from patient's hands/arms. Lung bases demonstrates dependent atelectasis and cardiomegaly. No effusion. Stomach demonstrates PEG tube with balloon tip in gastric lumen. Noncontrasted stomach and bowel loops appear nonobstructed. Radiopacities throughout the colon presumed ingested barium or bismuth. No free fluid/air. Kidneys demonstrates micro-calculi, largest left lower pole measuring 6 mm. Both kidneys are mildly hydronephrotic without perinephric fluid. Right ureter is also prominent up to 1 cm and left ureter up to 0.8 cm throughout. 2-3 mm distal left ureter calculus just proximal to UVJ. Urinary bladder near empty with posterior midline 4-5 mm calculus and also Hinojosa balloon catheter in situ. Gallbladder contracted or surgically absent. Incidental tiny splenic calcified granulomas. Remaining liver, pancreas, spleen, adrenal glands, kidneys, ureters, and bladder are unremarkable for noncontrast exam. Mild scattered aortoiliac calcifications without AAA. Osseous structures intact with mild osteopenia and mild degenerative changes throughout the thoracolumbar spine. Impression: 1. Respiration beam artifact. 2. Bilateral hydronephrosis and hydroureter. Bilateral renal, distal left ureter, and urinary bladder micro-calculi. 3. Cardiac megaly without CHF. 4. Chronic bone findings, arteriosclerotic disease, and PEG tube/Hinojosa balloon catheter in situ.
--- NOTE | 2021-09-20 14:02 | XRAY ---
Indication: Altered mental status. Comparison: July 02, 2021. Portable chest inflated and clear. Heart not enlarged. Bony thorax intact again with osteopenia and degenerative changes. Upper abdomen demonstrates partially visualized PEG tube. Impression: Nonacute chest with chronic features.
[2021-09-20] MEDS ORDERED: Sodium Chloride 0.9% 1000 ML 1,000 ML ONE (14:05)
[2021-09-20 14:26] LABS: Bacteria MODERATE /HPF (NEGATIVE); WBC >100 /HPF (0-5)
[2021-09-20 14:27] LABS: Appearance VERY CLOUDY (CLEAR); Bilirubin NEGATIVE (NEGATIVE); Glucose NEGATIVE (NEGATIVE); Ketones NEGATIVE (NEGATIVE); Ph 8.5 (5-6); Protein,Urine Dip 100 (Negative); RBC >101 /HPF (0-2); RBC LARGE Ery/ul (0-5); Urobilinogen 2 mg/dL (0-1)
[2021-09-20 14:28] LABS: Nitrite POSITIVE (NEGATIVE); Urine Cultured Indicated? YES
[2021-09-20 14:29] VITALS: BP 108/67; PULSE 112
[2021-09-20 14:29] LABS: Dipstick done @ ? MAIN LAB
[2021-09-20 14:52] LABS: Slide Review 1 YES
[2021-09-20] MEDS ORDERED: ROCEPHIN 1 Gm-D5w 50 ml Bag** 1 G/50 ML IVPB IV ONE (15:00)
[2021-09-20] MEDS ORDERED: ROCEPHIN 1 Gm-D5w 50 ml Bag** 1 G/50 ML IVPB IV STA (15:00)
[2021-09-20 15:01] VITALS: O2SAT 97
--- NOTE | 2021-09-20 15:11 | XRAY ---
Indication: Acute mental status change. Multiple contiguous axial images obtained through the head without contrast. Comparison: June 21, 2021. Again age-appropriate global atrophy and minimal periventricular degenerative micro-ischemia bilaterally. No acute intracranial hemorrhage, abnormal extra-axial fluid collection, or mass effect. Fourth ventricle is midline without hydrocephalus. Bony calvarium intact. There is now partial opacification of both mastoid air cells. Remaining paranasal sinuses are clear. Impression: Stable nonacute senile brain. Partial opacification both mastoid air cells presumed inflammatory.
--- NOTE | 2021-09-20 15:12 | ERPHSYRPT ---
- History of Present Illness Time Seen by Provider: 09/20/21 13:05 Source: family, EMS, [facility] records Exam Limitations: clinical condition Patient Subjective Stated Complaint: Pt sent from [facility] due to hypotension, tachycardia, and trouble breathing Triage Nursing Assessment: Pt brought to the ER by EMS, hypotensive, tachycardic, nonverbal, keeps eyes closed, has a izaguirre cath in that they said is leaking and we are going to change out, pt is pale and kuhn in color, doesn't appear to be having any difficulty breathing, no edema, pulses normal, has a feeding tube Physician History: Patient is a 80-year-old [facility] resident who presents by EMS with a report of hypotension tachycardia altered mental status a Izaguirre catheter that was leaking and patient pale and kuhn in color. He does not appear to have any difficulty breathing no edema pulses normal and he has a feeding tube Timing/Duration: today Severity: moderate Allergies/Adverse Reactions: No Known Drug Allergies Allergy (Verified 09/20/21 13:01) Home Medications: Acetaminophen [Acephen] 650 mg RC Q4HPRN PRN 06/21/21 [History] Famotidine 20 mg [Pepcid 20 MG] 20 mg G-TUBE BID 06/21/21 [History] Lorazepam 1 mg [Ativan 1 MG] 0.5 mg G-TUBE QID 06/21/21 [History] Polyethylene Glycol 3350 17 gm [Miralax Powder 17GM PACKET] 17 gm G-TUBE DAILY 06/21/21 [History] Quetiapine Fumarate 25 mg [Seroquel 25 MG] 75 mg G-TUBE HS 06/21/21 [History] Apixaban [Eliquis] 2.5 mg PO BID 09/20/21 [History] Metoclopramide HCl 10 ml PO Q6H 09/20/21 [History] Potassium Chloride 20 meq PO DAILY 09/20/21 [History] Tamsulosin HCl 0.4 mg [Flomax 0.4 MG] 0.4 mg PO DAILY 09/20/21 [History] Tobramycin Sulfate Ophth [Tobrex EYE DROPS 5 ML] 3 drops OP QID 09/20/21 [History] Hx Tetanus, Diphtheria Vaccination/Date Given: No (PT UNSURE) Hx Influenza Vaccination/Date Given: No Hx Pneumococcal Vaccination/Date Given: No Travel Risk - International Travel Have you traveled outside of the country in past 3 weeks: No - Coronavirus Screening Are you exhibiting any of the following symptoms?: No - Vaccine Status Have you recieved a Covid-19 vaccination: No - Review of Systems All Other Systems: Unable due to condition - Past Medical History Pertinent Past Medical History: Yes Neurological History: No Pertinent History ENT History: No Pertinent History Cardiac History: Hypertension, Peripheral Vascular Disease Respiratory History: No Pertinent History Endocrine Medical History: Hypothyroidism Musculoskeletal History: Osteoarthritis GI Medical History: No Pertinent History History: No Pertinent History Psycho-Social History: No Pertinent History Male Reproductive Disorders: No Pertinent History Other Medical History: 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 HX OF DEPRESSION - Past Surgical History Past Surgical History: No Other Surgical History: unknown - Social History Smoking Status: Former smoker Exposure to second hand smoke: No Drug Use: none Patient Lives Alone: No - Nursing Vital Signs Nursing Vital Signs: Initial Vital Signs Temperature 97.2 F 09/20/21 12:48 Pulse Rate 105 H 09/20/21 12:48 Blood Pressure 100/64 09/20/21 12:48 O2 Sat by Pulse Oximetry 99 09/20/21 12:48 Pain Scale Pain Intensity 0 - Physical Exam General Appearance: no apparent distress Eye Exam: PERRL/EOMI, eyes nml inspection Ears, Nose, Throat Exam: normal ENT inspection, TMs normal, pharynx normal, moist mucous membranes Neck Exam: normal inspection, non-tender, supple, full range of motion Respiratory Exam: normal breath sounds, lungs clear, No respiratory distress Cardiovascular Exam: regular rate/rhythm, normal heart sounds, normal peripheral pulses, tachycardia Gastrointestinal/Abdomen Exam: soft, other (Feeding tube), No guarding Male Genitalia Exam: normal genitalia, other (Catheter) Back Exam: normal inspection, normal range of motion Extremity Exam: pedal edema Neurologic Exam: disoriented, confusion, depressed mood/affect, slurred speech Skin Exam: warm, dry SpO2 Interpretation: O2 applied (3 L) SpO2: 97 O2 Delivery: Nasal Cannula - Course Nursing assessment & vital signs reviewed: Yes EKG Interpreted by Me: RATE (106), Sinus Tach, NORMAL AXIS, NORMAL INTERVALS, NORMAL QRS, Non-specific ST Changes - Radiology Exams Chest X-ray Interpretation: Other (Chronic changes per radiologist) - CT Exams Head CT Interpretation: Other (Negative for any acute changes) Abdomen/Pelvis CT Interpretation: Other (Bilateral hydronephrosis some micro calculi in the bladder) Ordered Tests: Active Orders 24 hr Category Date Time Status EKG-ER Only STAT Care 09/20/21 12:49 Active Izaguirre [Catheter-Beccaria Izaguirre] STAT Care 09/20/21 13:26 Active IV Insertion STAT Care 09/20/21 12:49 Active ABDOMEN AND PELVIS W/0 CONTRAS [CT] Stat Exams 09/20/21 13:51 Completed CHEST 1 VIEW (PORTABLE) Stat Exams 09/20/21 13:52 Completed HEAD WITHOUT CONTRAST [CT] Stat Exams 09/20/21 12:52 Completed AMYLASE Stat Lab 09/20/21 13:05 Completed BLOOD CULTURE Stat Lab 09/20/21 12:51 Ordered BLOOD CULTURE Stat Lab 09/20/21 13:16 Received CBC W DIFF Stat Lab 09/20/21 13:05 Completed CMP Stat Lab 09/20/21 13:05 Completed CULTURE,URINE Stat Lab 09/20/21 13:27 Received LIPASE Stat Lab 09/20/21 13:05 Completed Lactic Acid Stat Lab 09/20/21 12:48 Completed TROPONIN Q3H Lab 09/20/21 13:05 Completed TROPONIN Q3H Lab 09/20/21 16:00 Ordered TROPONIN Q3H Lab 09/20/21 19:00 Ordered TROPONIN Q3H Lab 09/20/21 22:00 Ordered TROPONIN Q3H Lab 09/21/21 01:00 Ordered UA W/RFX CULTURE Stat Lab 09/20/21 13:27 Completed Medication Summary Generic Name Dose Route Start Last Admin Trade Name Freq PRN Reason Stop Dose Admin Sodium Chloride 1,000 mls @ 100 mls/hr 09/20/21 13:00 09/20/21 14:06 Sodium Chloride 0.9% 1000 Ml IV 10/20/21 12:59 100 mls/hr .Q10H MIKE Administration Ceftriaxone Sodium/Dextrose 1 g in 50 mls @ 100 mls/hr 09/20/21 15:00 09/20/21 15:05 Rocephin 1 Gm-D5w 50 Ml Bag IV 09/20/21 15:29 100 ml/hr STAT STA 100 mls/hr Administration Discontinued Medications Generic Name Dose Route Start Last Admin Trade Name Valerie PRN Reason Stop Dose Admin Ceftriaxone Sodium/Dextrose Confirm 09/20/21 15:00 Rocephin 1 Gm-D5w 50 Ml Bag Administered 09/20/21 15:01 Dose 1 g in 50 mls @ ud IV .STK-MED ONE Lab/Rad Data: Laboratory Result Diagrams 09/20/21 13:05 09/20/21 13:05 Laboratory Results 09/20/21 09/20/21 09/20/21 Range/Units 13:27 13:05 13:05 WBC (4.0-10.5) x10^3/uL RBC (4.1-5.6) x10^6/uL Hgb (12.5-18.0) g/dL Hct (42-50) % MCV (78-100) fL MCH (26-32) pg MCHC (32-36) g/dL RDW (11.5-14.0) % Plt Count (150-450) x10^3/uL MPV (7.5-11.0) fL Gran % (36.0-66.0) % Immature Gran % (Auto) (0.00-0.4) % Nucleat RBC Rel Count (0.00-0.1) % Eos # (Auto) (0-0.5) x10^3/uL Immature Gran # (Auto) (0.00-0.03) x10^3u/L Absolute Lymphs (auto) (1.0-4.6) x10^3/uL Absolute Monos (auto) (0.0-1.3) x10^3/uL Absolute Nucleated RBC (0.00-0.01) x10^3u/L Lymphocytes % (24.0-44.0) % Monocytes % (0.0-12.0) % Eosinophils % (0.00-5.0) % Basophils % (0.0-0.4) % Absolute Granulocytes (1.4-6.9) x10^3/uL Basophils # (0-0.4) x10^3/uL Sodium 149 H (137-145) mmol/L Potassium 5.4 H (3.5-5.1) mmol/L Chloride 110 H (98-107) mmol/L Carbon Dioxide 30 (22-30) mmol/L Anion Gap 13.9 (5-15) MEQ/L BUN 41 H (9-20) mg/dL Creatinine 1.28 H (0.66-1.25) mg/dL Estimated GFR 57.6 ML/MIN Glucose 121 H (74-106) mg/dL Lactic Acid (0.4-2.0) Calcium 10.1 (8.4-10.2) mg/dL Total Bilirubin 1.10 (0.2-1.3) mg/dL AST 43 (17-59) U/L ALT 62 H (0-50) U/L Alkaline Phosphatase 170 H (38-126) U/L Troponin I 0.015 (0.000-0.034) ng/mL Serum Total Protein 8.4 H (6.3-8.2) g/dL Albumin 3.6 (3.5-5.0) g/dL Amylase 103 (30-110) U/L Lipase 50 (23-300) U/L Urinalys Dipstick Clnc MAIN LAB Urine Color YELLOW (YELLOW) Urine Appearance VERY CLOUDY (CLEAR) Urine pH 8.5 (5-6) Ur Specific [place] 1.020 (1.005-1.025) POC Urine Protein Conf 100 (Negative) Urine Ketones NEGATIVE (NEGATIVE) Urine Nitrite POSITIVE (NEGATIVE) Urine Bilirubin NEGATIVE (NEGATIVE) Urine Urobilinogen 2 (0-1) mg/dL Urine Leukocytes LARGE (NEGATIVE) Urine WBC (Auto) >100 (0-5) /HPF Urine RBC (Auto) >101 (0-2) /HPF U Epithel Cells (Auto) NONE (FEW) /HPF Urine Bacteria (Auto) MODERATE (NEGATIVE) /HPF Urine RBC LARGE (0-5) Rene/ul Ur Culture Indicated? YES Urine Glucose NEGATIVE (NEGATIVE) mg/dL Slides for Path Review 09/20/21 09/20/21 Range/Units 13:05 12:48 WBC 15.6 H (4.0-10.5) x10^3/uL RBC 4.97 (4.1-5.6) x10^6/uL Hgb 13.4 (12.5-18.0) g/dL Hct 46.6 (42-50) % MCV 93.8 (78-100) fL MCH 27.0 (26-32) pg MCHC 28.8 L (32-36) g/dL RDW 15.9 H (11.5-14.0) % Plt Count 344 (150-450) x10^3/uL MPV 11.0 (7.5-11.0) fL Gran % 76.8 H (36.0-66.0) % Immature Gran % (Auto) 0.4 (0.00-0.4) % Nucleat RBC Rel Count 0.0 (0.00-0.1) % Eos # (Auto) 0.02 (0-0.5) x10^3/uL Immature Gran # (Auto) 0.06 H (0.00-0.03) x10^3u/L Absolute Lymphs (auto) 2.36 (1.0-4.6) x10^3/uL Absolute Monos (auto) 1.09 (0.0-1.3) x10^3/uL Absolute Nucleated RBC 0.00 (0.00-0.01) x10^3u/L Lymphocytes % 15.1 L (24.0-44.0) % Monocytes % 7.0 (0.0-12.0) % Eosinophils % 0.1 (0.00-5.0) % Basophils % 0.6 (0.0-0.4) % Absolute Granulocytes 11.96 H (1.4-6.9) x10^3/uL Basophils # 0.10 (0-0.4) x10^3/uL Sodium (137-145) mmol/L Potassium (3.5-5.1) mmol/L Chloride (98-107) mmol/L Carbon Dioxide (22-30) mmol/L Anion Gap (5-15) MEQ/L BUN (9-20) mg/dL Creatinine (0.66-1.25) mg/dL Estimated GFR ML/MIN Glucose (74-106) mg/dL Lactic Acid 2.2 H (0.4-2.0) Calcium (8.4-10.2) mg/dL Total Bilirubin (0.2-1.3) mg/dL AST (17-59) U/L ALT (0-50) U/L Alkaline Phosphatase (38-126) U/L Troponin I (0.000-0.034) ng/mL Serum Total Protein (6.3-8.2) g/dL Albumin (3.5-5.0) g/dL Amylase (30-110) U/L Lipase (23-300) U/L Urinalys Dipstick Clnc Urine Color (YELLOW) Urine Appearance (CLEAR) Urine pH (5-6) Ur Specific [place] (1.005-1.025) POC Urine Protein Conf (Negative) Urine Ketones (NEGATIVE) Urine Nitrite (NEGATIVE) Urine Bilirubin (NEGATIVE) Urine Urobilinogen (0-1) mg/dL Urine Leukocytes (NEGATIVE) Urine WBC (Auto) (0-5) /HPF Urine RBC (Auto) (0-2) /HPF U Epithel Cells (Auto) (FEW) /HPF Urine Bacteria (Auto) (NEGATIVE) /HPF Urine RBC (0-5) Rene/ul Ur Culture Indicated? Urine Glucose (NEGATIVE) mg/dL Slides for Path Review YES - Progress Progress: improved - Departure Departure Disposition: Extended Care Facility Clinical Impression: Urinary tract infection Condition: Fair Critical Care Time: No Referrals: ENVIVE,ENVIVE [Primary Care Provider] - Follow up/PCP as directed Instructions: Urinary Tract Infection, Adult (DC), How to Prevent Catheter Associated Urinary Tract Infections Additional Instructions: Prescription was given to snf to continue the Rocephin 1 g daily x9 more doses.
== END 2021-09-20 16:00 | disposition home or self-care (01) ==
LOC: ED 12:43
DX: N39.0 Urinary tract infection, site not specified (principal); R41.82 Altered mental status, unspecified; I95.9 Hypotension, unspecified; R00.0 Tachycardia, unspecified; T83.031A Leakage of indwelling urethral catheter, initial encounter; Z93.1 Gastrostomy status; I10 Essential (primary) hypertension; Z79.01 Long term (current) use of anticoagulants; Z79.899 Other long term (current) drug therapy; Z28.310 Unvaccinated for COVID-19
CPT/HCPCS: 36000; 36415; 51702; 70450; 71045; 74176; 80053; 81015; 82150; 83605; 83690; 84484; 85025; 87040; 87077; 87086; 87186; 93005; 96365; 99284; J0696

== ENCOUNTER 2021-09-28 06:49 | Emergency (ER) | payer MEDICARE ==
--- NOTE | 2021-09-28 07:02 | ERPHSYRPT ---
- History of Present Illness Source: EMS, care home records Exam Limitations: clinical condition Timing/Duration: today Activities at Onset: none Severity of Dyspnea-Max: moderate Severity of Dyspnea-Current: moderate Possible Cause: no prior episodes Modifying Factors: Improves With: oxygen Associated Symptoms: heart racing, sweating Hx Tetanus, Diphtheria Vaccination/Date Given: No (PT UNSURE) Hx Influenza Vaccination/Date Given: No Hx Pneumococcal Vaccination/Date Given: No <CHUN ELLIOTT - Last Filed: 09/28/21 06:57> <MAUDE MOYA - Last Filed: 09/29/21 04:23> - History of Present Illness Time Seen by Provider: 09/28/21 06:57 Physician History: This is an 81-year-old white male patient from care home who was brought in by EMS because of difficulty breathing, hypotension, tachycardia and fever. Patient arrives to the emergency department with a left upper extremity 22-gauge IV and a Hinojosa catheter in place. He is minimally responsive. He is a full code. With bagging of the patient his room air oxygenation level is 89%. (CHUN ELLIOTT) Arrived to ER at 6:54AM w pt in respiratory distress being attended by Dr Tom cam. Pt 81 yo WM from [place] febrile and most likely septic. ABG arrived as I assumed care of pt. Pt hypoxic and hypercarbic on 100% O2 in need of intubation. 15mg IV Etomidate/1mg IV Ativan/bagged 100% O2 per RT. Oropharnyx w a lot of exudate during DL w Mac3, so 100mg IV succinylcholine given, DL'ed w #4 Mancia blade, easily intubated w 7.5 ETT/good BBS/+ET CO2/tube against rita, so backed out 1cm. Blood cultures x2/Zosyn 4.5gm IV. 25mcg IV Fentanyl given for sedation. (MAUDE MOYA) Allergies/Adverse Reactions: No Known Drug Allergies Allergy (Verified 09/20/21 13:01) Home Medications: Acetaminophen [Acephen] 650 mg RC Q4HPRN PRN 06/21/21 [History] Famotidine 20 mg [Pepcid 20 MG] 20 mg G-TUBE BID 06/21/21 [History] Lorazepam 1 mg [Ativan 1 MG] 0.5 mg G-TUBE QID 06/21/21 [History] Polyethylene Glycol 3350 17 gm [Miralax Powder 17GM PACKET] 17 gm G-TUBE DAILY 06/21/21 [History] Quetiapine Fumarate 25 mg [Seroquel 25 MG] 75 mg G-TUBE HS 06/21/21 [History] Apixaban [Eliquis] 2.5 mg PO BID 09/20/21 [History] Metoclopramide HCl 10 ml PO Q6H 09/20/21 [History] Potassium Chloride 20 meq PO DAILY 09/20/21 [History] Tamsulosin HCl 0.4 mg [Flomax 0.4 MG] 0.4 mg PO DAILY 09/20/21 [History] Tobramycin Sulfate Ophth [Tobrex EYE DROPS 5 ML] 3 drops OP QID 09/20/21 [History] Travel Risk - International Travel Have you traveled outside of the country in past 3 weeks: No - Coronavirus Screening Are you exhibiting any of the following symptoms?: Yes Symptoms: Fever, Shortness of Breath - Vaccine Status Have you recieved a Covid-19 vaccination: No <CHUN ELLIOTT - Last Filed: 09/28/21 06:57> - Review of Systems Constitutional: Fever, Weakness Eyes: No Symptoms Ears, Nose, & Throat: No Symptoms Respiratory: Dyspnea Cardiac: Other Abdominal/Gastrointestinal: No Symptoms (Cardiac) Genitourinary Symptoms: No Symptoms Musculoskeletal: No Symptoms Skin: No Symptoms Neurological: Lethargy Psychological: No Symptoms Endocrine: No Symptoms Hematologic/Lymphatic: No Symptoms Immunological/Allergic: No Symptoms All Other Systems: Reviewed and Negative <CHUN ELLIOTT - Last Filed: 09/28/21 06:57> - Past Medical History Pertinent Past Medical History: Yes Neurological History: No Pertinent History ENT History: No Pertinent History Cardiac History: Hypertension, Peripheral Vascular Disease Respiratory History: No Pertinent History Endocrine Medical History: Hypothyroidism Musculoskeletal History: Osteoarthritis GI Medical History: No Pertinent History History: No Pertinent History Psycho-Social History: No Pertinent History Male Reproductive Disorders: No Pertinent History Other Medical History: 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 HX OF DEPRESSION - Past Surgical History Past Surgical History: No Other Surgical History: unknown - Social History Smoking Status: Former smoker Exposure to second hand smoke: No Drug Use: none Patient Lives Alone: No <CHUN ELLIOTT - Last Filed: 09/28/21 06:57> - Physical Exam General Appearance: moderate distress, lethargy, thin Eye Exam: PERRL/EOMI, eyes nml inspection Neck Exam: normal inspection, non-tender, supple, full range of motion Respiratory Exam: respiratory distress, airway intact, rhonchi (Right versus left) Cardiovascular/Chest Exam: tachycardia Abdominal/Gastrointestinal Exam: soft, normal bowel sounds, No tenderness Rectal Exam: not done Extremity Exam: non-tender (Mottling present) Neurologic Exam: other (Unable to assess. Patient is lethargic) Skin Exam: other (Mild primarily bilateral upper and bilateral lower extremities) SpO2 Interpretation: hypoxic, ABG ordered, O2 applied, airway management int. SpO2: 97 O2 Delivery: Ambu-Bag <ALENA ELLIOTTMUNDO VioletteBertrand - Last Filed: 09/28/21 06:57> - Nursing Vital Signs Nursing Vital Signs: Initial Vital Signs Temperature 102.9 F 09/28/21 06:50 Pulse Rate 130 H 09/28/21 06:50 Respiratory Rate 54 H 09/28/21 06:50 Blood Pressure 83/43 09/28/21 06:50 O2 Sat by Pulse Oximetry 97 09/28/21 06:50 Pain Scale Pain Intensity 0 - Course EKG Interpreted by Me: RATE (Sinus tach/Rate 125/Normal QT-QTc/Nonspecific ST- Twave changes) - Radiology Exams Chest X-ray Interpretation: Interpreted by me (Bilateral pneumonia/ETT against antoine/NG tube in place) <MAUDE MOYA - Last Filed: 09/29/21 04:23> Ordered Tests: Active Orders 24 hr Category Date Time Status CO2 Monitoring STAT Care 09/28/21 09:54 Completed Career Information Specialist STAT Care 09/28/21 07:06 Completed EKG-ER Only STAT Care 09/28/21 07:05 Completed Hinojosa [Catheter-[place] Hinojosa] STAT Care 09/28/21 07:21 Completed IV Insertion STAT Care 09/28/21 07:05 Completed Pulse Oximetry (ED) STAT Care 09/28/21 07:05 Completed CHEST 1 VIEW (PORTABLE) Stat Exams 09/28/21 07:06 Completed ARTERIAL BLOOD GASES Stat Lab 09/28/21 06:57 Completed ARTERIAL BLOOD GASES Urgent Lab 09/28/21 07:44 Completed BLOOD CULTURE Stat Lab 09/28/21 07:35 Received CBC W DIFF Stat Lab 09/28/21 07:35 Completed CMP Stat Lab 09/28/21 07:54 Completed CULTURE,URINE Stat Lab 09/28/21 07:54 Received Lactic Acid Stat Lab 09/28/21 06:57 Completed Manual Differential NC Stat Lab 09/28/21 07:35 Completed NT PRO BNP Stat Lab 09/28/21 07:35 Completed PROTIME WITH INR Stat Lab 09/28/21 07:54 Completed PTT Stat Lab 09/28/21 07:54 Completed TROPONIN Q3H Lab 09/28/21 07:54 Completed UA W/RFX CULTURE Stat Lab 09/28/21 07:54 Completed Intubate Patient STAT RT 09/28/21 09:54 Completed Ventilator Management Q4H RT 09/28/21 09:54 Completed Medication Summary Discontinued Medications Generic Name Dose Route Start Last Admin Trade Name Freq PRN Reason Stop Dose Admin Acetaminophen 975 mg 09/28/21 07:05 09/28/21 07:23 Acetaminophen 650 Mg Supp.Rect RI 09/28/21 07:06 Not Given STAT STA Acetaminophen 975 mg 09/28/21 07:21 09/28/21 07:22 Acetaminophen 325mg Suppository RI 09/28/21 07:22 975 mg STAT STA Administration Acetaminophen Confirm 09/28/21 07:21 Acetaminophen 325mg Suppository Administered 09/28/21 07:22 Dose 650 mg .ROUTE .STK-MED ONE Acetaminophen Confirm 09/28/21 07:21 Acetaminophen 325mg Suppository Administered 09/28/21 07:22 Dose 325 mg .ROUTE .STK-MED ONE Dexamethasone Sodium Phosphate 10 mg 09/28/21 09:27 09/28/21 09:37 Dexamethasone Sod Phosphate 10 Mg/Ml IV 09/28/21 09:28 10 mg STAT ONE Administration Dexamethasone Sodium Phosphate Confirm 09/28/21 09:27 Dexamethasone Sod Phosphate 10 Mg/Ml Administered 09/28/21 09:28 Dose 10 mg .ROUTE .STK-MED ONE Etomidate 15 mg 09/28/21 07:15 Etomidate 20 Mg/10 Ml Amp IV 09/28/21 07:16 .STK-MED ONE Fentanyl Citrate 25 mcg 09/28/21 07:28 09/28/21 07:32 Fentanyl Citrate 100 Mcg/2 Ml* Vial IV 09/28/21 07:29 25 mcg STAT ONE Administration Fentanyl Citrate Confirm 09/28/21 07:30 Fentanyl Citrate 100 Mcg/2 Ml* Vial Administered 09/28/21 07:31 Dose 100 mcg .ROUTE .STK-MED ONE Fentanyl Citrate 25 mcg 09/28/21 07:57 09/28/21 08:01 Fentanyl Citrate 100 Mcg/2 Ml* Vial IV 09/28/21 07:58 25 mcg STAT ONE Administration Sodium Chloride 1,000 mls @ 999 mls/hr 09/28/21 07:05 09/28/21 08:28 Sodium Chloride 0.9% 1000 Ml IV 09/28/21 08:05 Infused .Q1H1M STA Infusion Sodium Chloride Confirm 09/28/21 07:14 Sodium Chloride 0.9% 1000 Ml Administered 09/28/21 07:15 Dose 1,000 mls @ ud .ROUTE .STK-MED ONE Sodium Chloride Confirm 09/28/21 07:22 Sodium Chloride 100ml Mini-Bag Plus Administered 09/28/21 07:23 Dose 100 mls @ ud IV .STK-MED ONE Piperacillin Sod/Tazobactam 100 mls @ 200 mls/hr 09/28/21 07:24 09/28/21 07:29 Sod 4.5 gm/ Sodium Chloride IV 09/28/21 07:53 200 mls/hr STAT ONE Administration Sodium Chloride 1,000 mls @ 999 mls/hr 09/28/21 07:30 09/28/21 08:30 Sodium Chloride 0.9% 1000 Ml IV 09/28/21 08:30 Infused .Q1H1M STA Infusion Sodium Chloride Confirm 09/28/21 07:29 Sodium Chloride 0.9% 1000 Ml Administered 09/28/21 07:30 Dose 1,000 mls @ ud .ROUTE .STK-MED ONE Vancomycin HCl 1 gm in 200 mls @ 125 mls/hr 09/28/21 07:55 09/28/21 09:39 Vancomycin 1 Gram/200 Ml Bag IV 09/28/21 09:30 Infused STAT ONE Infusion Vancomycin HCl Confirm 09/28/21 07:56 Vancomycin 1 Gram/200 Ml Bag Administered 09/28/21 07:57 Dose 1 gm in 200 mls @ ud IV .STK-MED ONE Fentanyl Citrate 1,500 mcg/ 150 mls @ 7.16 mls/hr 09/28/21 08:11 09/28/21 08:22 Sodium Chloride IV 10/28/21 08:10 0.98 mcg/kg/hr .[id number] PRN 7 mls/hr PAIN Administration Protocol 1 MCG/KG/HR Norepinephrine/Dextrose Confirm 09/28/21 08:13 Norepinephrine 8 Mg/250 Ml-D5w Administered 09/28/21 08:14 Dose 8 mg in 250 mls @ ud IV .STK-MED ONE Norepinephrine/Dextrose 8 mg in 250 mls @ 15 mls/hr 09/28/21 08:14 09/28/21 09:52 Norepinephrine 8 Mg/250 Ml-D5w IV 10/28/21 08:13 15 mcg/min .[id number] PRN 28.125 mls/hr HYPOTENSION Titration Protocol 8 MCG/MIN Sodium Chloride Confirm 09/28/21 08:19 Sodium Chloride 0.9% 1000 Ml Administered 09/28/21 08:20 Dose 1,000 mls @ ud .ROUTE .STK-MED ONE Sodium Chloride 1,000 mls @ 999 mls/hr 09/28/21 08:29 09/28/21 09:37 Sodium Chloride 0.9% 1000 Ml IV 09/28/21 09:29 Infused .Q1H1M STA Infusion Sodium Chloride Confirm 09/28/21 09:31 Sodium Chloride 0.9% 1000 Ml Administered 09/28/21 09:32 Dose 1,000 mls @ ud .ROUTE .STK-MED ONE Sodium Chloride 1,000 mls @ 150 mls/hr 09/28/21 09:45 09/28/21 09:39 Sodium Chloride 0.9% 1000 Ml IV 10/28/21 09:44 150 mls/hr .Q6H40M MIKE Administration Lorazepam 1 mg 09/28/21 07:37 09/28/21 07:41 Lorazepam 2 Mg/1 Ml 2 Mg Vial IV 09/28/21 07:38 1 mg STAT ONE Administration Lorazepam Confirm 09/28/21 07:37 Lorazepam 2 Mg/1 Ml 2 Mg Vial Administered 09/28/21 07:38 Dose 2 mg .ROUTE .STK-MED ONE Lorazepam 1 mg 09/28/21 07:15 Lorazepam 2 Mg/1 Ml 2 Mg Vial .ROUTE 09/28/21 07:16 .STK-MED ONE Piperacillin Sod/Tazobactam Sod Confirm 09/28/21 07:22 Piperacillin/Tazobactam Sodium 4.5 Gm Vial Administered 09/28/21 07:23 Dose 4.5 gm IV .STK-MED ONE Succinylcholine Chloride 0.5 mg 09/28/21 07:15 Succinylcholine Chloride 200mg/10 Ml Vial .ROUTE 09/28/21 07:16 .STK-MED ONE Succinylcholine Chloride 150 mg 09/28/21 07:15 Succinylcholine Chloride 200mg/10 Ml Vial .ROUTE 09/28/21 07:16 .STK-MED ONE Vecuronium [place] 10 mg 09/28/21 07:51 09/28/21 08:04 Vecuronium [place] 10 Mg Vial IV 09/28/21 07:52 10 mg STAT ONE Administration Lab/Rad Data: Laboratory Result Diagrams 09/28/21 07:35 09/28/21 07:54 Laboratory Results 09/28/21 09/28/21 09/28/21 Range/Units 07:54 07:54 07:54 WBC (4.0-10.5) x10^3/uL RBC (4.1-5.6) x10^6/uL Hgb (12.5-18.0) g/dL Hct (42-50) % MCV (78-100) fL MCH (26-32) pg MCHC (32-36) g/dL RDW (11.5-14.0) % Plt Count (150-450) x10^3/uL MPV (7.5-11.0) fL Gran % (36.0-66.0) % Immature Gran % (Auto) (0.00-0.4) % Nucleat RBC Rel Count (0.00-0.1) % Eos # (Auto) (0-0.5) x10^3/uL Immature Gran # (Auto) (0.00-0.03) x10^3u/L Absolute Lymphs (auto) (1.0-4.6) x10^3/uL Absolute Monos (auto) (0.0-1.3) x10^3/uL Absolute Nucleated RBC (0.00-0.01) x10^3u/L Lymphocytes % (24.0-44.0) % Monocytes % (0.0-12.0) % Eosinophils % (0.00-5.0) % Basophils % (0.0-0.4) % Absolute Granulocytes (1.4-6.9) x10^3/uL Segmented Neutrophils (36.-66.) % Band Neutrophils (0.0-2.0) % Lymphocytes (Manual) (24-44) % Basophils # (0-0.4) x10^3/uL Toxic Granulation Platelet Estimate (NORMAL) RBC Morphology PT 11.8 (9.4-12.5) SECONDS INR 1.13 (0.8-3.0) APTT 27.3 (25.1-36.5) SECONDS Puncture Site pCO2 (35-45) mmHg pO2 (75-100) mmHg Base Excess (-2.0-2.0) O2 Saturation (94-100) g/dF ABG pH (7.35-7.45) ABG HCO3 (22-28) ABG O2 Sat (Measured) (95-100) % Rigoberto Test A-a Gradient a/A Ratio Hemoglobin Carboxyhemoglobin (0.0-6.9) % THgb Methemoglobin (1.4-1.5) % Potassium 4.6 D (3.5-5.1) Temperature C POC O2 Flow Rate % Vent Mode Vent Rate /MIN Tidal Volume cc PEEP cmH2O Sodium 157 H* (137-145) mmol/L Chloride 123 H (98-107) mmol/L Carbon Dioxide 25 (22-30) mmol/L Anion Gap 13.3 (5-15) MEQ/L BUN 45 H (9-20) mg/dL Creatinine 1.20 (0.66-1.25) mg/dL Estimated GFR > 60.0 ML/MIN Glucose 129 H (74-106) mg/dL Lactic Acid (0.4-2.0) Calcium 7.6 L D (8.4-10.2) mg/dL Total Bilirubin 0.80 (0.2-1.3) mg/dL AST 71 H (17-59) U/L ALT 64 H (0-50) U/L Alkaline Phosphatase 114 (38-126) U/L Troponin I 0.056 H* (0.000-0.034) ng/mL NT-Pro-B Natriuret Pep (0-1800) pg/mL Serum Total Protein 6.1 L (6.3-8.2) g/dL Albumin 2.2 L (3.5-5.0) g/dL Urinalys Dipstick Clnc Urine Color (YELLOW) Urine Appearance (CLEAR) Urine pH (5-6) Ur Specific Chromo (1.005-1.025) POC Urine Protein Conf (Negative) Urine Ketones (NEGATIVE) Urine Nitrite (NEGATIVE) Urine Bilirubin (NEGATIVE) Urine Urobilinogen (0-1) mg/dL Urine Leukocytes (NEGATIVE) Urine WBC (Auto) (0-5) /HPF Urine RBC (Auto) (0-2) /HPF U Epithel Cells (Auto) (FEW) /HPF Urine Bacteria (Auto) (NEGATIVE) /HPF Urine RBC (0-5) Rene/ul Urine Mucus (Auto) (NEGATIVE) /HPF Ur Culture Indicated? Urine Glucose (NEGATIVE) mg/dL Influenza Type A Ag (NEGATIVE) Influenza Type B Ag (NEGATIVE) RSV (PCR) (Negative) SARS-CoV-2 (PCR) (NEGATIVE) 09/28/21 09/28/21 09/28/21 Range/Units 07:54 07:44 07:35 WBC (4.0-10.5) x10^3/uL RBC (4.1-5.6) x10^6/uL Hgb (12.5-18.0) g/dL Hct (42-50) % MCV (78-100) fL MCH (26-32) pg MCHC (32-36) g/dL RDW (11.5-14.0) % Plt Count (150-450) x10^3/uL MPV (7.5-11.0) fL Gran % (36.0-66.0) % Immature Gran % (Auto) (0.00-0.4) % Nucleat RBC Rel Count (0.00-0.1) % Eos # (Auto) (0-0.5) x10^3/uL Immature Gran # (Auto) (0.00-0.03) x10^3u/L Absolute Lymphs (auto) (1.0-4.6) x10^3/uL Absolute Monos (auto) (0.0-1.3) x10^3/uL Absolute Nucleated RBC (0.00-0.01) x10^3u/L Lymphocytes % (24.0-44.0) % Monocytes % (0.0-12.0) % Eosinophils % (0.00-5.0) % Basophils % (0.0-0.4) % Absolute Granulocytes (1.4-6.9) x10^3/uL Segmented Neutrophils (36.-66.) % Band Neutrophils (0.0-2.0) % Lymphocytes (Manual) (24-44) % Basophils # (0-0.4) x10^3/uL Toxic Granulation Platelet Estimate (NORMAL) RBC Morphology PT (9.4-12.5) SECONDS INR (0.8-3.0) APTT (25.1-36.5) SECONDS Puncture Site RIGHT BRACHIAL pCO2 55 H (35-45) mmHg pO2 182 H* (75-100) mmHg Base Excess -0.3 (-2.0-2.0) O2 Saturation 97.7 (94-100) g/dF ABG pH 7.30 L (7.35-7.45) ABG HCO3 27.1 (22-28) ABG O2 Sat (Measured) 99.9 (95-100) % Rigoberto Test NOT APPLICABLE A-a Gradient 462 a/A Ratio 0.28 Hemoglobin 10.9 Carboxyhemoglobin 1.1 (0.0-6.9) % THgb Methemoglobin 1.1 L (1.4-1.5) % Potassium 4.7 (3.5-5.1) Temperature 37.0 C POC O2 Flow Rate 100 % Vent Mode A/C Vent Rate 18 /MIN Tidal Volume 600 cc PEEP 5.0 cmH2O Sodium (137-145) mmol/L Chloride (98-107) mmol/L Carbon Dioxide (22-30) mmol/L Anion Gap (5-15) MEQ/L BUN (9-20) mg/dL Creatinine (0.66-1.25) mg/dL Estimated GFR ML/MIN Glucose (74-106) mg/dL Lactic Acid (0.4-2.0) Calcium (8.4-10.2) mg/dL Total Bilirubin (0.2-1.3) mg/dL AST (17-59) U/L ALT (0-50) U/L Alkaline Phosphatase (38-126) U/L Troponin I (0.000-0.034) ng/mL NT-Pro-B Natriuret Pep 721 (0-1800) pg/mL Serum Total Protein (6.3-8.2) g/dL Albumin (3.5-5.0) g/dL Urinalys Dipstick Clnc MAIN LAB Urine Color YELLOW (YELLOW) Urine Appearance TURBID (CLEAR) Urine pH 5.5 (5-6) Ur Specific Chromo 1.020 (1.005-1.025) POC Urine Protein Conf 100 (Negative) Urine Ketones NEGATIVE (NEGATIVE) Urine Nitrite NEGATIVE (NEGATIVE) Urine Bilirubin NEGATIVE (NEGATIVE) Urine Urobilinogen 0.2 (0-1) mg/dL Urine Leukocytes SMALL (NEGATIVE) Urine WBC (Auto) >100 (0-5) /HPF Urine RBC (Auto) >101 (0-2) /HPF U Epithel Cells (Auto) NONE (FEW) /HPF Urine Bacteria (Auto) MODERATE (NEGATIVE) /HPF Urine RBC LARGE (0-5) Rene/ul Urine Mucus (Auto) SLIGHT (NEGATIVE) /HPF Ur Culture Indicated? YES Urine Glucose NEGATIVE (NEGATIVE) mg/dL Influenza Type A Ag (NEGATIVE) Influenza Type B Ag (NEGATIVE) RSV (PCR) (Negative) SARS-CoV-2 (PCR) (NEGATIVE) 09/28/21 09/28/21 09/28/21 Range/Units 07:35 07:20 06:57 WBC 15.9 H (4.0-10.5) x10^3/uL RBC 3.81 L (4.1-5.6) x10^6/uL Hgb 10.2 L (12.5-18.0) g/dL Hct 37.2 L (42-50) % MCV 97.6 (78-100) fL MCH 26.8 (26-32) pg MCHC 27.4 L (32-36) g/dL RDW 16.2 H (11.5-14.0) % Plt Count 234 (150-450) x10^3/uL MPV 12.3 H (7.5-11.0) fL Gran % 90.7 H (36.0-66.0) % Immature Gran % (Auto) 0.6 H (0.00-0.4) % Nucleat RBC Rel Count 0.0 (0.00-0.1) % Eos # (Auto) 0 (0-0.5) x10^3/uL Immature Gran # (Auto) 0.09 H (0.00-0.03) x10^3u/L Absolute Lymphs (auto) 0.86 L (1.0-4.6) x10^3/uL Absolute Monos (auto) 0.49 (0.0-1.3) x10^3/uL Absolute Nucleated RBC 0.00 (0.00-0.01) x10^3u/L Lymphocytes % 5.4 L (24.0-44.0) % Monocytes % 3.1 (0.0-12.0) % Eosinophils % 0.0 (0.00-5.0) % Basophils % 0.2 (0.0-0.4) % Absolute Granulocytes 14.41 H (1.4-6.9) x10^3/uL Segmented Neutrophils 91 H (36.-66.) % Band Neutrophils 2 (0.0-2.0) % Lymphocytes (Manual) 7 L (24-44) % Basophils # 0.03 (0-0.4) x10^3/uL Toxic Granulation 2+ Platelet Estimate NORMAL (NORMAL) RBC Morphology NORMAL PT (9.4-12.5) SECONDS INR (0.8-3.0) APTT (25.1-36.5) SECONDS Puncture Site pCO2 (35-45) mmHg pO2 (75-100) mmHg Base Excess (-2.0-2.0) O2 Saturation (94-100) g/dF ABG pH (7.35-7.45) ABG HCO3 (22-28) ABG O2 Sat (Measured) (95-100) % Rigoberto Test A-a Gradient a/A Ratio Hemoglobin Carboxyhemoglobin (0.0-6.9) % THgb Methemoglobin (1.4-1.5) % Potassium (3.5-5.1) Temperature C POC O2 Flow Rate % Vent Mode Vent Rate /MIN Tidal Volume cc PEEP cmH2O Sodium (137-145) mmol/L Chloride (98-107) mmol/L Carbon Dioxide (22-30) mmol/L Anion Gap (5-15) MEQ/L BUN (9-20) mg/dL Creatinine (0.66-1.25) mg/dL Estimated GFR ML/MIN Glucose (74-106) mg/dL Lactic Acid 3.4 H (0.4-2.0) Calcium (8.4-10.2) mg/dL Total Bilirubin (0.2-1.3) mg/dL AST (17-59) U/L ALT (0-50) U/L Alkaline Phosphatase (38-126) U/L Troponin I (0.000-0.034) ng/mL NT-Pro-B Natriuret Pep (0-1800) pg/mL Serum Total Protein (6.3-8.2) g/dL Albumin (3.5-5.0) g/dL Urinalys Dipstick Clnc Urine Color (YELLOW) Urine Appearance (CLEAR) Urine pH (5-6) Ur Specific Chromo (1.005-1.025) POC Urine Protein Conf (Negative) Urine Ketones (NEGATIVE) Urine Nitrite (NEGATIVE) Urine Bilirubin (NEGATIVE) Urine Urobilinogen (0-1) mg/dL Urine Leukocytes (NEGATIVE) Urine WBC (Auto) (0-5) /HPF Urine RBC (Auto) (0-2) /HPF U Epithel Cells (Auto) (FEW) /HPF Urine Bacteria (Auto) (NEGATIVE) /HPF Urine RBC (0-5) Rene/ul Urine Mucus (Auto) (NEGATIVE) /HPF Ur Culture Indicated? Urine Glucose (NEGATIVE) mg/dL Influenza Type A Ag NEGATIVE (NEGATIVE) Influenza Type B Ag NEGATIVE (NEGATIVE) RSV (PCR) NEGATIVE (Negative) SARS-CoV-2 (PCR) POSITIVE A (NEGATIVE) 09/28/21 Range/Units 06:57 WBC (4.0-10.5) x10^3/uL RBC (4.1-5.6) x10^6/uL Hgb (12.5-18.0) g/dL Hct (42-50) % MCV (78-100) fL MCH (26-32) pg MCHC (32-36) g/dL RDW (11.5-14.0) % Plt Count (150-450) x10^3/uL MPV (7.5-11.0) fL Gran % (36.0-66.0) % Immature Gran % (Auto) (0.00-0.4) % Nucleat RBC Rel Count (0.00-0.1) % Eos # (Auto) (0-0.5) x10^3/uL Immature Gran # (Auto) (0.00-0.03) x10^3u/L Absolute Lymphs (auto) (1.0-4.6) x10^3/uL Absolute Monos (auto) (0.0-1.3) x10^3/uL Absolute Nucleated RBC (0.00-0.01) x10^3u/L Lymphocytes % (24.0-44.0) % Monocytes % (0.0-12.0) % Eosinophils % (0.00-5.0) % Basophils % (0.0-0.4) % Absolute Granulocytes (1.4-6.9) x10^3/uL Segmented Neutrophils (36.-66.) % Band Neutrophils (0.0-2.0) % Lymphocytes (Manual) (24-44) % Basophils # (0-0.4) x10^3/uL Toxic Granulation Platelet Estimate (NORMAL) RBC Morphology PT (9.4-12.5) SECONDS INR (0.8-3.0) APTT (25.1-36.5) SECONDS Puncture Site LEFT BRACHIAL pCO2 33 L (35-45) mmHg pO2 52 L (75-100) mmHg Base Excess 5.1 H (-2.0-2.0) O2 Saturation 85.4 L (94-100) g/dF ABG pH 7.53 H (7.35-7.45) ABG HCO3 27.6 (22-28) ABG O2 Sat (Measured) 87.2 L (95-100) % Rigoberto Test NOT APPLICABLE A-a Gradient 620 a/A Ratio 0.08 Hemoglobin 12.1 Carboxyhemoglobin 1.5 (0.0-6.9) % THgb Methemoglobin 0.6 L (1.4-1.5) % Potassium 4.5 (3.5-5.1) Temperature 37.0 C POC O2 Flow Rate 100 % Vent Mode Vent Rate /MIN Tidal Volume cc PEEP cmH2O Sodium (137-145) mmol/L Chloride (98-107) mmol/L Carbon Dioxide (22-30) mmol/L Anion Gap (5-15) MEQ/L BUN (9-20) mg/dL Creatinine (0.66-1.25) mg/dL Estimated GFR ML/MIN Glucose (74-106) mg/dL Lactic Acid (0.4-2.0) Calcium (8.4-10.2) mg/dL Total Bilirubin (0.2-1.3) mg/dL AST (17-59) U/L ALT (0-50) U/L Alkaline Phosphatase (38-126) U/L Troponin I (0.000-0.034) ng/mL NT-Pro-B Natriuret Pep (0-1800) pg/mL Serum Total Protein (6.3-8.2) g/dL Albumin (3.5-5.0) g/dL Urinalys Dipstick Clnc Urine Color (YELLOW) Urine Appearance (CLEAR) Urine pH (5-6) Ur Specific Chromo (1.005-1.025) POC Urine Protein Conf (Negative) Urine Ketones (NEGATIVE) Urine Nitrite (NEGATIVE) Urine Bilirubin (NEGATIVE) Urine Urobilinogen (0-1) mg/dL Urine Leukocytes (NEGATIVE) Urine WBC (Auto) (0-5) /HPF Urine RBC (Auto) (0-2) /HPF U Epithel Cells (Auto) (FEW) /HPF Urine Bacteria (Auto) (NEGATIVE) /HPF Urine RBC (0-5) Rene/ul Urine Mucus (Auto) (NEGATIVE) /HPF Ur Culture Indicated? Urine Glucose (NEGATIVE) mg/dL Influenza Type A Ag (NEGATIVE) Influenza Type B Ag (NEGATIVE) RSV (PCR) (Negative) SARS-CoV-2 (PCR) (NEGATIVE) - Progress Air Movement: poor Blood Culture(s) Obtained: Yes Counseled pt/family regarding: lab results, diagnosis, rad results <CHUN ELLIOTT - Last Filed: 09/28/21 06:57> - Progress Progress: improved Antibiotics given: Yes <MAUDE MOYA - Last Filed: 09/29/21 04:23> - Progress Progress Note: 09/28/21 07:03 Transfer of care to Dr. Moya at shift change. He will follow-up on the results of the lab work and radiographic studies. He will make final disposition. (CHUN ELLIOTT) 09/28/21 08:03 Pt in severe respiratory distress, so intubated when I assumed care. 1gm rectal tylenol for fever/2L NS bolus in ER after 1L NS bolus per EMS per Sepsis protocol. Zosyn 4.5gm IV/Vanc 1gm IV/Pt arrived w Hinojosa and changed out per nursing/BP greater than 90 w fluids/Pt minimally alert and oriented x0/Heart tachy/Lungs rhonchi-rales B/Abdomen soft/No edema/Sacral pressure ulcer per nursing/Transfer per Dr. Sousa 09/28/21 08:11 09/28/21 08:20 09/28/21 08:58 Regional closed for transfers Pt accepted at [place] by Hospitalist but probable long wait for transfer 09/28/21 09:07 Pt accepted by [facility] [employer] per Dr. Barrios at [facility] 09/28/21 09:28 Lab later called and stated +[id number] 09/28/21 09:40 10mg IV Decadron 09/28/21 09:51 Levafed drip started due to hypotension/Norcuron 10mg IV x1/Fentanyl drip for sedation 09/29/21 04:20 Pt in stable but critical condition when flight crew assumed care of Pt (MAUDE MOYA) - Departure Departure Disposition: In-patient Admission Critical Care Time: Yes Critical Care Time(excluding separately billable procedures): Critical 30-74 mins (30 minutes) <CHUN ELLIOTT - Last Filed: 09/28/21 06:57> - Departure Departure Disposition: Transfer Critical Care Time(excluding separately billable procedures): Critical 105-134 mins <MAUDE MOYA - Last Filed: 09/29/21 04:23> - Departure Clinical Impression: Sepsis, Hypoxia, Respiratory distress, acute, UTI (urinary tract infection), COVID-19 Condition: Critical Referrals: ENVIVE,ENVIVE [Primary Care Provider] - Follow up/PCP as directed
[2021-09-28 07:05] LABS: A-aADO2 620; ABG HEMOGLOBIN 12.1; ABG POTASSIUM 4.5 (3.5-5.1); ABG SITE LEFT BRACHIAL; ARTERIAL BLD GAS O2 SATURATION 87.2 % (95-100); ARTERIAL BLOOD GAS BASE EXCESS 5.1 (-2.0-2.0); ARTERIAL BLOOD GAS FIO2 100 %; ARTERIAL BLOOD GAS PCO2 33 mmHg (35-45); ARTERIAL BLOOD GAS PO2 52 mmHg (75-100); ARTERIAL BLOOD GAS pH 7.53 (7.35-7.45); CARBOXYHEMOGLOBIN 1.5 % THgb (0.0-6.9); HCO3- 27.6 (22-28); HGB O2 SAT 85.4 g/dF (94-100); Methhemoglobin 0.6 % (1.4-1.5)
[2021-09-28] MEDS ORDERED: Sodium Chloride 0.9% 1000 ML 1,000 ML IV STA ×3 (07:05→08:29)
[2021-09-28] MEDS ORDERED: FEVERALL 650 MG PR STA (07:05)
[2021-09-28] MEDS ORDERED: Sodium Chloride 0.9% 1000 ML 1,000 ML ONE ×4 (07:14→09:31)
[2021-09-28] MEDS ORDERED: Quelicin Fliptop 200 MG/10 ML ONE ×2 (07:15)
[2021-09-28] MEDS ORDERED: Ativan 2 MG/1 ML VIAL ONE ×2 (07:15→07:37)
[2021-09-28] MEDS ORDERED: Amidate 20 MG/10 ML IV ONE (07:15)
[2021-09-28] MEDS ORDERED: FEVERALL 325 MG ONE ×2 (07:21)
[2021-09-28] MEDS ORDERED: FEVERALL 325 MG PR STA (07:21)
[2021-09-28] MEDS ORDERED: PIPERACILLIN/TAZOBACTAM IV ONE (07:22)
[2021-09-28] MEDS ORDERED: Sodium Chloride 100ML MINI-BAG PLUS 100 ML IV ONE (07:22)
[2021-09-28] MEDS ORDERED: PIPERACILLIN/TAZOBACTAM 4.5 GM in Sodium Chloride 100ML MINI-BAG PLUS 100 ML IV ONE (07:24)
[2021-09-28] MEDS ORDERED: SUBLIMAZE 100 MCG/2 ML IV ONE ×2 (07:28→07:57)
[2021-09-28] MEDS ORDERED: SUBLIMAZE 100 MCG/2 ML ONE (07:30)
[2021-09-28] MEDS ORDERED: Ativan 2 MG/1 ML VIAL IV ONE (07:37)
[2021-09-28 07:51] LABS: A-aADO2 462; ABG HEMOGLOBIN 10.9; ABG POTASSIUM 4.7 (3.5-5.1); ARTERIAL BLD GAS O2 SATURATION 99.9 % (95-100); ARTERIAL BLD GAS TIDAL VOLUME 600 cc; ARTERIAL BLOOD GAS BASE EXCESS -0.3 (-2.0-2.0); ARTERIAL BLOOD GAS FIO2 100 %; ARTERIAL BLOOD GAS PCO2 55 mmHg (35-45); ARTERIAL BLOOD GAS PO2 182 mmHg (75-100); ARTERIAL BLOOD GAS VENT MODE A/C; CARBOXYHEMOGLOBIN 1.1 % THgb (0.0-6.9); HCO3- 27.1 (22-28); HGB O2 SAT 97.7 g/dF (94-100); Methhemoglobin 1.1 % (1.4-1.5)
[2021-09-28] MEDS ORDERED: VECURONIUM 10 MG IV ONE (07:51)
[2021-09-28 07:52] LABS: ABG SITE RIGHT BRACHIAL; ARTERIAL BLOOD GAS VENT RATE 18 /MIN
[2021-09-28 07:53] LABS: Absolute Neutrophil Ct (ANC) 14.41 x10^3/uL (1.4-6.9); Basophil (Absolute #) 0.03 x10^3/uL (0-0.4); Eosinophil (Absolute #) 0 x10^3/uL (0-0.5); Hematocrit 37.2 % (42-50); Hemoglobin 10.2 g/dL (12.5-18.0); Lymphocyte (Absolute #) 0.86 x10^3/uL (1.0-4.6); Lymphocytes % 5.4 % (24.0-44.0); Mean Cell Volume 97.6 fL (78-100); Mean Corpuscular Hemoglobin 26.8 pg (26-32); Mean Corpuscular Hgb Concent. 27.4 g/dL (32-36); Mean Platelet Volume 12.3 fL (7.5-11.0); Monocyte (Absolute #) 0.49 x10^3/uL (0.0-1.3); Monocytes % 3.1 % (0.0-12.0); Neutrophil % 90.7 % (36.0-66.0); Platelet Count 234 x10^3/uL (150-450); Red Blood Count 3.81 x10^6/uL (4.1-5.6); Red Cell Distribution Width 16.2 % (11.5-14.0); White Blood Count 15.9 x10^3/uL (4.0-10.5)
[2021-09-28] MEDS ORDERED: VANCOMYCIN 1 GRAM/200 ML BAG 1 GM/200 ML PIGGYBACK IV ONE ×2 (07:55→07:56)
[2021-09-28 08:07] LABS: ALBUMIN 2.2 g/dL (3.5-5.0); ALKALINE PHOSPHATASE 114 U/L (38-126); ANION GAP 13.3 MEQ/L (5-15); BLOOD UREA NITROGEN 45 mg/dL (9-20); CHLORIDE 123 mmol/L (98-107); Calcium 7.6 mg/dL (8.4-10.2); Carbon Dioxide 25 mmol/L (22-30); EST GLOMERULAR FILTRATION RATE > 60.0 ML/MIN; Glucose 129 mg/dL (74-106); Potassium 4.6 mmol/L (3.5-5.1); SGOT/AST 71 U/L (17-59); SGPT/ALT 64 U/L (0-50); Total Protein 6.1 g/dL (6.3-8.2)
[2021-09-28 08:10] LABS: SODIUM 157 mmol/L (137-145)
[2021-09-28] MEDS ORDERED: FENTANYL 500 MCG/10 ML VIAL 1,500 MCG in Sodium Chloride 0.9% 150 ML 120 ML IV PRN (08:11)
[2021-09-28] MEDS ORDERED: NOREPINEPHRINE 8 MG/250 ML-D5W 8 MG/250 ML PLAST..BAG IV ONE (08:13)
[2021-09-28] MEDS ORDERED: NOREPINEPHRINE 8 MG/250 ML-D5W 8 MG/250 ML PLAST..BAG IV PRN (08:14)
[2021-09-28 08:15] LABS: Bacteria MODERATE /HPF (NEGATIVE); Mucus SLIGHT /HPF (NEGATIVE); WBC >100 /HPF (0-5)
[2021-09-28 08:18] LABS: Appearance TURBID (CLEAR); Bilirubin NEGATIVE (NEGATIVE); Glucose NEGATIVE (NEGATIVE); Ketones NEGATIVE (NEGATIVE); Ph 5.5 (5-6); Protein,Urine Dip 100 (Negative); RBC >101 /HPF (0-2); RBC LARGE Ery/ul (0-5)
[2021-09-28 08:19] LABS: Nitrite NEGATIVE (NEGATIVE); Urine Cultured Indicated? YES; Urobilinogen 0.2 mg/dL (0-1)
[2021-09-28 08:22] LABS: INR 1.13 (0.8-3.0); PROTIME 11.8 SECONDS (9.4-12.5); PTT 27.3 SECONDS (25.1-36.5)
[2021-09-28 08:31] LABS: Dipstick done @ ? MAIN LAB
--- NOTE | 2021-09-28 08:35 | XRAY ---
ONE VIEW CHEST: AP upright portable chest film. COMPARISON: AP upright sitting portable chest film from 09/20/2021. INDICATION: Respiratory distress, hypoxia, tube placement. REPORT: The heart size is unchanged. Endotracheal tube is seen with the tip pointing slightly towards the right about 2.2 cm above the antoine in satisfactory position. NG tube extends into the stomach with the tip pointing toward the left with the distal tip against the lateral wall of the gastric fundus. EKG leads are seen in place. There is no pulmonary vascular congestion and airspace disease within the lower 60% of each lung field. Only the lung apices remain clear. No pneumothorax or pleural fluid is seen. No gross abnormality of the bones is seen. IMPRESSION: 1. Bilateral vascular congestion and airspace disease within the lower 60% of each lung field representing an unfavorable change from 11/20/2021. This could be due to bilateral pneumonia or airspace edema. I see no pleural fluid. 2. Only the lung apices remain clear. 3. Endotracheal tube and NG tube are in satisfactory position, as described above.
[2021-09-28 08:36] LABS: INFLUENZA A NEGATIVE (NEGATIVE); INFLUENZA B NEGATIVE (NEGATIVE); RESPIRATORY SYNCTIAL VIRUS NEGATIVE (Negative)
[2021-09-28 09:26] LABS: SARS-CoV-2 Xpert Express POSITIVE (NEGATIVE)
[2021-09-28] MEDS ORDERED: DECADRON 10MG INJ. ONE (09:27)
[2021-09-28] MEDS ORDERED: DECADRON 10MG INJ. IV ONE (09:27)
[2021-09-28] MEDS ORDERED: Sodium Chloride 0.9% 1000 ML 1,000 ML IV SCH (09:45)
[2021-09-28 10:11] LABS: BAND 2 % (0.0-2.0); Lymphocytes 7 % (24-44); Total Cells Counted 100; Toxic Granulation 2+
[2021-09-28 10:12] LABS: Platelet Estimate NORMAL (NORMAL)
[2021-09-28 10:17] VITALS: BP 93/54; PULSE 96; O2SAT 96
== END 2021-09-28 11:01 | disposition short-term general hospital (02) ==
LOC: ED 06:49
DX: A41.89 Other specified sepsis (principal); U07.1 COVID-19; N39.0 Urinary tract infection, site not specified; R06.03 Acute respiratory distress; R09.02 Hypoxemia; J18.9 Pneumonia, unspecified organism; I95.9 Hypotension, unspecified; R00.0 Tachycardia, unspecified; R50.9 Fever, unspecified; Z79.01 Long term (current) use of anticoagulants; Z79.899 Other long term (current) drug therapy; Z28.310 Unvaccinated for COVID-19; I10 Essential (primary) hypertension
CPT/HCPCS: 0241U; 31500; 36000; 36415; 36600; 51702; 71045; 80053; 81015; 82375; 82803; 83605; 83880; 84484; 85025; 85610; 85730; 87040; 87077; 87086; 87186; 93005; 93041; 94002; 94760; 96360; 96361; 96365; 96367; 96374; 96375; 96376; 99285; J0330; J1100; J2060; J2543; J3010; A9270-GY; J3370